=== PATIENT | female | born 1940 | race Caucasian/White ===

== ENCOUNTER 2018-05-20 10:15 | Outpatient (CLI) | END 2018-05-20 10:16 | disposition home or self-care (01) | LOC: LAB 10:15 | PROVIDERS: ATTEND Internal Medicine Cardiovascular Disease | DX: I50.32 Chronic diastolic (congestive) heart failure (principal); R06.09 Other forms of dyspnea; I25.10 Atherosclerotic heart disease of native coronary artery without angina pectoris; I47.2 Ventricular tachycardia; I50.40 Unspecified combined systolic (congestive) and diastolic (congestive) heart failure; I51.3 Intracardiac thrombosis, not elsewhere classified; I49.5 Sick sinus syndrome; I25.5 Ischemic cardiomyopathy; I49.3 Ventricular premature depolarization; I10 Essential (primary) hypertension; Z95.0 Presence of cardiac pacemaker; Z95.1 Presence of aortocoronary bypass graft | CPT/HCPCS: 36415; 85610 ==

== ENCOUNTER 2018-06-02 10:52 | Emergency (ER) | payer OTHER ==
[2018-06-02 11:13] VITALS: BP 104/64; TEMP 97.6; BMI 24.9
[2018-06-02] MEDS ORDERED: MORPHINE 4 MG/ML SYRINGE IM STA (11:48)
[2018-06-02] MEDS ORDERED: ZOFRAN 4 MG/2 ML IM STA (11:48)
--- NOTE | 2018-06-02 13:01 | ED.PDOC ---
General ED Provider: Dr. VERITO WILL Chief Complaint: Back Pain Stated Complaint: back pain chronic Time Seen by Physician: 11:00 (seen with david at all times ) Information Source: Patient Exam Limitations: No limitations Nursing and Triage Documentation Reviewed and Agree: Yes Does patient meet sepsis criteria?: No If yes, has appropriate treatment been initiated?: No System Inflammatory Response Syndrome: Not Applicable Sepsis Protocol: For patient's 13 years and over: Temp is 96.8 and below OR 101 and greater Pulse >90 BPM Resp >20/minute Acutely Altered Mental Status Are patient's symptoms suggestive of a new infection, such as: -Pneumonia -Skin, Soft Tissue -Endocarditis -UTI -Bone, Joint Infection -Implantable Device -Acute Abdominal Infection -Wound Infection -Meningitis -Blood Stream Catheter Infection -Unknown Musculoskeletal Complaint Exam - Back Pain Complaint/Exam Mechanism of Injury: Reports: No known trauma Onset/Duration: chronic issue flare up today Timing: Constant Episodes Lasting: Days Initial Severity: Moderate Current Severity: Moderate Location: Reports: Discrete Character: Reports: Aching Aggravating: Reports: Movements Alleviating: Reports: Rest Associated Signs and Symptoms: Denies: Swelling, Redness, Bruising, Fever, Weakness, Numbness, Tingling, Abdominal pain, Flank pain, Bladder incontinence, Bowel incontinence, Weight loss, Pain with weight bearing Related History: Reports: Similar episode TAD Risk Factors: Reports: Hypertension AAA Risk Factors: Reports: None, Hypertension Cauda Equina Risk Factors: Reports: None Epidural Abcess Risk Factors: Reports: None Related Surgical History: Reports: None Focal Tenderness: No Paraspinal Muscle Tenderness: No Paraspinal Muscle Spasm: No Scoliosis: No Lordosis: No Kyphosis: No SLR Test: Right Negative, Left Negative Hip Motion Testing Pain: Right Negative, Left Negative Focal Weakness: Present: None Focal Sensory Loss: Present: None Gait: Present: Normal Differential Diagnoses: Arthritis, Strain, Sprain Review of Systems - Review Of Systems Constitutional: Reports: No symptoms Eyes: Reports: No symptoms Ears, Nose, Mouth, Throat: Reports: No symptoms Respiratory: Reports: No symptoms Cardiac: Reports: No symptoms GI: Reports: No symptoms : Reports: No symptoms Musculoskeletal: Reports: Back pain Skin: Reports: No symptoms Neurological: Reports: No symptoms Endocrine: Reports: No symptoms Hematologic/Lymphatic: Reports: No symptoms All Other Systems: Reviewed and Negative Past Medical History - Past Medical History Previously Healthy: Yes Endocrine: Reports: Hypothyroid Cardiovascular: Reports: Hypertension Respiratory: Reports: None Hematological: Reports: None Gastrointestinal: Reports: None Genitourinary: Reports: None Neuro/Psych: Reports: None Musculoskeletal: Reports: None Cancer: Reports: None Last Menstrual Period: unknown - Surgical History General Surgical History: Reports: None - Family History Family History: Reports: None - Social History Smoking Status: Never smoker Hx Substance Use: No Alcohol Screening: None Physical Exam - Physical Exam Appearance: Well-appearing, No pain distress, Well-nourished Eyes: JOSE, EOMI, Conjunctiva clear ENT: Ears normal, Nose normal, Oropharynx normal Respiratory: Airway patent, Breath sounds clear, Breath sounds equal, Respirations nonlabored Cardiovascular: RRR, Pulses normal, No rub, No murmur GI/: Soft, Nontender, No masses, Bowel sounds normal, No Organomegaly Musculoskeletal: Normal strength, ROM intact, No edema, No calf tenderness Skin: Warm, Dry, Normal color Neurological: Sensation intact, Motor intact, Reflexes intact, Cranial nerves intact, Alert, Oriented Psychiatric: Affect appropriate, Mood appropriate Critical Care Note - Critical Care Note Total Time (mins): 0 Course - Course Orders, Labs, Meds: Orders Category Date Time Status Morphine Sulfate [Morphine 2 mg/ml Syringe] MEDS 06/02/18 13:17 Discontinued 2 mg IM ONCE STA Morphine Sulfate [Morphine 4 mg/ml Syringe] MEDS 06/02/18 11:48 Discontinued 4 mg IM ONCE STA Ondansetron HCl/Pf [Zofran 4 mg/2 ml] MEDS 06/02/18 11:48 Discontinued 4 mg IM ONCE STA CT LUMBAR SPINE W/O CONTRAST Stat RADS 06/02/18 11:[address] THORACIC SPINE W/O CONTRAST Stat RADS 06/02/18 11:49 Completed Medications Discontinued Medications Generic Name Dose Route Start Last Admin Trade Name Freq PRN Reason Stop Dose Admin Morphine Sulfate 4 mg 06/02/18 11:48 06/02/18 12:35 Morphine 4 Mg/Ml Syringe IM 06/02/18 11:49 4 mg ONCE STA Administration Morphine Sulfate 2 mg 06/02/18 13:17 06/02/18 13:25 Morphine 2 Mg/Ml Syringe IM 06/02/18 13:18 2 mg ONCE STA Administration Ondansetron HCl 4 mg 06/02/18 11:48 06/02/18 12:38 Zofran 4 Mg/2 Ml IM 06/02/18 11:49 Not Given ONCE STA Vital Signs: Temp Pulse Resp BP Pulse Ox 06/02/18 10:58 97.6 F 80 20 104/64 94 L Departure - Departure Time of Disposition: 14:00 Disposition: HOME SELF-CARE Discharge Problem: Backache Back pain Qualifiers: Back pain location: thoracic back pain Chronicity: chronic Back pain laterality : midline Qualified Code(s): M54.6 - Pain in thoracic spine Instructions: Acute Low Back Pain (ED), Arthralgia (ED), Back Pain (ED) Condition: Stable Pt referred to PMD for follow-up: Yes IPMP verified?: No Additional Instructions: Please call your Family Physician as soon as possible to schedule a follow-up appointment. Prescriptions: Hydrocodone/Acetaminophen [[place] 10-325 Tablet] 1 each PO Q8HR #7 tablet Allergies/Adverse Reactions: Allergies ampicillin Adverse Reaction (Verified 06/02/18 11:57) levofloxacin Adverse Reaction (Verified 06/02/18 11:57) metronidazole Adverse Reaction (Verified 06/02/18 11:57) ondansetron Adverse Reaction (Verified 06/02/18 11:57) oxcarbazepine [From Trileptal] Adverse Reaction (Verified 06/02/18 11:57) piperacillin Adverse Reaction (Verified 06/02/18 11:57) rifaximin Adverse Reaction (Verified 06/02/18 11:57) sulbactam Adverse Reaction (Verified 06/02/18 11:57) Sulfa (Sulfonamide Antibiotics) Adverse Reaction (Verified 06/02/18 11:57) tazobactam Adverse Reaction (Verified 06/02/18 11:57) tramadol Adverse Reaction (Verified 06/02/18 11:57) IV contrast dye Adverse Reaction (Uncoded 06/02/18 11:58) Home Medications: Ambulatory Orders Acetaminophen with Codeine [Acetaminophen-Cod #3 Tablet] 1 each PO BID 06/02/18 Albuterol Sulfate [Proair Hfa] 2 puff IH Q4H PRN 06/02/18 Alprazolam [Xanax] 0.25 mg PO BID PRN 06/02/18 Aspirin [Aspirin Chewable] 81 mg PO DAILY 06/02/18 Atorvastatin Calcium [Lipitor] 40 mg PO DAILY 06/02/18 Cetirizine HCl [Zyrtec] 10 mg PO DAILY 06/02/18 Cholecalciferol (Vitamin D3) [Vitamin D] 1,000 unit PO DAILY 06/02/18 Fluticasone Propionate [Flonase] 2 spray NS DAILY 06/02/18 Furosemide [Lasix] 40 mg PO DAILY 06/02/18 Hydrocodone/Acetaminophen [[place] 10-325 Tablet] 1 each PO Q8HR #7 tablet Isosorbide Mononitrate [Imdur] 30 mg PO DAILY 06/02/18 Isosorbide Mononitrate [Isosorbide Mononitrate ER] 60 mg PO DAILY 06/02/18 L.acidoph,Paracasei, B.lactis [Probiotic] 1 each PO DAILY 06/02/18 Levetiracetam [Keppra] 250 mg PO BID 06/02/18 Levothyroxine Sodium [Synthroid] 75 mcg PO QDAC 06/02/18 Lipase/Protease/Amylase [Creon Dr 6,000 Units Capsule] 6,000 units PO QID Losartan Potassium [Cozaar] 50 mg PO DAILY 06/02/18 Metoclopramide HCl [Reglan] 5 mg PO TID 06/02/18 Metoprolol Succinate [Toprol Xl] 50 mg PO BID 06/02/18 Montelukast Sodium [Singulair] 10 mg PO DAILY 06/02/18 Multivit-Min/FA/Lycopen/Lutein [Centrum Silver Tablet] 1 each PO DAILY 06/02/18 Nitroglycerin [Nitrostat] 0.4 mg SL Q5MIN X 3 DOSES PRN 06/02/18 Omeprazole [Prilosec] 20 mg PO QID 06/02/18 Spironolactone [Aldactone] 12.5 mg PO DAILY 06/02/18 Umeclidinium [place] [Incruse Ellipta] 62.5 mcg IH DAILY 06/02/18 Warfarin Sodium [Coumadin] 1 mg PO DAILY 06/02/18 Disposition Discussed With: Patient
--- NOTE | 2018-06-02 13:02 | CT ---
EXAM: CT lumbar spine without contrast. HISTORY: Lumbar pain COMPARISON: Same day CT thoracic spine TECHNIQUE: Serial axial images of the spine were obtained from the lower thoracic spine through the pelvis without contrast. These were viewed in multiple planes. FINDINGS: Vertebral bodies demonstrate no acute compression fracture or subluxation. There is a comp ression deformity at L1 with prior kyphoplasty/vertebraplasty with minimal extrusion of cement. Ther e is moderate scattered facet arthropathy. There is no lytic or blastic lesion. L1-L2: There is mild retrolisthesis of the compression fracture at L1 with no central narrowing. The re is no central or neural foraminal narrowing. L2-L3: Mild facet arthropathy with no central or neural foraminal narrowing. L3-L4: Mild facet arthropathy with no central or neural foraminal narrowing. L4-L5: Mild facet arthropathy with small broad-based disc bulge with no central or neural foraminal n arrowing. L5-S1: Small broad-based disc bulge and facet arthropathy with no central or neural foraminal narrowi ng. Limited views of the soft tissues are unremarkable. IMPRESSION: 1. Compression fracture and treatment at L1 with mild retrolisthesis but no central narrowing. 2. 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 Please see level by level evaluation above.
--- NOTE | 2018-06-02 13:09 | CT ---
EXAM: CT thoracic spine without contrast. HISTORY: Back pain. COMPARISON: None available. TECHNIQUE: Multiple axial images of the thoracic spine were obtained without intravenous contrast. Images were reformatted in the sagittal and coronal planes. FINDINGS: Exaggerated thoracic kyphosis noted due to mild T6, minimal T7, moderate T8, severe T9, mi ld T10, severe T11, severe T12, and severe L1 compression deformities which demonstrate smooth margin s. There has been cement fixation of L1. No retropulsion identified in the thoracic spine. There i s some retropulsion of L1 which probably flattens ventral thecal sac. No subluxation is seen. No si gnificant bony central canal stenosis identified in the thoracic spine. No acute rib fractures seen. There do appear to be some old right-sided rib fractures. There has be en previous sternotomy. Left-sided electronic cardiac device is partially imaged. Heart is enlarged . Moderate sized hiatal hernia noted. Subsegmental atelectasis noted in the lung base IMPRESSION: Multilevel thoracolumbar compression deformities as described which are probably old.
[2018-06-02] MEDS ORDERED: MORPHINE 2 MG/ML SYRINGE IM STA (13:17)
== END 2018-06-02 13:35 | disposition home or self-care (01) ==
LOC: ED 10:52
DX: M54.6 Pain in thoracic spine (principal); I10 Essential (primary) hypertension; Z79.01 Long term (current) use of anticoagulants; Z79.899 Other long term (current) drug therapy
CPT/HCPCS: 96372; 99283

== ENCOUNTER 2018-06-11 17:28 | Inpatient (IN) | payer OTHER ==
--- NOTE | 2018-06-11 19:04 | ED.PDOC ---
General ED Provider: Dr. LISA BOB-ER Chief Complaint: Back Pain Stated Complaint: my baCk hurts and i cant move and the pain meds arent working Time Seen by Physician: 19:03 Mode of Arrival: Walk-In Information Source: Patient Exam Limitations: No limitations Primary Care Provider: MELISSA HERRERA Nursing and Triage Documentation Reviewed and Agree: Yes Does patient meet sepsis criteria?: No System Inflammatory Response Syndrome: Not Applicable Sepsis Protocol: For patient's 13 years and over: Temp is 96.8 and below OR 101 and greater Pulse >90 BPM Resp >20/minute Acutely Altered Mental Status Are patient's symptoms suggestive of a new infection, such as: -Pneumonia -Skin, Soft Tissue -Endocarditis -UTI -Bone, Joint Infection -Implantable Device -Acute Abdominal Infection -Wound Infection -Meningitis -Blood Stream Catheter Infection -Unknown Musculoskeletal Complaint Exam - Back Pain Complaint/Exam Mechanism of Injury: Reports: Trauma, No known trauma Symptoms Are: Still present Timing: Constant Initial Severity: Mild Current Severity: Moderate Location: Reports: Discrete Character: Reports: Dull, Aching Aggravating: Reports: Movements, Lifting, Bending, Walking Alleviating: Reports: None Associated Signs and Symptoms: Denies: Swelling, Redness, Bruising, Fever, Weakness, Numbness, Tingling, Abdominal pain, Flank pain, Bladder incontinence, Bowel incontinence, Weight loss, Pain with weight bearing Focal Tenderness: Yes Paraspinal Muscle Tenderness: Yes Paraspinal Muscle Spasm: No Scoliosis: No Lordosis: No Kyphosis: No SLR Test: Right Negative, Left Negative Hip Motion Testing Pain: Right Negative, Left Negative Focal Weakness: Present: None Focal Sensory Loss: Present: None Gait: Present: Normal Differential Diagnoses: Fracture, Herniated Disk, Strain, Sprain Review of Systems - Review Of Systems Constitutional: Reports: No symptoms Eyes: Reports: No symptoms Ears, Nose, Mouth, Throat: Reports: No symptoms Respiratory: Reports: No symptoms Cardiac: Reports: No symptoms GI: Reports: No symptoms : Reports: No symptoms Musculoskeletal: Reports: Back pain Skin: Reports: No symptoms Neurological: Reports: No symptoms Endocrine: Reports: No symptoms Hematologic/Lymphatic: Reports: No symptoms All Other Systems: Reviewed and Negative Past Medical History - Past Medical History Previously Healthy: Yes Endocrine: Reports: Hypothyroid Cardiovascular: Reports: Hypertension Respiratory: Reports: None Hematological: Reports: None Gastrointestinal: Reports: None Genitourinary: Reports: None Neuro/Psych: Reports: None Musculoskeletal: Reports: None Cancer: Reports: None Last Menstrual Period: hysterectomy - Surgical History General Surgical History: Reports: None - Family History Family History: Reports: None - Social History Smoking Status: Never smoker Hx Substance Use: No Alcohol Screening: None Physical Exam - Physical Exam Appearance: Well-appearing, No pain distress, Well-nourished Pain Distress: Moderate Eyes: JOSE, EOMI, Conjunctiva clear ENT: Ears normal, Nose normal, Oropharynx normal Neck: Supple Respiratory: Airway patent, Breath sounds clear, Breath sounds equal, Respirations nonlabored Cardiovascular: RRR, Pulses normal, No rub, No murmur GI/: Soft, Nontender, No masses, Bowel sounds normal, No Organomegaly Musculoskeletal: Limited ROM Skin: Warm, Dry, Normal color Neurological: Sensation intact Psychiatric: Affect appropriate, Mood appropriate Interpretation - Radiology Interpretation Radiology Interpretation By: Radiologist Radiology Results: Positive Exam Interpreted: CT Scan Physician Notification - Case Discussed Physician Notified: dr herrera Time of Notification: 19:56 Critical Care Note - Critical Care Note Total Time (mins): 0 Course - Course Hematology/Chemistry: 06/11/18 18:48 06/11/18 18:48 Orders, Labs, Meds: Lab Review 06/11/18 06/11/18 06/11/18 18:32 18:48 18:48 WBC 6.09 RBC 3.59 L Hgb 10.9 L Hct 32.0 L MCV 89.1 MCH 30.4 MCHC 34.1 RDW Coeff of [place] 12.5 Plt Count 229 Immature Gran % (Auto) 0.3 Neut % (Auto) 67.2 Lymph % (Auto) 17.1 [place] % (Auto) 13.8 H Eos % (Auto) 1.3 Baso % (Auto) 0.3 Immature Gran # (Auto) 0.0 Neut # (Auto) 4.1 Lymph # (Auto) 1.0 [place] # (Auto) 0.8 Eos # (Auto) 0.1 Baso # (Auto) 0.0 Sodium 132.0 L Potassium 3.70 Chloride 95.1 L Carbon Dioxide 32.1 H Anion Gap 8.50 BUN 13.8 Creatinine 1.14 Estimated GFR (MDRD) 46.00 BUN/Creatinine Ratio 12.10 Glucose 117.6 H Calcium 9.19 Total Bilirubin 0.36 AST 52.6 H ALT 13.3 Alkaline Phosphatase 80.1 Total Protein 7.56 Albumin 4.05 Globulin 3.51 Albumin/Globulin Ratio 1.15 Urine Color Yellow Urine Clarity Clear Urine pH 6.0 Ur Specific [place] 1.020 Urine Protein Negative Urine Glucose (UA) Negative Urine Ketones Negative Urine Blood Trace-intact Urine Nitrite Negative Urine Bilirubin Negative Urine Urobilinogen 0.2 Ur Leukocyte Esterase 3+ Urine Microscopic RBC 2-5 Urine Microscopic WBC 20-30 Ur Squamous Epith Cells 5-10 Urine Bacteria Trace Orders Category Date Time Status EKG-(ED ONLY) Stat CARDIO 06/11/18 18:33 Completed CBC W/ AUTO DIFF Stat LAB 06/11/18 18:48 Completed COMPREHENSIVE METABOLIC PANEL Stat LAB 06/11/18 18:48 Completed UA [URINALYSIS C & S IF INDICATED] Stat LAB 06/11/18 18:32 Completed URINE CULTURE Stat LAB 06/11/18 18:[address] CHEST W/O CONTRAST Stat RADS 06/11/18 18:[address] THORACIC SPINE W/O CONTRAST Stat RADS 06/11/18 18:33 Completed Vital Signs: Temp Pulse Resp BP Pulse Ox 06/11/18 17:29 98.3 F 70 16 148/80 H 95 Departure - Departure Time of Disposition: 19:56 Disposition: ADMITTED INPATIENT Discharge Problem: Thoracic compression fracture Qualifiers: Encounter type: initial encounter Fracture type: closed Qualified Code(s): S22.000A - Wedge compression fracture of unspecified thoracic vertebra, initial encounter for closed fracture Instructions: Vertebral Compression Fracture (ED) Condition: Stable Pt referred to PMD for follow-up: Yes IPMP verified?: No Allergies/Adverse Reactions: Allergies ampicillin Adverse Reaction (Verified 06/11/18 17:44) levofloxacin Adverse Reaction (Verified 06/11/18 17:44) metronidazole Adverse Reaction (Verified 06/11/18 17:44) ondansetron Adverse Reaction (Verified 06/11/18 17:44) oxcarbazepine [From Trileptal] Adverse Reaction (Verified 06/11/18 17:44) piperacillin Adverse Reaction (Verified 06/11/18 17:44) rifaximin Adverse Reaction (Verified 06/11/18 17:44) sulbactam Adverse Reaction (Verified 06/11/18 17:44) Sulfa (Sulfonamide Antibiotics) Adverse Reaction (Verified 06/11/18 17:44) tazobactam Adverse Reaction (Verified 06/11/18 17:44) tramadol Adverse Reaction (Verified 06/11/18 17:44) IV contrast dye Adverse Reaction (Uncoded 06/02/18 11:58) Home Medications: Ambulatory Orders Acetaminophen with Codeine [Acetaminophen-Cod #3 Tablet] 1 each PO BID 06/02/18 Albuterol Sulfate [Proair Hfa] 2 puff IH Q4H PRN 06/02/18 Alprazolam [Xanax] 0.25 mg PO BID PRN 06/02/18 Aspirin [Aspirin Chewable] 81 mg PO DAILY 06/02/18 Atorvastatin Calcium [Lipitor] 40 mg PO DAILY 06/02/18 Cetirizine HCl [Zyrtec] 10 mg PO DAILY 06/02/18 Cholecalciferol (Vitamin D3) [Vitamin D] 1,000 unit PO DAILY 06/02/18 Fluticasone Propionate [Flonase] 2 spray NS DAILY 06/02/18 Furosemide [Lasix] 40 mg PO DAILY 06/02/18 Isosorbide Mononitrate [Imdur] 30 mg PO DAILY 06/02/18 Isosorbide Mononitrate [Isosorbide Mononitrate ER] 60 mg PO DAILY 06/02/18 L.acidoph,Paracasei, B.lactis [Probiotic] 1 each PO DAILY 06/02/18 Levetiracetam [Keppra] 250 mg PO BID 06/02/18 Levothyroxine Sodium [Synthroid] 75 mcg PO QDAC 06/02/18 Lipase/Protease/Amylase [Creon Dr 6,000 Units Capsule] 6,000 units PO QID Losartan Potassium [Cozaar] 50 mg PO DAILY 06/02/18 Metoclopramide HCl [Reglan] 5 mg PO TID 06/02/18 Metoprolol Succinate [Toprol Xl] 50 mg PO BID 06/02/18 Montelukast Sodium [Singulair] 10 mg PO DAILY 06/02/18 Multivit-Min/FA/Lycopen/Lutein [Centrum Silver Tablet] 1 each PO DAILY 06/02/18 Nitroglycerin [Nitrostat] 0.4 mg SL Q5MIN X 3 DOSES PRN 06/02/18 Omeprazole [Prilosec] 20 mg PO QID 06/02/18 Spironolactone [Aldactone] 12.5 mg PO DAILY 06/02/18 Umeclidinium [place] [Incruse Ellipta] 62.5 mcg IH DAILY 06/02/18 Warfarin Sodium [Coumadin] 1 mg PO DAILY 06/02/18 Hydrocodone Bit/Acetaminophen [[place] 5-325] 1 each PO BID 06/11/18 Transfer Form Completed: No Disposition Discussed With: Patient, Family
--- NOTE | 2018-06-11 19:47 | CT ---
EXAM: CT thoracic spine without intravenous contrast 06/11/2018. Sagittal and coronal reformatted i mages obtained HISTORY: Back pain COMPARISON: 06/02/2018 FINDINGS: There has been previous cement fixation at the level of L1. Compression fractures are pre sent at T12, T11, T10, T9, T8, T7 and T6. The T6 compression fracture has worsened as compared to the prior study. There is up to approximatel y 50% loss of vertebral body height within the central aspect of T6. The remaining thoracic fractures appears similar in configuration as compared to the prior study. IMPRESSION: 1. Acute on chronic T6 fracture. Compression fracture has worsened as compared to the prior study. 2. Stable appearing compression fractures at the levels of T7-T12. 3. Prior cement fixation at the level of L1.
--- NOTE | 2018-06-11 19:48 | CT ---
EXAM: CT chest without contrast HISTORY: Rib pain COMPARISON: CT thoracic spine 06/02/2018 TECHNIQUE: CT chest performed without intravenous contrast. Coronal and sagittal reformatted images obtained. FINDINGS: Thoracic inlet unremarkable. Heart mildly enlarged. Cardiac pacer. Post CABG changes. Aorta normal in caliber. Mild atherosclerosis. Moderate hiatal hernia. Evaluation for lymphadenopa thy limited without contrast. No lymphadenopathy identified. Patient status post cholecystectomy. Granulomatous calcification in the spleen. Visualized portion upper abdomen demonstrates no acute ab normality. There is kyphoplasty at L1. There are compression fractures of T6, T7, T7, T8, T9, T10, T11, T12 that are grossly unchanged. Mild retropulsion L1 causing mild central canal narrowing is gr ossly unchanged. Median sternotomy wires. Nonspecific sclerosis right lateral eighth rib eighth an d ninth ribs that may be due to old trauma. Fracture of the left posterior 11th rib with callus form ation, likely may be subacute or chronic. Central airway patent. . No pleural effusion or pneumotho rax. Right basilar atelectasis and/or consolidation. Mild left basilar atelectasis. IMPRESSION: 1. Right basilar atelectasis and/or pneumonia. Mild left basilar atelectasis. 2. Cardiomegaly. Cardiac pacer. Post CABG changes. 3. Moderate hiatal hernia 4. Kyphoplasty L1. Multilevel compression fractures are grossly unchanged from 06/02/2018. 5. Nonspecific sclerosis right lateral eighth rib eighth and ninth ribs that may be due to old trauma . Fracture of the left posterior 11th rib with callus formation, likely may be subacute or chronic.
[2018-06-11] MEDS ORDERED: XANAX PO PRN (20:00)
[2018-06-11] MEDS ORDERED: PROAIR HFA IH PRN (20:00)
[2018-06-11] MEDS ORDERED: NITROSTAT SL PRN (20:00)
[2018-06-11] MEDS ORDERED: [UNRECOGNIZED DRUG - OTHER] PO SCH (21:00)
[2018-06-11] MEDS ORDERED: PROTEASE PO SCH (21:00)
[2018-06-11] MEDS ORDERED: NORCO 5-325 PO SCH (21:00)
[2018-06-11] MEDS ORDERED: METOCLOPRAMIDE HCL 5 MG PO SCH (21:00)
[2018-06-11] MEDS ORDERED: AMYLASE PO SCH (21:00)
[2018-06-11] MEDS ORDERED: PRILOSEC PO SCH (21:00)
[2018-06-11] MEDS ORDERED: LEVETIRACETAM 250 MG PO SCH (21:00)
[2018-06-11] MEDS ORDERED: TYLENOL #3 TAB PO SCH (21:00)
[2018-06-11] MEDS ORDERED: LIPASE PO SCH (21:00)
[2018-06-11 22:28] VITALS: BMI 22.4
[2018-06-11] MEDS ORDERED: PRILOSEC ONE (22:41)
[2018-06-11] MEDS ORDERED: KEPPRA ONE (22:43)
[2018-06-11] MEDS ORDERED: CREON DR 12,000 UNITS CAPSULE ONE (22:44)
[2018-06-11] MEDS: REGLAN ONE ×2 (22:50→23:11)
[2018-06-11] MEDS: TOPROL XL PO SCH (22:50)
[2018-06-11] MEDS: MORPHINE 2 MG/ML SYRINGE IVP PRN (22:52)
[2018-06-12] MEDS: MORPHINE 2 MG/ML SYRINGE IVP PRN (03:21)
[2018-06-12] MEDS ORDERED: SYNTHROID ONE ×2 (06:16)
[2018-06-12] MEDS: SYNTHROID PO SCH (06:18)
[2018-06-12] MEDS ORDERED: NORCO 5-325 PO PRN (07:53)
[2018-06-12] MEDS ORDERED: TYLENOL #3 TAB PO PRN (07:53)
[2018-06-12] MEDS: VITAMIN D PO SCH (08:39)
[2018-06-12] MEDS: ALDACTONE PO SCH (08:40)
[2018-06-12] MEDS: SINGULAIR PO SCH (08:41)
[2018-06-12] MEDS: LASIX TAB PO SCH (08:41)
[2018-06-12] MEDS: PRILOSEC PO SCH ×2 (08:41→16:02)
[2018-06-12] MEDS: ASPIRIN CHEWABLE PO SCH (08:41)
[2018-06-12] MEDS: FLORASTOR PO SCH (08:41)
[2018-06-12] MEDS: LIPITOR PO SCH (08:41)
[2018-06-12] MEDS: COZAAR PO SCH (08:42)
[2018-06-12] MEDS: AMYLASE PO SCH ×4 (08:42→20:23)
[2018-06-12] MEDS: PROTEASE PO SCH ×4 (08:42→20:23)
[2018-06-12] MEDS: [UNRECOGNIZED DRUG - OTHER] PO SCH ×4 (08:42→20:23)
[2018-06-12] MEDS: KEPPRA PO SCH ×2 (08:42→20:23)
[2018-06-12] MEDS: IMDUR PO SCH (08:42)
[2018-06-12] MEDS: LIPASE PO SCH ×4 (08:42→20:23)
[2018-06-12] MEDS: NON-FORMULARY MEDICATION (Umeclidinium Bromide [Incruse Ellipta] 62.5 MCG) IH SCH (08:43)
[2018-06-12] MEDS: REGLAN PO SCH ×3 (08:55→16:45)
[2018-06-12] MEDS: MULTIVITAMIN TABLET PO SCH (08:55)
[2018-06-12] MEDS ORDERED: IMDUR PO SCH ×2 (09:00)
[2018-06-12] MEDS ORDERED: NON-FORMULARY MEDICATION (Multivit-Min/Fa/Lycopen/Lutein [Centrum Silver Tablet] 1 EACH) PO SCH (09:00)
[2018-06-12] MEDS ORDERED: LASIX TAB PO SCH (09:00)
[2018-06-12] MEDS ORDERED: NON-FORMULARY MEDICATION (Atorvastatin Calcium [Lipitor] 40 MG) PO SCH (09:00)
[2018-06-12] MEDS ORDERED: COUMADIN PO SCH (09:00)
[2018-06-12] MEDS ORDERED: COZAAR PO SCH (09:00)
[2018-06-12] MEDS ORDERED: NON-FORMULARY MEDICATION (L.Acidoph,Paracasei, B.Lactis [Probiotic] 1 EACH) PO SCH (09:00)
[2018-06-12] MEDS ORDERED: NON-FORMULARY MEDICATION (Isosorbide Mononitrate [Isosorbide Mononitrate Er] 60 MG) PO SCH (09:00)
[2018-06-12] MEDS: TOPROL XL PO SCH ×2 (09:44→10:11)
[2018-06-12] MEDS: TORADOL IVP SCH ×2 (13:20→20:22)
[2018-06-12] MEDS: TYLENOL #3 TAB PO PRN (16:00)
[2018-06-12] MEDS: COUMADIN PO SCH (16:02)
[2018-06-13] MEDS: TYLENOL #3 TAB PO PRN ×4 (03:07→22:49)
[2018-06-13] MEDS: TORADOL IVP SCH ×3 (05:43→20:27)
[2018-06-13] MEDS: LASIX TAB PO SCH (05:44)
[2018-06-13] MEDS: PRILOSEC PO SCH ×2 (05:44→16:44)
[2018-06-13] MEDS: REGLAN PO SCH ×3 (05:44→16:43)
[2018-06-13] MEDS: SYNTHROID PO SCH (05:44)
[2018-06-13] MEDS: ALDACTONE PO SCH (10:15)
[2018-06-13] MEDS: ASPIRIN CHEWABLE PO SCH (10:16)
[2018-06-13] MEDS: KEPPRA PO SCH ×2 (10:16→20:24)
[2018-06-13] MEDS: COZAAR PO SCH (10:16)
[2018-06-13] MEDS: TOPROL XL PO SCH (10:16)
[2018-06-13] MEDS: LIPITOR PO SCH (10:16)
[2018-06-13] MEDS: SINGULAIR PO SCH (10:16)
[2018-06-13] MEDS: FLORASTOR PO SCH (10:17)
[2018-06-13] MEDS: AMYLASE PO SCH ×4 (10:17→20:25)
[2018-06-13] MEDS: MULTIVITAMIN TABLET PO SCH (10:17)
[2018-06-13] MEDS: PROTEASE PO SCH ×4 (10:17→20:25)
[2018-06-13] MEDS: VITAMIN D PO SCH (10:17)
[2018-06-13] MEDS: [UNRECOGNIZED DRUG - OTHER] PO SCH ×4 (10:17→20:25)
[2018-06-13] MEDS: LIPASE PO SCH ×4 (10:17→20:25)
[2018-06-13] MEDS: IMDUR PO SCH (10:17)
[2018-06-13] MEDS: NON-FORMULARY MEDICATION (Umeclidinium Bromide [Incruse Ellipta] 62.5 MCG) IH SCH (10:18)
[2018-06-13] MEDS ORDERED: LOVENOX SUBCUT STA (11:56)
[2018-06-13] MEDS: COUMADIN PO SCH (16:44)
[2018-06-13] MEDS ORDERED: COUMADIN PO ONE (17:00)
[2018-06-14] MEDS: TORADOL IVP SCH ×3 (04:11→20:12)
[2018-06-14] MEDS: LASIX TAB PO SCH (06:30)
[2018-06-14] MEDS: SYNTHROID PO SCH (06:30)
[2018-06-14] MEDS: REGLAN PO SCH (06:31)
[2018-06-14] MEDS: PRILOSEC PO SCH ×2 (06:31→17:14)
[2018-06-14] MEDS: TYLENOL #3 TAB PO PRN ×2 (08:03→17:13)
[2018-06-14] MEDS ORDERED: DECADRON 4 MG/ML SDV IM STA (08:13)
[2018-06-14] MEDS ORDERED: REGLAN PO PRN (08:14)
--- NOTE | 2018-06-14 09:33 | PCM.PROG ---
Attending Provider: ATTENDING PROVIDER: Dr. MELISSA HERRERA This patient is seen with Charmaine Toussaint, Nurse Practitioner. DATE OF SERVICE: 06/14/18 SUBJECTIVE: This 78 year old WHITE/ F was hospitalized 06/11/18. The patient is lying in bed, alert. She is still complaining of back pain, which is slightly better. She has history of compression fractures, history of fracture and kyphoplasty. The patient is new to the area. Will plan on referring her to neurosurgery for worsening symptoms. The patient states that Tylenol 3 controls her pain more than [place]. REVIEW OF SYSTEMS: CONSTITUTIONAL: No night sweats. No fatigue, malaise, lethargy. No fever or chills. HEENT: Eyes: No visual changes. No eye pain. No eye discharge. ENT: No runny nose. No epistaxis. No sinus pain. No odynophagia. No congestion. RESPIRATORY: No cough, no congestion. No hemoptysis. No shortness of breath. CARDIOVASCULAR: No angina symptoms. No CHF symptoms. No atypical chest pain for CAD. No palpitations. No orthopnea.. GASTROINTESTINAL: No abdominal pain. No nausea or vomiting. No diarrhea or constipation. No hematemesis. No hematochezia. GENITOURINARY: No urgency. No frequency. No dysuria. No hematuria. No obstructive symptoms. No discharge. No pain. No significant abnormal bleeding. MUSCULOSKELETAL: Back pain. NEUROLOGICAL: Awake, alert, oriented to time, place and person. No headache. No neck pain. No syncope. No seizures. No dizziness. PSYCHIATRIC: Not anxious. No depression. No suicidal thoughts. No homicidal thoughts. SKIN: No rash. No lesions. No wounds. ENDOCRINE: No unexplained weight loss. No weight gain. HEMATOLOGIC/LYMPHATIC: No anemia. No purpura. No petechiae. No prolonged or excessive bleeding. No palpable lymph nodes. PHYSICAL EXAMINATION: GENERAL: The patient is awake, alert and oriented, lying in bed in no distress. VITAL SIGNS: Temperature 98.9 F, Pulse 78, Respiratory Rate 18, BP 112/72, Pulse Ox 96% HEENT: Head normocephalic, atraumatic. Eyes: Extraocular muscles are intact. Pupils are equal, round and reactive to light and accommodation. Ears: No lesions. Nose appeared normal. Throat: No exudate or erythema. NECK: Supple. No JVD, no carotid bruit. No lymphadenopathy or thyromegaly. LUNGS: Diminished breath sounds. Clear to auscultation. Percussion note normal. Chest symmetrical. HEART: S1, S2, no S3. No murmurs. No cyanosis or clubbing. No ascites. Pulses: Dorsalis pedis and posterior tibial pulses +1 to +2 both sides. ABDOMEN: Soft. Non-tender. Bowel sounds active. No CVA tenderness. No mass felt. EXTREMITIES: No edema. Full range of motion of all extremities, equal. NEUROLOGIC: No focal deficit. Cranial nerves II through XII are grossly intact. No headache, no double vision or headache. SKIN: Not dry. Intact. Turgor-normal. LYMPHATIC: No palpable lymph nodes/no lymphedema. MUSCULOSKELETAL: Normal joints with no swelling. Muscle tone is normal. LAB REVIEW: 06/13/18 04:30 06/13/18 04:30 06/14/18 05:00: PT 17.4 H D, INR 1.77 ASSESSMENT: 1. INTRACTABLE BACK PAIN. 2. MULTILEVEL COMPRESSION FRACTURES. 3. ATRIAL FIBRILLATION. PLAN: 1. Reglan p.r.n. 2. 1 cc Decadron today. 3. Refer to Dr. Ardon/Dr. Adair as outpatient. Plan and coordination of the patient's care discussed in the presence of [employer] and nurse. CONDITION: Stable SCRIBED BY: Keaton PERDOMO scribed while in presence of service performed by Dr. Herrera/Charmaine Toussaint APRN on 06/14/18 ([id number])
[2018-06-14] MEDS ORDERED: IMDUR ONE (09:41)
[2018-06-14] MEDS: AMYLASE PO SCH ×4 (09:50→20:13)
[2018-06-14] MEDS: LIPASE PO SCH ×4 (09:50→20:13)
[2018-06-14] MEDS: [UNRECOGNIZED DRUG - OTHER] PO SCH ×4 (09:50→20:13)
[2018-06-14] MEDS: PROTEASE PO SCH ×4 (09:50→20:13)
[2018-06-14] MEDS: FLORASTOR PO SCH (09:51)
[2018-06-14] MEDS: IMDUR PO SCH (09:52)
[2018-06-14] MEDS: ASPIRIN CHEWABLE PO SCH (09:53)
[2018-06-14] MEDS: SINGULAIR PO SCH (09:53)
[2018-06-14] MEDS: ALDACTONE PO SCH (09:54)
[2018-06-14] MEDS: MULTIVITAMIN TABLET PO SCH (09:55)
[2018-06-14] MEDS: COZAAR PO SCH (09:55)
[2018-06-14] MEDS: KEPPRA PO SCH ×2 (09:56→20:12)
[2018-06-14] MEDS: TOPROL XL PO SCH (09:57)
[2018-06-14] MEDS: VITAMIN D PO SCH (09:57)
[2018-06-14] MEDS ORDERED: LIPITOR ONE (10:04)
[2018-06-14] MEDS: LIPITOR PO SCH (10:06)
[2018-06-14] MEDS: NON-FORMULARY MEDICATION (Umeclidinium Bromide [Incruse Ellipta] 62.5 MCG) IH SCH (10:08)
--- NOTE | 2018-06-14 10:13 | RS.PTINEVL ---
Subjective - Patient information Date of Evaluation: 06/14/18 Date of Arrival on Unit: 06/11/18 Admitted From:: Home Diagnosis: intractable back pain Usual Living Arrangement: [facility] [place] Living Arrangement Comments: Shares apt with dtr at [facility]. Home Environment: Apartment, Level/No stairs Medical History: Arthritis Medical History Comments:: seizures, osteoporosis, anxiety, hypothyroid, GERD, Fx LLE with contracture LATEX ALLERGY?: No Surgical History: CABG Medications: see chart Subjective Information/ Patient Comments:: pt states that she is hurting, states pain is worse with movement. - Level of function Prior to this admission, the patient could do the following:: Independent ADL's , Independent Ambulation Abilities prior to this admission: pt amb with rwx independently Current Level of Function: Independent Current Equipment Used at Home: rolling walker, cane, BSC Pain Assessement - Location upper back pain Description: Aching Intensity: 5 (increases to 8/10 with movement) Pain Behavior: Irritability, Facial Grimacing Pain Aggravating Factors: ADL's, Changing Position, Exercise/Activity, Standing , Sitting, Walking Pain Alleviating Factors: Ice, Medication Interventions - Objective Patient Orientation: Person, Place, Time, Situation Current Interventions: IV's Range of Motion - ROM Right Upper Extremity AROM: WFL's Left Upper Extremity AROM: WFL's Right Lower Extremity AROM: WFL's Left Lower Extremity AROM: WFL's Muscle Strength - Muscle Strength Right Upper Extremity Strength: Mild Weakness (difficult to MMT due to pain, atleast 3/5) Left Upper Extremity Strength: Mild Weakness (hip flex 4-/5, knee flex/ext 4-/5 , ankle DF/PF 4/5) Right Lower Extremity Strength: Mild Weakness (grossly 4-/5) Left Lower Extremity Strength: Mild Weakness (hip flex) Sensation - Sensation Right Upper Extremity Sensation: Intact/Normal Left Upper Extremity Sensation: Intact/Normal Right Lower Extremity Sensation: Intact/Normal Left Lower Extremity Sensation: Intact/Normal Palpation Palpation Findings: Tenderness, Muscle Guarding Comments:: tenderness and muscle guarding noted in R side of ribs. Balance - Sitting Balance and Reactions Static Sitting Balance: Good Dynamic Sitting Balance: Good - Standing Balance and Reactions Static Standing Balance: Fair Dynamic Standing Balance: Poor Standing Equilibrium Reactions: Delayed Left, Delayed Right Standing Protective Reactions: Delayed Left, Delayed Right Functional Mobility - Bed Mobility Rolling R/L: CGA Scooting: Min Assist Supine to Sit: CGA Sit to Supine: Min Assist - Transfers Sit to Stand: CGA Stand to Sit: CGA - Safety Awareness Safety Awareness: Good PAKNAJ INDEX SCORE: n/a Ambulation - Ambulation Assistive Device Used: Rolling Walker Orthotic/Prosthetic Device: No Distance: 40ft Assistance needed with Ambulation: CGA Gait Deviations: Narrow Based gait, Forward posture, Short stride Ambulation Comments: pt requires verbal cues for posture and step length Treatment time - Time with patient Length of Evaluation: 24 Total treatment time: 26 Patient Education - Education Patient Education: Activity Modification, Education of Plan of Care Teaching Recipient: Patient Teaching Methods: Discussion Comments: discussion and POC regarding POC as well positioning for pain relief Assessment - Assessment Problem List:: Decreased level of function, Requires training/education, Decreased safety/Risk of falls, Weakness, Pain limits previous level of function Rehab Potential: Good Further Therapy Indicated?: Yes Candidate for Swing Bed for Therapy Services?: pt may be a candidate for swing bed . Evaluation Complexity: HISTORY: Medium (OA, osteoporosis, anxiety, thor com fx) , EXAM OF BODY SYSTEMS: Medium (pain, transfers, bed mobility, gait), CLINICAL PRESENTATION: Medium (evolving), CLINICAL DECISION MAKING: Medium Short Term Goals GOAL #1: pt demonstrate independence with rolling and scooting up in bed. Goal to be met by: 06/16/18 GOAL #2: pt trasnfer sup to/from sit SBA sit to/from stand CGA Goal to be met by: 06/16/18 GOAL #3: pt amb with rwx 100ft with CGA improved posture and no LOB Goal to be met by: 06/16/18 GOAL #4: pt rate pain <5/10 Goal to be met by: 06/16/18 Saw Superintendent Goals GOAL #1: pt transfer sup to/from sit independently sit to/from stand SBA Goal to be met by: 06/19/18 GOAL #2: pt amb functional household distance with rwx with SBA with no LOB Goal to be met by: 06/19/18 GOAL #3: Improve dyn stand balance fair + with rwx Goal to be met by: 06/19/18 Plan Plan of Care: Therapeutic EX, Therapeutic Activity Modalities: Cold Pack/Cryotherapy Other:: gait training Frequency of Treatment: 1-2 X day, as tolerated Duration of Treatment: 6 days Anticipated Discharge Destination: [place] Treatment Diagnosis (ICD 10 Codes): R26.2 difficulty walking. R 26.81 balance impaired. M 62.81 weakness Has the Physician been added for Co-signature?: Yes
--- NOTE | 2018-06-14 11:38 | RS.OTINEVL ---
Subjective - Patient information Date of Evaluation: 06/14/18 Date of Arrival on Unit: 06/11/18 Admitted From:: Home Usual Living Arrangement: [facility] Living Arrangement Comments: Shares apt with dtr at [place]. Home Environment: Apartment, Level/No stairs Medical History: Arthritis Medical History Comments:: seizures, osteoporosis, anxiety, hypothyroid, GERD, Fx LLE with contracture LATEX ALLERGY?: No Surgical History: CABG Medications: see chart Subjective Information/ Patient Comments:: "I have been to the bathroom this morning." "I have eaten alot for me." - Level of function Prior to this admission, the patient could do the following:: Independent ADL's , Independent Ambulation Abilities prior to this admission: Pt walked with a RW and was helping her daughter take care of herself. Pt is living at [facility] which is independent living. Pt was independent with all ADLS prior to admission. Current Level of Function: Independent Current Equipment Used at Home: rolling walker, cane, BSC Pain Assessment - Pain Pain Score: 5 Side: bilateral Pain Location Body Site: Back Pain Aggravating Factors: ADL's, Changing Position, Exercise/Activity, Standing , Walking Pain Alleviating Factors: Ice, Medication, Position Change, Sitting, Standing, Lying Supine Interventions - Objective Patient Orientation: Person, Place, Time, Situation Current Interventions: IV's, Oxygen Observation: Pt is in 8/10 pain when moving and walking. Interventions - ROM Right Upper Extremity AROM: Slight limitation Left Upper Extremity AROM: Slight limitation - Strength Right Upper Extremity Strength: Mild Weakness Left Upper Extremity Strength: Mild Weakness - Sensation Right Upper Extremity Sensation: Intact/Normal Left Upper Extremity Sensation: Intact/Normal Balance - Sitting Balance Static Sitting Balance: Good Dynamic Sitting Balance: Good - Standing Balance Static Standing Balance: Fair Dynamic Standing Balance: Fair - Comments Balance Assessment Comments: Fair ADL Skills - Self Feeding Self Feeding: Independent - Grooming Grooming: Supervision - Bathing Bathing UE: CGA Bathing LE: CGA - Dressing Dressing UE: Min Assist Dressing LE: Min Assist - Toilet Management Toileting Management: CGA Functional Mobility - Bed Mobility Rolling R/L: CGA Scooting: CGA Supine to Sit: CGA Sit to Supine: CGA - Transfers Sit to Stand: CGA Stand to Sit: CGA Stand Pivot Transfers: CGA - Ambulation Weight Bearing Status: FWB Assistive Device Used: Rolling Walker Assistance needed with Ambulation: CGA - Safety Awareness Safety Awareness: Good PANKAJ INDEX SCORE: . Additional Treatment Performed - Time with patient Length of Evaluation: 25 Total treatment time: 25 Activities Do you enjoy playing games?: Yes Would you be interested in leaving your room for activities?: Yes Would you enjoy group activities?: Yes Do you have difficulty with your vision?: Yes Patient Interests:: Watching Television, Puzzles/Games, Visiting/Socializing Patient Education Patient Education: Education of diagnosis, Home Exercise Program, Education of Plan of Care Teaching Recipient: Patient Teaching Methods: Discussion Assessment Problem List:: Decreased level of function Rehab Potential: Good Candidate for Swing Bed for Therapy Services?: yes Evaluation Complexity: HISTORY: Medium, EXAM OF BODY SYSTEMS: Medium, CLINICAL DECISION MAKING: Medium Short Term Goals - Goals GOAL 1: Pt to increase I sit to stand to SUP. Goal to be met by: 06/18/18 GOAL 2: Pt to increase dyn. std. bal. to Fair+. Goal to be met by: 06/18/18 GOAL 3: Pt to increase activity tolerance to 15 minutes for ADLS. Goal to be met by: 06/18/18 Residential Goals GOAL 1: Pt to increase I sit to stand to Mod-I. Goal to be met by: 06/23/18 GOAL 2: Pt to increase dyn. std. bal. to Good-. Goal to be met by: 06/23/18 GOAL 3: Pt to increase activity tolerance to 20 minutes for ADLS. Goal to be met by: 06/23/18 Plan Plan of Care: Therapeutic EX, Neuromuscular Re-Educ, Therapeutic Activity, Self- Care/Home Management Modalities: Cold Pack/Cryotherapy Frequency of Treatment: 1-2 X day, as tolerated Duration of Treatment: 2 Weeks Anticipated Discharge Destination: Home Treatment Diagnosis (ICD 10 Codes): Muscle Weakness M62.81, Z74.1 Need for assistance with personal care, Z74.0 Reduced mobility. Has the Physician been added for Co-signature?: Yes
--- NOTE | 2018-06-14 13:54 | PN ---
DATE OF SERVICE: 06/12/18 SUBJECTIVE: 78-year-old white female hospitalized with intractable back pain. The patient has T6 compression fracture to be new. The patient's neurological status is normal. She is moving all of her extremities. She is oriented to time, place and person, intelligent. Discussing politics appropriately. REVIEW OF SYSTEMS: CONSTITUTIONAL: No night sweats. No fatigue, malaise, lethargy. No fever or chills. HEENT: Eyes: No visual changes. No eye pain. No eye discharge. ENT: No runny nose. No epistaxis. No sinus pain. No sore throat. No odynophagia. No congestion. RESPIRATORY: No cough, no congestion. No hemoptysis. No shortness of breath. CARDIOVASCULAR: No angina symptoms. No CHF symptoms. No atypical chest pain for CAD. No palpitations. No orthopnea. GASTROINTESTINAL: No abdominal pain. No nausea or vomiting. No diarrhea or constipation. No hematemesis. No hematochezia. GENITOURINARY: No urgency. No frequency. No dysuria. No hematuria. No obstructive symptoms. No discharge. No pain. No significant abnormal bleeding. MUSCULOSKELETAL: Back pain. NEUROLOGICAL: No headache. No neck pain. No syncope. No seizures. No dizziness. PSYCHIATRIC: Not anxious. No depression. No suicidal thoughts. No homicidal thoughts. SKIN: No rash. No lesions. No wounds. ENDOCRINE: No unexplained weight loss. No weight gain. HEMATOLOGIC/LYMPHATIC: No anemia. No purpura. No petechiae. No prolonged or excessive bleeding. No palpable lymph nodes. PHYSICAL EXAMINATION: GENERAL: The patient is oriented to time, place and person. VITAL SIGNS: Temperature 98.9, pulse 80, respiratory rate 18, BP 126/84, pulse ox 95%. HEENT: Head normocephalic, atraumatic. Eyes: Extraocular muscles are intact. Pupils are equal, round and reactive to light and accommodation. Ears: No lesions. Nose appeared normal. Throat: No exudate or erythema. NECK: Supple. No JVD, no carotid bruit. No lymphadenopathy or thyromegaly. LUNGS: Decreased breath sounds. Clear to auscultation. Percussion note normal. Chest symmetrical. HEART: S1, S2, no S3. No murmurs. No cyanosis or clubbing. No ascites. Pulses: Dorsalis pedis and posterior tibial pulses +1 to +2 both sides. ABDOMEN: Soft. Nontender. Bowel sounds active. No CVA tenderness. No mass felt. EXTREMITIES: No edema. Full range of motion of all extremities, equal. Spine is nontender except for in the mid thoracic area, mild tenderness. NEUROLOGIC: No focal deficit. Cranial nerves II through XII are grossly intact. No headache, no double vision or headache. SKIN: Not dry. Intact. Turgor - normal. LYMPHATIC: No palpable lymph nodes/no lymphedema. MUSCULOSKELETAL: Normal joints with no swelling. Muscle tone is normal. LABS: CBC 10.7, hematocrit 31, WBC 6,100, normal differential. Creatinine 0.8, BUN 11 , potassium 3.6. The patient's INR is 0.96. Will have to give some extra Coumadin. She is on 1 mg, will check the dose. CONDITION: Stable. TIME SPENT: More than 30 minutes. Plan and coordination of the patient's care discussed in the presence of nurse. ANN
--- NOTE | 2018-06-14 14:01 | PN ---
DATE OF SERVICE: 06/13/18 SUBJECTIVE: 78-year-old white female hospitalized with intractable back pain. The patient has T6 compression fracture. The patient's history is coronary artery bypass surgery 1999 and 2008. At that time, the patient's LV ejection fraction was 25%. Talk was started about putting defibrillator according to her but later on after 2 to 3 months her ejection fraction was noted to be 60%. This is surprising the patient contributed that improvement to the brain. The patient was at [facility] in [place]. The patient had pacemaker placement in 2009. The patient has been on Coumadin from 2011. The patient had silent [place] and possibility of hole in the heart. Blood clots were found in the heart and ever since then she has been on Coumadin. Today she was put on Lovenox 60 mg one dose and 5 mg extra Coumadin was given. The patient's INR was normal. REVIEW OF SYSTEMS: CONSTITUTIONAL: No night sweats. No fatigue, malaise, lethargy. No fever or chills. HEENT: Eyes: No visual changes. No eye pain. No eye discharge. ENT: No runny nose. No epistaxis. No sinus pain. No sore throat. No odynophagia. No congestion. RESPIRATORY: No cough, no congestion. No hemoptysis. No shortness of breath. CARDIOVASCULAR: No angina symptoms. No CHF symptoms. No atypical chest pain for CAD. No palpitations. No orthopnea. GASTROINTESTINAL: No abdominal pain. No nausea or vomiting. No diarrhea or constipation. No hematemesis. No hematochezia. GENITOURINARY: No urgency. No frequency. No dysuria. No hematuria. No obstructive symptoms. No discharge. No pain. No significant abnormal bleeding. MUSCULOSKELETAL: Mild soreness in the back otherwise feeling better. NEUROLOGICAL: No neurological deficit noted. No headache. No neck pain. No syncope. No seizures. No dizziness. PSYCHIATRIC: Not anxious. No depression. No suicidal thoughts. No homicidal thoughts. SKIN: No rash. No lesions. No wounds. ENDOCRINE: No unexplained weight loss. No weight gain. HEMATOLOGIC/LYMPHATIC: No anemia. No purpura. No petechiae. No prolonged or excessive bleeding. No palpable lymph nodes. PHYSICAL EXAMINATION: VITAL SIGNS: Temperature 98.4, pulse 80, respiratory rate 16, BP 125/80, pulse ox 96%. HEENT: Head normocephalic, atraumatic. Eyes: Extraocular muscles are intact. Pupils are equal, round and reactive to light and accommodation. Ears: No lesions. Nose appeared normal. Throat: No exudate or erythema. NECK: Supple. No JVD, no carotid bruit. No lymphadenopathy or thyromegaly. LUNGS: Clear to auscultation. Percussion note normal. Chest symmetrical. HEART: S1, S2, no S3. No murmurs. No cyanosis or clubbing. No ascites. Pulses: Dorsalis pedis and posterior tibial pulses +1 to +2 both sides. ABDOMEN: Soft. Nontender. Bowel sounds active. No CVA tenderness. No mass felt. EXTREMITIES: Spine mild tenderness in the mid thoracic area. No edema. Full range of motion of all extremities, equal. NEUROLOGIC: No focal deficit. Cranial nerves II through XII are grossly intact. No headache, no double vision or headache. SKIN: Not dry. Intact. Turgor - normal. LYMPHATIC: No palpable lymph nodes/no lymphedema. MUSCULOSKELETAL: Normal joints with no swelling. Muscle tone is normal. ASSESSMENT: 1. T6 compression deformity with the pain which is more or less controlled. Toradol seems to be helping. 2. Cardiovascular status is stable. PLAN: 1. Will do echocardiogram to evaluate left ventricular function. The patient is living in an assisted living with the daughter. CONDITION: Stable. TIME SPENT: More than 30 minutes. Plan and coordination of the patient's care discussed in the presence of nurse. ANN
[2018-06-14] MEDS: COUMADIN PO SCH (17:13)
[2018-06-15] MEDS: TYLENOL #3 TAB PO PRN (00:30)
[2018-06-15] MEDS: TORADOL IVP SCH ×2 (05:13→12:52)
[2018-06-15] MEDS: PRILOSEC PO SCH (05:57)
[2018-06-15] MEDS: LASIX TAB PO SCH (05:58)
[2018-06-15] MEDS: SYNTHROID PO SCH (05:58)
[2018-06-15] MEDS ORDERED: DECADRON 4 MG/ML SDV IM STA (08:14)
[2018-06-15] MEDS ORDERED: COLESTID PO SCH (09:00)
[2018-06-15] MEDS ORDERED: SODIUM CHLORIDE 1,000 ML IV ONE (09:00)
[2018-06-15] MEDS ORDERED: MAXIPIME 2 GM in SODIUM CHLORIDE 100 ML IV SCH (09:00)
[2018-06-15] MEDS: VITAMIN D PO SCH (09:23)
[2018-06-15] MEDS: ALDACTONE PO SCH (09:24)
[2018-06-15] MEDS: FLORASTOR PO SCH (09:24)
[2018-06-15] MEDS: LIPITOR PO SCH (09:26)
[2018-06-15] MEDS: IMDUR PO SCH (09:26)
[2018-06-15] MEDS: COZAAR PO SCH (09:27)
[2018-06-15] MEDS: SINGULAIR PO SCH (09:28)
[2018-06-15] MEDS: TOPROL XL PO SCH (09:28)
[2018-06-15] MEDS: MULTIVITAMIN TABLET PO SCH (09:28)
[2018-06-15] MEDS: KEPPRA PO SCH (09:28)
[2018-06-15] MEDS: NON-FORMULARY MEDICATION (Umeclidinium Bromide [Incruse Ellipta] 62.5 MCG) IH SCH (09:33)
[2018-06-15] MEDS: PROTEASE PO SCH ×2 (09:33→12:52)
[2018-06-15] MEDS: [UNRECOGNIZED DRUG - OTHER] PO SCH ×2 (09:33→12:52)
[2018-06-15] MEDS: AMYLASE PO SCH ×2 (09:33→12:52)
[2018-06-15] MEDS: LIPASE PO SCH ×2 (09:33→12:52)
[2018-06-15] MEDS ORDERED: ASPIRIN CHEWABLE PO SCH (10:16)
--- NOTE | 2018-06-15 11:16 | PCM.PROG ---
Attending Provider: ATTENDING PROVIDER: Dr. MELISSA HERRERA This patient is seen with Charmaine Toussaint, Nurse Practitioner. DATE OF SERVICE: 06/15/18 SUBJECTIVE: This 78 year old WHITE/ F was hospitalized 06/11/18. The patient was lying in bed, resting comfortably. She states she had increased pain yesterday. Urine culture positive for Pseudomonas aeruginosa. She has history of C. diff, has a long list of allergies. Will start probiotics along with antibiotic. REVIEW OF SYSTEMS: CONSTITUTIONAL: Positive for weakness. No night sweats. No malaise, lethargy. No fever or chills. HEENT: Eyes: No visual changes. No eye pain. No eye discharge. ENT: No runny nose. No epistaxis. No sinus pain. No odynophagia. No congestion. RESPIRATORY: No cough, no congestion. No hemoptysis. No shortness of breath. CARDIOVASCULAR: No angina symptoms. No CHF symptoms. No atypical chest pain for CAD. No palpitations. No orthopnea.. GASTROINTESTINAL: No abdominal pain. No nausea or vomiting. No diarrhea or constipation. No hematemesis. No hematochezia. GENITOURINARY: Positive for dysuria. No urgency. No frequency. No hematuria. No obstructive symptoms. No discharge. No pain. No significant abnormal bleeding. MUSCULOSKELETAL: Back pain. NEUROLOGICAL: Awake, alert, oriented to time, place and person. No headache. No neck pain. No syncope. No seizures. No dizziness. PSYCHIATRIC: Not anxious. No depression. No suicidal thoughts. No homicidal thoughts. SKIN: No rash. No lesions. No wounds. ENDOCRINE: No unexplained weight loss. No weight gain. HEMATOLOGIC/LYMPHATIC: No anemia. No purpura. No petechiae. No prolonged or excessive bleeding. No palpable lymph nodes. PHYSICAL EXAMINATION: GENERAL: The patient is awake, alert and oriented, lying in bed in no distress. VITAL SIGNS: Temperature 97.6 F, Pulse 68, Respiratory Rate 16, BP 136/74, Pulse Ox 96% HEENT: Head normocephalic, atraumatic. Eyes: Extraocular muscles are intact. Pupils are equal, round and reactive to light and accommodation. Ears: No lesions. Nose appeared normal. Throat: No exudate or erythema. NECK: Supple. No JVD, no carotid bruit. No lymphadenopathy or thyromegaly. LUNGS: Diminished breath sounds. Clear to auscultation. Percussion note normal. Chest symmetrical. HEART: S1, S2, no S3. No murmurs. No cyanosis or clubbing. No ascites. Pulses: Dorsalis pedis and posterior tibial pulses +1 to +2 both sides. ABDOMEN: Soft. Non-tender. Bowel sounds active. No CVA tenderness. No mass felt. EXTREMITIES: No edema. Full range of motion of all extremities, equal. NEUROLOGIC: No focal deficit. Cranial nerves II through XII are grossly intact. No headache, no double vision or headache. SKIN: Not dry. Intact. Turgor-normal. LYMPHATIC: No palpable lymph nodes/no lymphedema. MUSCULOSKELETAL: Normal joints with no swelling. Muscle tone is normal. LAB REVIEW: 06/15/18 04:50 06/15/18 04:50 06/15/18 04:50: Sodium 125.6 L, Potassium 3.73, Chloride 92.5 L, Carbon Dioxide 27.5, Anion Gap 9.33, BUN 17.3 H, Creatinine 0.96, Estimated GFR (MDRD) 56.00, BUN/Creatinine Ratio 18.02, Glucose 116.8 H, Calcium 8.97, Total Bilirubin 0.30 , AST 29.1, ALT 11.1, Alkaline Phosphatase 83.9, Total Protein 6.49, Albumin 3.47 L, Globulin 3.02, Albumin/Globulin Ratio 1.14 06/15/18 04:50: WBC 9.70, RBC 3.43 L, Hgb 10.4 L, Hct 30.5 L, MCV 88.9, MCH 30.3 , MCHC 34.1, RDW Coeff of Rehana 12.6, Plt Count 228, Immature Gran % (Auto) 0.4, Neut % (Auto) 84.8, Lymph % (Auto) 5.3 L, Stark % (Auto) 9.3, Eos % (Auto) 0.1, Baso % (Auto) 0.1, Immature Gran # (Auto) 0.0, Neut # (Auto) 8.2 H, Lymph # ( Auto) 0.5 L, Stark # (Auto) 0.9, Eos # (Auto) 0.0, Baso # (Auto) 0.0 06/15/18 04:50: PT 36.1 H D, INR 3.75 ASSESSMENT: 1. UTI PSEUDOMONAS AERUGINOSA. 1. INTRACTABLE BACK PAIN. 2. MULTILEVEL COMPRESSION FRACTURES. PLAN: 1. Hold Coumadin today 2. 1 cc Decadron one dose today 3. Colestid b.i.d. 4. Florastor twice a day 5. One liter of NS @ 75 mL/hr 6. Cefepime q.12hr, pharmacy to dose 7. Medical Illustrator to schedule referral appointment with Dr. Ardon or Dr. Adair. Plan and coordination of the patient's care discussed in the presence of Medical Illustrator and nurse. CONDITION: Stable SCRIBED BY: TAHIRA CORONEL Plant Technician scribed while in presence of service performed by Dr. Herrera/Charmaine Toussaint APRN on 06/15/18 ([id number])
[2018-06-15 13:27] VITALS: BP 109/63; TEMP 98.8
--- NOTE | 2018-06-16 09:37 | HP ---
DATE OF SERVICE: 06/11/18 HISTORY OF PRESENT ILLNESS: 78-year-old white female presents to the ER complaining of back pain. She has a history of compression fractures. She recently came to the ER about one week ago and her CT showed no new compression fractures. She had back pain. PAST MEDICAL HISTORY: Dyslipidemia Questionable colon seizures GERD Anxiety Hypothyroidism Chronic back pain Coronary artery disease Hypertension Leg edema Atrial fibrillation Hypothyroidism Leg edema History of blood clot in the heart on Coumadin Ischemic cardiomyopathy PAST SURGICAL HISTORY: Status post pacemaker 2010 CABG times two in 1999 and 2009 Cholecystectomy Appendectomy Hysterectomy REVIEW OF SYSTEMS: CONSTITUTIONAL: No night sweats. No fatigue, malaise, lethargy. No fever or chills. HEENT: Eyes: No visual changes. No eye pain. No eye discharge. ENT: No runny nose. No epistaxis. No sinus pain. No sore throat. No odynophagia. No ear pain. No congestion. RESPIRATORY: No cough, no congestion. No hemoptysis. No shortness of breath. CARDIOVASCULAR: No angina symptoms. No CHF symptoms. No atypical chest pain for CAD. No palpitations. No PND. No orthopnea. GASTROINTESTINAL: No abdominal pain. No nausea or vomiting. No diarrhea or constipation. No hematemesis. No hematochezia. GENITOURINARY: No urgency. No frequency. No dysuria. No hematuria. No obstructive symptoms. No discharge. No pain. No significant abnormal bleeding. MUSCULOSKELETAL: Positive for generalized weakness and back pain. NEUROLOGICAL: No headache. No neck pain. No syncope. No seizures. No dizziness. PSYCHIATRIC: Not anxious. No depression. No suicidal thoughts. No homicidal thoughts. SKIN: No rash. No lesions. No wounds. ENDOCRINE: No unexplained weight loss. No weight gain. HEMATOLOGIC/LYMPHATIC: No anemia. No purpura. No petechiae. No prolonged or excessive bleeding. No palpable lymph nodes. PERSONAL/FAMILY/SOCIAL HISTORY: She is a nonsmoker. No alcohol or ilicit drug use. She and her daughter currently live at assisted living here in [place]. They have recently moved from [place], [place]. MEDICATIONS: (HOME) Coumadin 1 mg p.o. daily Cholecalciferol 1,000 unit p.o. daily Aldactone 12.5 mg p.o. daily Probiotic one each p.o. daily Albuterol 2 puffs IH q.4h p.r.n. Prilosec 20 mg p.o. q.i.d. Nitrostat 0.4 mg SL q.5 min times three doses p.r.n. Singulair 10 mg p.o. daily Toprol XL 50 mg p.o. b.i.d. Reglan 5 mg p.o. t.i.d. Cozaar 50 mg p.o. daily Keppra 250 mg p.o. b.i.d. Isosorbide Mononitrate 60 mg p.o. daily Imdur 30 mg p.o. daily Umeclidinium [place] 62.5 mcg IH daily Lasix 40 mg p.o. daily Flonase 2 spray NS daily Lipase/Protease/Amylase 6,000 units p.o. q.i.d. Lipitor 40 mg p.o. daily Aspirin 81 mg p.o. daily Xanax 0.25 mg p.o. b.i.d. p.r.n. Acetaminophen with Codeine one each p.o. b.i.d. Cetirizine 10 mg p.o. daily Synthroid 75 mcg p.o. q.d a.c. Centrum Silver one each p.o. daily Hydrocodone/Acetaminophen one each p.o. b.i.d. Docusate Sodium 100 mg capsule one cap p.o. q.i.d. ALLERGIES: SULFA, AMPICILLIN, SULBACTAM, METRONIDAZOLE, TRAMADOL, TAZOBACTAM, ONDANSETRON, PIPERACILLIN, OXCARBAZEPINE (FROM TRILEPTAL), LEVOFLOXACIN, RIFAXIMIN, IV CONTRAST DYE PHYSICAL EXAMINATION: VITAL SIGNS: Temperature 98.3, heart rate 70, respirations 16, BP 148/80, pulse ox 95%. HEENT: Head normocephalic, atraumatic. Eyes: Extraocular muscles are intact. Pupils are equal, round and reactive to light and accommodation. Ears: No lesions. Nose appeared normal. Throat: No exudate or erythema. NECK: Supple. No JVD, no carotid bruit. No lymphadenopathy or thyromegaly. LUNGS: Diminished breath sounds bilaterally. Clear to auscultation. Percussion note normal. Chest symmetrical. HEART: S1, S2, no S3. No murmurs. No cyanosis or clubbing. No ascites. Pulses: Dorsalis pedis and posterior tibial pulses +1 to +2 bilaterally. ABDOMEN: Soft. Tenderness. Bowel sounds active. No CVA tenderness. No mass felt. EXTREMITIES: No edema. Full range of motion of all extremities, equal. NEUROLOGIC: No focal deficit. Cranial nerves II through XII are grossly intact. No headache, no double vision or headache. SKIN: Not dry. Intact. Turgor - normal. LYMPHATIC: No palpable lymph nodes/no lymphedema. MUSCULOSKELETAL: Normal joints with no swelling. Muscle tone is normal. White count 6.09, hemoglobin 10.9, hematocrit 32. Sodium 132, potassium 3.7, BUN 13, creatinine 1.14. UA shows 3+ leuks, trace bacteria, trace blood. AST 52 , ALT 13, alkaline phosphatase 80. CT of the chest shows kyphoplasty at L1, multilevel compression fractures that are unchanged. History of multiple rib fractures which are old. CT of the T-spine shows acute on chronic T6 fracture. Stable appearing compression fracture of T7 through T12. ASSESSMENT: 1. COMPRESSION FRACTURE AT T6. 2. MULTILEVEL COMPRESSION FRACTURES. 3. INTRACTABLE BACK PAIN. 4. CORONARY ARTERY DISEASE. 5. HYPERTENSION. 6. OSTEOPOROSIS. PLAN: 1. We will admit with routine telemetry orders. 2. CBC, CMP daily. 3. INR daily. 4. Goal INR between 2 and 3. 5. Continue all home medications. 6. Start on Toradol 30 mg IV q.8hr. 7. 1 cc Decadron IM now. 8. Urine for culture and sensitivity. 9. Regular diet. 10. Will follow closely. TIME SPENT: More than [address] [facility]
--- NOTE | 2018-06-16 10:07 | OTDC ---
Date of Evaluation:06/11/18 Diagnosis:[back pain] Number of visits:[3] Last Date of Service:[06/16/18] Reason For Discharge:[Pt admitted to swing bed for therapy] Discharge Summary:[Pt continues with back pain and is improving in her mobility and activities of daily living.] ANN
--- NOTE | 2018-06-16 13:47 | PN ---
DATE OF SERVICE: 06/14/18 SUBJECTIVE: The patient was seen and examined with the nurse practitioner. The patient has T6 fracture, intractable pain which is under control. She is on Coumadin. An extra dose of Coumadin was given. Will monitor her INR. Will do echocardiogram before discharge. The patient was seen and examined with the nurse practitioner. Condition is stable. TIME SPENT: More than 30 minutes. Plan and coordination of the patient's care discussed in the presence of nurse. ANN
--- NOTE | 2018-06-16 13:50 | PN ---
DATE OF SERVICE: 06/15/18 SUBJECTIVE: The patient was seen and examined with the nurse practitioner. The patient's condition has improved. She is still requiring pain shots. The pain is much less. Cardiovascular status is stable. The patient is going to be discharged to the swing bed. TIME SPENT: More than 30 minutes. Plan and coordination of the patient's care discussed in the presence of nurse. ANN
--- NOTE | 2018-06-16 13:55 | PN ---
CODING FOR BILLING 06/11/18 ADMISSION DAY - LEVEL 5 06/12/18 INTERMEDIATE 06/13/18 INTERMEDIATE 06/14/18 INTERMEDIATE 06/15/18 DISCHARGE - TO SWING BED - ADMISSION DAY [facility]
--- NOTE | 2018-06-16 14:42 | DS ---
DATE OF SERVICE: 06/15/18 (FROM ACUTE) FINAL DIAGNOSIS: 1. INTRACTABLE BACK PAIN 2. NEW T6 COMPRESSION FRACTURE 3. MULTILEVEL COMPRESSION FRACTURES 4. MULTIPLE OLD RIB FRACTURES 5. URINARY TRACT INFECTION 6. GENERALIZED WEAKNESS DISCHARGE INSTRUCTIONS: Will discharge the patient to swing bed for pain control, physical therapy evaluation and IV antibiotics. MEDICATIONS AT DISCHARGE: Albuterol two puff IH q.4h p.r.n. Xanax 0.25 mg p.o. b.i.d. p.r.n. Tylenol one tab p.o. q.6h p.r.n. Sodium Chloride IV 83 mL/hr Nitrostat 0.4 mg SL q.5 min times three doses p.r.n. Reglan 5 mg p.o. a.c. p.r.n. Lipase/Protease/Amylase 6,000 units p.o. q.i.d. 0.9% sodium chloride IVF q.8hr Colestid 1 gm p.o. b.i.d. Toradol 30 mg IVP q.8hr Florastor 250 mg p.o. b.i.d. Cefepime 2 gm IV q.12hr Keppra 250 mg p.o. b.i.d. Prilosec 40 mg p.o. b.i.d. a.c. Synthroid 75 mcg p.o. q.d a.c. Artificial Tears two drop OP p.r.n. Prednisone 20 mg p.o. daily with meal Aspirin 81 mg p.o. daily Lipitor 40 mg p.o. daily Multivitamin one tab p.o. daily Umeclidinium 62.5 mcg IH daily Cozaar 50 mg p.o. daily Coumadin 1 mg p.o. q.p.m. Prilosec 20 mg p.o. b.i.d. a.c. NEW PRESCRIPTIONS: None DIET INSTRUCTIONS: Heart Healthy ACTIVITY: As patient tolerates; physical therapy evaluation. SMOKING: N/A DISEASE SPECIFIC EDUCATION: Admission to swing bed, physical therapy, pain control, antibiotics discussed with the patient. The patient is agreeable. HOSPITAL COURSE: 78-year-old white female who presented to the emergency room with intractable back pain. She has a history of multilevel compression fractures as well as kyphoplasty done years ago. She had been seen in the emergency room approximately one week to week and one-half before with intractable back pain. She does have [place] at home but states this was not helping. She has pain radiating from her neck into her shoulders as well as from her lower back around and to her hips. She was placed on Toradol 30 mg IV q.8hr along with [place] 5 mg b.i.d. She was given Decadron IM. She did have a shortterm improvement however she was evaluated and worked with physical and occupational therapy and states that she is unable to do this due to worsening pain. She has every limited mobility so we will place her in swing bed admission in hopes of controlling her pain and regaining some of her mobility as she is unable to get up by herself. It was also found that she had a urinary tract infection as her urine culture came back positive for Pseudomonas. Due to her long list of allergies, she is not able to take any oral medication so we are also going to place her on IV Imipenem which she will continue while she is in swing bed. TIME SPENT: More than 60 minutes. ANN
== END 2018-06-15 14:24 | disposition swing bed (61) | DRG 552 ==
LOC: ED 17:28 → MEDSURG B 20:08
PROVIDERS: ADMIT Internal Medicine; ATTEND Internal Medicine
DX: S22.000A Wedge compression fracture of unspecified thoracic vertebra, initial encounter for closed fracture (principal); N39.0 Urinary tract infection, site not specified; I25.10 Atherosclerotic heart disease of native coronary artery without angina pectoris; I10 Essential (primary) hypertension; I48.91 Unspecified atrial fibrillation; M81.0 Age-related osteoporosis without current pathological fracture; R53.1 Weakness
CPT/HCPCS: 36415; 80053; 81001; 82542; 85025; 85610; 87081; 87086; 87186; 93005; 93010; 99223; 99232; 99239; 99284

== ENCOUNTER 2018-06-15 14:29 | Inpatient (IN) ==
[2018-06-15] MEDS ORDERED: PROAIR HFA IH PRN (14:58)
[2018-06-15] MEDS ORDERED: SODIUM CHLORIDE 1,000 ML IV SCH ×2 (15:00)
[2018-06-15] MEDS ORDERED: METOCLOPRAMIDE HCL 5 MG PO PRN (15:03)
[2018-06-15] MEDS ORDERED: NITROSTAT SL PRN (15:03)
[2018-06-15] MEDS: TYLENOL #3 TAB PO PRN ×2 (15:53→23:54)
[2018-06-15] MEDS ORDERED: REGLAN PO PRN (15:57)
[2018-06-15] MEDS: PROTEASE PO SCH ×2 (17:14→20:12)
[2018-06-15] MEDS: [UNRECOGNIZED DRUG - OTHER] PO SCH ×2 (17:14→20:12)
[2018-06-15] MEDS: LIPASE PO SCH ×2 (17:14→20:12)
[2018-06-15] MEDS: AMYLASE PO SCH ×2 (17:14→20:12)
[2018-06-15] MEDS: PRILOSEC PO SCH (17:14)
[2018-06-15] MEDS: FLORASTOR PO SCH (20:11)
[2018-06-15] MEDS: MAXIPIME 2 GM in SODIUM CHLORIDE 100 ML IV SCH (20:12)
[2018-06-15] MEDS: TORADOL IVP SCH (20:12)
[2018-06-15] MEDS: COLESTID PO SCH (20:12)
[2018-06-15] MEDS: KEPPRA PO SCH (20:12)
[2018-06-15] MEDS ORDERED: LEVETIRACETAM 250 MG PO SCH (21:00)
[2018-06-16] MEDS: TORADOL IVP SCH ×3 (04:52→20:49)
[2018-06-16] MEDS: PRILOSEC PO SCH ×2 (05:49→17:11)
[2018-06-16] MEDS: SYNTHROID PO SCH (05:49)
[2018-06-16] MEDS: LASIX TAB PO SCH (05:50)
[2018-06-16] MEDS ORDERED: SODIUM CHLORIDE 1,000 ML IV ONE (08:30)
[2018-06-16] MEDS ORDERED: ASPIRIN CHEWABLE PO SCH (09:00)
[2018-06-16] MEDS ORDERED: IMDUR PO SCH (09:00)
[2018-06-16] MEDS ORDERED: NON-FORMULARY MEDICATION (Atorvastatin Calcium [Lipitor] 40 MG) PO SCH (09:00)
[2018-06-16] MEDS ORDERED: NON-FORMULARY MEDICATION (Multivit-Min/Fa/Lycopen/Lutein [Centrum Silver Tablet] 1 EACH) PO SCH (09:00)
[2018-06-16] MEDS ORDERED: COZAAR PO SCH (09:00)
[2018-06-16] MEDS ORDERED: NON-FORMULARY MEDICATION (Isosorbide Mononitrate [Isosorbide Mononitrate Er] 60 MG) PO SCH (09:00)
[2018-06-16] MEDS: FLORASTOR PO SCH ×2 (09:15→20:49)
[2018-06-16] MEDS: PREDNISONE PO SCH (09:15)
[2018-06-16] MEDS: LIPITOR PO SCH (09:15)
[2018-06-16] MEDS: KEPPRA PO SCH ×2 (09:15→20:49)
[2018-06-16] MEDS: COLESTID PO SCH ×2 (09:15→20:49)
[2018-06-16] MEDS: VITAMIN D PO SCH (09:16)
[2018-06-16] MEDS: SINGULAIR PO SCH (09:16)
[2018-06-16] MEDS: TYLENOL #3 TAB PO PRN ×3 (09:16→23:55)
[2018-06-16] MEDS: IMDUR PO SCH (09:16)
[2018-06-16] MEDS: ALDACTONE PO SCH (09:16)
[2018-06-16] MEDS: TOPROL XL PO SCH (09:17)
[2018-06-16] MEDS: MAXIPIME 2 GM in SODIUM CHLORIDE 100 ML IV SCH ×2 (09:17→20:51)
[2018-06-16] MEDS: COZAAR PO SCH (09:17)
[2018-06-16] MEDS: MULTIVITAMIN TABLET PO SCH (09:17)
[2018-06-16] MEDS: LIPASE PO SCH ×4 (09:19→20:50)
[2018-06-16] MEDS: [UNRECOGNIZED DRUG - OTHER] PO SCH ×4 (09:19→20:50)
[2018-06-16] MEDS: AMYLASE PO SCH ×4 (09:19→20:50)
[2018-06-16] MEDS: NON-FORMULARY MEDICATION (Umeclidinium Bromide [Incruse Ellipta] 62.5 MCG) IH SCH (09:19)
[2018-06-16] MEDS: PROTEASE PO SCH ×4 (09:19→20:50)
[2018-06-16] MEDS: ARTIFICIAL TEARS OPTH SOL OP PRN ×2 (13:03→18:31)
--- NOTE | 2018-06-16 14:24 | RS.OTINEVL ---
Subjective - Patient information Date of Evaluation: 06/16/18 Date of Arrival on Unit: 06/15/18 Admitted From:: Home Living Arrangement Comments: Shares apt with dtr at [place]. Home Environment: Level/No stairs Medical History: Hypertension, CHF Medical History Comments:: Kyphoplasty, pain with sitting in a chair, pain with ambulation of 8/10. Surgical History: Thoracic Spine, Lumbar Spine Surgical History Comments:: Kyphoplasty, back surgeries, Subjective Information/ Patient Comments:: "I don't think i can stand that pillow behind me. - Level of function Prior to this admission, the patient could do the following:: Independent ADL's , Independent Ambulation Abilities prior to this admission: Pt is CGA for sit to stand. Pt is CGA for functional mobility. Pt is using a RW to get around. Pt is not able to tony her shoes or socks at this time. Pt is CGA for toileting and minimal assistance for donning her briefs. Current Level of Function: Partially Dependent Current Equipment Used at Home: Rolling walker, cane, BSC Pain Assessment - Pain Pain Score: 8 Side: bilateral Pain Location Body Site: Back Pain Aggravating Factors: Changing Position, Exercise/Activity, Standing, Sitting, Walking Pain Alleviating Factors: Medication, Sitting, Standing, Lying Supine Interventions - Objective Patient Orientation: Person, Place, Situation Current Interventions: IV's, Oxygen, Telemetry Observation: Pt reports she has a difficult time finding a position where her back does not hurt. Pt requires assistance with ADLS Interventions - ROM Right Upper Extremity AROM: Slight limitation Left Upper Extremity AROM: Slight limitation - Strength Right Upper Extremity Strength: Mild Weakness Left Upper Extremity Strength: Mild Weakness - Sensation Right Upper Extremity Sensation: Intact/Normal Left Upper Extremity Sensation: Intact/Normal Balance - Sitting Balance Static Sitting Balance: Fair Dynamic Sitting Balance: Fair - Standing Balance Static Standing Balance: Fair Dynamic Standing Balance: Fair - Comments Balance Assessment Comments: Fair ADL Skills - Self Feeding Self Feeding: Independent - Grooming Grooming: Min Assist - Bathing Bathing UE: CGA Bathing LE: CGA - Dressing Dressing UE: CGA Dressing LE: Min Assist - Toilet Management Toileting Management: Min Assist Functional Mobility - Bed Mobility Rolling R/L: Min Assist Scooting: CGA Supine to Sit: Min Assist Sit to Supine: Min Assist - Transfers Sit to Stand: CGA Stand to Sit: CGA Stand Pivot Transfers: CGA - Ambulation Weight Bearing Status: FWB Assistive Device Used: Rolling Walker Assistance needed with Ambulation: CGA - Safety Awareness Safety Awareness: Fair PANKAJ INDEX SCORE: 53 Additional Treatment Performed - Additional units charged ADL: 15 - Time with patient Length of Evaluation: 30 Total treatment time: 15 Activities Do you enjoy playing games?: Yes Would you be interested in leaving your room for activities?: Yes Would you enjoy group activities?: Yes Do you have difficulty with your vision?: Yes Patient Interests:: Reading Books/Magazines, Watching Television, Puzzles/Games , Visiting/Socializing Patient Education Patient Education: Education of diagnosis, Body/Joint mechanics, Home Exercise Program, Home Safety, Education of Plan of Care Teaching Recipient: Patient Teaching Methods: Discussion Assessment Problem List:: Decreased level of function, Requires training/education, Decreased safety/Risk of falls, Weakness, Pain limits previous level of function Rehab Potential: Good Further Therapy Indicated?: Yes Candidate for Swing Bed for Therapy Services?: yes Evaluation Complexity: HISTORY: Medium, EXAM OF BODY SYSTEMS: Medium, CLINICAL DECISION MAKING: Medium Short Term Goals - Goals GOAL 1: Pt to increase I sit to stand to SUP. Goal to be met by: 06/24/18 GOAL 2: Pt to increase dyn. std. bal. to Fair+. Goal to be met by: 06/24/18 GOAL 3: Pt to increase activity tolerance to 15 minutes for ADLS. Goal to be met by: 06/24/18 Progress towards goal: Partially Met Mcc Goals GOAL 1: Pt to increase I sit to stand to Mod-I. Goal to be met by: 06/30/18 GOAL 2: Pt to increase dyn. std. bal. to Good-. Goal to be met by: 06/30/18 GOAL 3: Pt to increase activity tolerance to 20 minutes for ADLS. Goal to be met by: 06/30/18 Plan Plan of Care: Therapeutic EX, Neuromuscular Re-Educ, Therapeutic Activity, Self- Care/Home Management Modalities: Cold Pack/Cryotherapy Frequency of Treatment: 1-2 X day, as tolerated Duration of Treatment: 2 Weeks Anticipated Discharge Destination: Home Treatment Diagnosis (ICD 10 Codes): M62.81 Muscle weakness, Need for assistance for ADLS is Z74.01, Z74.0 Reduced mobility. Has the Physician been added for Co-signature?: Yes
--- NOTE | 2018-06-16 14:30 | HP ---
DATE OF SERVICE: 06/15/18 - SWING BED HISTORY OF PRESENT ILLNESS: 78-year-old female who was admitted for intractable back pain due to new compression fracture at T6 with a history of multilevel chronic compression fractures that appear to be worsening. She was placed on Toradol IV, given Decadron IM. She did show mild improvement then was working with physical therapy and showed she had increased pain. During hospitalization, her UA was slightly abnormal. Culture came back positive for Pseudomonas Aeruginosa. She has been placed on IV Imipenem for this. PAST MEDICAL HISTORY: Dyslipidemia Questionable colon seizures GERD Anxiety Hypothyroidism Chronic back pain Coronary artery disease Hypertension Leg edema Atrial fibrillation Hypothyroidism Leg edema History of blood clot in the heart on Coumadin Ischemic cardiomyopathy PAST SURGICAL HISTORY: Status post pacemaker 2010 CABG times two in 1999 and 2009 Cholecystectomy Appendectomy Hysterectomy REVIEW OF SYSTEMS: CONSTITUTIONAL: No night sweats. No fatigue, malaise, lethargy. No fever or chills. HEENT: Eyes: No visual changes. No eye pain. No eye discharge. ENT: No runny nose. No epistaxis. No sinus pain. No sore throat. No odynophagia. No ear pain. No congestion. RESPIRATORY: No cough, no congestion. No hemoptysis. No shortness of breath. CARDIOVASCULAR: No angina symptoms. No CHF symptoms. No atypical chest pain for CAD. No palpitations. No PND. No orthopnea. GASTROINTESTINAL: No abdominal pain. No nausea or vomiting. No diarrhea or constipation. No hematemesis. No hematochezia. GENITOURINARY: Positive for dysuria. No hematuria. No obstructive symptoms. No discharge. No pain. No significant abnormal bleeding. MUSCULOSKELETAL: Positive for back pain, weakness. NEUROLOGICAL: No headache. No neck pain. No syncope. No seizures. No dizziness. PSYCHIATRIC: Not anxious. No depression. No suicidal thoughts. No homicidal thoughts. SKIN: No rash. No lesions. No wounds. ENDOCRINE: No unexplained weight loss. No weight gain. HEMATOLOGIC/LYMPHATIC: No anemia. No purpura. No petechiae. No prolonged or excessive bleeding. No palpable lymph nodes. PERSONAL/FAMILY/SOCIAL HISTORY: She is a nonsmoker. No alcohol or ilicit drug use. She and her daughter currently live at assisted living here in [place]. They have recently moved from [place], [place]. MEDICATIONS: Albuterol two puff IH q.4h p.r.n. Xanax 0.25 mg p.o. b.i.d. p.r.n. Tylenol one tab p.o. q.6h p.r.n. Sodium Chloride IV 83 mL/hr Nitrostat 0.4 mg SL q.5 min times three doses p.r.n. Reglan 5 mg p.o. a.c. p.r.n. Lipase/Protease/Amylase 6,000 units p.o. q.i.d. 0.9% sodium chloride IVF q.8hr Colestid 1 gm p.o. b.i.d. Toradol 30 mg IVP q.8hr Florastor 250 mg p.o. b.i.d. Cefepime 2 gm IV q.12hr Keppra 250 mg p.o. b.i.d. Prilosec 40 mg p.o. b.i.d. a.c. Synthroid 75 mcg p.o. q.d a.c. Artificial Tears two drop OP p.r.n. Prednisone 20 mg p.o. daily with meal Aspirin 81 mg p.o. daily Lipitor 40 mg p.o. daily Multivitamin one tab p.o. daily Umeclididium 62.5 mcg IH daily Cozaar 50 mg p.o. daily Coumadin 1 mg p.o. q.p.m. Prilosec 20 mg p.o. b.i.d. a.c. ALLERGIES: SULFA, AMPICILLIN, SULBACTAM, METRONIDAZOLE, TRAMADOL, TAZOBACTAM, ONDANSETRON, PIPERACILLIN, OXCARBAZEPINE (FROM TRILEPTAL), LEVOFLOXACIN, RIFAXIMIN, IV CONTRAST DYE PHYSICAL EXAMINATION: HEENT: Head normocephalic, atraumatic. Eyes: Extraocular muscles are intact. Pupils are equal, round and reactive to light and accommodation. Ears: No lesions. Nose appeared normal. Throat: No exudate or erythema. NECK: Supple. No JVD, no carotid bruit. No lymphadenopathy or thyromegaly. LUNGS: Diminished breath sounds bilaterally. Clear to auscultation. Percussion note normal. Chest symmetrical. HEART: S1, S2, no S3. No murmurs. No cyanosis or clubbing. No ascites. Pulses: Dorsalis pedis and posterior tibial pulses +1 to +2 bilaterally. ABDOMEN: Soft. Nontender. Bowel sounds active. No mass felt. EXTREMITIES: Tenderness along the spinal processes from her neck to her lower back. No edema. Full range of motion of all extremities, equal. NEUROLOGIC: No focal deficit. Cranial nerves II through XII are grossly intact. No headache, no double vision or headache. SKIN: Not dry. Intact. Turgor - normal. LYMPHATIC: No palpable lymph nodes/no lymphedema. MUSCULOSKELETAL: Normal joints with no swelling. Muscle tone is normal. ASSESSMENT: 1. INTRACTABLE BACK PAIN 2. NEW T6 COMPRESSION FRACTURE 3. MULTILEVEL COMPRESSION FRACTURES 4. MULTIPLE OLD RIB FRACTURES 5. URINARY TRACT INFECTION 6. GENERALIZED WEAKNESS PLAN: 1. We will admit to the swing bed for pain control as well as physical therapy evaluation and treatment as needed. 2. We will continue on IV Toradol. 3. Will continue with the [place] b.i.d. as well as do another 4 mg of Decadron IM today. 4. Will start on IV Imipenem due to long list of allergies. 5. Encourage her to drink more fluids. 6. Will do one back of NS IV at 70 cc/hr for today due to elevated kidney function and will follow closely. TIME SPENT: More than 70 minutes. MTDD
--- NOTE | 2018-06-16 15:39 | RS.PTINEVL ---
Subjective - Patient information Date of Evaluation: 06/16/18 Date of Arrival on Unit: 06/15/18 Admitted From:: In-House Transfer (swing bed transfer) Diagnosis: thoracic compression fx T6, intractable back pain Living Arrangement Comments: Shares apt with dtr at [place]. Home Environment: Level/No stairs Medical History: Hypertension, CHF Medical History Comments:: Kyphoplasty, pain with sitting in a chair, pain with ambulation of 8/10. LATEX ALLERGY?: No Surgical History: Thoracic Spine, Lumbar Spine Surgical History Comments:: Kyphoplasty, back surgeries, Medications: see chart Subjective Information/ Patient Comments:: pt states that she is in terrible pain today from having to been on phone with door serviceman about selling her house. - Level of function Prior to this admission, the patient could do the following:: Independent ADL's , Independent Ambulation Current Level of Function: Partially Dependent Current Equipment Used at Home: Rolling walker, cane, BSC Pain Assessement - Location thoracic back pain Description: Sharp, Aching Intensity: 7 Pain Behavior: Crying, Guarding Effects of Pain: pain radiates to R rib cage Interventions - Objective Patient Orientation: Person, Place, Time, Situation Current Interventions: IV's Observation: pt with significant thoracic kyphosis Range of Motion - ROM Right Upper Extremity AROM: WFL's Left Upper Extremity AROM: WFL's Right Lower Extremity AROM: WFL's Left Lower Extremity AROM: WFL's Muscle Strength - Muscle Strength Right Upper Extremity Strength: Mild Weakness (grossly 4-/5) Left Upper Extremity Strength: Mild Weakness (grossly 4-/5) Right Lower Extremity Strength: Mild Weakness (hip flex 3+/5, knee flex/ext 4-/5 , ankle DF/PF 4-/5) Left Lower Extremity Strength: Mild Weakness (hip flex 3+/5, knee flex/ext 4-/5 , ankle DF/PF 4-/5) Sensation - Sensation Right Upper Extremity Sensation: Intact/Normal Left Upper Extremity Sensation: Intact/Normal Right Lower Extremity Sensation: Intact/Normal Left Lower Extremity Sensation: Intact/Normal Palpation Palpation Findings: Tenderness, Muscle Guarding Comments:: tenderness and muscle guarding in upper thoracic spine Balance - Sitting Balance and Reactions Static Sitting Balance: Good Dynamic Sitting Balance: Fair Sitting Equilibrium Reactions: Delayed Left, Delayed Right Sitting Protective Reactions: Delayed Left, Delayed Right - Standing Balance and Reactions Static Standing Balance: Fair Dynamic Standing Balance: Fair Standing Equilibrium Reactions: Delayed Left, Delayed Right Standing Protective Reactions: Delayed Left, Delayed Right Functional Mobility - Bed Mobility Rolling R/L: Min Assist Supine to Sit: Min Assist Sit to Supine: Min Assist - Transfers Sit to Stand: CGA Stand to Sit: CGA - Safety Awareness Safety Awareness: Good PANKAJ INDEX SCORE: 53 Ambulation - Ambulation Assistive Device Used: Rolling Walker Orthotic/Prosthetic Device: No Distance: 100ft Assistance needed with Ambulation: CGA Gait Deviations: Forward posture, Short stride Ambulation Comments: pt amb with flexed posture, decreased step length, decreased NATA Factors Affecting Ambulation: Decreased Balance, Pain, Weakness, Decreased Coordination, Decreased Safety, Limited Endurance Treatment time - Units charged Gait trainin - Time with patient Length of Evaluation: 21 Total treatment time: 33 Patient Education - Education Patient Education: Activity Modification, Education of Plan of Care Teaching Recipient: Patient, Family Teaching Methods: Discussion Comments: discussed with patient POC as well as safety with gait Assessment - Assessment Problem List:: Decreased level of function, Requires training/education, Decreased safety/Risk of falls, Weakness, Pain limits previous level of function Rehab Potential: Good Further Therapy Indicated?: Yes Candidate for Swing Bed for Therapy Services?: pt is currently swing bed Evaluation Complexity: HISTORY: Medium (thoracic comp fx,seizures, OA, osteoporsis), EXAM OF BODY SYSTEMS: Medium (strength, balance transfers, gait, posture), CLINICAL PRESENTATION: Medium (evolving), CLINICAL DECISION MAKING: Medium Short Term Goals GOAL #1: pt demonstrate independence with rolling and scooting up in bed. Goal to be met by: 06/21/18 GOAL #2: pt trasnfer sup to/from sit SBA sit to/from stand CGA Goal to be met by: 06/21/18 GOAL #3: pt amb with rwx 125ft with CGA improved posture and no LOB Goal to be met by: 06/21/18 GOAL #4: pt rate pain <5/10 Goal to be met by: 06/21/18 [facility] Goals GOAL #1: pt transfer sup to/from sit independently sit to/from stand SBA Goal to be met by: 06/25/18 GOAL #2: pt amb functional household distance with rwx with SBA with no LOB Goal to be met by: 06/25/18 GOAL #3: Improve dyn stand balance fair + with rwx Goal to be met by: 06/25/18 Plan Plan of Care: Therapeutic EX, Therapeutic Activity Other:: gait training Frequency of Treatment: 1-2 X day, as tolerated Duration of Treatment: 9 days Anticipated Discharge Destination: Home Treatment Diagnosis (ICD 10 Codes): M54.6 thoracic pain. R 26.2 difficulty walking. R26.81 balance impaired Has the Physician been added for Co-signature?: Yes
[2018-06-17] MEDS: TORADOL IVP SCH ×3 (04:19→19:23)
[2018-06-17] MEDS: SYNTHROID PO SCH (05:52)
[2018-06-17] MEDS: LASIX TAB PO SCH (05:52)
[2018-06-17] MEDS: PRILOSEC PO SCH ×2 (05:52→17:04)
[2018-06-17] MEDS: TYLENOL #3 TAB PO PRN ×3 (05:53→22:14)
[2018-06-17] MEDS: ASPIRIN CHEWABLE PO SCH (09:00)
[2018-06-17] MEDS: MULTIVITAMIN TABLET PO SCH (09:17)
[2018-06-17] MEDS: LIPITOR PO SCH (09:18)
[2018-06-17] MEDS: VITAMIN D PO SCH (09:18)
[2018-06-17] MEDS: PREDNISONE PO SCH (09:19)
[2018-06-17] MEDS: KEPPRA PO SCH ×2 (09:19→21:02)
[2018-06-17] MEDS: TOPROL XL PO SCH (09:19)
[2018-06-17] MEDS: IMDUR PO SCH (09:22)
[2018-06-17] MEDS: COZAAR PO SCH (09:23)
[2018-06-17] MEDS: SINGULAIR PO SCH (09:23)
[2018-06-17] MEDS: ALDACTONE PO SCH (09:24)
[2018-06-17] MEDS: COLESTID PO SCH ×2 (09:24→21:01)
[2018-06-17] MEDS: FLORASTOR PO SCH ×2 (09:25→21:00)
[2018-06-17] MEDS: LIPASE PO SCH ×4 (09:25→21:02)
[2018-06-17] MEDS: ARTIFICIAL TEARS OPTH SOL OP PRN (09:25)
[2018-06-17] MEDS: AMYLASE PO SCH ×4 (09:25→21:02)
[2018-06-17] MEDS: [UNRECOGNIZED DRUG - OTHER] PO SCH ×4 (09:25→21:02)
[2018-06-17] MEDS: PROTEASE PO SCH ×4 (09:25→21:02)
[2018-06-17] MEDS: NON-FORMULARY MEDICATION (Umeclidinium Bromide [Incruse Ellipta] 62.5 MCG) IH SCH (09:26)
[2018-06-17] MEDS: MAXIPIME 2 GM in SODIUM CHLORIDE 100 ML IV SCH ×2 (09:26→21:01)
--- NOTE | 2018-06-17 09:34 | PCM.PROG ---
Attending Provider: ATTENDING PROVIDER: Dr. MELISSA GOINS DATE OF SERVICE: 06/17/18 SUBJECTIVE: This 78 year old WHITE/ F was hospitalized 06/15/18. The patient is in swing bed for intractable back pain, T6 compression fracture now being referred to Dr. Ardon to see if anything further could be done to help her. She has been treated with IV antibiotics for UTI. She has chronic anemia and severe CAD with multiple interventions. REVIEW OF SYSTEMS: CONSTITUTIONAL: No night sweats. No fatigue, malaise, lethargy. No fever or chills. HEENT: Eyes: No visual changes. No eye pain. No eye discharge. ENT: No runny nose. No epistaxis. No sinus pain. No odynophagia. No congestion. RESPIRATORY: No cough, no congestion. No hemoptysis. No shortness of breath. CARDIOVASCULAR: No angina symptoms. At present time no coronary insufficiency or CHF symptoms. No atypical chest pain for CAD. No palpitations. No orthopnea.. GASTROINTESTINAL: No abdominal pain. No nausea or vomiting. No diarrhea or constipation. No hematemesis. No hematochezia. GENITOURINARY: No urgency. No frequency. No dysuria. No hematuria. No obstructive symptoms. No discharge. No pain. No significant abnormal bleeding. MUSCULOSKELETAL: Back soreness. NEUROLOGICAL: Awake, alert, oriented to time, place and person. No headache. No neck pain. No syncope. No seizures. No dizziness. PSYCHIATRIC: Not anxious. No depression. No suicidal thoughts. No homicidal thoughts. SKIN: No rash. No lesions. No wounds. ENDOCRINE: No unexplained weight loss. No weight gain. HEMATOLOGIC/LYMPHATIC: No anemia. No purpura. No petechiae. No prolonged or excessive bleeding. No palpable lymph nodes. PHYSICAL EXAMINATION: GENERAL: The patient is awake, alert and oriented, lying in bed in no distress. VITAL SIGNS: Temperature 97.8 F, Pulse 80, Respiratory Rate 16, BP 121/68, Pulse Ox 97% HEENT: Head normocephalic, atraumatic. Eyes: Extraocular muscles are intact. Pupils are equal, round and reactive to light and accommodation. Ears: No lesions. Nose appeared normal. Throat: No exudate or erythema. NECK: Supple. No JVD, no carotid bruit. No lymphadenopathy or thyromegaly. LUNGS: Clear to auscultation. Percussion note normal. Chest symmetrical. HEART: S1, S2, no S3. No murmurs. No cyanosis or clubbing. No ascites. Pulses: Dorsalis pedis and posterior tibial pulses +1 to +2 both sides. ABDOMEN: Soft. Non-tender. Bowel sounds active. No CVA tenderness. No mass felt. EXTREMITIES: No edema. Full range of motion of all extremities, equal. NEUROLOGIC: No focal deficit. Cranial nerves II through XII are grossly intact. No headache, no double vision or headache. SKIN: Warm and dry. Intact. Turgor-normal. LYMPHATIC: No palpable lymph nodes/no lymphedema. MUSCULOSKELETAL: Normal joints with no swelling. Muscle tone is normal. LAB REVIEW: 06/17/18 05:00 06/17/18 05:00 06/17/18 05:00: Sodium 131.0 L, Potassium 3.78, Chloride 100.0, Carbon Dioxide 25.9, Anion Gap 8.88, BUN 16.1, Creatinine 0.95, Estimated GFR (MDRD) 57.00, BUN /Creatinine Ratio 16.94, Glucose 89.6, Calcium 8.72, Total Bilirubin 0.23, AST 30.1, ALT 11.3, Alkaline Phosphatase 66.1, Total Protein 6.21 L, Albumin 3.24 L , Globulin 2.97, Albumin/Globulin Ratio 1.09 06/17/18 05:00: WBC 8.42, RBC 2.97 L, Hgb 9.2 L, Hct 26.7 L, MCV 89.9, MCH 31.0 , MCHC 34.5, RDW Coeff of Rehana 12.7, Plt Count 200, Immature Gran % (Auto) 1.3, Neut % (Auto) 76.1, Lymph % (Auto) 9.6 L, [place] % (Auto) 12.6 H, Eos % (Auto) 0.2 , Baso % (Auto) 0.2, Immature Gran # (Auto) 0.1, Neut # (Auto) 6.4, Lymph # ( Auto) 0.8, [place] # (Auto) 1.1, Eos # (Auto) 0.0, Baso # (Auto) 0.0 06/17/18 05:00: PT 26.6 H D, INR 2.74 ASSESSMENT: 1. T6 compression fracture 2. UTI 3. CAD 4. Dyslipidemia 5. History of hypertension PLAN: 1. Continue IV antibiotics. 2. Sodium is better at 131. Cardiovascular status is stable. Pain is under control. She is being referred to Dr. Ardon (has never been seen in the past) . 3. Physical Therapy to work with the patient. Plan and coordination of the patient's care discussed in the presence of Silver Wrapper and nurse. CONDITION: Stable SCRIBED BY: Keaton PERDOMO scribed while in presence of service performed by Dr. MELISSA GOINS on 06/17/18 ([id number])
[2018-06-17] MEDS: SODIUM CHLORIDE 1,000 ML IV SCH (10:01)
[2018-06-17] MEDS: COUMADIN PO SCH (18:12)
[2018-06-17] MEDS: TYLENOL PO SCH (21:01)
[2018-06-18] MEDS: TORADOL IVP SCH ×5 (00:22→23:27)
[2018-06-18] MEDS: TYLENOL #3 TAB PO PRN ×2 (05:06→10:36)
[2018-06-18] MEDS: PRILOSEC PO SCH ×2 (05:42→17:04)
[2018-06-18] MEDS: LASIX TAB PO SCH (05:42)
[2018-06-18] MEDS: SYNTHROID PO SCH (05:42)
[2018-06-18] MEDS: ARTIFICIAL TEARS OPTH SOL OP PRN (08:35)
[2018-06-18] MEDS: LIPASE PO SCH ×4 (08:35→21:03)
[2018-06-18] MEDS: PROTEASE PO SCH ×4 (08:35→21:03)
[2018-06-18] MEDS: [UNRECOGNIZED DRUG - OTHER] PO SCH ×4 (08:35→21:03)
[2018-06-18] MEDS: LIPITOR PO SCH (08:35)
[2018-06-18] MEDS: MAXIPIME 2 GM in SODIUM CHLORIDE 100 ML IV SCH ×2 (08:35→21:04)
[2018-06-18] MEDS: NON-FORMULARY MEDICATION (Umeclidinium Bromide [Incruse Ellipta] 62.5 MCG) IH SCH (08:35)
[2018-06-18] MEDS: AMYLASE PO SCH ×4 (08:35→21:03)
[2018-06-18] MEDS: COLESTID PO SCH ×2 (08:35→21:01)
[2018-06-18] MEDS: PREDNISONE PO SCH (08:36)
[2018-06-18] MEDS: MULTIVITAMIN TABLET PO SCH (08:36)
[2018-06-18] MEDS: COZAAR PO SCH (08:36)
[2018-06-18] MEDS: FLORASTOR PO SCH ×2 (08:36→21:02)
[2018-06-18] MEDS: TYLENOL PO SCH ×2 (08:36→21:02)
[2018-06-18] MEDS: TOPROL XL PO SCH (08:36)
[2018-06-18] MEDS: KEPPRA PO SCH ×2 (08:36→21:00)
[2018-06-18] MEDS: ALDACTONE PO SCH (08:36)
[2018-06-18] MEDS: VITAMIN D PO SCH (08:37)
[2018-06-18] MEDS: IMDUR PO SCH (08:37)
[2018-06-18] MEDS: SINGULAIR PO SCH (08:37)
--- NOTE | 2018-06-18 15:34 | ECHO2D ---
Date of Exam: 06/18/18 Ordering Physician: DR. MELISSA GOINS Room # : 115 Reason for Echo: SOB, CABG M-Mode Normal Adult Results LV Dimensions Normal Adult Results AoV Opening excursions >1.6 >1.6 LVEDD-base- 3.5-5.8 5.0 Ao root dimensions 2.0-3.7 3.3 LVESD-base- 3.1-4.6 L. Atrium dimensions 1.9-3.8 4.7 Post. Wall thickness 0.8-1.1 1.0 IV septum (thickness) 0.7-1.2 1.0 Post. Wall excursion 0.72-1.3 NORMAL Septal motion 0.2 Systolic motion R. Ventricular cavity 1.5-2.0 NORMAL LVEF 60% 48% Paradoxical septal wall motion NORMAL 2-D : HYPOKINETIC SEPTUM--NORMAL VALVES--NO EFFUSION, NO THROMBUS M-MODE: MV: NORMAL AV: NORMAL TV: NORMAL PV: CHAMBER SIZE: ENLARGED LEFT ATRIAL CAVITY WALL MOTION: HYPOKINETIC SEPTUM PERICARDIUM: NORMAL INTERPRETATION: 1. HYPOKINETIC SEPTUM LEFT VENTRICULAR EJECTION FRACTION 48% 2. ENLARGED LEFT ATRIAL CAVITY 3. NORMAL VALVES 4. NORMAL LEFT VENTRICLE SIZE MTDD
[2018-06-18] MEDS: COUMADIN PO SCH (17:04)
[2018-06-18] MEDS: SODIUM CHLORIDE 1,000 ML IV SCH (21:04)
[2018-06-19] MEDS: TYLENOL #3 TAB PO PRN ×2 (03:07→14:19)
[2018-06-19] MEDS: SYNTHROID PO SCH (05:51)
[2018-06-19] MEDS: TORADOL IVP SCH ×3 (05:51→17:37)
[2018-06-19] MEDS: PRILOSEC PO SCH ×2 (05:52→17:35)
[2018-06-19] MEDS: LASIX TAB PO SCH (05:52)
[2018-06-19] MEDS ORDERED: MAXIPIME IV ONE (08:16)
[2018-06-19] MEDS ORDERED: TOPROL XL ONE (08:22)
[2018-06-19] MEDS: COLESTID PO SCH ×2 (08:48→21:05)
[2018-06-19] MEDS: TYLENOL PO SCH ×2 (08:49→21:09)
[2018-06-19] MEDS: COZAAR PO SCH (08:49)
[2018-06-19] MEDS: KEPPRA PO SCH ×2 (08:50→21:06)
[2018-06-19] MEDS: ALDACTONE PO SCH (08:50)
[2018-06-19] MEDS: IMDUR PO SCH (08:51)
[2018-06-19] MEDS: SINGULAIR PO SCH (08:51)
[2018-06-19] MEDS: PREDNISONE PO SCH (08:51)
[2018-06-19] MEDS: VITAMIN D PO SCH (08:53)
[2018-06-19] MEDS: LIPITOR PO SCH (08:53)
[2018-06-19] MEDS: MULTIVITAMIN TABLET PO SCH (08:53)
[2018-06-19] MEDS: MAXIPIME 2 GM in SODIUM CHLORIDE 100 ML IV SCH ×2 (08:54→21:04)
[2018-06-19] MEDS: FLORASTOR PO SCH ×2 (08:57→21:05)
[2018-06-19] MEDS: ASPIRIN CHEWABLE PO SCH (09:02)
[2018-06-19] MEDS: LIPASE PO SCH ×4 (09:04→21:09)
[2018-06-19] MEDS: AMYLASE PO SCH ×4 (09:04→21:09)
[2018-06-19] MEDS: [UNRECOGNIZED DRUG - OTHER] PO SCH ×4 (09:04→21:09)
[2018-06-19] MEDS: PROTEASE PO SCH ×4 (09:04→21:09)
[2018-06-19] MEDS: NON-FORMULARY MEDICATION (Umeclidinium Bromide [Incruse Ellipta] 62.5 MCG) IH SCH (09:04)
[2018-06-19] MEDS: TOPROL XL PO SCH (09:06)
[2018-06-19] MEDS ORDERED: NON-FORMULARY MEDICATION (Sennosides/Docusate Sodium [Senna-S Tablet] 1 EACH) PO SCH (09:30)
[2018-06-19] MEDS: COLACE PO SCH ×2 (10:30→21:08)
[2018-06-19] MEDS: SENNA PO SCH ×2 (10:30→21:06)
[2018-06-19] MEDS: COUMADIN PO SCH (17:36)
[2018-06-20] MEDS: TORADOL IVP SCH ×5 (00:15→23:33)
[2018-06-20] MEDS: TYLENOL #3 TAB PO PRN (02:04)
[2018-06-20] MEDS: SODIUM CHLORIDE 1,000 ML IV SCH (04:34)
[2018-06-20] MEDS: SYNTHROID PO SCH (06:23)
[2018-06-20] MEDS: LASIX TAB PO SCH (06:24)
[2018-06-20] MEDS: PRILOSEC PO SCH ×2 (06:24→17:24)
[2018-06-20] MEDS: LIPITOR PO SCH (09:24)
[2018-06-20] MEDS: COZAAR PO SCH (09:25)
[2018-06-20] MEDS: FLORASTOR PO SCH ×2 (09:25→20:17)
[2018-06-20] MEDS: IMDUR PO SCH (09:25)
[2018-06-20] MEDS: KEPPRA PO SCH ×2 (09:26→20:14)
[2018-06-20] MEDS: VITAMIN D PO SCH (09:26)
[2018-06-20] MEDS: TOPROL XL PO SCH (09:26)
[2018-06-20] MEDS: SINGULAIR PO SCH (09:27)
[2018-06-20] MEDS: COLACE PO SCH ×2 (09:27→20:14)
[2018-06-20] MEDS: MULTIVITAMIN TABLET PO SCH (09:27)
[2018-06-20] MEDS: ALDACTONE PO SCH (09:27)
[2018-06-20] MEDS: TYLENOL PO SCH ×2 (09:28→20:13)
[2018-06-20] MEDS: COLESTID PO SCH ×2 (09:28→20:14)
[2018-06-20] MEDS: PREDNISONE PO SCH (09:28)
[2018-06-20] MEDS: SENNA PO SCH ×2 (09:28→20:13)
[2018-06-20] MEDS: MAXIPIME 2 GM in SODIUM CHLORIDE 100 ML IV SCH ×2 (09:29→20:13)
[2018-06-20] MEDS: LIPASE PO SCH ×4 (09:29→20:13)
[2018-06-20] MEDS: PROTEASE PO SCH ×4 (09:29→20:13)
[2018-06-20] MEDS: AMYLASE PO SCH ×4 (09:29→20:13)
[2018-06-20] MEDS: [UNRECOGNIZED DRUG - OTHER] PO SCH ×4 (09:29→20:13)
[2018-06-20] MEDS: NON-FORMULARY MEDICATION (Umeclidinium Bromide [Incruse Ellipta] 62.5 MCG) IH SCH (09:30)
[2018-06-20] MEDS: COUMADIN PO SCH (17:25)
[2018-06-20] MEDS: ARTIFICIAL TEARS OPTH SOL OP PRN (20:13)
[2018-06-20] MEDS: XANAX PO PRN (20:55)
[2018-06-21] MEDS: TYLENOL #3 TAB PO PRN (01:05)
[2018-06-21] MEDS: TORADOL IVP SCH ×4 (05:30→23:25)
[2018-06-21] MEDS: SYNTHROID PO SCH (06:17)
[2018-06-21] MEDS: PRILOSEC PO SCH ×2 (06:17→16:24)
[2018-06-21] MEDS: LASIX TAB PO SCH (06:17)
[2018-06-21] MEDS: [UNRECOGNIZED DRUG - OTHER] PO SCH ×4 (08:07→20:36)
[2018-06-21] MEDS: AMYLASE PO SCH ×4 (08:07→20:36)
[2018-06-21] MEDS: PROTEASE PO SCH ×4 (08:07→20:36)
[2018-06-21] MEDS: LIPASE PO SCH ×4 (08:07→20:36)
[2018-06-21] MEDS: NON-FORMULARY MEDICATION (Umeclidinium Bromide [Incruse Ellipta] 62.5 MCG) IH SCH (09:30)
[2018-06-21] MEDS: COLESTID PO SCH ×2 (09:31→20:38)
[2018-06-21] MEDS: IMDUR PO SCH (09:31)
[2018-06-21] MEDS: ARTIFICIAL TEARS OPTH SOL OP PRN ×2 (09:31→18:07)
[2018-06-21] MEDS: SINGULAIR PO SCH (09:32)
[2018-06-21] MEDS: LIPITOR PO SCH (09:32)
[2018-06-21] MEDS: ALDACTONE PO SCH (09:32)
[2018-06-21] MEDS: COZAAR PO SCH (09:32)
[2018-06-21] MEDS: TYLENOL PO SCH ×2 (09:33→20:38)
[2018-06-21] MEDS: FLORASTOR PO SCH ×2 (09:33→20:37)
[2018-06-21] MEDS: TOPROL XL PO SCH (09:33)
[2018-06-21] MEDS: KEPPRA PO SCH ×2 (09:33→20:38)
[2018-06-21] MEDS: VITAMIN D PO SCH (09:33)
[2018-06-21] MEDS: COLACE PO SCH ×2 (09:33→20:37)
[2018-06-21] MEDS: MAXIPIME 2 GM in SODIUM CHLORIDE 100 ML IV SCH ×2 (09:34→20:36)
[2018-06-21] MEDS: MULTIVITAMIN TABLET PO SCH (09:34)
[2018-06-21] MEDS: PREDNISONE PO SCH (09:34)
[2018-06-21] MEDS: SENNA PO SCH ×2 (09:34→20:37)
--- NOTE | 2018-06-21 11:11 | PCM.PROG ---
Attending Provider: ATTENDING PROVIDER: Dr. MELISSA GOINS DATE OF SERVICE: 06/21/18 SUBJECTIVE: This 78 year old WHITE/ F was hospitalized 06/15/18 with T6 compression fracture with back pain. The patient is in swing bed. She states the pain is less than before, rates it as a 2 to 3 on a scale of 1 to 10. REVIEW OF SYSTEMS: CONSTITUTIONAL: No night sweats. No fatigue, malaise, lethargy. No fever or chills. HEENT: Eyes: No visual changes. No eye pain. No eye discharge. ENT: No runny nose. No epistaxis. No sinus pain. No odynophagia. No congestion. RESPIRATORY: No cough, no congestion. No hemoptysis. No shortness of breath. CARDIOVASCULAR: No angina symptoms. No CHF symptoms. No atypical chest pain for CAD. No palpitations. No orthopnea.. GASTROINTESTINAL: No abdominal pain. No nausea or vomiting. No diarrhea or constipation. No hematemesis. No hematochezia. GENITOURINARY: No urgency. No frequency. No dysuria. No hematuria. No obstructive symptoms. No discharge. No pain. No significant abnormal bleeding. MUSCULOSKELETAL: No musculoskeletal pain; no joint swelling. NEUROLOGICAL: Awake, alert, oriented to time, place and person. No headache. No neck pain. No syncope. No seizures. No dizziness. PSYCHIATRIC: Not anxious. No depression. No suicidal thoughts. No homicidal thoughts. SKIN: No rash. No lesions. No wounds. ENDOCRINE: No unexplained weight loss. No weight gain. HEMATOLOGIC/LYMPHATIC: No anemia. No purpura. No petechiae. No prolonged or excessive bleeding. No palpable lymph nodes. PHYSICAL EXAMINATION: GENERAL: The patient is awake, alert and oriented, lying in bed in no distress. VITAL SIGNS: Temperature 98.5 F, Pulse 78, Respiratory Rate 16, BP 144/86, Pulse Ox 99% HEENT: Head normocephalic, atraumatic. Eyes: Extraocular muscles are intact. Pupils are equal, round and reactive to light and accommodation. Ears: No lesions. Nose appeared normal. Throat: No exudate or erythema. NECK: Supple. No JVD, no carotid bruit. No lymphadenopathy or thyromegaly. LUNGS: Clear to auscultation. Percussion note normal. Chest symmetrical. HEART: S1, S2, no S3. No murmurs. No cyanosis or clubbing. No ascites. Pulses: Dorsalis pedis and posterior tibial pulses +1 to +2 both sides. ABDOMEN: Soft. Non-tender. Bowel sounds active. No CVA tenderness. No mass felt. EXTREMITIES: No pedal edema. Full range of motion of all extremities, equal. NEUROLOGIC: No focal deficit. Cranial nerves II through XII are grossly intact. No headache, no double vision or headache. SKIN: Warm and dry. Intact. Turgor-normal. LYMPHATIC: No palpable lymph nodes/no lymphedema. MUSCULOSKELETAL: Normal joints with no swelling. Muscle tone is normal. LAB REVIEW: 06/21/18 04:20 06/21/18 04:20 06/21/18 04:20: PT 20.9 H, INR 2.14 06/21/18 04:20: Sodium 130.6 L, Potassium 3.92, Chloride 99.5, Carbon Dioxide 27.8, Anion Gap 7.22, BUN 19.4 H, Creatinine 0.91, Estimated GFR (MDRD) 60.00, BUN/Creatinine Ratio 21.31, Glucose 87.4, Calcium 8.55, Total Bilirubin 0.25, AST 21.4, ALT 12.8, Alkaline Phosphatase 69.3, Total Protein 5.84 L, Albumin 3.00 L, Globulin 2.84, Albumin/Globulin Ratio 1.05 06/21/18 04:20: WBC 11.28 H, RBC 3.26 L, Hgb 10.0 L, Hct 28.9 L, MCV 88.7, MCH 30.7, MCHC 34.6, RDW Coeff of Rehana 12.7, Plt Count 225, Neutrophils % (Manual) 69.0, Lymphocytes % (Manual) 18.0, Monocytes % (Manual) 10.0, Eosinophils % ( Manual) 3.0, Anisocytosis Not present ASSESSMENT/PLAN: 1. Compression fractures from osteoporosis. The patient has kyphosis, responding to pain management. The prognosis is not good and will continue to have compression fractures. 2. The patient has Pseudomonas in the urine and is on Cefepime. She is afebrile without burning on urination. She is on the 7th day of Cefepime and will discontinue tomorrow. 3. Cardiovascular status is stable. 4. Will discontinue Prednisone tomorrow. Plan and coordination of the patient's care discussed in the presence of Belt Maker and nurse. CONDITION: STABLE SCRIBED BY: TAHIRA CORONEL Bookbinder Chief scribed while in presence of service performed by Dr. MELISSA GOINS on 06/21/18 ([id number])
[2018-06-21] MEDS: SODIUM CHLORIDE 1,000 ML IV SCH (14:33)
[2018-06-21] MEDS: COUMADIN PO SCH (16:24)
[2018-06-21] MEDS ORDERED: COLACE PO ONE (17:55)
[2018-06-21] MEDS: XANAX PO PRN (20:43)
[2018-06-22] MEDS: TYLENOL #3 TAB PO PRN (04:09)
[2018-06-22] MEDS: LASIX TAB PO SCH (05:30)
[2018-06-22] MEDS: TORADOL IVP SCH ×4 (05:31→23:33)
[2018-06-22] MEDS: SYNTHROID PO SCH (05:31)
[2018-06-22] MEDS: PRILOSEC PO SCH ×2 (05:31→16:11)
[2018-06-22] MEDS ORDERED: CITRATE OF MAGNESIA PO STA (07:52)
[2018-06-22] MEDS: PROTEASE PO SCH ×4 (08:49→20:09)
[2018-06-22] MEDS: LIPASE PO SCH ×4 (08:49→20:09)
[2018-06-22] MEDS: NON-FORMULARY MEDICATION (Umeclidinium Bromide [Incruse Ellipta] 62.5 MCG) IH SCH (08:49)
[2018-06-22] MEDS: AMYLASE PO SCH ×4 (08:49→20:09)
[2018-06-22] MEDS: [UNRECOGNIZED DRUG - OTHER] PO SCH ×4 (08:49→20:09)
[2018-06-22] MEDS: ASPIRIN CHEWABLE PO SCH (08:50)
[2018-06-22] MEDS: IMDUR PO SCH (08:51)
[2018-06-22] MEDS: VITAMIN D PO SCH (08:51)
[2018-06-22] MEDS: TYLENOL PO SCH ×2 (08:51→20:06)
[2018-06-22] MEDS: SENNA PO SCH ×2 (08:51→20:04)
[2018-06-22] MEDS: MULTIVITAMIN TABLET PO SCH (08:51)
[2018-06-22] MEDS: FLORASTOR PO SCH ×2 (08:51→20:02)
[2018-06-22] MEDS: KEPPRA PO SCH ×2 (08:52→20:04)
[2018-06-22] MEDS: COLESTID PO SCH ×2 (08:52→20:01)
[2018-06-22] MEDS: COLACE PO SCH ×3 (08:54→20:02)
[2018-06-22] MEDS: ALDACTONE PO SCH (08:55)
[2018-06-22] MEDS: LIPITOR PO SCH (08:55)
[2018-06-22] MEDS: TOPROL XL PO SCH (08:55)
[2018-06-22] MEDS: SINGULAIR PO SCH (08:55)
[2018-06-22] MEDS: COZAAR PO SCH (08:56)
[2018-06-22] MEDS: PREDNISONE PO SCH (10:01)
[2018-06-22] MEDS: COUMADIN PO SCH (16:11)
[2018-06-22] MEDS ORDERED: DULCOLAX RC STA (19:43)
[2018-06-22] MEDS: NYSTOP POWDER TP SCH (20:13)
[2018-06-22] MEDS: XANAX PO PRN (21:31)
[2018-06-22] MEDS: SODIUM CHLORIDE 1,000 ML IV SCH (21:32)
[2018-06-23] MEDS: TYLENOL #3 TAB PO PRN (01:59)
[2018-06-23] MEDS: LASIX TAB PO SCH (05:48)
[2018-06-23] MEDS: SYNTHROID PO SCH (05:49)
[2018-06-23] MEDS: PRILOSEC PO SCH ×2 (05:49→16:43)
[2018-06-23] MEDS: TORADOL IVP SCH (05:50)
[2018-06-23] MEDS: NYSTOP POWDER TP SCH ×2 (08:29→20:55)
[2018-06-23] MEDS: ALDACTONE PO SCH (08:29)
[2018-06-23] MEDS: COLACE PO SCH ×3 (08:30→20:56)
[2018-06-23] MEDS: COLESTID PO SCH ×2 (08:30→20:56)
[2018-06-23] MEDS: IMDUR PO SCH (08:31)
[2018-06-23] MEDS: COZAAR PO SCH (08:31)
[2018-06-23] MEDS: SENNA PO SCH ×2 (08:32→20:56)
[2018-06-23] MEDS: LIPITOR PO SCH (08:32)
[2018-06-23] MEDS: KEPPRA PO SCH ×2 (08:33→20:56)
[2018-06-23] MEDS: SINGULAIR PO SCH (08:33)
[2018-06-23] MEDS: MULTIVITAMIN TABLET PO SCH (08:33)
[2018-06-23] MEDS: TOPROL XL PO SCH (08:34)
[2018-06-23] MEDS: VITAMIN D PO SCH (08:34)
[2018-06-23] MEDS: TYLENOL PO SCH ×2 (08:34→20:57)
[2018-06-23] MEDS: FLORASTOR PO SCH ×2 (08:35→20:57)
[2018-06-23] MEDS: AMYLASE PO SCH ×4 (08:35→20:55)
[2018-06-23] MEDS: [UNRECOGNIZED DRUG - OTHER] PO SCH ×4 (08:35→20:55)
[2018-06-23] MEDS: NON-FORMULARY MEDICATION (Umeclidinium Bromide [Incruse Ellipta] 62.5 MCG) IH SCH (08:35)
[2018-06-23] MEDS: LIPASE PO SCH ×4 (08:35→20:55)
[2018-06-23] MEDS: PROTEASE PO SCH ×4 (08:35→20:55)
[2018-06-23] MEDS ORDERED: TYLENOL #3 TAB PO SCH (09:00)
[2018-06-23] MEDS: TYLENOL #3 TAB PO SCH ×2 (09:08→16:42)
[2018-06-23] MEDS: FERROUS SULFATE PO SCH (09:08)
[2018-06-23] MEDS: SODIUM CHLORIDE 1,000 ML IV SCH (09:09)
--- NOTE | 2018-06-23 09:42 | PCM.PROG ---
Attending Provider: ATTENDING PROVIDER: Dr. MELISSA GOINS DATE OF SERVICE: 06/23/18 SUBJECTIVE: This 78 year old WHITE/ F was hospitalized 06/15/18 in swing BED for intractable back pain which seems to be more or less under control. She has been on [place] 7.5 t.i.d. p.r.n. Will d/c the Toradol. Will give Tylenol and [place] scheduled. The patient has appointment with Dr. Ardon, a neurosurgeon 07/02/18. Neurological status is stable. REVIEW OF SYSTEMS: CONSTITUTIONAL: No night sweats. No fatigue, malaise, lethargy. No fever or chills. HEENT: Eyes: No visual changes. No eye pain. No eye discharge. ENT: No runny nose. No epistaxis. No sinus pain. No odynophagia. No congestion. RESPIRATORY: No cough, no congestion. No hemoptysis. No shortness of breath. CARDIOVASCULAR: No angina symptoms. No CHF symptoms. No atypical chest pain for CAD. No palpitations. No orthopnea.. GASTROINTESTINAL: No abdominal pain. No nausea or vomiting. No diarrhea or constipation. No hematemesis. No hematochezia. GENITOURINARY: No urgency. No frequency. No dysuria. No hematuria. No obstructive symptoms. No discharge. No pain. No significant abnormal bleeding. MUSCULOSKELETAL: Back soreness. NEUROLOGICAL: Awake, alert, oriented to time, place and person. No headache. No neck pain. No syncope. No seizures. No dizziness. PSYCHIATRIC: Not anxious. No depression. No suicidal thoughts. No homicidal thoughts. SKIN: No rash. No lesions. No wounds. ENDOCRINE: No unexplained weight loss. No weight gain. HEMATOLOGIC/LYMPHATIC: No anemia. No purpura. No petechiae. No prolonged or excessive bleeding. No palpable lymph nodes. PHYSICAL EXAMINATION: GENERAL: The patient is awake, alert and oriented, sitting in chair, comfortable at rest. VITAL SIGNS: Temperature 8.7 F, Pulse 80, Respiratory Rate 20, BP 118/74, Pulse Ox 93% HEENT: Head normocephalic, atraumatic. Eyes: Extraocular muscles are intact. Pupils are equal, round and reactive to light and accommodation. Ears: No lesions. Nose appeared normal. Throat: No exudate or erythema. NECK: Supple. No JVD, no carotid bruit. No lymphadenopathy or thyromegaly. LUNGS: Clear to auscultation. Percussion note normal. Chest symmetrical. HEART: S1, S2, no S3. No murmurs. No cyanosis or clubbing. No ascites. Pulses: Dorsalis pedis and posterior tibial pulses +1 to +2 both sides. ABDOMEN: Soft. Non-tender. Bowel sounds active. No CVA tenderness. No mass felt. EXTREMITIES: No edema. Full range of motion of all extremities, equal. NEUROLOGIC: No focal deficit. Cranial nerves II through XII are grossly intact. No headache, no double vision or headache. SKIN: Warm and dry. Intact. Turgor-normal. LYMPHATIC: No palpable lymph nodes/no lymphedema. MUSCULOSKELETAL: Normal joints with no swelling. Muscle tone is normal. LAB REVIEW: 06/23/18 05:00 06/23/18 05:00 06/23/18 05:00: Sodium 129.9 L, Potassium 4.29, Chloride 98.0, Carbon Dioxide 30.3 H, Anion Gap 5.89, BUN 16.4, Creatinine 0.88, Estimated GFR (MDRD) 62.00, BUN/Creatinine Ratio 18.63, Glucose 78.3, Calcium 8.46, Total Bilirubin 0.19 L, AST 32.8, ALT 14.5, Alkaline Phosphatase 66.6, Total Protein 5.40 L, Albumin 2.78 L, Globulin 2.62, Albumin/Globulin Ratio 1.06 06/23/18 05:00: WBC 8.78, RBC 2.92 L, Hgb 8.8 L, Hct 26.2 L, MCV 89.7, MCH 30.1 , MCHC 33.6, RDW Coeff of Rehana 13.1, Plt Count 187, Immature Gran % (Auto) 4.4, Neut % (Auto) 64.4, Lymph % (Auto) 17.1, [place] % (Auto) 8.9, Eos % (Auto) 4.6, Baso % (Auto) 0.6, Immature Gran # (Auto) 0.4, Neut # (Auto) 5.7, Lymph # (Auto ) 1.5, [place] # (Auto) 0.8, Eos # (Auto) 0.4, Baso # (Auto) 0.1 06/23/18 04:45: PT 18.7 H, INR 1.91 ASSESSMENT: 1. Intractable back pain, seems to be under control. 2. Cardiovascular status is stable with no evidence of CHF or coronary insufficiency. PLAN: 1. Continue pain medication. 2. Will give Ferrous Sulfate 325 mg p.o. daily. 3. Anemia profile. 4. Advised to followup with Dr. Ardon as outpatient. 5. Home Health for nursing assessment, PT/OT discussed, patient agreeable. Plan and coordination of the patient's care discussed in the presence of Pediatric Dental Hygienist and nurse. CONDITION: Stable SCRIBED BY: TAHIRA CORONEL Instructional Design Manager scribed while in presence of service performed by Dr. MELISSA GOINS on 06/23/18 ([id number])
[2018-06-23] MEDS: NORCO 5-325 PO SCH ×2 (12:20→20:56)
[2018-06-23] MEDS: COUMADIN PO SCH (16:43)
[2018-06-23] MEDS: ARTIFICIAL TEARS OPTH SOL OP PRN (20:55)
[2018-06-23] MEDS: XANAX PO PRN (20:55)
[2018-06-24] MEDS ORDERED: TYLENOL #3 TAB PO STA (02:12)
[2018-06-24] MEDS: PRILOSEC PO SCH ×2 (05:55→17:28)
[2018-06-24] MEDS: LASIX TAB PO SCH (05:56)
[2018-06-24] MEDS: SYNTHROID PO SCH (05:56)
[2018-06-24] MEDS ORDERED: TYLENOL #3 TAB PO PRN ×2 (08:23→09:38)
[2018-06-24] MEDS: IMDUR PO SCH (09:27)
[2018-06-24] MEDS: LIPITOR PO SCH (09:27)
[2018-06-24] MEDS: COLESTID PO SCH ×2 (09:27→20:33)
[2018-06-24] MEDS: COZAAR PO SCH (09:28)
[2018-06-24] MEDS: TYLENOL #3 TAB PO SCH ×2 (09:28→17:28)
[2018-06-24] MEDS: SENNA PO SCH ×2 (09:28→20:33)
[2018-06-24] MEDS: FLORASTOR PO SCH ×2 (09:28→20:33)
[2018-06-24] MEDS: MULTIVITAMIN TABLET PO SCH (09:28)
[2018-06-24] MEDS: KEPPRA PO SCH ×2 (09:29→20:32)
[2018-06-24] MEDS: ALDACTONE PO SCH (09:29)
[2018-06-24] MEDS: TOPROL XL PO SCH (09:29)
[2018-06-24] MEDS: VITAMIN D PO SCH (09:29)
[2018-06-24] MEDS: SINGULAIR PO SCH (09:29)
[2018-06-24] MEDS: COLACE PO SCH ×3 (09:29→20:32)
[2018-06-24] MEDS: FERROUS SULFATE PO SCH (09:29)
[2018-06-24] MEDS: AMYLASE PO SCH ×4 (09:30→20:32)
[2018-06-24] MEDS: LIPASE PO SCH ×4 (09:30→20:32)
[2018-06-24] MEDS: PROTEASE PO SCH ×4 (09:30→20:32)
[2018-06-24] MEDS: [UNRECOGNIZED DRUG - OTHER] PO SCH ×4 (09:30→20:32)
[2018-06-24] MEDS: NON-FORMULARY MEDICATION (Umeclidinium Bromide [Incruse Ellipta] 62.5 MCG) IH SCH (09:30)
[2018-06-24] MEDS: NYSTOP POWDER TP SCH ×2 (09:30→20:31)
[2018-06-24] MEDS: TYLENOL PO SCH ×2 (09:34→20:32)
[2018-06-24] MEDS: SODIUM CHLORIDE 1,000 ML IV SCH (09:34)
[2018-06-24] MEDS: ASPIRIN CHEWABLE PO SCH (09:41)
[2018-06-24] MEDS ORDERED: TYLENOL #3 TAB PO SCH (10:00)
[2018-06-24] MEDS: NORCO 5-325 PO SCH ×2 (12:50→20:38)
[2018-06-24] MEDS ORDERED: PRILOSEC PO SCH (13:00)
[2018-06-24] MEDS: COUMADIN PO SCH (17:29)
[2018-06-24] MEDS: XANAX PO PRN (20:38)
[2018-06-25 05:30] VITALS: BP 124/70; TEMP 98
[2018-06-25] MEDS: SYNTHROID PO SCH (05:46)
[2018-06-25] MEDS: LASIX TAB PO SCH (05:47)
[2018-06-25] MEDS: PRILOSEC PO SCH (05:47)
--- NOTE | 2018-06-25 09:07 | PCM.PROG ---
Attending Provider: ATTENDING PROVIDER: Dr. MELISSA HERRERA This patient is seen with Charmaine Toussaint, Nurse Practitioner. DATE OF SERVICE: 06/25/18 SUBJECTIVE: This 78 year old WHITE/ F was hospitalized 06/15/18. The patient is lying in bed resting comfortably. She is going to be discharged home today back to to assisted living. Back pain has been controlled. Blood pressure is improved. REVIEW OF SYSTEMS: CONSTITUTIONAL: No night sweats. No fatigue, malaise, lethargy. No fever or chills. HEENT: Eyes: No visual changes. No eye pain. No eye discharge. ENT: No runny nose. No epistaxis. No sinus pain. No odynophagia. No congestion. RESPIRATORY: No cough, no congestion. No hemoptysis. No shortness of breath. CARDIOVASCULAR: No angina symptoms. No CHF symptoms. No atypical chest pain for CAD. No palpitations. No orthopnea.. GASTROINTESTINAL: No abdominal pain. No nausea or vomiting. No diarrhea or constipation. No hematemesis. No hematochezia. GENITOURINARY: No urgency. No frequency. No dysuria. No hematuria. No obstructive symptoms. No discharge. No pain. No significant abnormal bleeding. MUSCULOSKELETAL: Improved back pain. NEUROLOGICAL: Awake, alert, oriented to time, place and person. No headache. No neck pain. No syncope. No seizures. No dizziness. PSYCHIATRIC: Not anxious. No depression. No suicidal thoughts. No homicidal thoughts. SKIN: No rash. No lesions. No wounds. ENDOCRINE: No unexplained weight loss. No weight gain. HEMATOLOGIC/LYMPHATIC: Anemia. No purpura. No petechiae. No prolonged or excessive bleeding. No palpable lymph nodes. PHYSICAL EXAMINATION: GENERAL: The patient is awake, alert and oriented, lying in bed in no distress. VITAL SIGNS: Temperature 98.0 F, Pulse 71, Respiratory Rate 18, BP 124/70, Pulse Ox 98% HEENT: Head normocephalic, atraumatic. Eyes: Extraocular muscles are intact. Pupils are equal, round and reactive to light and accommodation. Ears: No lesions. Nose appeared normal. Throat: No exudate or erythema. NECK: Supple. No JVD, no carotid bruit. No lymphadenopathy or thyromegaly. LUNGS: Diminished breath sounds. Clear to auscultation. Percussion note normal. Chest symmetrical. HEART: S1, S2, no S3. No murmurs. No cyanosis or clubbing. No ascites. Pulses: Dorsalis pedis and posterior tibial pulses +1 to +2 both sides. ABDOMEN: Soft. Non-tender. Bowel sounds active. No CVA tenderness. No mass felt. EXTREMITIES: No edema. Full range of motion of all extremities, equal. NEUROLOGIC: No focal deficit. Cranial nerves II through XII are grossly intact. No headache, no double vision or headache. SKIN: Not dry. Intact. Turgor-normal. LYMPHATIC: No palpable lymph nodes/no lymphedema. MUSCULOSKELETAL: Normal joints with no swelling. Muscle tone is normal. LAB REVIEW: 06/25/18 04:40 06/25/18 04:40 06/25/18 04:40: PT 14.5 H, INR 1.47 06/25/18 04:40: Sodium 127.4 L, Potassium 4.33, Chloride 93.7 L, Carbon Dioxide 30.3 H, Anion Gap 7.73, BUN 11.9, Creatinine 0.82, Estimated GFR (MDRD) 67.00, BUN/Creatinine Ratio 14.51, Glucose 87.2, Calcium 8.22 L, Total Bilirubin 0.15 L , AST 27.3, ALT 15.2, Alkaline Phosphatase 73.2, Total Protein 5.86 L, Albumin 3.09 L, Globulin 2.77, Albumin/Globulin Ratio 1.11 06/25/18 04:40: WBC 8.14, RBC 2.97 L, Hgb 9.1 L, Hct 26.7 L, MCV 89.9, MCH 30.6 , MCHC 34.1, RDW Coeff of Rehana 13.2, Plt Count 173, Immature Gran % (Auto) 2.3, Neut % (Auto) 68.7, Lymph % (Auto) 16.6, [place] % (Auto) 8.1, Eos % (Auto) 3.7, Baso % (Auto) 0.6, Immature Gran # (Auto) 0.2, Neut # (Auto) 5.6, Lymph # (Auto ) 1.4, [place] # (Auto) 0.7, Eos # (Auto) 0.3, Baso # (Auto) 0.1 06/24/18 08:30: Sodium 129.7 L, Potassium 4.46, Chloride 94.4 L, Carbon Dioxide 30.3 H, Anion Gap 9.46, BUN 14.2, Creatinine 0.97, Estimated GFR (MDRD) 55.00, BUN/Creatinine Ratio 14.63, Glucose 127.3 H, Calcium 8.76, Total Bilirubin 0.24 , AST 35.9, ALT 17.0, Alkaline Phosphatase 81.9, Total Protein 6.51, Albumin 3.56, Globulin 2.95, Albumin/Globulin Ratio 1.20 06/24/18 08:30: WBC 8.54, RBC 3.30 L, Hgb 10.1 L, Hct 30.3 L, MCV 91.8, MCH 30.6 , MCHC 33.3, RDW Coeff of Rehana 13.2, Plt Count 191, Immature Gran % (Auto) 2.6, Neut % (Auto) 72.6, Lymph % (Auto) 14.6, [place] % (Auto) 6.1, Eos % (Auto) 3.7, Baso % (Auto) 0.4, Immature Gran # (Auto) 0.2, Neut # (Auto) 6.2, Lymph # (Auto ) 1.3, [place] # (Auto) 0.5, Eos # (Auto) 0.3, Baso # (Auto) 0.0 06/23/18 09:00: Transferrin 274 ASSESSMENT: 1. Intractable back pain, seems to be under control. 2. Cardiovascular status is stable with no evidence of CHF or coronary insufficiency. PLAN: 1. D/C home. 2. Continue Coumadin as previously. 3. The patient has an appointment with Dr. Ardon next week on 07/02/18. 4. Followup with Dr. Herrera/Charmaine Toussaint APRN on 07/01/18. 5. [facility]) for nursing assessment, PT/OT, patient is agreeable. 6. D/C [place]. 7. Continue Cozaar 25 mg daily as well as Toprol 50 mg daily. 8. The patient is to take Prilosec 20 mg twice daily, Reglan p.r.n., Tylenol # 3 b.i.d. and [place] b.i.d. Plan and coordination of the patient's care discussed in the presence of [employer] Consultant and nurse. CONDITION: Stable SCRIBED BY: TAHIRA CORONEL, Associate Doctor scribed while in presence of service performed by Dr. Herrera/Charmaine Toussaint, MANUEL on 06/25/18 ([id number])
[2018-06-25] MEDS: ALDACTONE PO SCH (09:51)
[2018-06-25] MEDS: COLACE PO SCH (09:51)
[2018-06-25] MEDS: SINGULAIR PO SCH (09:52)
[2018-06-25] MEDS: TYLENOL PO SCH (09:52)
[2018-06-25] MEDS: KEPPRA PO SCH (09:52)
[2018-06-25] MEDS: COZAAR PO SCH ×2 (09:52→09:58)
[2018-06-25] MEDS: FERROUS SULFATE PO SCH (09:52)
[2018-06-25] MEDS: IMDUR PO SCH (09:52)
[2018-06-25] MEDS: NON-FORMULARY MEDICATION (Umeclidinium Bromide [Incruse Ellipta] 62.5 MCG) IH SCH (09:53)
[2018-06-25] MEDS: FLORASTOR PO SCH (09:53)
[2018-06-25] MEDS: VITAMIN D PO SCH (09:53)
[2018-06-25] MEDS: SENNA PO SCH (09:53)
[2018-06-25] MEDS: MULTIVITAMIN TABLET PO SCH (09:53)
[2018-06-25] MEDS: NYSTOP POWDER TP SCH (09:53)
[2018-06-25] MEDS: LIPITOR PO SCH (09:53)
[2018-06-25] MEDS: TOPROL XL PO SCH (09:53)
[2018-06-25] MEDS: PROTEASE PO SCH (09:54)
[2018-06-25] MEDS: [UNRECOGNIZED DRUG - OTHER] PO SCH (09:54)
[2018-06-25] MEDS: AMYLASE PO SCH (09:54)
[2018-06-25] MEDS: LIPASE PO SCH (09:54)
[2018-06-25] MEDS: TYLENOL #3 TAB PO SCH (10:02)
--- NOTE | 2018-06-25 10:15 | PN ---
DATE OF SERVICE: 06/19/18 SUBJECTIVE: 78-year-old white female hospitalized because of T6 compression fracture. The patient's pain continued but was much better. She was put in the swing bed on . The patient's pain is a lot better. She had some gas pains because she stays in the bed curled up. Advised to get up and move around some. REVIEW OF SYSTEMS: CONSTITUTIONAL: No night sweats. No fatigue, malaise, lethargy. No fever or chills. HEENT: Eyes: No visual changes. No eye pain. No eye discharge. ENT: No runny nose. No epistaxis. No sinus pain. No sore throat. No odynophagia. No congestion. RESPIRATORY: No cough, no congestion. No hemoptysis. No shortness of breath. CARDIOVASCULAR: No angina symptoms. No CHF symptoms. No atypical chest pain for CAD. No palpitations. No orthopnea. GASTROINTESTINAL: No abdominal pain. No nausea or vomiting. No diarrhea or constipation. No hematemesis. No hematochezia. GENITOURINARY: No urgency. No frequency. No dysuria. No hematuria. No obstructive symptoms. No discharge. No pain. No significant abnormal bleeding. MUSCULOSKELETAL: Back soreness, which is a lot better. NEUROLOGICAL: No headache. No neck pain. No syncope. No seizures. No dizziness. PSYCHIATRIC: Not anxious. No depression. No suicidal thoughts. No homicidal thoughts. SKIN: No rash. No lesions. No wounds. ENDOCRINE: No unexplained weight loss. No weight gain. HEMATOLOGIC/LYMPHATIC: No anemia. No purpura. No petechiae. No prolonged or excessive bleeding. No palpable lymph nodes. PHYSICAL EXAMINATION: VITAL SIGNS: Temperature 97.7, pulse 80, respiratory rate 18, BP 157/83, pulse ox 100% on room air. HEENT: Head normocephalic, atraumatic. Eyes: Extraocular muscles are intact. Pupils are equal, round and reactive to light and accommodation. Ears: No lesions. Nose appeared normal. Throat: No exudate or erythema. NECK: Supple. No JVD, no carotid bruit. No lymphadenopathy or thyromegaly. LUNGS: Decreased breath sounds but clear to auscultation. Percussion note normal. Chest symmetrical. HEART: S1, S2, no S3. No murmurs. No cyanosis or clubbing. No ascites. Pulses: Dorsalis pedis and posterior tibial pulses +1 to +2 both sides. ABDOMEN: Soft. Nontender. Bowel sounds active. No CVA tenderness. No mass felt. EXTREMITIES: No edema. Full range of motion of all extremities, equal. NEUROLOGIC: No focal deficit. Cranial nerves II through XII are grossly intact. No headache, no double vision or headache. SKIN: Not dry. Intact. Turgor - normal. LYMPHATIC: No palpable lymph nodes/no lymphedema. MUSCULOSKELETAL: Normal joints with no swelling. Muscle tone is normal. ASSESSMENT: 1. T6 compression fracture with severe osteoporosis with kyphosis and is here for pain management. 2. The patient had echocardiogram done which showed hypokinetic septal wall, ejection fraction close to 50% with mildly enlarged LA cavity. Valvular structure seems to be normal. CONDITION: Stable TIME SPENT: More than 30 minutes. Plan and coordination of the patient's care discussed in the presence of nurse. ANN
--- NOTE | 2018-06-30 10:39 | PN ---
DATE OF SERVICE: 06/25/18 SUBJECTIVE: The patient was seen and examined with the nurse practitioner. The patient's condition is stable. She is going to be discharged home today. The pain is much less than before, is under control. Cardiovascular status is stable with multiple medical problems mainly involving her cardiovascular system. TIME SPENT: More than 30 minutes. Plan and coordination of the patient's care discussed in the presence of nurse. ANN
--- NOTE | 2018-06-30 13:09 | DS ---
DATE OF SERVICE: 06/25/18 (FROM SWING BED) FINAL DIAGNOSIS: 1. INTRACTABLE BACK PAIN, IMPROVED 2. MULTILEVEL COMPRESSION FRACTURES T6-T12 3. UTI, PSEUDOMONAS AERUGINOSA ORGANISM, TREATED 4. CARDIOMEGALY 5. CAD/WA S/P CABG 6. DYSLIPIDEMIA 7. HYPERTENSION 8. RESTRICTIVE LUNG DISEASE 9. CHRONIC KIDNEY DISEASE 10. GERD 11. HYPOTHYROIDISM 12. HIATAL HERNIA 13. SEIZURES 14. OSTEOARTHRITIS/OSTEOPOROSIS 15. CHOLECYSTECTOMY 16. HYSTERECTOMY 17. KIDNEY SURGERY 18. PACEMAKER INSERTION 19. NEVER SMOKER DISCHARGE INSTRUCTIONS: Return to see Dr. Herrera in his office on 07/01/18 at 9 a.m. The patient is to keep appointment with Dr. Ardon's office ([facility]) on 07/02/18 at 9 a.m. [facility] ([facility]) will contact the patient by phone to schedule home visits for nursing services, general assessment, pain control assessment, medication management. PT/OT will also evaluate the patient for services in her home (phone#[phone]). MEDICATIONS AT DISCHARGE: Cholecalciferol 1,000 unit p.o. daily Spironolactone 12.5 mg p.o. daily L.acidoph, Paracasel, B. lactis one each p.o. daily Albuterol 2 puff IH q.4h p.r.n. Omeprazole 20 mg p.o. q.i.d. Nitroglycerin 0.4 mg SL q.5 min times three doses p.r.n. Singulair 10 mg p.o. daily Levetiracetam 250 mg p.o. b.i.d. Isosorbide Mononitrate ER 60 mg p.o. daily Isosorbide Mononitrate (Imdur) 30 mg p.o. daily Umeclidinium [place] 62.5 mcg IH daily Furosemide 40 mg p.o. daily Fluticasone Propionate 2 spray NS daily Lipase/Protease/Amylase 6,000 units p.o. q.i.d. Atorvastatin Calcium 40 mg p.o. daily Aspirin 81 mg p.o. daily Alprazolam 0.25 mg p.o. b.i.d. p.r.n. Acetaminophen with Codeine one each p.o. b.i.d. Cetirizine 10 mg p.o. daily Levothyroxine 75 mcg p.o. q.d a.c. Multivitamin one each p.o. daily Hydrocodone one each p.o. b.i.d. Sennosides/Docusate one each p.o. b.i.d. MEDICATION CHANGES: Losartan Potassium (Cozaar) has been decreased to 25 mg by mouth daily Metoclopramide HCL (Reglan) has been changed to 50 mg three times daily as needed (prn). Metoprolol Succinate (Toprol XL) has been decreased to 50 mg daily Omeprazole (Prilosec) has been changed to twice daily Docusate Sodium (Colace) has been decreased to three times daily Resume your Coumadin dosing: Take two tablets (2 mg) on Sundays and Wednesdays; take one tablet (1 mg) on Mondays, Tuesdays, , Fridays and Saturdays NEW PRESCRIPTIONS: Ferrous Sulfate 325 mg take one tablet by mouth daily. DIET INSTRUCTIONS: Regular as tolerated. ACTIVITY: Get plenty of rest at home. Gradually increase your activity level according to your toleration. SMOKING: N/A DISEASE SPECIFIC EDUCATION: Pain management Back pain Referral to neuro/ortho for assistance with management Home medication changes New prescriptions Home Health Services: PT/OT and nursing Followup HOSPITAL COURSE: This is a white female who originally presented to the emergency room with intractable back pain. CT and x-rays revealed that she had multiple old compression fractures, multilevel with a new compression fracture that was worsening. She stated her pain was radiating around to her ribs, up into her neck and her shoulders. Her urinalysis was also abnormal and culture grew Pseudomonas which was treated with IV antibiotics. Her pain slowly improved. She was admitted to [facility] on 06/15 for further pain control, further treatment of UTI and for physical and occupational therapy treatment and evaluation. Over the course of the past several days, she has slowly improved. She did have some issues with her blood pressure for which we have changed some of her medications. She had some hypotension. We decreased her Cozaar to 25 mg daily. She has significant medication list. We have made her Reglan p.r.n. which she was taking every day. She had also stated that she had been taking Prilosec q.i.d. at home which we have instructed to her that she is only to take 20 mg b.i.d. She use to see a neurosurgeon in [place], [place] before she moved down here and has a history of back surgery. We have referred her to Dr. Adair for which she has an appointment on July 02 for further evaluation of her back pain. She is to go home, which she lives at assisted living with [facility] to continue PT and OT. Once we got her pain under control she was able to resume her previous pain regimen which was [place] 5 mg b.i.d. p.r.n. along with Tylenol #3 b.i.d. p.r.n. and again all of her other medications remain the same with exception of Cozaar was decreased, Reglan decreased and Prilosec decreased. Her urinary tract infection resolved with IV antibiotics. She has chronic anemia which has been controlled and steady. She has been up walking around and has seemed to gain most of her strength back. She will be discharged in stable condition. She will see us next week for followup and her appointment with Dr. Adair is also next week. TIME SPENT: More than 60 minutes. ANN
== END 2018-06-25 12:40 | disposition home or self-care (01) | DRG 543 ==
LOC: MEDSURG B 14:29
PROVIDERS: ADMIT Internal Medicine; ATTEND Internal Medicine
DX: M48.54XA Collapsed vertebra, not elsewhere classified, thoracic region, initial encounter for fracture (principal); N39.0 Urinary tract infection, site not specified; N18.9 Chronic kidney disease, unspecified; M19.90 Unspecified osteoarthritis, unspecified site; I51.7 Cardiomegaly; I10 Essential (primary) hypertension; I25.10 Atherosclerotic heart disease of native coronary artery without angina pectoris; E03.9 Hypothyroidism, unspecified; E78.5 Hyperlipidemia, unspecified; K44.9 Diaphragmatic hernia without obstruction or gangrene; K21.9 Gastro-esophageal reflux disease without esophagitis; R53.1 Weakness; B96.5 Pseudomonas (aeruginosa) (mallei) (pseudomallei) as the cause of diseases classified elsewhere
CPT/HCPCS: 36415; 80053; 82607; 82728; 82746; 83540; 83550; 84466; 85007; 85025; 85045; 85610; 87081; 97802

== ENCOUNTER 2018-10-13 19:38 | Outpatient (CLI) | END 2018-10-13 20:02 | disposition short-term general hospital (02) | LOC: AMBL 19:38 | PROVIDERS: ATTEND Internal Medicine Geriatric Medicine | DX: R07.89 Other chest pain (principal); R06.02 Shortness of breath; I25.2 Old myocardial infarction; R53.1 Weakness; Z95.0 Presence of cardiac pacemaker; Z95.1 Presence of aortocoronary bypass graft ==

== ENCOUNTER 2018-10-27 07:51 | Outpatient (CLI) ==
--- NOTE | 2018-10-27 08:45 | CT ---
EXAM: CT of the chest without contrast History: Short of breath Comparison: Chest CT 06/11/2018 Technique: Multiplanar CT images through the thorax were obtained without the administration of IV c ontrast Findings: Heart is enlarged. Coronary calcifications. Sternotomy wires. No thoracic aortic aneury sm. No pericardial effusion. No pathologically enlarged thoracic lymph nodes. Moderate hiatal mela ia again noted. Subsegmental atelectasis seen within the lower lungs. No consolidated pneumonia. N o pleural fluid and no pneumothorax. No suspicious lung masses or lung nodules. Within the visualized upper abdomen, status post cholecystectomy. There is some atrophy of the pancr eas. Osteopenia. Chronic compression deformities again seen within the thoracic spine. Increased c ompression of the T6 vertebral body with now vertebra plana. Impression: 1. No acute intrathoracic process. 2. Cardiomegaly and coronary artery disease. 3. Moderate hiatal hernia. 4. Increased compression of the T6 vertebral body with vertebra plana
== END 2018-10-27 07:52 | disposition home or self-care (01) ==
LOC: RAD 07:51
PROVIDERS: ATTEND Internal Medicine
DX: R06.02 Shortness of breath (principal)
CPT/HCPCS: 94761

== ENCOUNTER 2020-04-03 12:17 | Inpatient (IN) ==
[2020-04-03 13:14] VITALS: BMI 27.8
[2020-04-03] MEDS ORDERED: ATROPINE SULFATE PFS IVP PRN (13:28)
[2020-04-03] MEDS ORDERED: NITROSTAT SL PRN ×2 (13:28→15:03)
[2020-04-03] MEDS ORDERED: TYLENOL PO PRN (13:28)
[2020-04-03] MEDS ORDERED: VISTARIL INJ IM PRN (13:28)
[2020-04-03] MEDS ORDERED: MEPHYTON PO STA (13:30)
[2020-04-03 13:58] LABS: BASOPHILS % (AUTO) 0.8 % (0.0-3.0); EOSINOPHILS # (AUTO) 0.1 K/ul (0.0-0.7); EOSINOPHILS % (AUTO) 2.2 % (0.0-7.0); HEMATOCRIT 36.9 % (37.0-47.0); HEMOGLOBIN 11.8 g/dl (12.0-16.0); IMMATURE GRANULOCYTE % (AUTO) 0.4 % (0.0-5.0); LYMPHOCYTES # (AUTO) 0.7 K/uL (0.60-3.4); LYMPHOCYTES % (AUTO) 14.1 (10.0-50.0); MEAN CORPUSCULAR VOLUME 98.1 fl (81.0-99.0); MONOCYTES # (AUTO) 0.4 K/uL (0.4-2.0); MONOCYTES % (AUTO) 8.8 (0-10); NEUTROPHILS # (AUTO) 3.7 K/ul (2.0-6.9); NEUTROPHILS % (AUTO) 73.7 % (42.2-75.2); PLATELET COUNT 186 10^3/uL (140-440); RDW COEFFICIENT OF VARIATION 12.3 % (11.6-14.8); RED BLOOD COUNT 3.76 10^6/ul (4.20-5.40); WHITE BLOOD COUNT 5.02 K/ul (4.6-10.2)
[2020-04-03] MEDS ORDERED: SODIUM CHLORIDE 1,000 ML IV SCH (14:00)
[2020-04-03 14:03] LABS: ABG BASE EXCESS -2 (-2.0-2.0); ABG HCO3 22.3 (22.0-26.0); ABG PCO2 33.3 mmHg (35-45); ABG PH 7.433 (7.35-7.45); ABG TCO2 23 (22.0-28.0)
[2020-04-03 14:10] LABS: ALANINE AMINOTRANSFERASE 10.9 U/L (0-35); ALBUMIN 4.24 g/dL (3.5-5.0); ALKALINE PHOSPHATASE 91.1 U/L (53-141); ASPARTATE AMINO TRANSFERASE 41.3 U/L (14-36); BILIRUBIN,TOTAL 0.91 mg/dL (0.2-1.3); BLOOD UREA NITROGEN 12.1 mg/dL (7-17); CALCIUM 9.01 mg/dL (8.4-10.2); CARBON DIOXIDE 27.1 mmol/L (22-30.0); CHLORIDE 103.1 mmol/L (98-107); CREATININE 1.26 mg/dL (0.60-1.30); GLUCOSE 139.8 mg/dL (74-106); TOTAL PROTEIN 7.67 g/dL (6.3-8.2)
--- NOTE | 2020-04-03 14:21 | DI ---
EXAM: CHEST FRONTAL VIEW HISTORY: Shortness of breath. COMPARISON: 04/02/2020 FINDINGS: Cardiomegaly is again noted. Left-sided pacemaker unit is stable. Sternotomy wires are p resent. There is no vascular congestion or consolidated pneumonia. No visible pleural fluid or pneu mothorax. IMPRESSION: 1. Cardiomegaly. No acute cardiopulmonary process.
[2020-04-03 14:40] LABS: THYROID STIMULATING HORMONE 1.05 uIU/L (0.465-4.68)
[2020-04-03] MEDS ORDERED: XANAX PO PRN (15:03)
[2020-04-03] MEDS ORDERED: REGLAN PO PRN (15:03)
[2020-04-03] MEDS ORDERED: VENTOLIN HFA (PER PUFF-WITH SPACER) IH PRN (15:03)
[2020-04-03] MEDS ORDERED: NON-FORMULARY MEDICATION (Ferrous Sulfate 325 MG) PO SCH (15:15)
[2020-04-03] MEDS ORDERED: CETIRIZINE 10 MG PO SCH (15:15)
[2020-04-03] MEDS ORDERED: IMDUR PO SCH ×2 (15:30)
[2020-04-03] MEDS: KEPPRA PO SCH ×2 (15:30→20:40)
[2020-04-03] MEDS ORDERED: COZAAR PO SCH (15:30)
[2020-04-03] MEDS ORDERED: PERCOCET 7.5-325 PO SCH (15:30)
[2020-04-03] MEDS: SINGULAIR PO SCH (15:32)
[2020-04-03] MEDS: TOPROL XL PO SCH (15:32)
[2020-04-03] MEDS: LIPITOR PO SCH (15:34)
[2020-04-03] MEDS: ALDACTONE PO SCH (15:34)
[2020-04-03] MEDS: CLARITIN PO SCH (16:17)
[2020-04-03] MEDS: FERROUS SULFATE PO SCH (16:17)
[2020-04-03 16:47] LABS: BILIRUBIN,URINE Negative (NEGATIVE); CLARITY,URINE Clear (CLEAR); COLOR,URINE Yellow (YELLOW); GLUCOSE, URINE (UA) 1+ (NEGATIVE); KETONES,URINE 1+ (NEGATIVE); LEUKOCYTE ESTERASE ,URINE Negative (NEGATIVE); NITRITE,URINE Negative (NEGATIVE); PH,URINE 7.5 (5-9); URINE, BLOOD 2+ (NEGATIVE); UROBILINOGEN,URINE 0.2 (0.2)
[2020-04-03 16:49] LABS: AMORPHOUS SEDIMENT,UR 1+ (NOT PRESENT); BACTERIA,URINE TRACE (NOT PRESENT); SQUAMOUS EPITHELIAL CELL,UR 0-2 (0-5); URINE WBC, MICROSCOPIC 0-2 (0-2)
[2020-04-03] MEDS: VITAMIN D PO SCH (16:59)
[2020-04-03] MEDS: PERCOCET 7.5-325 PO SCH ×2 (17:00→20:40)
[2020-04-03] MEDS: PRILOSEC PO SCH (17:00)
[2020-04-03] MEDS: LIPASE PROTEASE AMYLASE PO SCH ×2 (18:15→21:34)
[2020-04-04 05:20] LABS: BASOPHILS # (AUTO) 0.1 K/uL (0-0.2); BASOPHILS % (AUTO) 1.1 % (0.0-3.0); EOSINOPHILS # (AUTO) 0.3 K/ul (0.0-0.7); EOSINOPHILS % (AUTO) 5.3 % (0.0-7.0); HEMATOCRIT 32.8 % (37.0-47.0); HEMOGLOBIN 10.7 g/dl (12.0-16.0); LYMPHOCYTES % (AUTO) 20.9 (10.0-50.0); MEAN CORPUSCULAR HGB CONC 32.6 (31.8-35.4); MONOCYTES # (AUTO) 0.5 K/uL (0.4-2.0); MONOCYTES % (AUTO) 10.4 (0-10); NEUTROPHILS % (AUTO) 62.3 % (42.2-75.2); PLATELET COUNT 175 10^3/uL (140-440); RDW COEFFICIENT OF VARIATION 12.3 % (11.6-14.8); RED BLOOD COUNT 3.38 10^6/ul (4.20-5.40); WHITE BLOOD COUNT 4.73 K/ul (4.6-10.2)
[2020-04-04 05:34] LABS: ALANINE AMINOTRANSFERASE 9.8 U/L (0-35); ALBUMIN 3.48 g/dL (3.5-5.0); ALKALINE PHOSPHATASE 78.8 U/L (53-141); BILIRUBIN,TOTAL 0.84 mg/dL (0.2-1.3); BLOOD UREA NITROGEN 11.5 mg/dL (7-17); CALCIUM 9.01 mg/dL (8.4-10.2); CARBON DIOXIDE 24.7 mmol/L (22-30.0); CHLORIDE 106.4 mmol/L (98-107); CREATININE 1.33 mg/dL (0.60-1.30); GLUCOSE 92.5 mg/dL (74-106); TOTAL PROTEIN 6.54 g/dL (6.3-8.2)
[2020-04-04 05:58] LABS: PROTHROMBIN TIME 43.9 SEC (9.3-11.0)
[2020-04-04] MEDS: PRILOSEC PO SCH ×2 (06:16→17:28)
[2020-04-04] MEDS: LASIX TAB PO SCH (06:16)
[2020-04-04] MEDS: SYNTHROID PO SCH (06:16)
[2020-04-04] MEDS: KEPPRA PO SCH ×2 (08:48→20:45)
[2020-04-04] MEDS: IMDUR PO SCH (08:48)
[2020-04-04] MEDS: VITAMIN D PO SCH (08:48)
[2020-04-04] MEDS: FERROUS SULFATE PO SCH (08:49)
[2020-04-04] MEDS: COZAAR PO SCH (08:49)
[2020-04-04] MEDS: TOPROL XL PO SCH (08:50)
[2020-04-04] MEDS: ALDACTONE PO SCH (08:50)
[2020-04-04] MEDS: SINGULAIR PO SCH (08:50)
[2020-04-04] MEDS: CLARITIN PO SCH (08:50)
[2020-04-04] MEDS: LIPITOR PO SCH (08:50)
[2020-04-04] MEDS: MULTIVITAMIN TABLET PO SCH (08:51)
[2020-04-04] MEDS: PERCOCET 7.5-325 PO SCH ×4 (08:51→20:46)
[2020-04-04] MEDS: UMECLIDINIUM 62.5 MCG IH SCH ×2 (08:53→11:02)
[2020-04-04] MEDS: LIPASE PROTEASE AMYLASE PO SCH ×4 (08:53→20:46)
[2020-04-04] MEDS: FLONASE NAS SCH (08:54)
[2020-04-04] MEDS ORDERED: LASIX TAB PO SCH (09:00)
[2020-04-04] MEDS ORDERED: MULTIVIT MIN FA LYCOPEN LUTEIN PO SCH (09:00)
[2020-04-04] MEDS: K-DUR PO SCH (17:28)
[2020-04-05 05:30] VITALS: TEMP 97.7
[2020-04-05 05:39] LABS: ALANINE AMINOTRANSFERASE 11.1 U/L (0-35); ALBUMIN 3.71 g/dL (3.5-5.0); ALKALINE PHOSPHATASE 75.4 U/L (53-141); BILIRUBIN,TOTAL 0.7 mg/dL (0.2-1.3); CALCIUM 9.67 mg/dL (8.4-10.2); CARBON DIOXIDE 25.8 mmol/L (22-30.0); CHLORIDE 104.9 mmol/L (98-107); CREATININE 1.69 mg/dL (0.60-1.30); GLUCOSE 115.4 mg/dL (74-106); PROTHROMBIN TIME 20.1 SEC (9.3-11.0); SODIUM 137.2 mmol/L (134.5-145); TOTAL PROTEIN 6.99 g/dL (6.3-8.2)
[2020-04-05 05:48] LABS: BASOPHILS % (AUTO) 0.8 % (0.0-3.0); EOSINOPHILS # (AUTO) 0.2 K/ul (0.0-0.7); EOSINOPHILS % (AUTO) 4.8 % (0.0-7.0); HEMATOCRIT 34.2 % (37.0-47.0); HEMOGLOBIN 11.3 g/dl (12.0-16.0); IMMATURE GRANULOCYTE % (AUTO) 0.2 % (0.0-5.0); LYMPHOCYTES # (AUTO) 0.9 K/uL (0.60-3.4); LYMPHOCYTES % (AUTO) 17.7 (10.0-50.0); MEAN CORPUSCULAR VOLUME 96.9 fl (81.0-99.0); MONOCYTES # (AUTO) 0.5 K/uL (0.4-2.0); MONOCYTES % (AUTO) 9.7 (0-10); NEUTROPHILS # (AUTO) 3.4 K/ul (2.0-6.9); NEUTROPHILS % (AUTO) 66.8 % (42.2-75.2); PLATELET COUNT 186 10^3/uL (140-440); RDW COEFFICIENT OF VARIATION 12.3 % (11.6-14.8); RED BLOOD COUNT 3.53 10^6/ul (4.20-5.40); WHITE BLOOD COUNT 5.03 K/ul (4.6-10.2)
[2020-04-05] MEDS: PRILOSEC PO SCH (06:06)
[2020-04-05] MEDS: LASIX TAB PO SCH (06:07)
[2020-04-05] MEDS: SYNTHROID PO SCH (06:07)
[2020-04-05] MEDS ORDERED: TOPROL XL PO SCH ×2 (09:00)
[2020-04-05] MEDS: LIPASE PROTEASE AMYLASE PO SCH ×2 (09:00→12:50)
[2020-04-05] MEDS ORDERED: REGLAN PO PRN (09:00)
[2020-04-05] MEDS ORDERED: NITROSTAT SL PRN (09:00)
[2020-04-05] MEDS: K-DUR PO SCH ×2 (09:30→12:50)
[2020-04-05] MEDS: UMECLIDINIUM 62.5 MCG IH SCH (09:30)
[2020-04-05] MEDS: IMDUR PO SCH (09:31)
[2020-04-05] MEDS: ALDACTONE PO SCH (09:31)
[2020-04-05] MEDS: CLARITIN PO SCH (09:32)
[2020-04-05] MEDS: VITAMIN D PO SCH (09:32)
[2020-04-05] MEDS: MULTIVITAMIN TABLET PO SCH (09:32)
[2020-04-05] MEDS: KEPPRA PO SCH (09:33)
[2020-04-05] MEDS: SINGULAIR PO SCH (09:33)
[2020-04-05] MEDS: FERROUS SULFATE PO SCH (09:33)
[2020-04-05] MEDS: LIPITOR PO SCH (09:33)
[2020-04-05] MEDS: FLONASE NAS SCH (09:34)
[2020-04-05] MEDS: COZAAR PO SCH (09:34)
[2020-04-05] MEDS: PERCOCET 7.5-325 PO SCH ×2 (09:34→12:50)
--- NOTE | 2020-04-05 09:55 | PCM.PROG ---
Attending Provider: ATTENDING PROVIDER: Dr. MELISSA GOINS This patient is seen with Pushpa Garcia, Nurse Practitioner. DATE OF SERVICE: 04/05/20 SUBJECTIVE: This 80 year old /WHITE F was hospitalized 04/03/20. The patient is resting comfortably in bed. She reports that she is feeling some better. Has been eating and drinking well. INR is back within range. We will discharge home. We will reduce Metoprolol to 25mg daily and restart Coumadin 1mg daily. She will return to the office on Thursday or Thursday of next week. same hypercoagulopathy resolved REVIEW OF SYSTEMS: CONSTITUTIONAL: No night sweats. No fatigue, malaise, lethargy. No fever or chills. Weakness. HEENT: Eyes: No visual changes. No eye pain. No eye discharge. ENT: No runny nose. No epistaxis. No sinus pain. No odynophagia. No congestion. RESPIRATORY: No cough, no congestion. No hemoptysis. No shortness of breath. CARDIOVASCULAR: No angina symptoms. No CHF symptoms. No atypical chest pain for CAD. No palpitations. No orthopnea.. GASTROINTESTINAL: No abdominal pain. No nausea or vomiting. No diarrhea or constipation. No hematemesis. No hematochezia. GENITOURINARY: No urgency. No frequency. No dysuria. No hematuria. No obstructive symptoms. No discharge. No pain. No significant abnormal bleeding. MUSCULOSKELETAL: No musculoskeletal pain; no joint swelling. NEUROLOGICAL: Awake, alert, oriented to time, place and person. No headache. No neck pain. No syncope. No seizures. No dizziness. PSYCHIATRIC: Not anxious. No depression. No suicidal thoughts. No homicidal thoughts. SKIN: No rash. No lesions. No wounds. ENDOCRINE: No unexplained weight loss. No weight gain. HEMATOLOGIC/LYMPHATIC: No anemia. No purpura. No petechiae. No prolonged or excessive bleeding. No palpable lymph nodes. PHYSICAL EXAMINATION: GENERAL: The patient is awake, alert and oriented, lying in bed in no distress. VITAL SIGNS: Temperature 97.7 F, Pulse 65, Respiratory Rate 18, BP 90/56, Pulse Ox 97% HEENT: Head normocephalic, atraumatic. Eyes: Extraocular muscles are intact. Pupils are equal, round and reactive to light and accommodation. Ears: No lesions. Nose appeared normal. Throat: No exudate or erythema. NECK: Supple. No JVD, no carotid bruit. No lymphadenopathy or thyromegaly. LUNGS: Diminished breath sounds. Clear to auscultation. Percussion note normal. Chest symmetrical. HEART: S1, S2, no S3. No murmurs. No cyanosis or clubbing. No ascites. Pulses: Dorsalis pedis and posterior tibial pulses +1 to +2 both sides. ABDOMEN: Soft. Non-tender. Bowel sounds active. No CVA tenderness. No mass felt. EXTREMITIES: No edema. Full range of motion of all extremities, equal. NEUROLOGIC: No focal deficit. Cranial nerves II through XII are grossly intact. No headache, no double vision or headache. SKIN: Not dry. Intact. Turgor-normal. LYMPHATIC: No palpable lymph nodes/no lymphedema. MUSCULOSKELETAL: Normal joints with no swelling. Muscle tone is normal. LAB REVIEW: 04/05/20 04:51 04/05/20 04:51 04/05/20 04:51: Sodium 137.2, Potassium 3.56, Chloride 104.9, Carbon Dioxide 25.8, Anion Gap 10.06, BUN 14.0, Creatinine 1.69 H, Estimated GFR (MDRD) 29.00, BUN/Creatinine Ratio 8.28, Glucose 115.4 H, Calcium 9.67, Total Bilirubin 0.70, AST 31.0, ALT 11.1, Alkaline Phosphatase 75.4, Total Protein 6.99, Albumin 3.71, Globulin 3.28, Albumin/Globulin Ratio 1.13 04/05/20 04:51: WBC 5.03, RBC 3.53 L, Hgb 11.3 L, Hct 34.2 L, MCV 96.9, MCH 32.0 H, MCHC 33.0, RDW Coeff of Rehana 12.3, Plt Count 186, Immature Gran % (Auto) 0.2, Neut % (Auto) 66.8, Lymph % (Auto) 17.7, [place] % (Auto) 9.7, Eos % (Auto) 4.8, Baso % (Auto) 0.8, Neut # (Auto) 3.4, Lymph # (Auto) 0.9, [place] # (Auto) 0.5, Eos # (Auto) 0.2, Baso # (Auto) 0.0, Immature Gran # (Auto) 0.0 04/05/20 04:51: PT 20.1 H D, INR 2.14 D ASSESSMENT: Please see below. 1. Coagulopathy seems to be resolving with 2mg of Vitamin K 2. Atrial fibrillation 3. COPD 4. Generalized weakness 5. History of falls. PLAN: 1. Metoprolol 25mg daily 2. Resume Coumadin today 1mg 3. See her back in the office next week 4. Discharge home 5. Fall precautions discussed 6. Coumadin and risk of bleeding discussed 7. Patient is stable for discharge. Plan and coordination of the patient's care discussed in the presence of Carpet Jack and nurse. SCRIBED BY: NILSON ALBRIGHT Sleep Technologist scribed while in presence of service performed by Dr. Goins/Pushpa Garcia APRN on 04/05/20 ([id number])
--- NOTE | 2020-04-05 13:13 | PN ---
DATE OF SERVICE: 04/03/2020 SUBJECTIVE: The patient is seen and examined with the Nurse Practitioner. History and physical was done. The patient's condition is stable. INR is more than 11. We will given 2mg of Vitamin K for INR. There is no evidence of active GI bleed. The condition is otherwise stable. TIME SPENT: More than 30 minutes. Plan and coordination of the patient's care discussed in the presence of nurse. ANN
--- NOTE | 2020-04-05 13:36 | ECHO2D ---
Date of Exam: 04/05/2020 Ordering Physician: DR. GOINS Room #: 115 Reason for Echo: SHORTNESS OF BREATH, CORONARY ARTERY DISEASE, HYPERTENSION, COPD M-Mode Normal Adult Results LV Dimensions Normal Adult Results AoV Opening excursions >1.6 >1.6 LVEDD-base- 3.5-5.8 4.6 Ao root dimensions 2.0-3.7 3.1 LVESD-base- 3.1-4.6 L. Atrium dimensions 1.9-3.8 5.4 Post. Wall thickness 0.8-1.1 0.8 IV septum (thickness) 0.7-1.2 0.9 Post. Wall excursion 0.72-1.3 NORMAL Septal motion ------ Systolic motion R. Ventricular cavity 1.5-2.0 3.0 LVEF 60% 50% Paradoxical septal wall motion YES 2-D : ENLARGED LEFT ATRIAL CAVITY AND RIGHT VENTRICLE CAVITY, PARADOXICAL SEPTAL WALL MOTION, NORMAL VALVES, NO EFFUSION, NO THROMBUS, NORMAL LEFT VENTRICLE SIZE M-MODE: MV: CALCIFIC MITRAL VALVE ANNULUS AV: NORMAL TV: NORMAL PV: CHAMBER SIZE: ENLARGED LEFT ATRIAL AND RIGHT VENTRICLE CAVITIES WALL MOTION: PARADOXICAL SEPTAL WALL MOTION PERICARDIUM: NORMAL INTERPRETATION: 1. PARADOXICAL SEPTAL WALL MOTION 2. ENLARGED RIGHT VENTRICLE AND LEFT ATRIAL CAVITIES 3. CALCIFIC MITRAL VALVE ANNULUS 4. NORMAL LEFT VENTRICLE SIZE AND EJECTION FRACTION MTDD
--- NOTE | 2020-04-05 13:42 | CM.DICTOOL ---
ADMISSION: 04/03/20 12:17 DISCHARGE: APRIL 05, 2020 DATE OF SERVICE: 04/05/20 FINAL DIAGNOSIS HYPERCOAGULATION- VIT K GIVEN, RESOLVED ATRIAL FIBRILLATION COPD GENERALIZED WEAKNESS HISTORY OF FALLS HX: MULTILEVEL COMPRESSION FRACTURES T6-T12- DR. 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 UTI, PSEUDOMONAS AERUGINOSA ORGANISM ISCHEMIC CARDIOMYOPATHY CAD AR DYSLIPIDEMIA HYPERTENSION SEVERE COPD- PFT 10/2018 CHRONIC KIDNEY DISEASE GERD HYPOTHYROIDISM HIATAL HERNIA SEIZURES ANXIETY OSTEOARTHRITIS OSTEOPOROSIS SURGICAL HISTORY: CABG CHOLECYSTECTOMY HYSTERECTOMY KIDNEY SURGERY PACEMAKER INSERTION NEVER SMOKER NEGATIVE LEXISCAN- 10/2018 LAST VITALS Temp Pulse Resp BP Pulse Ox 97.7 F 65 18 90/56 L 97 04/05/20 05:27 04/05/20 05:27 04/05/20 05:27 04/05/20 05:27 04/05/20 05:27 TAKE THESE MEDICATIONS AT HOME Albuterol Sulfate (Ventolin Hfa (Per Puff-With Spacer)) 2 puff IH Q4H PRN PRN Reason: Bronchodialation Alprazolam (Xanax) 0.25 mg PO BID PRN PRN Reason: Anxiety Atorvastatin Calcium (Lipitor) 40 mg PO DAILY [facility] Last Admin: 04/05/20 09:33 Dose: 40 mg Documented by: Cholecalciferol (Vitamin D) 2,000 unit PO DAILY [facility] Last Admin: 04/05/20 09:32 Dose: 2,000 unit Documented by: Ferrous Sulfate (Ferrous Sulfate) 324 mg PO DAILY [facility] Last Admin: 04/05/20 09:33 Dose: 324 mg Documented by: Fluticasone Propionate (Flonase) 2 spray EDDIE DAILY [facility] Last Admin: 04/05/20 09:34 Dose: 2 spray Documented by: Furosemide (Lasix Tab) 40 mg PO QDAC [facility] Last Admin: 04/05/20 06:07 Dose: 40 mg Documented by: Isosorbide Mononitrate (Imdur) 90 mg PO DAILY [facility] Last Admin: 04/05/20 09:31 Dose: 90 mg Documented by: Levetiracetam (Keppra) 250 mg PO BID [facility] Last Admin: 04/05/20 09:33 Dose: 250 mg Documented by: Levothyroxine Sodium (Synthroid) 75 mcg PO QDAC [facility] Last Admin: 04/05/20 06:07 Dose: 75 mcg Documented by: Loratadine (Claritin) 10 mg PO DAILY [facility] ( STOPPED AND WILL TAKE ZYRTEC AT HOME ) Last Admin: 04/05/20 09:32 Dose: 10 mg Documented by: Losartan Potassium (Cozaar) 100 mg PO DAILY [facility] Last Admin: 04/05/20 09:34 Dose: 100 mg Documented by: Metoclopramide HCl (Reglan) 5 mg PO TID PRN PRN Reason: Nausea / Vomiting Metoprolol Succinate (Toprol Xl) 25 mg PO DAILY [facility] Last Admin: 04/05/20 09:33 Dose: 25 mg Documented by: Montelukast Sodium (Singulair) 10 mg PO DAILY [facility] Last Admin: 04/05/20 09:33 Dose: 10 mg Documented by: Multivitamins (Multivitamin Tablet) 1 tab PO DAILY [facility] Last Admin: 04/05/20 09:32 Dose: 1 tab Documented by: Nitroglycerin (Nitrostat) 0.4 mg SL Q5MIN X 3 DOSES PRN PRN Reason: Chest Pain Non-Formulary Medication (Umeclidinium [Incruse Ellipta]) 62.5 mcg IH DAILY [facility] Last Admin: 04/05/20 09:30 Dose: 62.5 mcg Documented by: Non-Formulary Medication (Kgfsgt-Vecbzmny-Ekuarsv [Creon]) 6,000 units PO 08 00,1200,1700,2100 [facility] Last Admin: 04/05/20 09:00 Dose: 6,000 units Documented by: OMEPRAZOLE 40 MG PO BIDAC LAST ADMIN: 04/05/20 0500 Oxycodone/Acetaminophen (Percocet 7.5-325) 1 tab PO QID [facility] Last Admin: 04/05/20 09:34 Dose: 1 tab Documented by: Spironolactone (Aldactone) 12.5 mg PO DAILY [facility] Last Admin: 04/05/20 09:31 Dose: 12.5 mg Documented by: WARFARIN 1 MG PO DAILY IN THE PM ZYRTEC 10 MG PO DAILY [facility] ampicillin Adverse Reaction (Verified 04/02/20 17:00) levofloxacin Adverse Reaction (Verified 04/02/20 17:00) metronidazole Adverse Reaction (Verified 04/02/20 17:00) ondansetron Adverse Reaction (Verified 04/02/20 17:00) oxcarbazepine [From Trileptal] Adverse Reaction (Verified 04/02/20 17:00) piperacillin Adverse Reaction (Verified 04/02/20 17:00) rifaximin Adverse Reaction (Verified 04/02/20 17:00) sulbactam Adverse Reaction (Verified 04/02/20 17:00) Sulfa (Sulfonamide Antibiotics) Adverse Reaction (Verified 04/02/20 17:00) sulfacetamide Adverse Reaction (Verified 04/03/20 14:28) Difficulty Breathing sulfasalazine Adverse Reaction (Verified 04/03/20 14:28) Difficulty Breathing tazobactam Adverse Reaction (Verified 04/02/20 17:00) tramadol Adverse Reaction (Verified 04/02/20 17:00) IV contrast dye Adverse Reaction (Uncoded 06/02/18 11:58) DISCONTINUED MEDICATIONS 1). TOPROL TO 50 MG PO DAILY (CHANGED) 2). ASPIRIN 81 MG PO DAILY NEW PRESCRIPTIONS: NEW PRESCRIPTIONS/ CHANGES 1). COUMADIN 1 MG PO DAILY (CHANGED) ( CALLED IN TO [facility]) 2). TOPROL XL 25 MG PO DAILY (CHANGED) SMOKING: NON- APPLICABLE DISEASE SPECIFIC EDUCATION: COUMADIN HYPOTENSION POTASSIUM COVID LAB REVIEW: 04/05/20 04:51 04/05/20 04:51 04/05/20 04:51: Sodium 137.2, Potassium 3.56, Chloride 104.9, Carbon Dioxide 25.8, Anion Gap 10.06, BUN 14.0, Creatinine 1.69 H, Estimated GFR (MDRD) 29.00, BUN/Creatinine Ratio 8.28, Glucose 115.4 H, Calcium 9.67, Total Bilirubin 0.70, AST 31.0, ALT 11.1, Alkaline Phosphatase 75.4, Total Protein 6.99, Albumin 3.71, Globulin 3.28, Albumin/Globulin Ratio 1.13 04/05/20 04:51: WBC 5.03, RBC 3.53 L, Hgb 11.3 L, Hct 34.2 L, MCV 96.9, MCH 32.0 H, MCHC 33.0, RDW Coeff of Rehana 12.3, Plt Count 186, Immature Gran % (Auto) 0.2, Neut % (Auto) 66.8, Lymph % (Auto) 17.7, Winkler % (Auto) 9.7, Eos % (Auto) 4.8, Baso % (Auto) 0.8, Neut # (Auto) 3.4, Lymph # (Auto) 0.9, Winkler # (Auto) 0.5, Eos # (Auto) 0.2, Baso # (Auto) 0.0, Immature Gran # (Auto) 0.0 04/05/20 04:51: PT 20.1 H D, INR 2.14 D PLAN: DISCHARGE: HOME TODAY APRIL 05, 2020 TO ASSISTED LIVING, LIVES WITH DAUGHTER [facility], SN, PT AND OT EVALS AND TREAT: [phone] TALKED WITH MENG AT THE [facility], A CLINICIAN WILL VISIT THURSDAY OR THURSDAY ACTIVITY: UP WITH WALKER AND SUPERVISION AND PER HOME HEALTH DIRECTION UP SLOW AND FREQUENT REST PERIODS CONTINUE OXYGEN: AT 2 L/M PER NASAL CANNULA CONTINUOS, AND PROPER PRECAUTION DIET: REGULAR WITH ADEQUATE FLUIDS. NO TEA,COFFEE OR WHEAT PRODUCTS FOOD ALLERGIES: STRAWBERRIES AND BANANAS FOLLOW UP: DR GOINS/ MIAH SERRANO APRN / BETH IRWIN APRN IN THE OFFICE ON THURSDAY, APRIL 09, 2020 @ 2:[address] FOUNTAIN SATURDAY APRIL 11, 2020 AT 2:00 PM FOR PACEMAKER REPLACEMENT TALKED WITH HOISTING LABORER FOR MITCH MAGALLON CODE STATUS : DO NOT RESUSCITATE MRS. VALLES IS ALERT AND ORIENTED X 4. SHE SPEAKS SLOW. HER MOVEMENTS ARE SLOW. SHE DENIES ANY RECENT FALLS. SKIN WARM, DRY AND INTACT. HAS SCATTERED FADING BRUISING TO RT ARM FROM IV STICKS. NUTRITIONAL INTAKE FAIR TO GOOD. FLUID INTAKE GOOD. GETS UP WITH A WALKER WITH SBA, MINIMAL WEAKNESS WITH A SLOW AND STEADY GAIT. CONTINENT OF BOWEL AND BLADDER WITH OCCASIONAL LEAKAGE OF BLADDER. LIVES WITH DTR AT ASSISTED LIVING FACILITY. MD MIAH MCINTYRE APRN ALYCE HANNAN, APRN
--- NOTE | 2020-04-05 13:54 | PN ---
DATE OF SERVICE: 04/04/2020 SUBJECTIVE: 80 year old white female hospitalized with coagulopathy. Today the INR is 4.9 with Prothrombin time of 43. The patient's GFR is 38. The patient has no evidence of dehydration. Her oral intake is good so IV fluids were discontinued. REVIEW OF SYSTEMS: CONSTITUTIONAL: No night sweats. No fatigue, malaise, lethargy. No fever or chills. HEENT: Eyes: No visual changes. No eye pain. No eye discharge. ENT: No runny nose. No epistaxis. No sinus pain. No sore throat. No odynophagia. No congestion. RESPIRATORY: No cough, no congestion. No hemoptysis. More shortness of breath lately and comes with minimal exertion. CARDIOVASCULAR: No angina symptoms. No CHF symptoms. No atypical chest pain for CAD. No palpitations. No PND. No orthopnea. GASTROINTESTINAL: No abdominal pain. No nausea or vomiting. No diarrhea or constipation. No hematemesis. No hematochezia. GENITOURINARY: No urgency. No frequency. No dysuria. No hematuria. No obstructive symptoms. No discharge. No pain. No significant abnormal bleeding. MUSCULOSKELETAL: No musculoskeletal pain; no joint swelling. NEUROLOGICAL: No headache. No neck pain. No syncope. No seizures. No dizziness. PSYCHIATRIC: Not anxious. No depression. No suicidal thoughts. No homicidal thoughts. SKIN: No rash. No lesions. No wounds. ENDOCRINE: No unexplained weight loss. No weight gain. HEMATOLOGIC/LYMPHATIC: No anemia. No purpura. No petechiae. No prolonged or excessive bleeding. No palpable lymph nodes. PHYSICAL EXAMINATION: VITAL SIGNS: Temperature 98.1, pulse 64, respiratory rate 18, blood pressure 98/55 and pulse 95%. HEENT: Head normocephalic, atraumatic. Eyes: Extraocular muscles are intact. Pupils are equal, round and reactive to light and accommodation. Ears: No lesions. Nose appeared normal. Throat: No exudate or erythema. NECK: Supple. No JVD, no carotid bruit. No lymphadenopathy or thyromegaly. LUNGS: Decreased breath sounds with few crepitation at bases. Clear to auscultation. Percussion note normal. Chest symmetrical. HEART: S1, S2, no S3. No murmurs. No cyanosis or clubbing. No ascites. Pulses: Dorsalis pedis and posterior tibial pulses +2 bilaterally. ABDOMEN: Soft. Nontender. Bowel sounds active. No CVA tenderness. No mass felt. EXTREMITIES: No edema. Full range of motion of all extremities, equal. NEUROLOGIC: No focal deficit. Cranial nerves II through XII are grossly intact. No headache, no double vision or headache. SKIN: Not dry. Intact. Turgor - normal. LYMPHATIC: No palpable lymph nodes/no lymphedema. MUSCULOSKELETAL: Normal joints with no swelling. Muscle tone is normal. LABS: Hgb 10.7, hct 32, WBC 4,700 normal differential, INR 4.9 which was more than 11 yesterday. ASSESSMENT: 1. Coagulopathy seems to be resolving with 2mg Vitamin K. The patient was not compliant to have her INR done because of COVID CARDIOVASCULAR status in a way of pacemaker which seems to be function well. EKG shows pacemaker capturing and sensing well. Underling rhythm is atrial fibrillation. The patient also has COPD. This is combination of inactivity and the patient's cardiovascular status. PLAN: 1. We will do echocardiogram 2. Continue to monitor INR 3. We may do a PFT 4. Monitor INR The patient's condition is stable. We will continue to monitor the patient's telemetry rhythm. TIME SPENT: More than 30 minutes. Plan and coordination of the patient's care discussed in the presence of nurse. ANN
[2020-04-05 14:23] VITALS: BP 125/72
[2020-04-05] MEDS ORDERED: PRILOSEC PO SCH (17:00)
--- NOTE | 2020-04-06 11:50 | HP ---
DATE OF SERVICE: 04/03/2020 REASON FOR HOSPITALIZATION/HISTORY OF PRESENT ILLNESS: Unable to read INR in the office. at [facility] lab . Tired. PAST MEDICAL HISTORY/PAST SURGICAL HISTORY: Atrial fibrillation COPD Generalized weakness History of falls Kyphosis- wears brace Severe DJD of spine Leg weakness Seizures-Keppra Negative Lexiscan 10/19 Atrial fibrillation, on Coumadin Shortness of breath with exertion T12 compression fracture, Dr. Ardon Osteoporosis Status post pacemaker Ischemic cardiomyopathy CAD CABG x2 Status post Cholecystectomy/Hysterectomy/Appendectomy Dyslipidemia Severe COPD GERD Anxiety Hypothyroidism Hypertension Leg edema REVIEW OF SYSTEMS: CONSTITUTIONAL: No fever, Fatigue. HEENT: No sinus drainage, no sore throat. RESPIRATORY: No cough, no congestion. CARDIOVASCULAR: No atypical chest pain for coronary artery disease. No angina, CHF symptoms, palpitations or shortness of breath. GASTROINTESTINAL: No melena or abdominal pain. No GERD. GENITOURINARY: No hematuria, no prostatism, no polyuria. FAMILY SUPPORT WORKER: No blackout, no dizziness, no headache, no double vision. GAIT: Walker MUSCULOSKELETAL: Osteoarthritis pain, no joint swelling. ENDOCRINE: No weight loss, no weight gain. SKIN: Not dry, no rash. PSYCHIATRIC: Not anxious, no depression, no suicidal thoughts, no homicidal thoughts. SOCIAL HISTORY: Marital Status: . Alcohol Usage: No. Tobacco Usage: No. MEDICATIONS: Tylenol #3 BID Xanax 0.25mg BID Aspirin 81mg PO daily Lipitor 40mg PO daily Centrum Silver daily Zyrtec 10mg PO daily Creon 6000mg QID Iron 325mg PO daily Flonase 50mcg daily Lasix 20mg two daily Incruse Ellipta 62.5 inhalation daily Isosorbide 60mg PO daily Isosorbide 30mg PO daily Keppra 250mg PO BID Synthroid 75mcg daily Losartan 100mg daily Reglan 5mg TID Toprol 50mg daily Singulair 10mg daily Nitroglycerin 0.4mg PRN Prilosec 20mg daily Percocet 7.5/325 QID PRN Probiotic daily Spironolactone 25mg half daily Coumadin 1mg PO daily Coumadin 1mg MWF Coumadin 2mg SUN, TUES, THURS and Sat. ALLERGIES: Ampicillin Levofloxacin Metronidazole Ondansetron Oxcarbazepine Piperacillin Rifaximin Sulbactam Sulfa Sulfacetamide Sulfasalazine3 Tazobactam Tramadol IV Contrast dye PHYSICAL EXAMINATION: V/S: pulse 63, blood pressure 98/60, temperature 98.2, Oxygen saturation 94% on 2 liters of O2 GENERAL APPEARANCE: Oriented times three. Pale. HEENT: Normal. NECK: No JVP, no bruits. RESPIRATORY: Decreased breath sounds. CARDIOVASCULAR: S1, S2, no S3, no murmur. No cyanosis, clubbing. No ascites. GI/ABDOMEN: No tenderness. Bowel sounds are active. EXTREMITIES: edema, pulses +1, equal. FAMILY SUPPORT WORKER: Deep tendon reflexes, sensory, motor and gait all normal. RECTAL: 2013 Refused repeat./PELVIC: Hysterectomy. Mammogram 05/18. ASSESSMENT: 1. Hypercoagulopathy, INR 11.31 2. Atrial fibrillation 3. COPD 4. Generalized weakness 5. History of falls 6. Kyphosis- wears brace 7. Severe DJD of spine 8. Leg weakness 9. Seizures-Keppra Negative Lexiscan 10/19 10.Atrial fibrillation, on Coumadin 11.Shortness of breath with exertion 12.T12 compression fracture, Dr. Ardon 13.Osteoporosis 14.Status post pacemaker 15.Ischemic cardiomyopathy 16.CAD 17.CABG x2 18.Status post Cholecystectomy/Hysterectomy/Appendectomy 19.Dyslipidemia 20.Severe COPD 21.GERD 22.Anxiety 23.Hypothyroidism 24.Hypertension 25.Leg edema PLAN: 1. Routine telemetry orders 2. Daily PT/INR 3. Continue home medications 4. Fall precautions 5. Vitamin K 2mg PO times one (2.5) if 5mg daily 6. T4 TSH times one 7. Normal saline IV at 75cc an hour time one bag 8. Regular diet 9. ABG on 2 liters 10.Continue O2 nasal canula 1-2 liters 11.Keppra level times one 12.No cardiac markers TIME SPENT: More than 70 minutes. MTDD
--- NOTE | 2020-04-09 09:50 | PN ---
DATE OF SERVICE: 04/05/2020 SUBJECTIVE: The patient was seen and examined with the Nurse Practitioner. The patient's condition is stable. She is feeling a lot better. INR is acceptably. Take her Coumadin regularly and not to mix it with any other over the counter medications and come to the clinic for regular INR check up. The patient's shortness of breath with chronic very likely chronic lung disease FEV1 was 50% of normal predicted. Echo showed right ventricular with paradoxical septal wall motion and enlarged cavity, LA cavity is also enlarged. Calcified mitral valve annulus noted. LV ejection fraction was 50% by apical view. Condition is stable at the time of discharge. Short of breath likely coming from mostly chronic lung disease. The patient is aware of it. TIME SPENT: More than 30 minutes. Plan and coordination of the patient's care discussed in the presence of nurse. ANN
--- NOTE | 2020-04-09 09:51 | PN ---
04/03/2020: Level 5 04/04/2020: Intermediate 04/05/2020: D as in discharge MTDD
--- NOTE | 2020-04-11 08:39 | DS ---
DATE OF SERVICE: 04/05/20 FINAL DIAGNOSIS: 1. HYPERCOAGULATION- VIT K GIVEN, RESOLVED 2. ATRIAL FIBRILLATION 3. COPD 4. GENERALIZED WEAKNESS 5. HISTORY OF FALLS HX: 6. MULTILEVEL COMPRESSION FRACTURES T6-T12- DR. MCKINLEY 7. KYPHOSIS - WEARS BACK BRACE 8. SEVERE DJD OF SPINE 9. UTI, PSEUDOMONAS AERUGINOSA ORGANISM 10. ISCHEMIC CARDIOMYOPATHY 11. CAD 12. NE 13. DYSLIPIDEMIA 14. HYPERTENSION 15. SEVERE COPD- PFT 10/2018 16. CHRONIC KIDNEY DISEASE 17. GERD 18. HYPOTHYROIDISM 19. HIATAL HERNIA 20. SEIZURES 21. ANXIETY 22. OSTEOARTHRITIS 23. OSTEOPOROSIS SURGICAL HISTORY: 24. CABG 25. CHOLECYSTECTOMY 26. HYSTERECTOMY 27. KIDNEY SURGERY 28. PACEMAKER INSERTION 29. NEVER SMOKER 30. NEGATIVE LEXISCAN- 10/2018 LAST VITALS Temp Pulse Resp BP Pulse Ox 97.7 F 65 18 90/56 L 97 04/05/20 05:27 04/05/20 05:27 04/05/20 05:27 04/05/20 05:27 04/05/20 05:27 DISCHARGE INSTRUCTIONS: 1. DISCHARGE: HOME TODAY APRIL 05, 2020 TO ASSISTED LIVING, LIVES WITH DAUGHTER. 2. [facility], SN, PT AND OT EVALS AND TREAT: [phone] TALKED WITH MENG AT [facility], A CLINICIAN WILL VISIT THURSDAY OR THURSDAY. 3. MD FOLLOW UP: DR GOINS/ MIAH SERRANO APRN / BETH IRWIN APRN IN THE OFFICE ON THURSDAY, APRIL 09, 2020 @ 2:[address] FOUNTAIN SATURDAY APRIL 11, 2020 AT 2:00 PM FOR PACEMAKER REPLACEMENT TALKED WITH TRANSMISSION BUILDER FOR MITCH MAGALLON. MEDICATIONS AT DISCHARGE: Albuterol Sulfate (Ventolin Hfa (Per Puff-With Spacer)) 2 puff IH Q4H PRN PRN Reason: Bronchodialation Alprazolam (Xanax) 0.25 mg PO BID PRN PRN Reason: Anxiety Atorvastatin Calcium (Lipitor) 40 mg PO DAILY [facility] Last Admin: 04/05/20 09:33 Dose: 40 mg Documented by: Cholecalciferol (Vitamin D) 2,000 unit PO DAILY [facility] Last Admin: 04/05/20 09:32 Dose: 2,000 unit Documented by: Ferrous Sulfate (Ferrous Sulfate) 324 mg PO DAILY [facility] Last Admin: 04/05/20 09:33 Dose: 324 mg Documented by: Fluticasone Propionate (Flonase) 2 spray EDDIE DAILY [facility] Last Admin: 04/05/20 09:34 Dose: 2 spray Documented by: Furosemide (Lasix Tab) 40 mg PO QDAC [facility] Last Admin: 04/05/20 06:07 Dose: 40 mg Documented by: Isosorbide Mononitrate (Imdur) 90 mg PO DAILY [facility] Last Admin: 04/05/20 09:31 Dose: 90 mg Documented by: Levetiracetam (Keppra) 250 mg PO BID [facility] Last Admin: 04/05/20 09:33 Dose: 250 mg Documented by: Levothyroxine Sodium (Synthroid) 75 mcg PO QDAC [facility] Last Admin: 04/05/20 06:07 Dose: 75 mcg Documented by: Loratadine (Claritin) 10 mg PO DAILY [facility] ( STOPPED AND WILL TAKE ZYRTEC AT HOME ) Last Admin: 04/05/20 09:32 Dose: 10 mg Documented by: Losartan Potassium (Cozaar) 100 mg PO DAILY [facility] Last Admin: 04/05/20 09:34 Dose: 100 mg Documented by: Metoclopramide HCl (Reglan) 5 mg PO TID PRN PRN Reason: Nausea / Vomiting Metoprolol Succinate (Toprol Xl) 25 mg PO DAILY [facility] Last Admin: 04/05/20 09:33 Dose: 25 mg Documented by: Montelukast Sodium (Singulair) 10 mg PO DAILY [facility] Last Admin: 04/05/20 09:33 Dose: 10 mg Documented by: Multivitamins (Multivitamin Tablet) 1 tab PO DAILY [facility] Last Admin: 04/05/20 09:32 Dose: 1 tab Documented by: Nitroglycerin (Nitrostat) 0.4 mg SL Q5MIN X 3 DOSES PRN PRN Reason: Chest Pain Non-Formulary Medication (Umeclidinium ) 62.5 mcg IH DAILY [facility] Last Admin: 04/05/20 09:30 Dose: 62.5 mcg Documented by: Non-Formulary Medication (Saqpxe-Izjldaht-Dwynpuf ) 6,000 units PO 0800,1200,1700,2100 [facility] Last Admin: 04/05/20 09:00 Dose: 6,000 units Documented by: OMEPRAZOLE 40 MG PO BIDAC LAST ADMIN: 04/05/20 0500 Oxycodone/Acetaminophen (Percocet 7.5-325) 1 tab PO QID [facility] Last Admin: 04/05/20 09:34 Dose: 1 tab Documented by: Spironolactone (Aldactone) 12.5 mg PO DAILY [facility] Last Admin: 04/05/20 09:31 Dose: 12.5 mg Documented by: WARFARIN 1 MG PO DAILY IN THE PM ZYRTEC 10 MG PO DAILY NEW PRESCRIPTIONS: COUMADIN 1 MG PO DAILY (CHANGED) ( CALLED IN TO [facility]) TOPROL XL 25 MG PO DAILY (CHANGED) DISCONTINUED MEDICATIONS: TOPROL TO 50 MG PO DAILY (CHANGED) ASPIRIN 81 MG PO DAILY DIET INSTRUCTIONS: REGULAR WITH ADEQUATE FLUIDS. NO TEA,COFFEE OR WHEAT PRODUCTS FOOD ALLERGIES: STRAWBERRIES AND BANANAS ACTIVITY: 1. UP WITH WALKER AND SUPERVISION AND PER HOME HEALTH DIRECTION UP SLOW AND FREQUENT REST PERIODS. 2. CONTINUE OXYGEN: AT 2 L/M PER NASAL CANNULA CONTINUOS, AND PROPER PRECAUTION. SMOKING: NON- APPLICABLE DISEASE SPECIFIC EDUCATION: COUMADIN HYPOTENSION POTASSIUM [facility]: This is a white female who was a direct admit from our office. She was seen on 04/02 and sent to the Emergency Room for an unreadable INR in our office which meant that it was greater than 8. She went to the Emergency Room on 04/02. They did not check an INR however did a chest x-ray and a head CT all of which was normal. On 04/03 we got a hold of her and had her go to [facility] outpatient and did an INR which showed that it was 11.31. She is on chronic anticoagulation due to atrial fibrillation. She was then called and told that she needed to be admitted as her INR was 11.31. We admitted her, placed her on routine telemetry. Initially gave 2.5 mg of Vitamin K orally. Her INR the second day went down to 4 and then today is down to 2.7. She did not experience any bleeding. She did not have any bleeding gums, no blood in her stool. Her hemoglobin remained stable while she was hospitalized today. On day of discharge her hemoglobin is 11.3. She did have an episode of low potassium, started on oral potassium. It is normal today at 3.5. All of her home medications were continued with exception of her Coumadin. She is scheduled for a battery placement of her pacemaker by Dr. Fountain, I do believe on the so she will see him. She was hypotensive on admission and she was in the office prior to. She had stated that she had been feeling more short of breath when she was in the office, she was having to wear oxygen all the time at 2 to 3L. This was a change for her. We did decrease her Metoprolol and make it 25 mg p.o. daily and then again I do believe Dr. Fountain is replacing her pacemaker battery on the . She is to followup with him as previously instructed. Will discharge her today in stable condition. She is to continue her oxygen. She will resume her Coumadin today as her INR is therapeutic at 2.7. Again, she did not experience any ill effects of her hypercoagulation. Telemetry was normal. Will discharge her in stable condition and followup with her next week. LAB REVIEW: 04/05/20 04:51: Sodium 137.2, Potassium 3.56, Chloride 104.9, Carbon Dioxide 25.8, Anion Gap 10.06, BUN 14.0, Creatinine 1.69 H, Estimated GFR (MDRD) 29.00, BUN/Creatinine Ratio 8.28, Glucose 115.4 H, Calcium 9.67, Total Bilirubin 0.70, AST 31.0, ALT 11.1, Alkaline Phosphatase 75.4, Total Protein 6.99, Albumin 3.71, Globulin 3.28, Albumin/Globulin Ratio 1.13 04/05/20 04:51: WBC 5.03, RBC 3.53 L, Hgb 11.3 L, Hct 34.2 L, MCV 96.9, MCH 32.0 H, MCHC 33.0, RDW Coeff of Rehana 12.3, Plt Count 186, Immature Gran % (Auto) 0.2, Neut % (Auto) 66.8, Lymph % (Auto) 17.7, Graham % (Auto) 9.7, Eos % (Auto) 4.8, Baso % (Auto) 0.8, Neut # (Auto) 3.4, Lymph # (Auto) 0.9, Graham # (Auto) 0.5, Eos # (Auto) 0.2, Baso # (Auto) 0.0, Immature Gran # (Auto) 0.0 04/05/20 04:51: PT 20.1 H D, INR 2.14 D TIME SPENT: More than 60 minutes. MTDD
== END 2020-04-05 14:30 | disposition home or self-care (01) | DRG 815 ==
LOC: MEDSURG B 12:17
PROVIDERS: ADMIT Internal Medicine; ATTEND Internal Medicine

== ENCOUNTER 2020-05-30 13:56 | Inpatient (IN) ==
[2020-05-30 14:55] LABS: BASOPHILS % (AUTO) 0.5 % (0.0-3.0); EOSINOPHILS # (AUTO) 0.1 K/ul (0.0-0.7); EOSINOPHILS % (AUTO) 0.8 % (0.0-7.0); HEMATOCRIT 34.2 % (37.0-47.0); HEMOGLOBIN 11.5 g/dl (12.0-16.0); IMMATURE GRANULOCYTE % (AUTO) 0.2 % (0.0-5.0); LYMPHOCYTES # (AUTO) 0.6 K/uL (0.60-3.4); LYMPHOCYTES % (AUTO) 9.3 (10.0-50.0); MEAN CORPUSCULAR HEMOGLOBIN 31.3 pg (27.0-31.0); MEAN CORPUSCULAR HGB CONC 33.6 (31.8-35.4); MEAN CORPUSCULAR VOLUME 92.9 fl (81.0-99.0); MONOCYTES # (AUTO) 0.5 K/uL (0.4-2.0); MONOCYTES % (AUTO) 7.3 (0-10); NEUTROPHILS % (AUTO) 81.9 % (42.2-75.2); PLATELET COUNT 159 10^3/uL (140-440); RDW COEFFICIENT OF VARIATION 12.7 % (11.6-14.8); RED BLOOD COUNT 3.68 10^6/ul (4.20-5.40); WHITE BLOOD COUNT 6.15 K/ul (4.6-10.2)
--- NOTE | 2020-05-30 16:06 | DI ---
EXAM: Single frontal view of the chest HISTORY: Free air. COMPARISON: Chest x-ray 04/03/2020 and multiple priors including CT chest 07/19/2019 FINDINGS: Cardiomediastinal silhouette is unchanged with intact sternotomy wires and lead wires. The re is no consolidation, nodule or mass. There is no pneumothorax or effusion. The osseous structure s are unremarkable. IMPRESSION: No acute cardiopulmonary process
--- NOTE | 2020-05-30 16:19 | CT ---
EXAM: CT Abdomen without contrast. CT Pelvis without contrast. HISTORY: Generalized abdominal pain. COMPARISON: 06/07/2019. TECHNIQUE: Multiple axial images of the abdomen and pelvis were obtained without intravenous contras t. Images were reformatted in the sagittal and coronal plane. FINDINGS: Please note that evaluation of the abdominal and pelvic structures is limited due to lack of intravenous contrast. Sternotomy wires noted. Pacemaker leads partially seen. Heart is enlarged. There is dependent subs egmental atelectasis in the lung bases. T11 and T12 compression fractures noted. L1 compression fracture has undergone kyphoplasty. Probabl e old rib fractures. Osseous findings are stable. Gallbladder absent. The liver, pancreas, spleen, adrenal glands, and kidneys are unremarkable save f or pancreatic parenchymal atrophy. Large hiatal hernia contains proximal to mid stomach. Small bowel is normal in caliber. There is wa ll thickening of the sigmoid colon which occurs in the setting diverticulosis although there is no ad jacent inflammation, and bowel wall thickening is not centered around a diverticulum. Appendix not s een. Uterus absent. Bladder is normal. No free fluid or free air. Mild atherosclerotic calcifications p resent. There is no aneurysm. IMPRESSION: 1. Mild sigmoid colonic wall thickening could be sequela of previous diverticulitis or infectious/in flammatory colitis. 2. Stable large hiatal hernia.
[2020-05-30 17:28] LABS: ALANINE AMINOTRANSFERASE 10.8 U/L (0-35); ALBUMIN 3.72 g/dL (3.5-5.0); ALKALINE PHOSPHATASE 64.6 U/L (53-141); BILIRUBIN,TOTAL 0.43 mg/dL (0.2-1.3); BLOOD UREA NITROGEN 12.6 mg/dL (7-17); CALCIUM 9.29 mg/dL (8.4-10.2); CARBON DIOXIDE 30.1 mmol/L (22-30.0); CHLORIDE 100.2 mmol/L (98-107); CREATININE 1.05 mg/dL (0.60-1.30); GLUCOSE 151.2 mg/dL (74-106); POTASSIUM 3.85 mmol/L (3.5-5.1); SODIUM 135.1 mmol/L (134.5-145); TOTAL PROTEIN 7.21 g/dL (6.3-8.2)
--- NOTE | 2020-05-30 18:04 | ED.PDOC ---
General ED Provider: Dr. YU GARCIA Chief Complaint: Nausea/Vomiting Mode of Arrival: Ambulance Information Source: Patient and EMT Primary Care Provider: MELISSA HERRERA Sepsis Protocol: For patient's 13 years and over: Temp is 96.8 and below OR 101 and greater Pulse >90 BPM Resp >20/minute Acutely Altered Mental Status Are patient's symptoms suggestive of a new infection, such as: -Pneumonia -Skin, Soft Tissue -Endocarditis -UTI -Bone, Joint Infection -Implantable Device -Acute Abdominal Infection -Wound Infection -Meningitis -Blood Stream Catheter Infection -Unknown Miscellaneous Complaint Exam Physical Examination Complaint/Exam Onset/Duration: Weak x 4 days. Abdominal pain , chronic. Diverticulitis. Symptoms Are: Still present Timing: Constant Episodes Lasting: Weeks Initial Severity: Severe Current Severity: Moderate Location: Generalized weakness; lower abd pain; diverticulitis, chronic. Character: fatigue, aching abd pain. Aggravating: food, activity Alleviating: nothing Associated Signs and Symptoms: weakness, generalized Related History: Reports No other known history Specific Findings: pale, frail pt Differential Diagnoses: diverticulitis, UTI, anemia Review of Systems Review Of Systems Constitutional: Reports Weakness Eyes: Reports No symptoms Ears, Nose, Mouth, Throat: Reports No symptoms Respiratory: Reports No symptoms Cardiac: Reports No symptoms GI: Reports Abdominal pain : Reports No symptoms Musculoskeletal: Reports Other Skin: Reports No symptoms Neurological: Reports Depressed Endocrine: Reports No symptoms Hematologic/Lymphatic: Reports Anemia All Other Systems: Reviewed and Negative [facility] Medical History (Updated 04/10/20 @ 00:00 by ) A-fib Anxiety CAD (coronary artery disease) CKD (chronic kidney disease) Compression fracture of spine COPD (chronic obstructive pulmonary disease) Degenerative joint disease of spine Dyslipidemia General weakness GERD (gastroesophageal reflux disease) H/O cholecystitis Hiatal hernia HTN (hypertension) Hypercoagulability due to atrial fibrillation Hypothyroidism Kyphosis MT (myocardial infarction) Osteoarthritis Osteoporosis Pacemaker Seizures UTI (urinary tract infection) Family History Mother Stroke Osteoporosis Arthritis of both knees FATHER Arthritis FATHER Heart attack Social History (Updated 04/03/20 @ 13:16 by ROSA M GUTIERRES RN) Smoking and tobacco status: Never smoker Alcohol intake: never History of recent travel: No Female Reproductive History Menstrual Hx Hysterectomy: Yes (>50 YEARS AGO) Hx Tubal Ligation: No Physical Exam Physical Exam Appearance: Reports Thin Ill-appearing: Moderate Pain Distress: Moderate Eyes: Reports JOSE, EOMI and Conjunctiva clear ENT: Reports Ears normal, Nose normal, Oropharynx normal and Dry mucosa Neck: Supple Respiratory: Reports Airway patent, Breath sounds clear and Breath sounds equal Cardiovascular: Reports RRR, Pulses normal and Other GI/: Reports Soft and Bowel sounds hyperactive Musculoskeletal: Reports Limited strength Skin: Reports Pale Neurological: Reports Cranial nerves intact, Alert and Oriented Psychiatric: Reports Affect appropriate and Mood appropriate Course Course Hematology/Chemistry: 05/30/20 14:47 05/30/20 14:47 Orders, Labs, Meds: Lab Review 05/30/20 05/30/20 14:47 14:47 WBC 6.15 RBC 3.68 L Hgb 11.5 L Hct 34.2 L MCV 92.9 MCH 31.3 H MCHC 33.6 RDW Coeff of Rehana 12.7 Plt Count 159 Immature Gran % (Auto) 0.2 Neut % (Auto) 81.9 H Lymph % (Auto) 9.3 L [place] % (Auto) 7.3 Eos % (Auto) 0.8 Baso % (Auto) 0.5 Neut # (Auto) 5.0 Lymph # (Auto) 0.6 [place] # (Auto) 0.5 Eos # (Auto) 0.1 Baso # (Auto) 0.0 Immature Gran # (Auto) 0.0 Sodium 135.1 Potassium 3.85 Chloride 100.2 Carbon Dioxide 30.1 H Anion Gap 8.65 BUN 12.6 Creatinine 1.05 Estimated GFR (MDRD) 50.00 BUN/Creatinine Ratio 12.00 Glucose 151.2 H Calcium 9.29 Total Bilirubin 0.43 AST 35.0 ALT 10.8 Alkaline Phosphatase 64.6 Total Protein 7.21 Albumin 3.72 Globulin 3.49 Albumin/Globulin Ratio 1.06 Orders Category Date Time Status ADMIT PATIENT INPATIENT .TO MEDSURG (NON-MONITORED ADMISSION 05/30/20 18:21 Active BED) EKG-(IP & OP ONLY) Stat CARDIO 05/30/20 18:28 Ordered ACTIVITY .BR with BRP CARE 05/30/20 18:23 Active BLOOD GLUCOSE MONITORING 0630,1100,1700,2100 CARE 05/30/20 18:29 Active CASE MANAGEMENT CONSULT ONCE CARE 05/30/20 18:23 Active INTAKE & OUTPUT Q8HR CARE 05/30/20 18:23 Active VITAL SIGNS Q8HR CARE 05/30/20 18:23 Active SOFT LOW FIBER DIETARY 05/30/20 Breakfast Ordered ED STRAIN URINE .ONCE EMERGENCY 05/30/20 14:28 Active ED STRAIN URINE .ONCE EMERGENCY 05/30/20 18:20 Active CBC W/ AUTO DIFF DAILY@0600 LAB 05/31/20 06:00 Ordered CBC W/ AUTO DIFF DAILY@0600 LAB 06/01/20 06:00 Ordered CBC W/ AUTO DIFF Stat LAB 05/30/20 14:47 Completed COMPREHENSIVE METABOLIC PANEL DAILY@0600 LAB 05/31/20 06:00 Ordered COMPREHENSIVE METABOLIC PANEL DAILY@0600 LAB 06/01/20 06:00 Ordered COMPREHENSIVE METABOLIC PANEL Stat LAB 05/30/20 14:47 Completed PT WITH INR DAILY@0600 LAB 05/31/20 06:00 Ordered PT WITH INR DAILY@0600 LAB 06/01/20 06:00 Ordered RESUSCITATION STATUS Routine OTHERS 05/30/20 18:23 Ordered CHEST, 1V AP ONLY Stat RADS 05/30/20 14:[address] ABDOMEN/PELVIS WO CONTRAST Stat RADS 05/30/20 14:36 Completed Vital Signs: Temp Pulse Resp BP Pulse Ox 05/30/20 13:57 96.7 F L 60 16 103/62 98 Discharge Plan Discharge ED Provider: YU GARCIA Physician Progress Note: [Discussed pt w Dr. Herrera, who accepted pt for admission. After reviewing s/s and labs, admitting dx: Weakness and Anemia.]
[2020-05-30 20:08] VITALS: BMI 26.6
[2020-05-30] MEDS ORDERED: XANAX PO PRN (21:47)
[2020-05-30] MEDS ORDERED: VENTOLIN HFA (PER PUFF-WITH SPACER) IH PRN (21:47)
[2020-05-30] MEDS ORDERED: FLAGYL PO SCH (22:00)
[2020-05-30] MEDS: PERCOCET 7.5-325 PO SCH (22:30)
[2020-05-31 05:36] LABS: BASOPHILS % (AUTO) 0.6 % (0.0-3.0); EOSINOPHILS # (AUTO) 0.2 K/ul (0.0-0.7); EOSINOPHILS % (AUTO) 3.1 % (0.0-7.0); HEMATOCRIT 33.4 % (37.0-47.0); HEMOGLOBIN 11.3 g/dl (12.0-16.0); IMMATURE GRANULOCYTE % (AUTO) 0.2 % (0.0-5.0); LYMPHOCYTES # (AUTO) 1.3 K/uL (0.60-3.4); LYMPHOCYTES % (AUTO) 25.7 (10.0-50.0); MEAN CORPUSCULAR HEMOGLOBIN 31.3 pg (27.0-31.0); MEAN CORPUSCULAR HGB CONC 33.8 (31.8-35.4); MEAN CORPUSCULAR VOLUME 92.5 fl (81.0-99.0); MONOCYTES # (AUTO) 0.6 K/uL (0.4-2.0); NEUTROPHILS # (AUTO) 3.1 K/ul (2.0-6.9); NEUTROPHILS % (AUTO) 59.4 % (42.2-75.2); PLATELET COUNT 162 10^3/uL (140-440); RDW COEFFICIENT OF VARIATION 12.9 % (11.6-14.8); RED BLOOD COUNT 3.61 10^6/ul (4.20-5.40); WHITE BLOOD COUNT 5.18 K/ul (4.6-10.2)
[2020-05-31 05:49] LABS: PROTHROMBIN TIME 10.6 SEC (9.3-11.0)
[2020-05-31 05:57] LABS: ALANINE AMINOTRANSFERASE 10.4 U/L (0-35); ALKALINE PHOSPHATASE 65.3 U/L (53-141); ASPARTATE AMINO TRANSFERASE 33.5 U/L (14-36); BILIRUBIN,TOTAL 0.61 mg/dL (0.2-1.3); BLOOD UREA NITROGEN 12.1 mg/dL (7-17); CALCIUM 9.3 mg/dL (8.4-10.2); CHLORIDE 99.9 mmol/L (98-107); CREATINE KINASE 39.4 U/L (30-135); CREATININE 1.06 mg/dL (0.60-1.30); GLUCOSE 93.8 mg/dL (74-106); POTASSIUM 3.39 mmol/L (3.5-5.1); SODIUM 135.8 mmol/L (134.5-145); TOTAL PROTEIN 7.26 g/dL (6.3-8.2)
[2020-05-31] MEDS: SYNTHROID PO SCH (06:06)
[2020-05-31 06:25] LABS: THYROID STIMULATING HORMONE 1.47 uIU/L (0.465-4.68)
[2020-05-31] MEDS ORDERED: LASIX TAB PO SCH (06:30)
[2020-05-31] MEDS ORDERED: PRILOSEC PO SCH (06:30)
[2020-05-31] MEDS ORDERED: SODIUM CHLORIDE 1,000 ML IV SCH (08:30)
--- NOTE | 2020-05-31 08:42 | PCM.PROG ---
Attending Provider: ATTENDING PROVIDER: Dr. MELISSA GOINS This patient is seen with Pushpa Garcia, Nurse Practitioner. DATE OF SERVICE: 05/31/20 SUBJECTIVE: This 80 year old /WHITE F was hospitalized 05/30/20. The patient is resting in the bed comfortably. She complains of nausea and abdominal tend erness. She has denied any pain since getting to room from ER. CT scan of abdomen was reviewed. Unable to take Flagyl due to allergy, we will change antibiotics. U/A to be collected today. REVIEW OF SYSTEMS: CONSTITUTIONAL: No night sweats. No fatigue, malaise, lethargy. No fever or chills. Weakness. HEENT: Eyes: No visual changes. No eye pain. No eye discharge. ENT: No runny nose. No epistaxis. No sinus pain. No odynophagia. No congestion. RESPIRATORY: No cough, no congestion. No hemoptysis. No shortness of breath. CARDIOVASCULAR: No angina symptoms. No CHF symptoms. No atypical chest pain for CAD. No palpitations. No orthopnea.. GASTROINTESTINAL: Lower abdominal pain. Nausea and vomiting. No diarrhea or constipation. No hematemesis. No hematochezia. GENITOURINARY: No urgency. No frequency. No dysuria. No hematuria. No obstructive symptoms. No discharge. No pain. No significant abnormal bleeding. MUSCULOSKELETAL: No musculoskeletal pain; no joint swelling. NEUROLOGICAL: Awake, alert, oriented to time, place and person. No headache. No neck pain. No syncope. No seizures. No dizziness. PSYCHIATRIC: Not anxious. No depression. No suicidal thoughts. No homicidal thoughts. SKIN: No rash. No lesions. No wounds. ENDOCRINE: No unexplained weight loss. No weight gain. HEMATOLOGIC/LYMPHATIC: No anemia. No purpura. No petechiae. No prolonged or excessive bleeding. No palpable lymph nodes. PHYSICAL EXAMINATION: GENERAL: The patient is awake, alert and oriented, lying in bed in no distress. VITAL SIGNS: Temperature 97.9 F, Pulse 59, Respiratory Rate 18, BP 102/58, Pulse Ox 99% HEENT: Head normocephalic, atraumatic. Eyes: Extraocular muscles are intact. Pupils are equal, round and reactive to light and accommodation. Ears: No lesions. Nose appeared normal. Throat: No exudate or erythema. NECK: Supple. No JVD, no carotid bruit. No lymphadenopathy or thyromegaly. LUNGS: Diminished breath sounds. Clear to auscultation. Percussion note normal. Chest symmetrical. HEART: S1, S2, no S3. irregular heart rate. No murmurs. No cyanosis or clubbing. No ascites. Pulses: Dorsalis pedis and posterior tibial pulses +1 to +2 both sides. ABDOMEN: Soft. Lower abdominal tenderness on palpation. Bowel sounds active. No CVA tenderness. No mass felt. EXTREMITIES: No edema. Full range of motion of all extremities, equal. NEUROLOGIC: No focal deficit. Cranial nerves II through XII are grossly intact. No headache, no double vision or headache. SKIN: Not dry. Intact. Turgor-normal. LYMPHATIC: No palpable lymph nodes/no lymphedema. MUSCULOSKELETAL: Normal joints with no swelling. Muscle tone is normal. LAB REVIEW: 05/31/20 05:10 05/31/20 05:10 05/31/20 05:10: Iron 47.8 05/31/20 05:10: Sodium 135.8, Potassium 3.39 L, Chloride 99.9, Carbon Dioxide 32.0 H, Anion Gap 7.29, BUN 12.1, Creatinine 1.06, Estimated GFR (MDRD) 50.00, BUN/Creatinine Ratio 11.41, Glucose 93.8 D, Calcium 9.30, Ferritin 294.00 H, Total Bilirubin 0.61, AST 33.5, ALT 10.4, Alkaline Phosphatase 65.3, Total Creatine Kinase 39.4, Total Protein 7.26, Albumin 4.00, Globulin 3.26, Albumin/Globulin Ratio 1.22, TSH 1.470 05/31/20 05:10: PT 10.6, INR 1.08 05/31/20 05:10: WBC 5.18, RBC 3.61 L, Hgb 11.3 L, Hct 33.4 L, MCV 92.5, MCH 31.3 H, MCHC 33.8, RDW Coeff of Rehana 12.9, Plt Count 162, Immature Gran % (Auto) 0.2, Neut % (Auto) 59.4, Lymph % (Auto) 25.7, [place] % (Auto) 11.0 H, Eos % (Auto) 3.1, Baso % (Auto) 0.6, Neut # (Auto) 3.1, Lymph # (Auto) 1.3, [place] # (Auto) 0.6, Eos # (Auto) 0.2, Baso # (Auto) 0.0, Immature Gran # (Auto) 0.0 05/30/20 14:47: Sodium 135.1, Potassium 3.85, Chloride 100.2, Carbon Dioxide 30.1 H, Anion Gap 8.65, BUN 12.6, Creatinine 1.05, Estimated GFR (MDRD) 50.00, BUN/Creatinine Ratio 12.00, Glucose 151.2 H, Calcium 9.29, Total Bilirubin 0.43, AST 35.0, ALT 10.8, Alkaline Phosphatase 64.6, Total Protein 7.21, Albumin 3.72, Globulin 3.49, Albumin/Globulin Ratio 1.06 05/30/20 14:47: WBC 6.15, RBC 3.68 L, Hgb 11.5 L, Hct 34.2 L, MCV 92.9, MCH 31.3 H, MCHC 33.6, RDW Coeff of Rehana 12.7, Plt Count 159, Immature Gran % (Auto) 0.2, Neut % (Auto) 81.9 H, Lymph % (Auto) 9.3 L, [place] % (Auto) 7.3, Eos % (Auto) 0.8, Baso % (Auto) 0.5, Neut # (Auto) 5.0, Lymph # (Auto) 0.6, [place] # (Auto) 0.5, Eos # (Auto) 0.1, Baso # (Auto) 0.0, Immature Gran # (Auto) 0.0 ASSESSMENT: Please see below. 1. Previous diverticulitis versus colitis 2. Hypokalemia 3. Nausea 4. Vomiting 5. Hypertension 6. Atrial fibrillation 7. Multiple compression fractures. 8. Hiatal hernia PLAN: 1. Coumadin 2mg today 2. Potassium 20meq daily 3. Rocephin 1 gram daily 4. Normal saline 75cc Plan and coordination of the patient's care discussed in the presence of Scalloper and nurse. SCRIBED BY: NILSON ALBRIGHT Vibratory Pile Driver scribed while in presence of service performed by Dr. Goins/Pushpa Garcia APRN on 05/31/20 ([id number])
[2020-05-31] MEDS ORDERED: ROCEPHIN 1 GM/50 ML D5W 1 GM/50 ML BAG IV SCH (09:00)
[2020-05-31] MEDS ORDERED: CETIRIZINE 10 MG PO SCH (09:00)
[2020-05-31] MEDS ORDERED: IMDUR PO SCH (09:00)
[2020-05-31] MEDS ORDERED: COZAAR PO SCH (09:00)
[2020-05-31 09:12] LABS: BILIRUBIN,URINE Negative (NEGATIVE); CLARITY,URINE Clear (CLEAR); COLOR,URINE Yellow (YELLOW); GLUCOSE, URINE (UA) Negative (NEGATIVE); KETONES,URINE Negative (NEGATIVE); LEUKOCYTE ESTERASE ,URINE Negative (NEGATIVE); NITRITE,URINE Negative (NEGATIVE); PROTEIN,URINE Negative (NEGATIVE); URINE, BLOOD Negative (NEGATIVE); UROBILINOGEN,URINE 0.2 (0.2)
[2020-05-31] MEDS: FLONASE NAS SCH (09:41)
[2020-05-31] MEDS: KEPPRA PO SCH ×2 (09:41→20:55)
[2020-05-31] MEDS: IMDUR PO SCH (09:41)
[2020-05-31] MEDS: LIPITOR PO SCH (09:42)
[2020-05-31] MEDS: FERROUS SULFATE PO SCH (09:43)
[2020-05-31] MEDS: K-DUR PO SCH (09:43)
[2020-05-31] MEDS: PERCOCET 7.5-325 PO SCH ×4 (09:43→20:55)
[2020-05-31] MEDS: CLARITIN PO SCH (09:44)
[2020-05-31] MEDS: COZAAR PO SCH (09:44)
[2020-05-31] MEDS: ALDACTONE PO SCH (09:44)
[2020-05-31] MEDS: MULTIVITAMIN TABLET PO SCH (09:44)
[2020-05-31] MEDS: TOPROL XL PO SCH (09:44)
[2020-05-31] MEDS: [UNRECOGNIZED DRUG - OTHER] PO SCH ×4 (09:46→22:09)
[2020-05-31] MEDS: VITAMIN D PO SCH (09:46)
[2020-05-31] MEDS: [UNRECOGNIZED DRUG - MIXTURE] IH SCH (09:46)
[2020-05-31] MEDS: LIPASE PROTEASE AMYLASE PO SCH ×4 (09:46→22:09)
[2020-05-31] MEDS: PRILOSEC PO SCH (16:29)
[2020-05-31] MEDS ORDERED: SINGULAIR PO SCH (17:00)
[2020-05-31] MEDS ORDERED: COUMADIN PO ONE (17:00)
[2020-05-31] MEDS ORDERED: VISTARIL INJ IM PRN (21:31)
[2020-06-01] MEDS: PRILOSEC PO SCH (05:35)
[2020-06-01] MEDS: SYNTHROID PO SCH (05:35)
[2020-06-01 05:38] VITALS: BP 113/63; TEMP 97.5
[2020-06-01 05:55] LABS: BASOPHILS % (AUTO) 0.6 % (0.0-3.0); EOSINOPHILS # (AUTO) 0.2 K/ul (0.0-0.7); EOSINOPHILS % (AUTO) 3.9 % (0.0-7.0); HEMATOCRIT 32.6 % (37.0-47.0); HEMOGLOBIN 10.9 g/dl (12.0-16.0); IMMATURE GRANULOCYTE % (AUTO) 0.2 % (0.0-5.0); LYMPHOCYTES # (AUTO) 1.1 K/uL (0.60-3.4); LYMPHOCYTES % (AUTO) 23.1 (10.0-50.0); MEAN CORPUSCULAR HEMOGLOBIN 31.4 pg (27.0-31.0); MEAN CORPUSCULAR HGB CONC 33.4 (31.8-35.4); MEAN CORPUSCULAR VOLUME 93.9 fl (81.0-99.0); MONOCYTES # (AUTO) 0.5 K/uL (0.4-2.0); MONOCYTES % (AUTO) 10.6 (0-10); NEUTROPHILS % (AUTO) 61.6 % (42.2-75.2); PLATELET COUNT 147 10^3/uL (140-440); RED BLOOD COUNT 3.47 10^6/ul (4.20-5.40); WHITE BLOOD COUNT 4.89 K/ul (4.6-10.2)
[2020-06-01 06:06] LABS: PROTHROMBIN TIME 11.1 SEC (9.3-11.0)
[2020-06-01 06:08] LABS: ALANINE AMINOTRANSFERASE 9.1 U/L (0-35); ALBUMIN 3.69 g/dL (3.5-5.0); ALKALINE PHOSPHATASE 56.4 U/L (53-141); ASPARTATE AMINO TRANSFERASE 30.9 U/L (14-36); BILIRUBIN,TOTAL 0.42 mg/dL (0.2-1.3); BLOOD UREA NITROGEN 12.2 mg/dL (7-17); CALCIUM 8.76 mg/dL (8.4-10.2); CHLORIDE 100.4 mmol/L (98-107); CREATININE 1.11 mg/dL (0.60-1.30); GLUCOSE 99.3 mg/dL (74-106); POTASSIUM 3.61 mmol/L (3.5-5.1); SODIUM 134.6 mmol/L (134.5-145); TOTAL PROTEIN 6.94 g/dL (6.3-8.2)
[2020-06-01] MEDS ORDERED: LASIX TAB PO SCH (06:30)
--- NOTE | 2020-06-01 07:46 | HP ---
DATE OF SERVICE: 05/30/20 HISTORY OF PRESENT ILLNESS: This is an 80-year-old white female who is a resident at assisted living is brought into the emergency room for nausea and vomiting. She has been weak for the past four days with intermittent abdominal pain. PAST MEDICAL HISTORY: Atrial fibrillation on Coumadin COPD Generalized weakness History of falls Kyphosis - wears brace Severe degenerative disk disease of the spine Leg weakness History of seizures on Keppra Shortness of breath with exertion T12 compression fractures with multiple other compression fractures, sees Dr. Ardon Osteoporosis Ischemic cardiomyopathy Coronary artery disease CABG times two, [id number] Dyslipidemia GERD Anxiety Hypothyroidism Hypertension Leg edema PAST SURGICAL HISTORY: CABG times two Cholecystectomy Hysterectomy Appendectomy Pacemaker REVIEW OF SYSTEMS: CONSTITUTIONAL: Positive for weakness. No night sweats. No malaise, lethargy. No fever or chills. HEENT: Eyes: No visual changes. No eye pain. No eye discharge. ENT: No runny nose. No epistaxis. No sinus pain. No sore throat. No odynophagia. No ear pain. No congestion. RESPIRATORY: No cough, no congestion. No hemoptysis. Shortness of breath as usual. CARDIOVASCULAR: No angina symptoms. No CHF symptoms. No atypical chest pain for CAD. No palpitations. No PND. No orthopnea. GASTROINTESTINAL: Intermittent abdominal pain. No nausea or vomiting. No diarrhea or constipation. No hematemesis. No hematochezia. GENITOURINARY: No urgency. No frequency. No dysuria. No hematuria. No obstructive symptoms. No discharge. No pain. No significant abnormal bleeding. MUSCULOSKELETAL: No musculoskeletal pain. No joint swelling. No arthritis. NEUROLOGICAL: No headache. No neck pain. No syncope. No seizures. No dizziness. PSYCHIATRIC: Not anxious. No depression. No suicidal thoughts. No homicidal thoughts. SKIN: No rash. No lesions. No wounds. ENDOCRINE: No unexplained weight loss. No weight gain. HEMATOLOGIC/LYMPHATIC: No anemia. No purpura. No petechiae. No prolonged or excessive bleeding. No palpable lymph nodes. PERSONAL/FAMILY/SOCIAL HISTORY: [facility]. She is a nonsmoker. No alcohol or ilicit drug use. She no longer drives. MEDICATIONS: Cholecalciferol 2,000 unit p.o. daily Spironolactone 12.5 mg p.o. daily Albuterol two puff INH q.4h p.r.n. Nitroglycerin 0.4 mg sublingual q.5 min times three doses p.r.n. Montelukast 10 mg p.o. daily Levetiracetam (Keppra) 250 mg p.o. b.i.d. Isosorbide Mononitrate 60 mg p.o. daily Isosorbide Mononitrate 30 mg p.o daily Umeclidinium 62.5 mcg INH daily Furosemide 40 mg p.o. daily Fluticasone two spray NS daily Hxzutx-lofsewnp-gecoruc 6,000 units p.o. q.i.d. Atorvastatin 40 mg p.o. daily Alprazolam 0.25 mg p.o. b.i.d. p.r.n. Cetirizine 10 mg p.o. daily Levothyroxine 75 mcg p.o. q.d a.c. Multivitamin one each p.o. daily Ferrous Sulfate 325 mg p.o. daily Metoclopramide 5 mg p.o. t.i.d. p.r.n. Oxycodone-Acetaminophen 7.5 tab p.o. q.i.d. Losartan 100 mg p.o. daily Omeprazole 40 mg p.o. b.i.d. a.c. Metoprolol 25 mg p.o. daily Warfarin 1 mg p.o. daily ALLERGIES: SULFA, AMPICILLIN, SULBACTAM, SULFASALAZINE, METRONIDAZOLE, TRAMADOL, TAZOBACTAM, ONDANSETRON, PIPERACILLIN, SULFACETAMIDE, OXCARBAZEPINE, LEVOFLOXACIN, RIFAXIMIN, IV CONTRAST DYE PHYSICAL EXAMINATION: VITAL SIGNS: Temperature 97.6, heart rate 60, respirations 16, blood pressure 103/62, pulse ox 98%. Pallor. HEENT: Head normocephalic, atraumatic. Eyes: Extraocular muscles are intact. Pupils are equal, round and reactive to light and accommodation. Ears: No lesions. Nose appeared normal. Throat: No exudate or erythema. NECK: Supple. No JVD, no carotid bruit. No lymphadenopathy or thyromegaly. LUNGS: Diminished breath sounds bilaterally. Clear to auscultation. Percussion note normal. Chest symmetrical. HEART: S1, S2, no S3. No murmur. No cyanosis or clubbing. No ascites. Pulses: Dorsalis pedis and posterior tibial pulses +1 to +2 bilaterally. ABDOMEN: No abdominaL pain. Soft. Nontender. Bowel sounds active. No CVA tenderness. No mass felt. EXTREMITIES: No edema. Full range of motion of all extremities, equal. NEUROLOGIC: No focal deficit. Cranial nerves II through XII are grossly intact. No headache, no double vision or headache. SKIN: Not dry. Intact. Turgor - normal. LYMPHATIC: No palpable lymph nodes/no lymphedema. MUSCULOSKELETAL: Normal joints with no swelling. Muscle tone is normal. LABS: White count 6.15, hemoglobin 11.5, hematocrit 34.2, platelets 159. Sodium 135, potassium 3.8, BUN 12, creatinine .05, glucose 151. CT of the abdomen and pelvis shows mild colonic wall thickening could be sequela of previous diverticulitis or infectious/inflammatory colitis. Large hiatal hernia. Chest x-ray is normal. ASSESSMENT: 1. ACUTE COLITIS 2. ANEMIA 3. GENERALIZED WEAKNESS 4. HYPOTENSION 5. ATRIAL FIBRILLATION 6. CORONARY ARTERY DISEASE 7. SEVERE COPD PLAN: 1. We will admit. 2. Routine telemetry orders. 3. CBC, CMP, INR now and daily. 4. Continue home medications. 5. Start Rocephin 1 gm IV daily. 6. Start Flagyl 500 mg p.o. t.i.d. 7. UA with culture and sensitivity. 8. Fall precautions. 9. Regular diet. 10. 02 1 to 2L as needed. 11. Will follow closely. TIME SPENT: More than 70 minutes. MTDD
--- NOTE | 2020-06-01 07:54 | PN ---
DATE OF SERVICE: 05/30/20 - ADMIT NOTE SUBJECTIVE: 81-year-old white female was brought to the emergency room with weakness and generalized aches and pain. Also had some abdominal discomfort. The patient was seen and examined in the ER. There, physical examination was recorded as normal. Not in any distress. Vital signs were stable. She was afebrile. No cough, no congestion. No signs or symptoms of CHF or coronary artery disease. No signs of COVID. Labs were all acceptable except for hemoglobin of 11.8. Kidney functions were normal. CT scan of the abdomen showed possible old infection, diverticulitis, thickening of the sigmoid colon. The patient is hospitalized with complaint of weakness and being tired with abdominal pain. The pain is more generalized. PLAN: 1. IV fluids 2. Telemetry 3. T4, TSH 4. Repeat CMP in the morning 5. CBC with differential 6. The patient's rectal was done by ER attending and was negative for occult blood. CONDITION: Stable. TIME SPENT: More than 30 minutes. Plan and coordination of the patient's care discussed in the presence of nurse. ANN
--- NOTE | 2020-06-01 08:17 | PCM.PROG ---
Attending Provider: ATTENDING PROVIDER: Dr. MELISSA GOINS This patient is seen with Pushpa Garcia, Nurse Practitioner. DATE OF SERVICE: 06/01/20 SUBJECTIVE: This 80 year old /WHITE F was hospitalized 05/30/20. The patient is resting comfortably in the bed. She has had no more abdominal pain, nausea or vomiting. The patient reports that she is feeling better. Has had one dose of Vistaril. REVIEW OF SYSTEMS: CONSTITUTIONAL: No night sweats. No fatigue, malaise, lethargy. No fever or chills. Weakness, improved HEENT: Eyes: No visual changes. No eye pain. No eye discharge. ENT: No runny nose. No epistaxis. No sinus pain. No odynophagia. No congestion. RESPIRATORY: No cough, no congestion. No hemoptysis. No shortness of breath. CARDIOVASCULAR: No angina symptoms. No CHF symptoms. No atypical chest pain for CAD. No palpitations. No orthopnea.. GASTROINTESTINAL: Abdominal tenderness, improved. Nausea and vomiting, improved. No diarrhea or constipation. No hematemesis. No hematochezia. GENITOURINARY: No urgency. No frequency. No dysuria. No hematuria. No obstruc tive symptoms. No discharge. No pain. No significant abnormal bleeding. MUSCULOSKELETAL: No musculoskeletal pain; no joint swelling. NEUROLOGICAL: Awake, alert, oriented to time, place and person. No headache. No neck pain. No syncope. No seizures. No dizziness. PSYCHIATRIC: Not anxious. No depression. No suicidal thoughts. No homicidal thoughts. SKIN: No rash. No lesions. No wounds. ENDOCRINE: No unexplained weight loss. No weight gain. HEMATOLOGIC/LYMPHATIC: No anemia. No purpura. No petechiae. No prolonged or excessive bleeding. No palpable lymph nodes. PHYSICAL EXAMINATION: GENERAL: The patient is awake, alert and oriented, lying in bed in no distress. VITAL SIGNS: Temperature 97.5 F, Pulse 58, Respiratory Rate 18, BP 113/63, Pulse Ox 96% HEENT: Head normocephalic, atraumatic. Eyes: Extraocular muscles are intact. Pupils are equal, round and reactive to light and accommodation. Ears: No lesions. Nose appeared normal. Throat: No exudate or erythema. NECK: Supple. No JVD, no carotid bruit. No lymphadenopathy or thyromegaly. LUNGS: Diminished breath sounds. Clear to auscultation. Percussion note normal. Chest symmetrical. HEART: S1, S2, no S3. No murmurs. Afib. No cyanosis or clubbing. No ascites. Pulses: Dorsalis pedis and posterior tibial pulses +1 to +2 both sides. ABDOMEN: Soft. Non-tender. Bowel sounds active. No CVA tenderness. No mass felt. EXTREMITIES: No edema. Full range of motion of all extremities, equal. NEUROLOGIC: No focal deficit. Cranial nerves II through XII are grossly intact. No headache, no double vision or headache. SKIN: Not dry. Intact. Turgor-normal. LYMPHATIC: No palpable lymph nodes/no lymphedema. MUSCULOSKELETAL: Normal joints with no swelling. Muscle tone is normal. LAB REVIEW: 06/01/20 05:36 06/01/20 05:36 06/01/20 05:36: Sodium 134.6, Potassium 3.61, Chloride 100.4, Carbon Dioxide 29.0, Anion Gap 8.81, BUN 12.2, Creatinine 1.11, Estimated GFR (MDRD) 47.00, BUN/Creatinine Ratio 10.99, Glucose 99.3, Calcium 8.76, Total Bilirubin 0.42, AST 30.9, ALT 9.1, Alkaline Phosphatase 56.4, Total Protein 6.94, Albumin 3.69, Globulin 3.25, Albumin/Globulin Ratio 1.13 06/01/20 05:36: PT 11.1 H, INR 1.14 06/01/20 05:36: WBC 4.89, RBC 3.47 L, Hgb 10.9 L, Hct 32.6 L, MCV 93.9, MCH 31.4 H, MCHC 33.4, RDW Coeff of Rehana 13.0, Plt Count 147, Immature Gran % (Auto) 0.2, Neut % (Auto) 61.6, Lymph % (Auto) 23.1, [place] % (Auto) 10.6 H, Eos % (Auto) 3.9, Baso % (Auto) 0.6, Neut # (Auto) 3.0, Lymph # (Auto) 1.1, [place] # (Auto) 0.5, Eos # (Auto) 0.2, Baso # (Auto) 0.0, Immature Gran # (Auto) 0.0 05/31/20 08:10: Urine Color Yellow, Urine Clarity Clear, Urine pH 6.0, Ur Specific [place] 1.015, Urine Protein Negative, Urine Glucose (UA) Negative, Urine Ketones Negative, Urine Blood Negative, Urine Nitrite Negative, Urine Bilirubin Negative, Urine Urobilinogen 0.2, Ur Leukocyte Esterase Negative 05/31/20 05:10: Thyroxine (T4) 8.6 ASSESSMENT: Please see below. 1. Previous diverticulitis versus colitis 2. Hypokalemia 3. Nausea 4. Vomiting 5. Hypertension 6. Atrial fibrillation 7. Multiple compression fractures. 8. Hiatal hernia PLAN: 1. Coumadin 4mg today 2. Resume 1mg Coumadin daily tomorrow 3. Stable for discharge 4. Continue same medications 5. The patient to followup in the office in one week 6. Echo today Plan and coordination of the patient's care discussed in the presence of Car Detailer and nurse. SCRIBED BY: Keaton BURRELL scribed while in presence of service performed by Dr. Goins/Pushpa Garcia APRN on 06/01/20 ([id number])
[2020-06-01] MEDS ORDERED: COUMADIN PO STA (08:22)
[2020-06-01] MEDS: LIPITOR PO SCH (08:55)
[2020-06-01] MEDS: FERROUS SULFATE PO SCH (08:56)
[2020-06-01] MEDS: K-DUR PO SCH (08:56)
[2020-06-01] MEDS: MULTIVITAMIN TABLET PO SCH (08:56)
[2020-06-01] MEDS: PERCOCET 7.5-325 PO SCH (08:56)
[2020-06-01] MEDS: COZAAR PO SCH (08:56)
[2020-06-01] MEDS: CLARITIN PO SCH (08:57)
[2020-06-01] MEDS: ALDACTONE PO SCH (08:57)
[2020-06-01] MEDS: VITAMIN D PO SCH (08:57)
[2020-06-01] MEDS: KEPPRA PO SCH (08:58)
[2020-06-01] MEDS: IMDUR PO SCH (08:58)
[2020-06-01] MEDS: TOPROL XL PO SCH (08:59)
[2020-06-01] MEDS: LIPASE PROTEASE AMYLASE PO SCH (09:12)
[2020-06-01] MEDS: [UNRECOGNIZED DRUG - MIXTURE] IH SCH (09:12)
[2020-06-01] MEDS: [UNRECOGNIZED DRUG - OTHER] PO SCH (09:12)
[2020-06-01] MEDS: FLONASE NAS SCH (09:46)
--- NOTE | 2020-06-01 10:44 | CM.DICTOOL ---
ADMISSION: 05/30/20 18:33 DISCHARGE: JUNE 01, 2020 DATE OF SERVICE: 06/01/20 FINAL DIAGNOSIS ABDOMINAL PAIN; DIVERTICULITIS VS COLITIS ( RECENT PAST) HYPOKALEMIA ATRIAL FIBRILLATION COPD, MODERATE TO SEVERE PER PFT 03/2020 (WEARS OXYGEN) WEAKNESS HX: HYPERTENSION DYSLIPIDEMIA HYPOTHYROIDISM CAD MO BLOOD CLOT IN HEART ISCHEMIC CARDIOMYOPATHY CHRONIC KIDNEY DISEASE LARGE HIATAL HERNIA ANXIETY OSTEOARTHRITIS OSTEOPOROSIS UTI PREVIOUS COMPRESSION FRACTURES, T6-12 L1 COMPRESSION FRACTURE WITH KYPHOPLASTY CABG, CHOLECYSTECTOMY HYSTERECTOMY KIDNEY SURGERY PACEMAKER INSERTION, 2009 NEGATIVE LEXISCAN, 10/2018 LAST VITALS Temp Pulse Resp BP Pulse Ox 97.5 F L 58 L 16 113/63 96 06/01/20 05:37 06/01/20 07:55 06/01/20 07:55 06/01/20 05:37 06/01/20 05:37 TAKE THESE MEDICATIONS AT HOME Albuterol Sulfate (Albuterol Sulfate (Ventolin Hfa) 18 Gm 1 Puff With Spacer) 2 puff IH Q4H PRN PRN Reason: Asthma Alprazolam (Alprazolam 0.25 Mg Tablet) 0.25 mg PO BID PRN PRN Reason: Anxiety Last Admin: 05/30/20 22:30 Dose: 0.25 mg Documented by: Atorvastatin Calcium (Atorvastatin Calcium 20 Mg Tablet) 40 mg PO DAILY [facility] Last Admin: 06/01/20 08:55 Dose: 40 mg Documented by: Cholecalciferol (Cholecalciferol (Vitamin D3) 1,000 Unit Tablet) 2,000 unit PO DAILY [facility] Last Admin: 06/01/20 08:57 Dose: 2,000 unit Documented by: Ferrous Sulfate (Ferrous Sulfate 324 Mg Tablet.Dr) 324 mg PO DAILY [facility] Last Admin: 06/01/20 08:56 Dose: 324 mg Documented by: Fluticasone Propionate (Fluticasone Propionate 16 Gm Nasal [place]) 2 spray EDDIE DAILY [facility] Last Admin: 05/31/20 09:41 Dose: 2 spray Documented by: Furosemide (Furosemide 40 Mg Tablet) 40 mg PO QDAC [facility] Last Admin: 06/01/20 05:35 Dose: 40 mg Documented by: Isosorbide Mononitrate (Isosorbide Mononitrate 30 Mg Tab.Er.24h) 90 mg PO DAILY [facility] Last Admin: 06/01/20 08:58 Dose: 90 mg Documented by: Levetiracetam (Levetiracetam 500 Mg Tablet) 250 mg PO BID [facility] Last Admin: 06/01/20 08:58 Dose: 250 mg Documented by: Levothyroxine Sodium (Levothyroxine Sodium 75 Mcg Tablet) 75 mcg PO QDAC [facility] Last Admin: 06/01/20 05:35 Dose: 75 mcg Documented by: Losartan Potassium (Losartan Potassium 100 Mg Tablet) 100 mg PO DAILY [facility] Last Admin: 06/01/20 08:56 Dose: 100 mg Documented by: Metoprolol Succinate (Metoprolol Succinate 25 Mg Tab.Er.24h) 25 mg PO DAILY [facility] Last Admin: 06/01/20 08:59 Dose: 25 mg Documented by: Montelukast Sodium (Montelukast Sodium 10 Mg Tablet) 10 mg PO QPM [facility] Last Admin: 05/31/20 16:29 Dose: 10 mg Documented by: Multivitamins (Multivitamin 1 Tab) 1 tab PO DAILY [facility] Last Admin: 06/01/20 08:56 Dose: 1 tab Documented by: Non-Formulary Medication ([id number]-Qdxkjyp [Creon]) 6,000 units PO QID [facility] Last Admin: 05/31/20 22:09 Dose: Not Given Documented by: Non-Formulary Medication (Umeclidinium [Incruse Ellipta]) 62.5 mcg IH DAILY [facility] Last Admin: 05/31/20 09:46 Dose: Not Given Documented by: Omeprazole (Omeprazole 20 Mg Capsule.Dr) 40 mg PO BIDAC [facility] Last Admin: 06/01/20 05:35 Dose: 40 mg Documented by: Oxycodone/Acetaminophen (Oxycodone/Acetaminophen 7.5/325 Mg Tablet) 1 tab PO QID [facility] Last Admin: 06/01/20 08:56 Dose: 1 tab Documented by: Potassium Chloride (Potassium Chloride 20 Meq Tab) 20 meq PO DAILYWM [facility] -- ( NEW) Last Admin: 06/01/20 08:56 Dose: 20 meq Documented by: Spironolactone (Spironolactone 25 Mg Tablet) 12.5 mg PO DAILY [facility] Last Admin: 06/01/20 08:57 Dose: 12.5 mg Documented by: WARFARIN 1 MG PO DAILY IN THE PM RESTART 06/02/2020 NITROSTAT 0.4 MG SL EVERY 5 MINUTES X 3 DOSES PRN METOCLOPRAMIDE HCL 5 MG PO TID PRN ZYRTEC 10 MG PO DAILY [facility] ampicillin Adverse Reaction (Verified 05/30/20 14:14) levofloxacin Adverse Reaction (Verified 05/30/20 14:14) metronidazole Adverse Reaction (Verified 05/30/20 14:14) ondansetron Adverse Reaction (Verified 05/30/20 14:14) oxcarbazepine [From Trileptal] Adverse Reaction (Verified 05/30/20 14:14) piperacillin Adverse Reaction (Verified 05/30/20 14:14) rifaximin Adverse Reaction (Verified 05/30/20 14:14) sulbactam Adverse Reaction (Verified 05/30/20 14:14) Sulfa (Sulfonamide Antibiotics) Adverse Reaction (Verified 05/30/20 14:14) sulfacetamide Adverse Reaction (Verified 05/30/20 14:14) Difficulty Breathing sulfasalazine Adverse Reaction (Verified 05/30/20 14:14) Difficulty Breathing tazobactam Adverse Reaction (Verified 05/30/20 14:14) tramadol Adverse Reaction (Verified 05/30/20 14:14) IV contrast dye Adverse Reaction (Uncoded 05/30/20 14:14) DISCONTINUED MEDICATIONS NONE NEW PRESCRIPTIONS: POTASSIUM 20 MEQ PO DAILY WITH FOOD SMOKING: NON- APPLICABLE DISEASE SPECIFIC EDUCATION: DIVERTICULOSIS COLITIS HYPOKALEMIA POTASSIUM SOFT DIET LOW RESIDUE COVID- 19 LAB REVIEW: 06/01/20 05:36 06/01/20 05:36 06/01/20 05:36: Sodium 134.6, Potassium 3.61, Chloride 100.4, Carbon Dioxide 29.0, Anion Gap 8.81, BUN 12.2, Creatinine 1.11, Estimated GFR (MDRD) 47.00, BUN/Creatinine Ratio 10.99, Glucose 99.3, Calcium 8.76, Total Bilirubin 0.42, T 30.9, ALT 9.1, Alkaline Phosphatase 56.4, Total Protein 6.94, Albumin 3.69, Globulin 3.25, Albumin/Globulin Ratio 1.13 06/01/20 05:36: PT 11.1 H, INR 1.14 06/01/20 05:36: WBC 4.89, RBC 3.47 L, Hgb 10.9 L, Hct 32.6 L, MCV 93.9, MCH 31.4 H, MCHC 33.4, RDW Coeff of [place] 13.0, Plt Count 147, Immature Gran % (Auto) 0.2, Neut % (Auto) 61.6, Lymph % (Auto) 23.1, [place] % (Auto) 10.6 H, Eos % (Auto) 3.9, Baso % (Auto) 0.6, Neut # (Auto) 3.0, Lymph # (Auto) 1.1, [place] # (Auto) 0.5, Eos # (Auto) 0.2, Baso # (Auto) 0.0, Immature Gran # (Auto) 0.0 05/31/20 08:10: Urine Color Yellow, Urine Clarity Clear, Urine pH 6.0, Ur Specific [place] 1.015, Urine Protein Negative, Urine Glucose (UA) Negative, Urine Ketones Negative, Urine Blood Negative, Urine Nitrite Negative, Urine Bilirubin Negative, Urine Urobilinogen 0.2, Ur Leukocyte Esterase Negative 05/31/20 05:10: C-Reactive Prot, Quant < 1 05/31/20 05:10: Thyroxine (T4) 8.6 PLAN: DISCHARGE : HOME TODAY TO [facility] JUNE 01, 2020. LIVES WITH SISTER. [employer] [facility] PT TO FOLLOW. TO SEE Thursday, DARON CONTACTED WITH [employer], PHONE # [phone] DIET: SOFT, LOW RESIDUAL ACTIVITY: UP WITH ROLLATOR TOLERATED WITH SUPERVISION. WALK THROUGHOUT THE DAY WITH FREQUENT REST PERIODS [employer] [facility] PT TO EVAL AND TREAT, THEN FOLLOW PT GUIDELINES BLEEDING PRECAUTIONS HOME OXYGEN PRECAUTIONS, CONTINUE SAME ORDERS MD FOLLOW UP: SEE DR. GOINS/ MIAH SERRANO APRN/ BETH IRWIN APRN IN THE OFFICE ON MONDAY JUNE 08, 2020 @ 1030 CODE STATUS: DO NOT RESUSCITATE MRS VALLES IS ALERT AND ORIENTED X 4. SHE IS UP TOLERATED WITH ROLLATOR AND SBA. SHE IS SOME WEAKER THAN TYPICAL FOR HER. HER SISTER CAN ASSIST AND THEN [employer] PT WILL EVAL ON THURSDAY. HAS CHRONIC BACK PAIN AND UTILIZES OXYCODONE. NO FURTHER NAUSEA OR VOMITING. SHE STATES MINIMAL TENDERNESS TO ABDOMEN. HER NUTRITIONAL INTAKE IS FAIR AND FLUID INTAKE IS GOOD. SHE HAS CHRONIC PALLOR WITH SKIN WARM AND DRY AND INTACT. DRIBBLES URINE AND USES PADS, CONTINENT OF BOWELS WITH LAST BM 05/31 AND FORMED. TO RETURN HOME WITH HER SISTER SHE LIVES WITH AT THE [facility], [facility]. MELISSAMD MIAH GUZMAN APRN ALYCE HANNAN, APRN
--- NOTE | 2020-06-01 13:23 | PN ---
DATE OF SERVICE: 05/31/20 SUBJECTIVE: The patient was seen and examined with the nurse practitioner. The patient's condition has improved. She is feeling a lot better. The patient denies any chest pain. No abdominal pain. She has more strength. Appetite has improved. Mental status has improved. The patient had acute diverticulitis at home. It has improved. She is not able to take Flagyl because she is allergic to Flagyl. Rocephin was given one dose. TIME SPENT: More than 30 minutes. Plan and coordination of the patient's care discussed in the presence of nurse. ANN
--- NOTE | 2020-06-01 14:48 | DS ---
DATE OF SERVICE: 06/01/20 FINAL DIAGNOSIS: 1. ABDOMINAL PAIN; 2. DIVERTICULITIS VS COLITIS (RECENT PAST) 3. HYPOKALEMIA 4. ATRIAL FIBRILLATION 5. COPD, MODERATE TO SEVERE PER PFT 03/2020 (WEARS OXYGEN) 6. WEAKNESS HX: 7. HYPERTENSION 8. DYSLIPIDEMIA 9. HYPOTHYROIDISM 10. CAD 11. MT 12. BLOOD CLOT IN HEART 13. ISCHEMIC CARDIOMYOPATHY 14. CHRONIC KIDNEY DISEASE 15. LARGE HIATAL HERNIA 16. ANXIETY 17. OSTEOARTHRITIS 18. OSTEOPOROSIS 19. UTI 20. PREVIOUS COMPRESSION FRACTURES, T6-12, L1 COMPRESSION FRACTURE WITH KYPHOPLASTY 21. CABG, 22. CHOLECYSTECTOMY 23. HYSTERECTOMY 24. KIDNEY SURGERY 25. PACEMAKER INSERTION, 2009 26. NEGATIVE LEXISCAN, 10/2018 LAST VITALS Temp Pulse Resp BP Pulse Ox 97.5 F L 58 L 16 113/63 96 06/01/20 05:37 06/01/20 07:55 06/01/20 07:55 06/01/20 05:37 06/01/20 05:37 DISCHARGE INSTRUCTIONS: 1. DISCHARGE HOME TODAY TO [facility] JUNE 01, 2020. LIVES WITH SISTER. 2. [employer] [facility] PT TO FOLLOW. TO SEE Thursday, DARON CONTACTED WITH [employer], PHONE # [phone]. 3. MD FOLLOW UP: SEE DR. GOINS/MIAH SERRANO APRN/BETH IRWIN APRN IN THE OFFICE ON MONDAY JUNE 08, 2020 @ 1213. MEDICATIONS AT DISCHARGE: Albuterol Sulfate (Albuterol Sulfate (Ventolin Hfa) 18 Gm 1 Puff With Spacer) 2 puff IH Q4H PRN PRN Reason: Asthma Alprazolam (Alprazolam 0.25 Mg Tablet) 0.25 mg PO BID PRN PRN Reason: Anxiety Last Admin: 05/30/20 22:30 Dose: 0.25 mg Documented by: Atorvastatin Calcium (Atorvastatin Calcium 20 Mg Tablet) 40 mg PO DAILY [facility] Last Admin: 06/01/20 08:55 Dose: 40 mg Documented by: Cholecalciferol (Cholecalciferol (Vitamin D3) 1,000 Unit Tablet) 2,000 unit PO DAILY [facility] Last Admin: 06/01/20 08:57 Dose: 2,000 unit Documented by: Ferrous Sulfate (Ferrous Sulfate 324 Mg Tablet.) 324 mg PO DAILY [facility] Last Admin: 06/01/20 08:56 Dose: 324 mg Documented by: Fluticasone Propionate (Fluticasone Propionate 16 Gm Nasal [place]) 2 spray EDDIE DAILY [facility] Last Admin: 05/31/20 09:41 Dose: 2 spray Documented by: Furosemide (Furosemide 40 Mg Tablet) 40 mg PO QDAC [facility] Last Admin: 06/01/20 05:35 Dose: 40 mg Documented by: Isosorbide Mononitrate (Isosorbide Mononitrate 30 Mg Tab.Er.24h) 90 mg PO DAILY [facility] Last Admin: 06/01/20 08:58 Dose: 90 mg Documented by: Levetiracetam (Levetiracetam 500 Mg Tablet) 250 mg PO BID [facility] Last Admin: 06/01/20 08:58 Dose: 250 mg Documented by: Levothyroxine Sodium (Levothyroxine Sodium 75 Mcg Tablet) 75 mcg PO QDAC [facility] Last Admin: 06/01/20 05:35 Dose: 75 mcg Documented by: Losartan Potassium (Losartan Potassium 100 Mg Tablet) 100 mg PO DAILY [facility] Last Admin: 06/01/20 08:56 Dose: 100 mg Documented by: Metoprolol Succinate (Metoprolol Succinate 25 Mg Tab.Er.24h) 25 mg PO DAILY [facility] Last Admin: 06/01/20 08:59 Dose: 25 mg Documented by: Montelukast Sodium (Montelukast Sodium 10 Mg Tablet) 10 mg PO QPM [facility] Last Admin: 05/31/20 16:29 Dose: 10 mg Documented by: Multivitamins (Multivitamin 1 Tab) 1 tab PO DAILY [facility] Last Admin: 06/01/20 08:56 Dose: 1 tab Documented by: Non-Formulary Medication (Fdjwvw-Ccmxdrup-Pnihcrw ) 6,000 units PO QID [facility] Last Admin: 05/31/20 22:09 Dose: Not Given Documented by: Non-Formulary Medication (Umeclidinium ) 62.5 mcg IH DAILY [facility] Last Admin: 05/31/20 09:46 Dose: Not Given Documented by: Omeprazole (Omeprazole 20 Mg Capsule.Dr) 40 mg PO BIDAC [facility] Last Admin: 06/01/20 05:35 Dose: 40 mg Documented by: Oxycodone/Acetaminophen (Oxycodone/Acetaminophen 7.5/325 Mg Tablet) 1 tab PO QID [facility] Last Admin: 06/01/20 08:56 Dose: 1 tab Documented by: Potassium Chloride (Potassium Chloride 20 Meq Tab) 20 meq PO DAILYWM [facility] -- ( NEW) Last Admin: 06/01/20 08:56 Dose: 20 meq Documented by: Spironolactone (Spironolactone 25 Mg Tablet) 12.5 mg PO DAILY [facility] Last Admin: 06/01/20 08:57 Dose: 12.5 mg Documented by: WARFARIN 1 MG PO DAILY IN THE PM RESTART 06/02/2020 NITROSTAT 0.4 MG SL EVERY 5 MINUTES X 3 DOSES PRN METOCLOPRAMIDE HCL 5 MG PO TID PRN ZYRTEC 10 MG PO DAILY NEW PRESCRIPTIONS: POTASSIUM 20 MEQ PO DAILY WITH FOOD DISCONTINUED MEDICATIONS: NONE DIET INSTRUCTIONS: SOFT, LOW RESIDUAL ACTIVITY: UP WITH ROLLATOR TOLERATED WITH SUPERVISION. WALK THROUGHOUT THE DAY WITH FREQUENT REST PERIODS. [facility] PT TO EVAL AND TREAT, THEN FOLLOW PT GUIDELINES. BLEEDING PRECAUTIONS, HOME OXYGEN PRECAUTIONS, CONTINUE SAME ORDERS. SMOKING: NON- APPLICABLE DISEASE SPECIFIC EDUCATION: DIVERTICULOSIS COLITIS HYPOKALEMIA POTASSIUM SOFT DIET LOW RESIDUE COVID- 19 HOSPITAL COURSE: 80-year-old white female who presented initially to [place] ER with complaints of nausea, vomiting and bilateral lower abdominal pain that had been present for the past four days. She resides at [facility]. CT of the abdomen showed mild sigmoid colonic wall thickening, could be sequela of previous diverticulitis or infectious inflammatory colitis. The patient was admitted with recent diverticulitis vs colitis, hypokalemia, atrial fibrillation, COPD and weakness. She was started on Rocephin 1 gm IV daily. Abdominal pain steadily resolved. She had no further vomiting. She had one episode of nausea which was relieved with one dose of Vistaril. The patient was afebrile throughout her hospital stay. She reported feeling much better and was ready to be discharged home. The patient was stable for discharge and will be discharged back to [facility] for which she resides with her sister. She did continue to complain of some weakness and required assistance along with a Rolator walker to get up in the room. We will recommend therapy once she returns back to the assisted living facility. We have encouraged good oral and nutritional intake with the avoidance of dairy products at this time. Her INR was subtherapeutic during her hospital stay. She received 4 mg of Coumadin today and will resume her 1 mg dose tomorrow. We will see her in the office next week with a repeat INR. The patient was seen and examined with Dr. Goins. Plan was discussed. TIME SPENT: More than 60 minutes. ANN
[2020-06-01] MEDS ORDERED: COUMADIN PO SCH (17:00)
--- NOTE | 2020-06-05 08:33 | PN ---
DATE OF SERVICE: 06/01/20 SUBJECTIVE: The patient was seen and examined with the nurse practitioner. The patient's condition has improved. She is feeling a lot better. Cardiovascular status is stable. She had an echo done. Hydration status has improved. There is no nausea, vomiting or abdominal pain. Had probably diverticulitis and colitis before she was admitted. The patient is up and about with help. Abdominal findings are negative. CONDITION: Stable. TIME SPENT: More than 30 minutes. Plan and coordination of the patient's care discussed in the presence of nurse. ANN
--- NOTE | 2020-06-05 08:53 | PN ---
BILLING 05/30/20 ADMISSION DAY LEVEL 5 05/31/20 INTERMEDIATE 06/01/20 DISCHARGE MTDD
== END 2020-06-01 11:45 | disposition home health service (06) | DRG 392 ==
LOC: ED 13:56 → MEDSURG B 18:33
PROVIDERS: ADMIT Internal Medicine; ATTEND Internal Medicine
DX: K44.9 Diaphragmatic hernia without obstruction or gangrene; F41.9 Anxiety disorder, unspecified; N39.0 Urinary tract infection, site not specified; J44.9 Chronic obstructive pulmonary disease, unspecified; D64.9 Anemia, unspecified; I95.9 Hypotension, unspecified; N18.9 Chronic kidney disease, unspecified; I10 Essential (primary) hypertension; R53.1 Weakness; R11.2 Nausea with vomiting, unspecified; R10.9 Unspecified abdominal pain; E78.5 Hyperlipidemia, unspecified; I48.91 Unspecified atrial fibrillation; I25.10 Atherosclerotic heart disease of native coronary artery without angina pectoris; M19.90 Unspecified osteoarthritis, unspecified site; E87.6 Hypokalemia; K52.9 Noninfective gastroenteritis and colitis, unspecified

== ENCOUNTER 2021-09-01 13:04 | Inpatient (IN) ==
--- NOTE | 2021-09-01 13:16 | ED.PDOC ---
General ED Provider: Dr. ADRIAN FALK Chief Complaint: Weakness Stated Complaint: Patient is an 81 year old female who lives in senior assisted living who comes to the ER by EMS for generalized weakness. Per daughter she is unable to stand today but is alert. Time Seen by Provider: 09/01/21 13:12 Mode of Arrival: Ambulance Information Source: Patient Primary Care Provider: MELISSA GOINS Nursing and Triage Documentation Reviewed and Agree: Yes Does patient meet sepsis criteria?: No If yes, has appropriate treatment been initiated?: No System Inflammatory Response Syndrome: Not Applicable Sepsis Protocol: For patient's 13 years and over: Temp is 96.8 and below OR 101 and greater Pulse >90 BPM Resp >20/minute Acutely Altered Mental Status Are patient's symptoms suggestive of a new infection, such as: -Pneumonia -Skin, Soft Tissue -Endocarditis -UTI -Bone, Joint Infection -Implantable Device -Acute Abdominal Infection -Wound Infection -Meningitis -Blood Stream Catheter Infection -Unknown Miscellaneous Complaint Exam Complex/Multi-System Complaint/Exam Onset/Duration: 2 days Symptoms Are: Still present Initial Severity: Moderate Current Severity: Moderate Associated Signs and Symptoms: Reports Weakness; Denies Nausea or Vomiting Recent Echo/LV Function: No Respiratory Distress: None JVD Present: No Tachypnea Present: No Stridor Present: No Abdominal Findings: Present Normal findings Glascow Coma Scale (see protocol): 15 Meningeal Signs Positive: No Focal Weakness: Present None Focal Sensory Loss: Present None Skin Findings: Present Normal findings Differential Diagnosis: Sepsis and UTI Quality Indicator For Non-Traumatic Chest Pain/Syncope: EKG Performed Review of Systems Review Of Systems Constitutional: Reports Weakness and Loss of appetite Eyes: Reports No symptoms Ears, Nose, Mouth, Throat: Reports No symptoms Respiratory: Reports No symptoms Cardiac: Reports No symptoms GI: Reports No symptoms Musculoskeletal: Reports No symptoms Skin: Reports No symptoms Neurological: Reports Anxiety and Weakness All Other Systems: Reviewed and Negative [facility] Medical History A-fib Anxiety CAD (coronary artery disease) CKD (chronic kidney disease) Compression fracture of spine COPD (chronic obstructive pulmonary disease) Degenerative joint disease of spine Dyslipidemia General weakness GERD (gastroesophageal reflux disease) H/O cholecystitis Hiatal hernia HTN (hypertension) Hypercoagulability due to atrial fibrillation Hypothyroidism Kyphosis NV (myocardial infarction) Osteoarthritis Osteoporosis Pacemaker Seizures UTI (urinary tract infection) Family History Mother Stroke Osteoporosis Arthritis of both knees FATHER Arthritis FATHER Heart attack Social History Smoking and tobacco status: Never smoker Alcohol intake: never Household members: children Housing: assisted living facility Lives independently: No History of recent travel: No Surgical History H/O: hysterectomy History of kidney surgery Female Reproductive History Menstrual Hx Hysterectomy: No Hx Tubal Ligation: No Physical Exam Physical Exam Appearance: Reports Thin Ill-appearing: None Pain Distress: None Eyes: Reports JOSE, EOMI and Conjunctiva clear ENT: Reports Nose normal and Oropharynx normal Neck: Supple Respiratory: Reports Airway patent and Breath sounds clear Cardiovascular: Reports RRR, Pulses normal and Murmur (12/04) GI/: Reports Soft and Nontender Musculoskeletal: Reports Normal strength and ROM intact Skin: Reports Warm and Dry Neurological: Reports Motor intact, Alert and Oriented Psychiatric: Reports Anxious Interpretation Radiology Interpretation Radiology Interpretation By: Radiologist Radiology Results: No acute changes (1. No acute abdominal findings. 2. Small to moderate size hiatal hernia. 3. Colonic diverticulosis. 4. Atherosclerosis including coronary disease. 5. Multiple operative and chronic findings as detailed above. 6. Limited exam without contrast.) Exam Interpreted: CT Scan Radiology Interpretation By: Radiologist Radiology Results: Negative Exam Interpreted: CT Scan (head ) Art[employer] Breast [employer]ricator Rate: Normal Rhythm: Sinus Ectopy: None EKG Interpretation Time of EKG #1: 15:30 Rate: Normal Rhythm: Sinus Ectopy: None [place]: NL ST Segment: Normal Physician Notification Case Discussed Physician Notified: Dr Goins Time of Notification: 16:17 (ok to admit to acute with telemetery, Decadron, Slo w IV fluids.) Admit To: Inpatient Critical Care Note Critical Care Note Total Critical Care Time (mins): 30 Course Course Hematology/Chemistry: 09/01/21 13:27 09/01/21 13:27 Orders, Labs, Meds: Lab Review 09/01/21 09/01/21 09/01/21 13:26 13:26 13:27 WBC 7.38 RBC 3.67 L Hgb 11.2 L Hct 34.7 L MCV 94.6 MCH 30.5 MCHC 32.3 RDW Coeff of Rehana 12.7 Plt Count 193 Immature Gran % (Auto) 0.3 Neut % (Auto) 87.3 H Lymph % (Auto) 6.0 L [place] % (Auto) 5.8 Eos % (Auto) 0.3 Baso % (Auto) 0.3 Neut # (Auto) 6.5 Lymph # (Auto) 0.4 L [place] # (Auto) 0.4 Eos # (Auto) 0.0 Baso # (Auto) 0.0 Immature Gran # (Auto) 0.0 PT 15.5 H INR 1.52 Puncture Site Base Excess O2 Saturation ABG pH ABG pCO2 ABG pO2 ABG HCO3 ABG Total CO2 [place] Test Hemoglobin Oxyhemoglobin Carboxyhemoglobin Total Hemoglobin O2 Delivery Device FiO2 % Sodium Potassium Chloride Carbon Dioxide Anion Gap BUN Creatinine Estimated GFR (MDRD) BUN/Creatinine Ratio Glucose Calcium Total Bilirubin Direct Bilirubin 0.00 AST ALT Alkaline Phosphatase Total Creatine Kinase Troponin I Total Protein Albumin Globulin Albumin/Globulin Ratio Procalcitonin Urine Color Urine Clarity Urine pH Ur Specific [place] Urine Protein Urine Glucose (UA) Urine Ketones Urine Blood Urine Nitrite Urine Bilirubin Urine Urobilinogen Ur Leukocyte Esterase Urine Microscopic RBC Urine Microscopic WBC Ur Squamous Epith Cells Urine Bacteria SARS CoV-2 RNA Rapid EMILY 09/01/21 09/01/21 09/01/21 13:27 13:27 13:50 WBC RBC Hgb Hct MCV MCH MCHC RDW Coeff of Rehana Plt Count Immature Gran % (Auto) Neut % (Auto) Lymph % (Auto) [place] % (Auto) Eos % (Auto) Baso % (Auto) Neut # (Auto) Lymph # (Auto) [place] # (Auto) Eos # (Auto) Baso # (Auto) Immature Gran # (Auto) PT INR Puncture Site Base Excess O2 Saturation ABG pH ABG pCO2 ABG pO2 ABG HCO3 ABG Total CO2 [place] Test Hemoglobin Oxyhemoglobin Carboxyhemoglobin Total Hemoglobin O2 Delivery Device FiO2 % Sodium 137.5 Potassium 4.43 Chloride 103.7 Carbon Dioxide 27.3 Anion Gap 10.93 BUN 14.0 Creatinine 1.35 H Estimated GFR (MDRD) 38.00 BUN/Creatinine Ratio 10.37 Glucose 119.6 H Calcium 9.40 Total Bilirubin 1.04 Direct Bilirubin AST 377.2 H ALT 202.7 H Alkaline Phosphatase 248.1 H Total Creatine Kinase 35.3 Troponin I < 0.012 Total Protein 7.09 Albumin 4.00 Globulin 3.09 Albumin/Globulin Ratio 1.29 Procalcitonin 0.19 H Urine Color Yellow Urine Clarity Clear Urine pH 5.5 Ur Specific [place] 1.020 Urine Protein 2+ H Urine Glucose (UA) Trace H Urine Ketones Trace H Urine Blood 2+ H Urine Nitrite Negative Urine Bilirubin 1+ H Urine Urobilinogen 1.0 H Ur Leukocyte Esterase 2+ H Urine Microscopic RBC 5-10 Urine Microscopic WBC 30-50 Ur Squamous Epith Cells 2-5 Urine Bacteria 3+ SARS CoV-2 RNA Rapid EMILY 09/01/21 09/01/21 13:55 16:07 WBC RBC Hgb Hct MCV MCH MCHC RDW Coeff of Rehana Plt Count Immature Gran % (Auto) Neut % (Auto) Lymph % (Auto) [place] % (Auto) Eos % (Auto) Baso % (Auto) Neut # (Auto) Lymph # (Auto) [place] # (Auto) Eos # (Auto) Baso # (Auto) Immature Gran # (Auto) PT INR Puncture Site Lbrach Base Excess 4.0 H O2 Saturation 99.1 H ABG pH 7.54 H* ABG pCO2 31.0 L ABG pO2 123.0 H ABG HCO3 26.5 ABG Total CO2 27.5 H [place] Test + Hemoglobin 1.0 Oxyhemoglobin 96.0 Carboxyhemoglobin 2.3 H Total Hemoglobin 10.4 L O2 Delivery Device Nc FiO2 % 28.0 Sodium Potassium Chloride Carbon Dioxide Anion Gap BUN Creatinine Estimated GFR (MDRD) BUN/Creatinine Ratio Glucose Calcium Total Bilirubin Direct Bilirubin AST ALT Alkaline Phosphatase Total Creatine Kinase Troponin I Total Protein Albumin Globulin Albumin/Globulin Ratio Procalcitonin Urine Color Urine Clarity Urine pH Ur Specific [place] Urine Protein Urine Glucose (UA) Urine Ketones Urine Blood Urine Nitrite Urine Bilirubin Urine Urobilinogen Ur Leukocyte Esterase Urine Microscopic RBC Urine Microscopic WBC Ur Squamous Epith Cells Urine Bacteria SARS CoV-2 RNA Rapid EMILY Negative Orders Category Date Time Status ABG DRAW REQUEST Stat CARDIO 09/01/21 16:07 Ordered EKG-(ED ONLY) Stat CARDIO 09/01/21 15:05 Ordered ED IV/MEDIPORT/POWERPORT .ONCE EMERGENCY 09/01/21 13:36 Active ABG COOX Stat LAB 09/01/21 16:07 Completed BILIRUBIN,DIRECT Stat LAB 09/01/21 13:26 Completed CBC W/ AUTO DIFF Stat LAB 09/01/21 13:27 Completed CMP [COMPREHENSIVE METABOLIC PANEL] Stat LAB 09/01/21 13:27 Completed CPK [CREATINE KINASE] Stat LAB 09/01/21 13:27 Completed PROCALCITONIN Stat LAB 09/01/21 13:27 Completed PT WITH INR Stat LAB 09/01/21 13:26 Completed SARS COV-2 RNA RAPID EMILY Stat LAB 09/01/21 13:55 Completed TROPONIN I Stat LAB 09/01/21 13:27 Completed TROPONIN I Stat LAB 09/01/21 15:59 Stop Req URINALYSIS C & S IF INDICATED Stat LAB 09/01/21 13:50 Completed URINE CULTURE Stat LAB 09/01/21 13:50 Received 0.9 % Sodium Chloride [Saline Flush] MEDS 09/01/21 13:36 Active 1 syr IVF PRN PRN Ringers Lactated Solution [Lactated Ringers] 1,000 ml MEDS 09/01/21 13:35 Discontinued IV BOLUS CHEST, 1V AP ONLY Stat RADS 09/01/21 13:[address] ABDOMEN/PELVIS WO CONTRAST Stat RADS 09/01/21 14:[address] HEAD W/O CONTRAST Stat RADS 09/01/21 13:17 Completed Medications Generic Name Dose Route Start Last Admin Trade Name Freq PRN Reason Stop Dose Admin Sodium Chloride 1 syr 09/01/21 13:36 09/01/21 13:38 0.9% Sodium Chloride 10 Ml Disp.Syrin IVF 1 syr PRN PRN Administration To flush IV Discontinued Medications Generic Name Dose Route Start Last Admin Trade Name Freq PRN Reason Stop Dose Admin Lactated Ringer's 1,000 mls @ 1,000 mls/hr 09/01/21 13:35 09/01/21 13:38 Lactated Ringers IV 09/01/21 14:34 1,000 mls/hr BOLUS STA Administration Vital Signs: Temp Pulse Resp BP Pulse Ox 09/01/21 15:57 66 20 144/77 H 100 09/01/21 15:10 60 18 120/70 100 09/01/21 14:20 66 18 108/58 L 100 09/01/21 13:53 97.3 F L 73 20 117/59 L 100 09/01/21 13:05 97.8 F 69 20 114/68 100 Discharge Plan Discharge Patient Disposition: ADMITTED INPATIENT Discharge Problem: General weakness, Elevated liver function tests, Acute dehydration, Adult failure to thrive ED Provider: ADRIAN FALK Condition: Fair Physician Progress Note: []
[2021-09-01 13:31] LABS: BASOPHILS % (AUTO) 0.3 % (0.0-3.0); EOSINOPHILS % (AUTO) 0.3 % (0.0-7.0); HEMATOCRIT 34.7 % (37.0-47.0); HEMOGLOBIN 11.2 g/dl (12.0-16.0); IMMATURE GRANULOCYTE % (AUTO) 0.3 % (0.0-5.0); LYMPHOCYTES # (AUTO) 0.4 K/uL (0.60-3.4); MEAN CORPUSCULAR HEMOGLOBIN 30.5 pg (27.0-31.0); MEAN CORPUSCULAR HGB CONC 32.3 (31.8-35.4); MEAN CORPUSCULAR VOLUME 94.6 fl (81.0-99.0); MONOCYTES # (AUTO) 0.4 K/uL (0.4-2.0); MONOCYTES % (AUTO) 5.8 (0-10); NEUTROPHILS # (AUTO) 6.5 K/ul (2.0-6.9); NEUTROPHILS % (AUTO) 87.3 % (42.2-75.2); PLATELET COUNT 193 10^3/uL (140-440); RDW COEFFICIENT OF VARIATION 12.7 % (11.6-14.8); RED BLOOD COUNT 3.67 10^6/ul (4.20-5.40); WHITE BLOOD COUNT 7.38 K/ul (4.6-10.2)
[2021-09-01] MEDS ORDERED: LACTATED RINGERS 1,000 ML IV STA (13:35)
--- NOTE | 2021-09-01 13:45 | DI ---
EXAM: Single view of the chest. History: Weakness. Comparison: Chest radiograph 05/30/2020 FINDINGS: Examination is limited due to patient's chin over the lungs. Heart is enlarged. No defin ite acute infiltrates. Pacer device is seen. Sternotomy wires. No acute osseous abnormalities. Impression: Limited evaluation with cardiomegaly but no overt pulmonary edema
--- NOTE | 2021-09-01 13:47 | CT ---
EXAM: CT of the head without contrast History: Weakness. Comparison: Head CT 04/02/2020 Technique: Multiplanar CT images through the head were obtained without the administration of IV con trast Findings: The visualized paranasal sinuses and mastoid air cells are clear in general. No acute alex varial abnormalities. Intracranially the ventricular and cisternal spaces are normal in size, shape and configuration for a patient of this age. No dominant mass or midline shift. No hydrocephalous. No acute intracranial hemorrhage or abnormal extraaxial fluid collections. No change in the scattered periventricular and subcortical white matter hypodensities. Impression: No acute intracranial process. Stable chronic small vessel ischemic disease All CT scans are performed using dose optimization techniques as appropriate to the performed exam an d include at least one of the following: Automated exposure control, adjustment of the mA and/or kV according t o size, and the use of iterative reconstruction technique.
[2021-09-01 13:52] LABS: ALANINE AMINOTRANSFERASE 202.7 U/L (0-35); ALKALINE PHOSPHATASE 248.1 U/L (53-141); ASPARTATE AMINO TRANSFERASE 377.2 U/L (14-36); BILIRUBIN,TOTAL 1.04 mg/dL (0.2-1.3); CARBON DIOXIDE 27.3 mmol/L (22-30.0); CHLORIDE 103.7 mmol/L (98-107); CREATINE KINASE 35.3 U/L (30-135); CREATININE 1.35 mg/dL (0.60-1.30); GLUCOSE 119.6 mg/dL (74-106); POTASSIUM 4.43 mmol/L (3.5-5.1); SODIUM 137.5 mmol/L (134.5-145); TOTAL PROTEIN 7.09 g/dL (6.3-8.2)
[2021-09-01 13:57] LABS: BILIRUBIN,URINE 1+ (NEGATIVE); COLOR,URINE Yellow (YELLOW); GLUCOSE, URINE (UA) Trace (NEGATIVE); KETONES,URINE Trace (NEGATIVE); LEUKOCYTE ESTERASE ,URINE 2+ (NEGATIVE); NITRITE,URINE Negative (NEGATIVE); PH,URINE 5.5 (5-9); PROTEIN,URINE 2+ (NEGATIVE); URINE, BLOOD 2+ (NEGATIVE)
[2021-09-01 13:59] LABS: BACTERIA,URINE 3+ (NOT PRESENT); URINE WBC, MICROSCOPIC 30-50 (0-2)
[2021-09-01 14:04] LABS: TROPONIN I < 0.012 ng/ml (0.0000-0.120)
[2021-09-01 14:40] LABS: PROTHROMBIN TIME 15.5 SEC (9.3-11.0)
--- NOTE | 2021-09-01 15:01 | CT ---
EXAM: CT abdomen and pelvis without contrast. HISTORY: Elevated liver function tests TECHNIQUE: Multi-slice transaxial helical CT. Coronal and sagittal reformatons were performed. COMPARISON: 06/25/2020 FINDINGS: The heart is on the upper limits of normal in size. Midline sternotomy and pacer leads are seen at t he heart. A [id number] amount of calcified plaques are seen within the coronary arteries. Mi ld bibasilar dependent atelectasis is seen. Evaluation of the solid organs is limited without IV contrast. The gallbladder has been removed. Th e spleen appears normal in size. The pancreas is atrophic. The adrenal glands appear grossly unrema rkable. No hydronephrosis or renal calculus is seen. No intrahepatic biliary dilation is seen. The bowel is not dilated. Urinary bladder is not well distended. Uterus has been removed. No pelvi c free fluid is seen. Multiple diverticuli are seen within the colon without evidence of diverticuli tis. Mild calcified plaques are seen within the abdominal aorta. A small to moderate size hiatal he rnia is present. The bones appear diffusely demineralized. Compression fracture with prior augmenta tion cement is again seen at L1. Moderate compression deformities of T11 and T12 are not significant ly changed. :::::::::::::::::::::::::::::: IMPRESSION: 1. No acute abdominal findings. 2. Small to moderate size hiatal hernia. 3. Colonic diverticulosis. 4. Atherosclerosis including coronary disease. 5. Multiple operative and chronic findings as detailed above. 6. Limited exam without contrast. :::::::::::::::::::::::::::::: All CT scans are performed using dose optimization techniques as appropriate to the performed exam an d include at least one of the following: Automated exposure control, adjustment of the mA and/or kV according t o size, and the use of iterative reconstruction technique.
[2021-09-01 16:09] LABS: COHb 2.3 (0.5-1.5); HCO3 26.5 (21-28); TCO2 27.5 (19-24); sO2 99.1 % (94-98); tHb 10.4 g/dl (11.7-17.4)
[2021-09-01 16:10] LABS: ABG PH 7.54 (7.35-7.45)
[2021-09-01 16:52] LABS: CLARITY,URINE CLOUDY (CLEAR)
[2021-09-01] MEDS: MACROBID PO SCH (16:54)
[2021-09-01] MEDS: DECADRON IVP SCH (16:55)
[2021-09-01] MEDS ORDERED: AZACTAM ONE (17:28)
[2021-09-01] MEDS: SODIUM CHLORIDE 1,000 ML IV SCH (17:32)
[2021-09-01] MEDS: AZACTAM 1 GM in SODIUM CHLORIDE 50 ML IV SCH ×2 (17:33→21:39)
[2021-09-01 17:47] VITALS: BMI 21.4
[2021-09-01] MEDS ORDERED: ATROPINE SULFATE PFS IVP PRN (18:27)
[2021-09-01] MEDS ORDERED: VENTOLIN HFA (PER PUFF-WITH SPACER) IH PRN (21:39)
[2021-09-01] MEDS ORDERED: NITROSTAT SL PRN (21:39)
[2021-09-01] MEDS ORDERED: REGLAN PO PRN (21:39)
[2021-09-01] MEDS ORDERED: COUMADIN PO ONE (23:00)
[2021-09-01] MEDS: XANAX PO PRN (23:11)
[2021-09-02 00:57] LABS: TROPONIN I < 0.012 ng/ml (0.0000-0.120)
[2021-09-02 05:25] LABS: HEMATOCRIT 28.4 % (37.0-47.0); HEMOGLOBIN 9.4 g/dl (12.0-16.0); IMMATURE GRANULOCYTE % (AUTO) 0.3 % (0.0-5.0); LYMPHOCYTES # (AUTO) 0.3 K/uL (0.60-3.4); LYMPHOCYTES % (AUTO) 8.5 (10.0-50.0); MEAN CORPUSCULAR HEMOGLOBIN 30.8 pg (27.0-31.0); MEAN CORPUSCULAR HGB CONC 33.1 (31.8-35.4); MEAN CORPUSCULAR VOLUME 93.1 fl (81.0-99.0); MONOCYTES # (AUTO) 0.1 K/uL (0.4-2.0); MONOCYTES % (AUTO) 2.4 (0-10); NEUTROPHILS # (AUTO) 3.4 K/ul (2.0-6.9); NEUTROPHILS % (AUTO) 88.8 % (42.2-75.2); PLATELET COUNT 157 10^3/uL (140-440); RDW COEFFICIENT OF VARIATION 12.8 % (11.6-14.8); RED BLOOD COUNT 3.05 10^6/ul (4.20-5.40); WHITE BLOOD COUNT 3.78 K/ul (4.6-10.2)
[2021-09-02 05:43] LABS: ALANINE AMINOTRANSFERASE 134.5 U/L (0-35); ALBUMIN 3.23 g/dL (3.5-5.0); ALKALINE PHOSPHATASE 173.8 U/L (53-141); ASPARTATE AMINO TRANSFERASE 149.7 U/L (14-36); BILIRUBIN,TOTAL 0.47 mg/dL (0.2-1.3); BLOOD UREA NITROGEN 12.6 mg/dL (7-17); CALCIUM 8.56 mg/dL (8.4-10.2); CHLORIDE 109.3 mmol/L (98-107); CREATININE 1.06 mg/dL (0.60-1.30); GLUCOSE 133.2 mg/dL (74-106); POTASSIUM 4.19 mmol/L (3.5-5.1); TOTAL PROTEIN 6.07 g/dL (6.3-8.2)
[2021-09-02] MEDS: PRILOSEC PO SCH ×2 (05:45→17:24)
[2021-09-02] MEDS: SYNTHROID PO SCH (05:46)
[2021-09-02 08:06] LABS: PROTHROMBIN TIME 17.9 SEC (9.3-11.0)
[2021-09-02] MEDS ORDERED: TOPROL XL PO SCH (09:00)
[2021-09-02] MEDS ORDERED: LOVENOX SUBCUT SCH (09:00)
[2021-09-02] MEDS ORDERED: [UNRECOGNIZED DRUG - MIXTURE] IH SCH (09:00)
[2021-09-02] MEDS ORDERED: CETIRIZINE 10 MG PO SCH (09:00)
[2021-09-02] MEDS ORDERED: IMDUR PO SCH (09:00)
[2021-09-02 09:46] LABS: OCCULT BLOOD SAMPLE 1 POSITIVE (NEGATIVE)
[2021-09-02] MEDS: MACROBID PO SCH (10:07)
[2021-09-02] MEDS: MAXIPIME 1 GM VIAL 1 GM in SODIUM CHLORIDE 50 ML IV SCH ×2 (10:08→20:26)
[2021-09-02] MEDS: MULTIVITAMIN TABLET PO SCH (10:09)
[2021-09-02] MEDS: TOPROL XL PO SCH (10:09)
[2021-09-02] MEDS: LASIX TAB PO SCH (10:09)
[2021-09-02] MEDS: KEPPRA PO SCH ×2 (10:10→20:25)
[2021-09-02] MEDS: VITAMIN D PO SCH (10:10)
[2021-09-02] MEDS: CLARITIN PO SCH (10:10)
[2021-09-02] MEDS: ALDACTONE PO SCH (10:10)
[2021-09-02] MEDS: IMDUR PO SCH (10:11)
[2021-09-02] MEDS: FERROUS SULFATE PO SCH (10:11)
[2021-09-02] MEDS: K-DUR PO SCH (10:11)
[2021-09-02] MEDS: SINGULAIR PO SCH (10:11)
[2021-09-02] MEDS: COZAAR PO SCH (10:11)
[2021-09-02] MEDS: FLONASE NAS SCH (10:12)
[2021-09-02] MEDS: LIPASE PROTEASE AMYLASE PO SCH ×4 (10:36→20:26)
[2021-09-02] MEDS: [UNRECOGNIZED DRUG - OTHER] PO SCH ×4 (10:36→20:26)
[2021-09-02] MEDS: DECADRON IVP SCH (10:53)
--- NOTE | 2021-09-02 14:04 | RS.OTINEVL ---
Subjective - Patient information Date of Evaluation: 09/02/21 Date of Arrival on Unit: 09/01/21 Admitted From:: Emergency Dept Diagnosis: dehydration, weakness, UTI PRECAUTIONS: Pacemaker, very weak Usual Living Arrangement: Daughter Living Arrangement Comments: Shares apt with dtr at [place]. Home Environment: Level/No stairs Medical History: Hypertension, COPD, CHF Medical History Comments:: DVT, PE LATEX ALLERGY?: No Surgical History: Thoracic Spine, Lumbar Spine, CABG Surgical History Comments:: Kyphoplasty, back surgeries, Pacemaker Medications: see chart - Level of function Prior to this admission, the patient could do the following:: Independent ADL's, Independent Ambulation Abilities prior to this admission: Pt walking with a rollator in the apartment. Pt wears 2 Liters of O2 at home. Current Level of Function: Partially Dependent Current Equipment Used at Home: rollator, shower handicap, recliner, raised toilet seat, handles, shower chair Pain Assessment - Pain Pain Score: 0 Interventions - Objective Patient Orientation: Person, Place, Time, Situation Current Interventions: IV's, Oxygen, Telemetry Observation: Pt has difficulty initiating stepping to walk with her RW. Pt is weak. Interventions - ROM Right Upper Extremity AROM: Slight limitation Left Upper Extremity AROM: Slight limitation - Strength Right Upper Extremity Strength: Mild Weakness Left Upper Extremity Strength: Mild Weakness - Sensation Right Upper Extremity Sensation: Intact/Normal Left Upper Extremity Sensation: Intact/Normal Balance - Sitting Balance Static Sitting Balance: Normal Dynamic Sitting Balance: Normal - Standing Balance Static Standing Balance: Poor Dynamic Standing Balance: Poor ADL Skills - Self Feeding Self Feeding: Independent - Grooming Grooming: Min Assist, 1 person assist - Bathing Bathing UE: CGA Bathing LE: Mod Assist, 1 person assist Bathing Set-up: Shower - Dressing Dressing UE: Independent Dressing LE: Mod Assist - Toilet Management Toilet Hygiene: Independent Toilet Clothing Management: CGA Functional Mobility - Bed Mobility Rolling R/L: Min Assist Scooting: CGA Supine to Sit: Min Assist - Transfers Sit to Stand: CGA Stand to Sit: CGA Stand Pivot Transfers: Min Assist - Ambulation Weight Bearing Status: FWB Assistive Device Used: Rolling Walker Assistance needed with Ambulation: Min Assist - Safety Awareness Safety Awareness: Good PANKAJ INDEX SCORE: . Additional Treatment Performed - Time with patient Length of Evaluation: 20 Total treatment time: 21 Activities Do you enjoy playing games?: Yes Would you be interested in leaving your room for activities?: Yes Would you enjoy group activities?: Yes Do you have difficulty with your vision?: Yes Patient Interests:: Watching Television Patient Education Patient Education: Education of diagnosis, Home Exercise Program, Education of Plan of Care Teaching Recipient: Patient Teaching Methods: Teach Back Method Used, Discussion Assessment Problem List:: Decreased level of function, Requires training/education, Decreased safety/Risk of falls, Weakness Rehab Potential: Good Further Therapy Indicated?: Yes Evaluation Complexity: HISTORY: Medium, EXAM OF BODY SYSTEMS: Medium, CLINICAL DECISION MAKING: Medium Patient's Goal(s): To be able to walk better and return home. Short Term Goals - Goals GOAL 1: Pt to increase I sit to stand to SUP. Goal to be met by: 09/06/21 GOAL 2: Pt to increase dyn. std. bal. to Fair+. Goal to be met by: 09/06/21 GOAL 3: Pt to increase activity tolerance to 15 minutes for ADLS. Goal to be met by: 09/06/21 Core Driller Helper Goals GOAL 1: Pt to be (Mod-I) with sit to stand. Goal to be met by: 09/09/21 GOAL 2: To increase dyn. std. bal. to G-. Goal to be met by: 09/09/21 GOAL 3: Pt to increase activity tolerance to 20 minutes. Goal to be met by: 09/09/21 Plan Plan of Care: Therapeutic EX, Neuromuscular Re-Educ, Therapeutic Activity, Self- Care/Home Management Frequency of Treatment: 1-2 X day, as tolerated Duration of Treatment: 1 Week Anticipated Discharge Destination: Home Treatment Diagnosis (ICD 10 Codes): M62.81 weakness Has the Physician been added for Co-signature?: Yes
[2021-09-02] MEDS: TYLENOL PO PRN ×2 (14:18→23:37)
[2021-09-02] MEDS: XANAX PO PRN ×2 (14:18→23:37)
--- NOTE | 2021-09-02 14:27 | RS.PTINEVL ---
Subjective - Patient information Date of Evaluation: 09/02/21 Date of Arrival on Unit: 09/01/21 Admitted From:: Home Diagnosis: dehydration, weakness, UTI Usual Living Arrangement: Daughter Home Environment: Apartment ([facility]), Level/No stairs Medical History: Hypertension, COPD, Arthritis Medical History Comments:: CAD, CKD, anxiety, afib, compression fx, DJD, GERD, hiatal hernia, hypothyroidism, [place], osteoporosis, seizures Surgical History Comments:: pacemaker Medications: see chart Subjective Information/ Patient Comments:: pt states that she has been having trouble walking lately. - Level of function Prior to this admission, the patient could do the following:: Independent ADL's, Independent Ambulation Current Level of Function: Partially Dependent Current Equipment Used at Home: rollator, shower handicap, recliner, raised toilet seat, handles, shower chair Interventions - Objective Patient Orientation: Person, Place, Time, Situation Current Interventions: IV's, Oxygen, Telemetry Observation: pt with increased thoracic kyphosis Range of Motion - ROM Right Upper Extremity AROM: WFL's Left Upper Extremity AROM: WFL's Right Lower Extremity AROM: WFL's Left Lower Extremity AROM: WFL's Muscle Strength - Muscle Strength Right Upper Extremity Strength: Mild Weakness Left Upper Extremity Strength: Mild Weakness Right Lower Extremity Strength: Mild Weakness (hip flex 4-/5, knee flex/ext 4/5, ankle DF/PF 4/5) Left Lower Extremity Strength: Mild Weakness (hip flex 4-/5, knee flex/ext 4/5, ankle DF/PF 4/5) Sensation - Sensation Right Upper Extremity Sensation: Intact/Normal Left Upper Extremity Sensation: Intact/Normal Right Lower Extremity Sensation: Intact/Normal Left Lower Extremity Sensation: Intact/Normal Palpation Palpation Findings: None/Normal Balance - Sitting Balance and Reactions Static Sitting Balance: Fair Dynamic Sitting Balance: Fair - Standing Balance and Reactions Static Standing Balance: Poor Dynamic Standing Balance: Poor Standing Equilibrium Reactions: Delayed Left, Delayed Right Standing Protective Reactions: Delayed Left, Delayed Right Functional Mobility - Bed Mobility Rolling R/L: CGA Supine to Sit: Min Assist - Transfers Sit to Stand: Min Assist Stand to Sit: Min Assist Stand Pivot Transfers: Min Assist - Safety Awareness Safety Awareness: Fair PANKAJ INDEX SCORE: n/a Ambulation - Ambulation Assistive Device Used: Rolling Walker Orthotic/Prosthetic Device: No Distance: 5 ft Assistance needed with Ambulation: CGA, Min Assist Gait Deviations: Forward posture, Short stride, Deviates from path, Lacks step continuity Factors Affecting Ambulation: Decreased Balance, Breathing/O2 Saturation, Weakness, Decreased Safety, Limited Endurance Treatment time - Time with patient Length of Evaluation: 19 Total treatment time: 22 Patient Education - Education Patient Education: Activity Modification, Education of Plan of Care Teaching Recipient: Patient Teaching Methods: Teach Back Method Used, Discussion (discussion regarding POC and home safety.) Assessment - Assessment Problem List:: Decreased level of function, Requires training/education, Decreased safety/Risk of falls, Weakness, Pain limits previous level of function Rehab Potential: Good Further Therapy Indicated?: Yes Candidate for Swing Bed for Therapy Services?: pt may be a candidate for swing bed if able to tolerate increased therapy. Evaluation Complexity: HISTORY: Medium, EXAM OF BODY SYSTEMS: Medium, CLINICAL PRESENTATION: Medium, CLINICAL DECISION MAKING: Medium Patient's Goal(s): go home with my daughter Short Term Goals GOAL #1: pt demonstrate independence with rolling and scooting up in bed. Goal to be met by: 09/04/21 GOAL #2: Transfer sup to/from sit CGA Goal to be met by: 09/04/21 GOAL #3: Sit to/from stand CGA Goal to be met by: 09/04/21 Progress towards Goal:: Progressing GOAL #4: pt amb with rwx 50ft with RWX CGA x 1 Goal to be met by: 09/04/21 GOAL #5: Improve dyn stand balance fair Goal to be met by: 09/04/21 Longterm Goals GOAL #1: pt transfer sup to/from sit independently sit to/from stand SBA Goal to be met by: 09/06/21 GOAL #2: pt amb functional household distance with rwx with SBA with no LOB Goal to be met by: 09/06/21 GOAL #3: Improve dyn stand balance fair + with rwx Goal to be met by: 09/06/21 Plan Plan of Care: Therapeutic EX, Therapeutic Activity (gait training) Frequency of Treatment: 1-2 X day, as tolerated Duration of Treatment: 5 days Anticipated Discharge Destination: Home Treatment Diagnosis (ICD 10 Codes): R 26.2 difficulty walking. R 26.81 balance impaired. M 62.81 muscle weakness Has the Physician been added for Co-signature?: Yes
[2021-09-02] MEDS ORDERED: COUMADIN PO SCH (17:00)
[2021-09-02] MEDS: COUMADIN PO SCH (17:24)
[2021-09-02 18:22] LABS: OCCULT BLOOD SAMPLE 2 NO SPECIMEN RECEIVED (NEGATIVE); OCCULT BLOOD SAMPLE 3 NO SPECIMEN RECEIVED (NEGATIVE)
[2021-09-02] MEDS: SODIUM CHLORIDE 1,000 ML IV SCH (19:36)
[2021-09-02] MEDS ORDERED: LIPITOR PO SCH (21:00)
[2021-09-03 05:18] LABS: HEMATOCRIT 28.6 % (37.0-47.0); HEMOGLOBIN 9.3 g/dl (12.0-16.0); IMMATURE GRANULOCYTE % (AUTO) 0.5 % (0.0-5.0); LYMPHOCYTES # (AUTO) 0.5 K/uL (0.60-3.4); LYMPHOCYTES % (AUTO) 7.8 (10.0-50.0); MEAN CORPUSCULAR HEMOGLOBIN 30.4 pg (27.0-31.0); MEAN CORPUSCULAR HGB CONC 32.5 (31.8-35.4); MEAN CORPUSCULAR VOLUME 93.5 fl (81.0-99.0); MONOCYTES # (AUTO) 0.4 K/uL (0.4-2.0); MONOCYTES % (AUTO) 7.3 (0-10); NEUTROPHILS # (AUTO) 5.1 K/ul (2.0-6.9); NEUTROPHILS % (AUTO) 84.4 % (42.2-75.2); PLATELET COUNT 163 10^3/uL (140-440); RDW COEFFICIENT OF VARIATION 12.9 % (11.6-14.8); RED BLOOD COUNT 3.06 10^6/ul (4.20-5.40); WHITE BLOOD COUNT 6.06 K/ul (4.6-10.2)
[2021-09-03 05:33] LABS: ALANINE AMINOTRANSFERASE 95.5 U/L (0-35); ALBUMIN 3.4 g/dL (3.5-5.0); ALKALINE PHOSPHATASE 136.9 U/L (53-141); ASPARTATE AMINO TRANSFERASE 79.5 U/L (14-36); BILIRUBIN,TOTAL 0.5 mg/dL (0.2-1.3); BLOOD UREA NITROGEN 15.6 mg/dL (7-17); CARBON DIOXIDE 26.2 mmol/L (22-30.0); CHLORIDE 106.3 mmol/L (98-107); CREATININE 1.16 mg/dL (0.60-1.30); GLUCOSE 117.6 mg/dL (74-106); POTASSIUM 4.03 mmol/L (3.5-5.1); SODIUM 136.2 mmol/L (134.5-145); TOTAL PROTEIN 6.27 g/dL (6.3-8.2)
[2021-09-03 05:46] LABS: PROTHROMBIN TIME 18.7 SEC (9.3-11.0)
[2021-09-03] MEDS: SYNTHROID PO SCH (05:54)
[2021-09-03] MEDS: PRILOSEC PO SCH ×2 (05:54→17:58)
--- NOTE | 2021-09-03 09:25 | PCM.PROG ---
Attending Provider: ATTENDING PROVIDER: Dr. MELISSA GOINS This patient is seen with Charmaine Toussaint, Nurse Practitioner. DATE OF SERVICE: 09/03/21 SUBJECTIVE: This 81 year old /WHITE F was hospitalized 09/01/21. Urine culture is positive for e-coli sensitive to Cefepime. If we lose IV site we will do Rocephin. The patient is still very weak. Renal function has improved. PT consult yesterday. The patient is agreeable to swing bed if they feel she is a candidate. She has had two hospitalizations in past three weeks. REVIEW OF SYSTEMS: CONSTITUTIONAL: No night sweats. No fatigue, malaise, lethargy. No fever or chills. Weakness. HEENT: Eyes: No visual changes. No eye pain. No eye discharge. ENT: No runny nose. No epistaxis. No sinus pain. No odynophagia. No congestion. RESPIRATORY: No cough, no congestion. No hemoptysis. No shortness of breath. CARDIOVASCULAR: No angina symptoms. No CHF symptoms. No atypical chest pain for CAD. No palpitations. No orthopnea.. GASTROINTESTINAL: No abdominal pain. No nausea or vomiting. No diarrhea or constipation. No hematemesis. No hematochezia. GENITOURINARY: No urgency. No frequency. No dysuria. No hematuria. No obstructi ve symptoms. No discharge. No pain. No significant abnormal bleeding. MUSCULOSKELETAL: No musculoskeletal pain; no joint swelling. NEUROLOGICAL: Awake, alert, oriented to time, place and person. No headache. No neck pain. No syncope. No seizures. No dizziness. PSYCHIATRIC: Not anxious. No depression. No suicidal thoughts. No homicidal thoughts. SKIN: No rash. No lesions. No wounds. ENDOCRINE: No unexplained weight loss. No weight gain. HEMATOLOGIC/LYMPHATIC: No anemia. No purpura. No petechiae. No prolonged or excessive bleeding. No palpable lymph nodes. PHYSICAL EXAMINATION: GENERAL: The patient is awake, alert and oriented, lying in bed in no distress. VITAL SIGNS: Temperature 97.5 F, Pulse 60, Respiratory Rate 18, BP 120/71, Pulse Ox 100% HEENT: Head normocephalic, atraumatic. Eyes: Extraocular muscles are intact. Pupils are equal, round and reactive to light and accommodation. Ears: No lesions. Nose appeared normal. Throat: No exudate or erythema. NECK: Supple. No JVD, no carotid bruit. No lymphadenopathy or thyromegaly. LUNGS: Clear to auscultation. Percussion note normal. Chest symmetrical. HEART: S1, S2, no S3. Grade I/ murmurs. No cyanosis or clubbing. No ascites. Pulses: Dorsalis pedis and posterior tibial pulses +1 to +2 both sides. ABDOMEN: Soft. Non-tender. Bowel sounds active. No CVA tenderness. No mass felt. EXTREMITIES: No edema. Full range of motion of all extremities, equal. NEUROLOGIC: No focal deficit. Cranial nerves II through XII are grossly intact. No headache. No double vision. SKIN: Not dry. Intact. Turgor-normal. LYMPHATIC: No palpable lymph nodes/no lymphedema. MUSCULOSKELETAL: Normal joints with no swelling. Muscle tone is normal. LAB REVIEW: 09/03/21 04:45 09/03/21 04:45 09/03/21 04:45: Sodium 136.2, Potassium 4.03, Chloride 106.3, Carbon Dioxide 26.2, Anion Gap 7.73, BUN 15.6, Creatinine 1.16, Estimated GFR (MDRD) 45.00, BUN/Creatinine Ratio 13.44, Glucose 117.6 H, Calcium 9.00, Total Bilirubin 0.50, AST 79.5 H D, ALT 95.5 H D, Alkaline Phosphatase 136.9 D, Total Protein 6.27 L, Albumin 3.40 L, Globulin 2.87, Albumin/Globulin Ratio 1.18 09/03/21 04:45: WBC 6.06, RBC 3.06 L, Hgb 9.3 L, Hct 28.6 L, MCV 93.5, MCH 30.4, MCHC 32.5, RDW Coeff of Rehana 12.9, Plt Count 163, Immature Gran % (Auto) 0.5, [place] % (Auto) 84.4 H, Lymph % (Auto) 7.8 L, [place] % (Auto) 7.3, Eos % (Auto) 0.0, Baso % (Auto) 0.0, Neut # (Auto) 5.1, Lymph # (Auto) 0.5 L, [place] # (Auto) 0.4, Eos # (Auto) 0.0, Baso # (Auto) 0.0, Immature Gran # (Auto) 0.0 09/03/21 04:45: PT 18.7 H, INR 1.85 09/02/21 09:21: Stl Occult Blood (IFOB) Positive, Stool Occult Blood #2 No specimen received, Stool Occult Blood #3 No specimen received 09/02/21 04:40: Thyroxine (T4) 7.2 09/02/21 04:40: TSH 0.425 L ASSESSMENT: Please see below. 1. UTI 2. Dehydration 3. Chronic anemia 4. Atrial fibrillation 5. Generalized weakness 6. COPD PLAN: 1. If lose IV site given Rocephin 1 gram IM daily 2. Discontinue Decadron 3. Continue PT/OT Plan and coordination of the patient's care discussed in the presence of Jewelry Repairer and nurse. SCRIBED BY: Jes BURRELList scribed while in presence of service performed by Dr. Goins/Charmaine Toussaint APRN on 09/03/21 ([id number])
[2021-09-03] MEDS: TOPROL XL PO SCH (09:30)
[2021-09-03] MEDS: K-DUR PO SCH (09:30)
[2021-09-03] MEDS: ALDACTONE PO SCH (09:30)
[2021-09-03] MEDS: IMDUR PO SCH (09:31)
[2021-09-03] MEDS: CLARITIN PO SCH (09:31)
[2021-09-03] MEDS: KEPPRA PO SCH ×2 (09:31→20:45)
[2021-09-03] MEDS: MULTIVITAMIN TABLET PO SCH (09:31)
[2021-09-03] MEDS: SINGULAIR PO SCH (09:31)
[2021-09-03] MEDS: FERROUS SULFATE PO SCH (09:31)
[2021-09-03] MEDS: LASIX TAB PO SCH (09:31)
[2021-09-03] MEDS: COZAAR PO SCH (09:31)
[2021-09-03] MEDS: VITAMIN D PO SCH (09:32)
[2021-09-03] MEDS: LIPASE PROTEASE AMYLASE PO SCH ×4 (09:48→20:46)
[2021-09-03] MEDS: [UNRECOGNIZED DRUG - OTHER] PO SCH ×4 (09:48→20:46)
[2021-09-03] MEDS: FLONASE NAS SCH (10:41)
[2021-09-03] MEDS: MAXIPIME 1 GM VIAL 1 GM in SODIUM CHLORIDE 50 ML IV SCH ×2 (10:41→20:52)
[2021-09-03] MEDS: TYLENOL PO PRN (10:42)
--- NOTE | 2021-09-03 11:46 | HP ---
DATE OF SERVICE: 09/01/21 REASON FOR HOSPITALIZATION/HISTORY OF PRESENT ILLNESS: 81 year old white female who lives at assisted living came by EMS with generalized weakness, she is unable to stand today. She is alert. It is to be noted that a couple of weeks ago she was admitted with acute gastritis, dehydration, renal failure and generalized weakness at [facility]. PAST MEDICAL HISTORY: Chronic anemia Chronic kidney disease stage II Diverticulosis Kyphosis wears a back brace and sees Dr. Ardon Severe degenerative disc disease of the spine History of seizure activities on Keppra Afib on Coumadin T 12 compression fracture Osteoporosis Pacemaker follows Dr. Gong Dependent leg edema Ischemia cardiomyopathy Coronary artery disease Dyslipidemia COPD Hypertension PAST SURGICAL HISTORY: Last colonoscopy 2013 she refuses a repeat Pacemaker CABG times 2 in 1999 and 2008 Cholecystectomy Hysterectomy Appendectomy Refused COVID vaccine REVIEW OF SYSTEMS: CONSTITUTIONAL: No night sweats. No fatigue, malaise, lethargy. No fever or chills. HEENT: Eyes: No visual changes. No eye pain. No eye discharge. ENT: No runny nose. No epistaxis. No sinus pain. No sore throat. No odynophagia. No ear pain. No congestion. RESPIRATORY: No cough, no congestion. No hemoptysis. No shortness of breath. CARDIOVASCULAR: No angina symptoms. No CHF symptoms. No atypical chest pain for CAD. No palpitations. No PND. No orthopnea. GASTROINTESTINAL: No abdominal pain. No nausea or vomiting. No diarrhea or constipation. No hematemesis. No hematochezia. GENITOURINARY: No urgency. No frequency. No dysuria. No hematuria. No obstructive symptoms. No discharge. No pain. No significant abnormal bleeding. MUSCULOSKELETAL: No musculoskeletal pain. No joint swelling. No arthritis. NEUROLOGICAL: No headache. No neck pain. No syncope. No seizures. No dizziness. PSYCHIATRIC: Not anxious. No depression. No suicidal thoughts. No homicidal thoughts. SKIN: No rash. No lesions. No wounds. ENDOCRINE: No unexplained weight loss. No weight gain. HEMATOLOGIC/LYMPHATIC: No anemia. No purpura. No petechiae. No prolonged or excessive bleeding. No palpable lymph nodes. PERSONAL/FAMILY/SOCIAL HISTORY: She is nonsmoker. She is . She lives with her daughter at assisted living, her daughter has MS. MEDICATIONS: Vitamin B 2000 unit PO daily Aldactone 12.5mg PO daily Proair HFA two puff inhalation Q 4 hours PRN Nitrostat 0.4mg sublingual Q 5 minutes times three doses PRN Singulair 10mg PO daily Keppra 250mg PO BID Isosorbide Mononitrate 60mg PO daily Isosorbide Mononitrate 30mg PO daily Incruse Ellipta 62.5mcg inhalation daily Lasix 20mg PO daily Fluticasone Propionate two sprays NS daily Creon 6000 units PO QID Lipitor 40mg PO bedtime Alprazolam 0.25mg PO BID PRN Zyrtec 10mg PO daily Synthroid 75mcg PO QDAC Centrum Silver tablet one PO daily Ferrous sulfate 325mg PO daily Metoclopramide HCL 10mg tablet 5mg PO TID PRN Losartan 25mg PO daily Omeprazole 40mg BID Toprol XL 25mg PO daily Potassium Chloride 20meq PO daily Warfarin 1mg PO Q PM Losartan 50mg PO daily ALLERGIES: Ampicillin Levofloxacin Metronidazole Ondansetron Oxcarbazepine Piperacillin Rifaximin Sulbactam Sulfa Sulfacetamide Sulfasalazine Tazobactam Tramadol IV contrast dye PHYSICAL EXAMINATION: GENERAL: The patient is alert and oriented times three and pale. VITAL SIGNS: Temperature 97.3, heart rate 66, respiratory rate 20, blood pressure 144/77 and pulse ox 100%. HEENT: Head normocephalic, atraumatic. Eyes: Extraocular muscles are intact. Pupils are equal, round and reactive to light and accommodation. Ears: No lesions. Nose appeared normal. Throat: No exudate or erythema. NECK: Supple. No JVD, no carotid bruit. No lymphadenopathy or thyromegaly. LUNGS: Diminished breath sounds bilaterally. Clear to auscultation. Percussion note normal. Chest symmetrical. HEART: S1, S2, no S3. No murmur. No cyanosis or clubbing. No ascites. Pulses: Dorsalis pedis and posterior tibial pulses +1 to +2 bilaterally. ABDOMEN: Soft. Nontender. Bowel sounds active. No CVA tenderness. No mass felt. EXTREMITIES: No edema. Full range of motion of all extremities, equal. NEUROLOGIC: No focal deficit. Cranial nerves II through XII are grossly intact. No headache, no double vision or headache. SKIN: Not dry. Intact. Turgor - normal. LYMPHATIC: No palpable lymph nodes/no lymphedema. MUSCULOSKELETAL: Normal joints with no swelling. Muscle tone is normal. LABS: WBC 7.3, hgb 11.2, hct 34.7, plt count 193,sodium 137, potassium 4.4, BUN 14, creatinine 1.35, glucose 119. INR 1.52, AST 377, ALT 202, Alkaline phosphatase 248, Urine 3+ bacteria. 2+ leuks, 1+ bilirubin, 2+ blood, 2+ protein. ABG on two liters pH 7.54, O2 saturation 99% , pO2 123, pCo2 31. COVID negative. Chest x- ray shows no acute process. ASSESSMENT: 1. Generalized weakness 2. Dehydration 3. Elevated liver function 4. Chronic respiratory failure 5. Afib on Coumadin 6. COPD 7. Pacemaker PLAN: 1. We will admit 2. Routine telemetry orders 3. CBC and CMP 4. INR daily 5. Continue home medications 6. Normal saline IV at 75cc an hour 7. Urine for culture 8. Start on Cefepime to be dosed by Pharmacy 9. Regular diet 10. Continue oxygen 11. We will follow closely. TIME SPENT: More than 70 minutes. MTDD
--- NOTE | 2021-09-03 14:17 | US ---
EXAM: Ultrasound abdomen limited right upper quadrant HISTORY: Elevated liver enzymes COMPARISON: None TECHNIQUE: Limited ultrasound abdomen right upper quadrant was performed FINDINGS: Areas of bowel gas shadowing limit evaluation. Pancreas obscured secondary bowel gas shad owing. Liver normal in echogenicity. Portions of the liver obscured secondary to bowel gas shadowin g. Main portal vein patent with normal direction of flow. Patient status post cholecystectomy. No biliary duct dilation with common bile duct measuring 0.5 cm. Right kidney measures 8.4 cm in length without hydronephrosis. IMPRESSION: 1. Unremarkable sonographic appearance of the liver, noting bowel gas shadowing limits evaluation. 2. Status post cholecystectomy. No biliary duct dilation.
[2021-09-03] MEDS: COUMADIN PO SCH (17:58)
[2021-09-03] MEDS ORDERED: MAXIPIME 1 GM VIAL ONE (20:51)
[2021-09-04] MEDS: TYLENOL PO PRN (02:30)
[2021-09-04] MEDS: XANAX PO PRN ×2 (03:17→21:48)
[2021-09-04 05:15] LABS: BASOPHILS % (AUTO) 0.2 % (0.0-3.0); EOSINOPHILS # (AUTO) 0.1 K/ul (0.0-0.7); EOSINOPHILS % (AUTO) 1.1 % (0.0-7.0); HEMATOCRIT 26.7 % (37.0-47.0); HEMOGLOBIN 9.1 g/dl (12.0-16.0); IMMATURE GRANULOCYTE % (AUTO) 0.3 % (0.0-5.0); LYMPHOCYTES # (AUTO) 1.1 K/uL (0.60-3.4); LYMPHOCYTES % (AUTO) 16.4 (10.0-50.0); MEAN CORPUSCULAR HEMOGLOBIN 31.8 pg (27.0-31.0); MEAN CORPUSCULAR HGB CONC 34.1 (31.8-35.4); MEAN CORPUSCULAR VOLUME 93.4 fl (81.0-99.0); MONOCYTES # (AUTO) 0.5 K/uL (0.4-2.0); MONOCYTES % (AUTO) 8.3 (0-10); NEUTROPHILS # (AUTO) 4.8 K/ul (2.0-6.9); NEUTROPHILS % (AUTO) 73.7 % (42.2-75.2); PLATELET COUNT 163 10^3/uL (140-440); RDW COEFFICIENT OF VARIATION 13.1 % (11.6-14.8); RED BLOOD COUNT 2.86 10^6/ul (4.20-5.40); WHITE BLOOD COUNT 6.48 K/ul (4.6-10.2)
[2021-09-04 05:53] LABS: PROTHROMBIN TIME 16.5 SEC (9.3-11.0)
[2021-09-04] MEDS: SYNTHROID PO SCH (06:00)
[2021-09-04] MEDS: PRILOSEC PO SCH ×2 (06:00→16:33)
[2021-09-04 06:51] LABS: ALANINE AMINOTRANSFERASE 103.8 U/L (0-35); ALBUMIN 3.04 g/dL (3.5-5.0); ALKALINE PHOSPHATASE 141.7 U/L (53-141); ASPARTATE AMINO TRANSFERASE 90.8 U/L (14-36); BILIRUBIN,TOTAL 0.35 mg/dL (0.2-1.3); BLOOD UREA NITROGEN 16.8 mg/dL (7-17); CALCIUM 8.95 mg/dL (8.4-10.2); CARBON DIOXIDE 28.1 mmol/L (22-30.0); CHLORIDE 105.6 mmol/L (98-107); CREATININE 1.12 mg/dL (0.60-1.30); GLUCOSE 96.8 mg/dL (74-106); SODIUM 136.9 mmol/L (134.5-145); TOTAL PROTEIN 5.95 g/dL (6.3-8.2)
[2021-09-04] MEDS: ROCEPHIN 1 GM/50 ML D5W 1 GM/50 ML BAG IV SCH (08:44)
[2021-09-04] MEDS: KEPPRA PO SCH ×2 (08:53→21:39)
[2021-09-04] MEDS: TOPROL XL PO SCH (08:54)
[2021-09-04] MEDS: SINGULAIR PO SCH (08:55)
[2021-09-04] MEDS: IMDUR PO SCH (08:55)
[2021-09-04] MEDS: ALDACTONE PO SCH (08:56)
[2021-09-04] MEDS: COZAAR PO SCH (08:57)
[2021-09-04] MEDS: K-DUR PO SCH (08:57)
[2021-09-04] MEDS: FERROUS SULFATE PO SCH (08:57)
[2021-09-04] MEDS: LASIX TAB PO SCH (08:58)
[2021-09-04] MEDS: VITAMIN D PO SCH (08:58)
[2021-09-04] MEDS: MULTIVITAMIN TABLET PO SCH (08:59)
[2021-09-04] MEDS: CLARITIN PO SCH (08:59)
[2021-09-04] MEDS: [UNRECOGNIZED DRUG - OTHER] PO SCH ×4 (09:59→22:09)
[2021-09-04] MEDS: LIPASE PROTEASE AMYLASE PO SCH ×4 (09:59→22:09)
[2021-09-04] MEDS: FLONASE NAS SCH (10:01)
--- NOTE | 2021-09-04 11:51 | PN ---
DATE OF SERVICE: 09/02/21 SUBJECTIVE: The patient was seen and examined with the Nurse Practitioner. The patient's condition has improved. She is being treated for urinary tract infection. Her cardiovascular status is stable. TIME SPENT: More than 30 minutes. Plan and coordination of the patient's care discussed in the presence of nurse. ANN
--- NOTE | 2021-09-04 11:55 | PN ---
DATE OF SERVICE: 09/01/2021 ADMIT NOTE SUBJECTIVE: The patient was hospitalized because of weakness. The patient's cardiovascular status seems to be stable with normal blood gasses. Her examination is unremarkable but U/A is abnormal with 3+ bacteria, leukocyte esterase positive. She is going to be treated with antibiotics. She is allergic to a lot of antibiotics so she is going to be on Azactam 1gram Q 12 hours and Macrobid. IV hydration is going to be done with 70cc per hour. TIME SPENT: More than 30 minutes. Plan and coordination of the patient's care discussed in the presence of nurse. ANN
[2021-09-04] MEDS: PERCOCET 7.5-325 PO PRN (12:32)
[2021-09-04] MEDS: COUMADIN PO SCH (16:33)
[2021-09-05] MEDS: PERCOCET 7.5-325 PO PRN ×2 (03:42→22:23)
[2021-09-05] MEDS: PRILOSEC PO SCH ×2 (06:14→17:41)
[2021-09-05] MEDS: SYNTHROID PO SCH (06:14)
[2021-09-05 07:20] LABS: HBsAgSCREEN Negative (Negative); HEP A AB, IgM Negative (Negative); HEP B CORE Ab, IgM Negative (Negative); HEP C VIRUS AB > 11.0 s/co ratio (0.0-0.9)
[2021-09-05 07:27] LABS: BASOPHILS % (AUTO) 0.6 % (0.0-3.0); EOSINOPHILS # (AUTO) 0.2 K/ul (0.0-0.7); EOSINOPHILS % (AUTO) 3.9 % (0.0-7.0); HEMATOCRIT 28.4 % (37.0-47.0); HEMOGLOBIN 9.4 g/dl (12.0-16.0); IMMATURE GRANULOCYTE % (AUTO) 0.4 % (0.0-5.0); LYMPHOCYTES # (AUTO) 1.1 K/uL (0.60-3.4); LYMPHOCYTES % (AUTO) 23.5 (10.0-50.0); MEAN CORPUSCULAR HEMOGLOBIN 30.8 pg (27.0-31.0); MEAN CORPUSCULAR HGB CONC 33.1 (31.8-35.4); MEAN CORPUSCULAR VOLUME 93.1 fl (81.0-99.0); MONOCYTES # (AUTO) 0.6 K/uL (0.4-2.0); NEUTROPHILS # (AUTO) 2.9 K/ul (2.0-6.9); NEUTROPHILS % (AUTO) 59.6 % (42.2-75.2); PLATELET COUNT 175 10^3/uL (140-440); RDW COEFFICIENT OF VARIATION 13.1 % (11.6-14.8); RED BLOOD COUNT 3.05 10^6/ul (4.20-5.40); WHITE BLOOD COUNT 4.85 K/ul (4.6-10.2)
[2021-09-05 07:39] LABS: PROTHROMBIN TIME 14.2 SEC (9.3-11.0)
[2021-09-05 07:41] LABS: ALANINE AMINOTRANSFERASE 66.6 U/L (0-35); ALBUMIN 3.21 g/dL (3.5-5.0); ASPARTATE AMINO TRANSFERASE 51.4 U/L (14-36); BILIRUBIN,TOTAL 0.35 mg/dL (0.2-1.3); BLOOD UREA NITROGEN 15.3 mg/dL (7-17); CALCIUM 9.09 mg/dL (8.4-10.2); CARBON DIOXIDE 29.5 mmol/L (22-30.0); CHLORIDE 104.3 mmol/L (98-107); CREATININE 1.02 mg/dL (0.60-1.30); POTASSIUM 4.13 mmol/L (3.5-5.1); SODIUM 135.5 mmol/L (134.5-145); TOTAL PROTEIN 6.12 g/dL (6.3-8.2)
[2021-09-05] MEDS: VITAMIN D PO SCH (09:11)
[2021-09-05] MEDS: K-DUR PO SCH (09:11)
[2021-09-05] MEDS: SINGULAIR PO SCH (09:11)
[2021-09-05] MEDS: MULTIVITAMIN TABLET PO SCH (09:12)
[2021-09-05] MEDS: LASIX TAB PO SCH (09:12)
[2021-09-05] MEDS: KEPPRA PO SCH ×2 (09:12→21:38)
[2021-09-05] MEDS: FERROUS SULFATE PO SCH (09:12)
[2021-09-05] MEDS: CLARITIN PO SCH (09:12)
[2021-09-05] MEDS: IMDUR PO SCH (09:12)
[2021-09-05] MEDS: TOPROL XL PO SCH (09:12)
[2021-09-05] MEDS: ROCEPHIN 1 GM/50 ML D5W 1 GM/50 ML BAG IV SCH (09:13)
[2021-09-05] MEDS: FLONASE NAS SCH (09:13)
[2021-09-05] MEDS: [UNRECOGNIZED DRUG - OTHER] PO SCH ×4 (09:13→21:39)
[2021-09-05] MEDS: LIPASE PROTEASE AMYLASE PO SCH ×4 (09:13→21:39)
[2021-09-05] MEDS: ALDACTONE PO SCH (09:14)
[2021-09-05] MEDS: COZAAR PO SCH ×2 (09:15→09:22)
--- NOTE | 2021-09-05 10:17 | PCM.PROG ---
Attending Provider: ATTENDING PROVIDER: Dr. MELISSA GOINS This patient is seen with Charmaine Toussaint, Nurse Practitioner. DATE OF SERVICE: 09/05/21 SUBJECTIVE: This 81 year old /WHITE F was hospitalized 09/01/21. The patient has been declining therapy at times. Hgb is improved today. Blood pressure is still been low. She is eating well. REVIEW OF SYSTEMS: CONSTITUTIONAL: No night sweats. No fatigue, malaise, lethargy. No fever or chills. Weakness. HEENT: Eyes: No visual changes. No eye pain. No eye discharge. ENT: No runny nose. No epistaxis. No sinus pain. No odynophagia. No congestion. RESPIRATORY: No cough, no congestion. No hemoptysis. No shortness of breath. CARDIOVASCULAR: No angina symptoms. No CHF symptoms. No atypical chest pain for CAD. No palpitations. No orthopnea.. GASTROINTESTINAL: No abdominal pain. No nausea or vomiting. No diarrhea or constipation. No hematemesis. No hematochezia. GENITOURINARY: No urgency. No frequency. No dysuria. No hematuria. No obstructive symptoms. No discharge. No pain. No significant abnormal bleeding. MUSCULOSKELETAL: No musculoskeletal pain; no joint swelling. NEUROLOGICAL: Awake, alert, oriented to time, place and person. No headache. No neck pain. No syncope. No seizures. No dizziness. PSYCHIATRIC: Not anxious. No depression. No suicidal thoughts. No homicidal thoughts. SKIN: No rash. No lesions. No wounds. ENDOCRINE: No unexplained weight loss. No weight gain. HEMATOLOGIC/LYMPHATIC: No anemia. No purpura. No petechiae. No prolonged or excessive bleeding. No palpable lymph nodes. PHYSICAL EXAMINATION: GENERAL: The patient is awake, alert and oriented, lying in bed in no distress. VITAL SIGNS: Temperature 97.9 F, Pulse 50, Respiratory Rate 18, BP 89/51, Pulse Ox 98% HEENT: Head normocephalic, atraumatic. Eyes: Extraocular muscles are intact. Pupils are equal, round and reactive to light and accommodation. Ears: No lesions. Nose appeared normal. Throat: No exudate or erythema. NECK: Supple. No JVD, no carotid bruit. No lymphadenopathy or thyromegaly. LUNGS: Diminished breath sounds. Clear to auscultation. Percussion note normal. Chest symmetrical. HEART: S1, S2, no S3. No murmurs. No cyanosis or clubbing. No ascites. Pulses: Dorsalis pedis and posterior tibial pulses +1 to +2 both sides. ABDOMEN: Soft. Non-tender. Bowel sounds active. No CVA tenderness. No mass felt. EXTREMITIES: No edema. Full range of motion of all extremities, equal. NEUROLOGIC: No focal deficit. Cranial nerves II through XII are grossly intact. No headache. No double vision. SKIN: Not dry. Intact. Turgor-normal. LYMPHATIC: No palpable lymph nodes/no lymphedema. MUSCULOSKELETAL: Normal joints with no swelling. Muscle tone is normal. LAB REVIEW: 09/05/21 07:07 09/05/21 07:07 09/05/21 07:07: PT 14.2 H, INR 1.39 09/05/21 07:07: Sodium 135.5, Potassium 4.13, Chloride 104.3, Carbon Dioxide 29.5, Anion Gap 5.83, BUN 15.3, Creatinine 1.02, Estimated GFR (MDRD) 52.00, BUN/Creatinine Ratio 15.00, Glucose 86.0, Calcium 9.09, Total Bilirubin 0.35, AST 51.4 H D, ALT 66.6 H D, Alkaline Phosphatase 121.0, Total Protein 6.12 L, Albumin 3.21 L, Globulin 2.91, Albumin/Globulin Ratio 1.10 09/05/21 07:07: WBC 4.85, RBC 3.05 L, Hgb 9.4 L, Hct 28.4 L, MCV 93.1, MCH 30.8, MCHC 33.1, RDW Coeff of Rehana 13.1, Plt Count 175, Immature Gran % (Auto) 0.4, Neut % (Auto) 59.6, Lymph % (Auto) 23.5, [place] % (Auto) 12.0 H, Eos % (Auto) 3.9, Baso % (Auto) 0.6, Neut # (Auto) 2.9, Lymph # (Auto) 1.1, [place] # (Auto) 0.6, Eos # (Auto) 0.2, Baso # (Auto) 0.0, Immature Gran # (Auto) 0.0 09/04/21 04:50: Hepatitis A IgM Ab Negative, Hep Bs Antigen Negative, Hep B Core IgM Ab Negative, Hep C Ab Signal/Cutoff > 11.0 H ASSESSMENT: Please see below. 1. Hypotension 2. UTI 3. Atrial fibrillation 4. Pacemaker 5. Chronic anemia 6. Generalized weakness 7. Elevated liver enzymes with positive Hepatitis C antibody. PLAN: 1. Discontinue Aldactone 2. Further testing with HCV nuleic acid test 3. CT abdomen normal 4. Ultrasound of liver did not show much due to noting bowel gas 5. Liver enzymes are trending down 6. 12.5mg Losartan daily Plan and coordination of the patient's care discussed in the presence of Hand Cooper Helper and nurse. SCRIBED BY: NILSON ALBRIGHT Crate Maker scribed while in presence of service performed by Dr. Goins/Charmaine Toussaint APRN on 09/05/21 ([id number])
--- NOTE | 2021-09-05 11:53 | PN ---
DATE OF SERVICE: 09/03/21 SUBJECTIVE: The patient was seen and examined with the Nurse Practitioner. The patient's condition is steadily improving, breathing better and feeling better. UTI seems to be under control TIME SPENT: More than 30 minutes. Plan and coordination of the patient's care discussed in the presence of nurse. ANN
--- NOTE | 2021-09-05 14:34 | PN ---
DATE OF SERVICE: 09/04/21 SUBJECTIVE: 81 year old white female hospitalized with dehydration, UTI. Her condition has improved. She is feeling better. Appetite has improved. Liver enzymes are more or less lower than what they were on admission. Hepatitis profile still pending. REVIEW OF SYSTEMS: CONSTITUTIONAL: No night sweats. No fatigue, malaise, lethargy. No fever or chills. HEENT: Eyes: No visual changes. No eye pain. No eye discharge. ENT: No runny nose. No epistaxis. No sinus pain. No sore throat. No odynophagia. No congestion. RESPIRATORY: No cough, no congestion. No hemoptysis. No shortness of breath. CARDIOVASCULAR: No angina symptoms. No CHF symptoms. No atypical chest pain for CAD. No palpitations. No PND. No orthopnea. GASTROINTESTINAL: No abdominal pain. No nausea or vomiting. No diarrhea or constipation. No hematemesis. No hematochezia. GENITOURINARY: No urgency. No frequency. No dysuria. No hematuria. No obstructive symptoms. No discharge. No pain. No significant abnormal bleeding. MUSCULOSKELETAL: No musculoskeletal pain; no joint swelling. NEUROLOGICAL: No headache. No neck pain. No syncope. No seizures. No dizziness. PSYCHIATRIC: Not anxious. No depression. No suicidal thoughts. No homicidal thoughts. SKIN: No rash. No lesions. No wounds. ENDOCRINE: No unexplained weight loss. No weight gain. HEMATOLOGIC/LYMPHATIC: No anemia. No purpura. No petechiae. No prolonged or excessive bleeding. No palpable lymph nodes. PHYSICAL EXAMINATION: VITAL SIGNS:Temperature 97, pulse 60, respiratory rate 16, blood pressure 104/59 and pulse ox 100%. HEENT: Head normocephalic, atraumatic. Eyes: Extraocular muscles are intact. Pupils are equal, round and reactive to light and accommodation. Ears: No lesions. Nose appeared normal. Throat: No exudate or erythema. NECK: Supple. No JVD, no carotid bruit. No lymphadenopathy or thyromegaly. LUNGS: Decreased breath sounds but clear to auscultation. Percussion note normal. Chest symmetrical. HEART: S1, S2, no S3. No murmurs. No cyanosis or clubbing. No ascites. Pulses: Dorsalis pedis and posterior tibial pulses +1 to +2 bilaterally. ABDOMEN: Soft. Nontender. Bowel sounds active. No CVA tenderness. No mass felt. EXTREMITIES: No edema. Full range of motion of all extremities, equal. NEUROLOGIC: No focal deficit. Cranial nerves II through XII are grossly intact. No headache. No double vision. SKIN: Not dry. Intact. Turgor - normal. LYMPHATIC: No palpable lymph nodes/no lymphedema. MUSCULOSKELETAL: Normal joints with no swelling. Muscle tone is normal. LABS: Hgb 9.1, hct 26, WBC 6,400 normal differential ASSESSMENT: 1. Dehydration, resolved 2. UTI under control. The patient has e-coli which is sensitive to all antibiotics 3. PLAN: 1. The patient has been taken off Cefepine put on Rocephin 2. The patient complained on back pain and has been on Percocet TID and we will start her on Percocet BID 3. Continue to monitor liver enzymes 4. She is off Lipitor 5. Hepatitis profile pending 6. Echo to be done before discharge. TIME SPENT: More than 30 minutes. Plan and coordination of the patient's care discussed in the presence of nurse. ANN
[2021-09-05] MEDS: COUMADIN PO SCH (17:41)
[2021-09-06] MEDS: SYNTHROID PO SCH (05:55)
[2021-09-06] MEDS: PRILOSEC PO SCH ×2 (05:55→17:06)
[2021-09-06 05:58] LABS: BASOPHILS # (AUTO) 0.1 K/uL (0-0.2); EOSINOPHILS # (AUTO) 0.3 K/ul (0.0-0.7); EOSINOPHILS % (AUTO) 5.2 % (0.0-7.0); HEMATOCRIT 27.9 % (37.0-47.0); HEMOGLOBIN 9.4 g/dl (12.0-16.0); IMMATURE GRANULOCYTE % (AUTO) 0.4 % (0.0-5.0); LYMPHOCYTES # (AUTO) 1.3 K/uL (0.60-3.4); MEAN CORPUSCULAR HEMOGLOBIN 31.3 pg (27.0-31.0); MEAN CORPUSCULAR HGB CONC 33.7 (31.8-35.4); MONOCYTES # (AUTO) 0.6 K/uL (0.4-2.0); MONOCYTES % (AUTO) 11.8 (0-10); NEUTROPHILS # (AUTO) 2.8 K/ul (2.0-6.9); NEUTROPHILS % (AUTO) 56.6 % (42.2-75.2); PLATELET COUNT 184 10^3/uL (140-440)
[2021-09-06 06:16] LABS: ALANINE AMINOTRANSFERASE 49.7 U/L (0-35); ALBUMIN 3.29 g/dL (3.5-5.0); ALKALINE PHOSPHATASE 105.5 U/L (53-141); ASPARTATE AMINO TRANSFERASE 37.4 U/L (14-36); BILIRUBIN,TOTAL 0.37 mg/dL (0.2-1.3); BLOOD UREA NITROGEN 12.9 mg/dL (7-17); CALCIUM 9.09 mg/dL (8.4-10.2); CARBON DIOXIDE 30.4 mmol/L (22-30.0); CHLORIDE 103.8 mmol/L (98-107); CREATININE 0.94 mg/dL (0.60-1.30); GLUCOSE 85.8 mg/dL (74-106); SODIUM 136.6 mmol/L (134.5-145); TOTAL PROTEIN 6.16 g/dL (6.3-8.2)
[2021-09-06 06:29] LABS: PROTHROMBIN TIME 13.4 SEC (9.3-11.0)
[2021-09-06] MEDS: KEPPRA PO SCH ×2 (09:05→21:06)
[2021-09-06] MEDS: SINGULAIR PO SCH (09:05)
[2021-09-06] MEDS: IMDUR PO SCH (09:05)
[2021-09-06] MEDS: TOPROL XL PO SCH (09:05)
[2021-09-06] MEDS: VITAMIN D PO SCH (09:06)
[2021-09-06] MEDS: FERROUS SULFATE PO SCH (09:06)
[2021-09-06] MEDS: COZAAR PO SCH (09:06)
[2021-09-06] MEDS: LASIX TAB PO SCH (09:06)
[2021-09-06] MEDS: K-DUR PO SCH (09:07)
[2021-09-06] MEDS: CLARITIN PO SCH (09:07)
[2021-09-06] MEDS: ROCEPHIN 1 GM VIAL 1 GM in SODIUM CHLORIDE 100ML 100 ML IV SCH (09:07)
[2021-09-06] MEDS: MULTIVITAMIN TABLET PO SCH (09:07)
[2021-09-06] MEDS: FLONASE NAS SCH (09:08)
--- NOTE | 2021-09-06 09:45 | PCM.PROG ---
Attending Provider: ATTENDING PROVIDER: Dr. MELISSA GOINS This patient is seen with Charmaine Toussaint, Nurse Practitioner. DATE OF SERVICE: 09/06/21 SUBJECTIVE: This 81 year old /WHITE F was hospitalized 09/01/21. Liver enzymes are still trending down. HCV Nucleic acid pending. The patient has been working with therapy, they feel she is not a candidate for swing bed. The patient is having some low blood pressure although seems to be controlled and asymptomatic. REVIEW OF SYSTEMS: CONSTITUTIONAL: No night sweats. No fatigue, malaise, lethargy. No fever or chills. Weakness. HEENT: Eyes: No visual changes. No eye pain. No eye discharge. ENT: No runny nose. No epistaxis. No sinus pain. No odynophagia. No congestion. RESPIRATORY: No cough, no congestion. No hemoptysis. No shortness of breath. CARDIOVASCULAR: No angina symptoms. No CHF symptoms. No atypical chest pain for CAD. No palpitations. No orthopnea.. GASTROINTESTINAL: No abdominal pain. No nausea or vomiting. No diarrhea or constipation. No hematemesis. No hematochezia. GENITOURINARY: No urgency. No frequency. No dysuria. No hematuria. No obstructive symptoms. No discharge. No pain. No significant abnormal bleeding. MUSCULOSKELETAL: No musculoskeletal pain; no joint swelling. NEUROLOGICAL: Awake, alert, oriented to time, place and person. No headache. No neck pain. No syncope. No seizures. No dizziness. PSYCHIATRIC: Not anxious. No depression. No suicidal thoughts. No homicidal thoughts. SKIN: No rash. No lesions. No wounds. ENDOCRINE: No unexplained weight loss. No weight gain. HEMATOLOGIC/LYMPHATIC: No anemia. No purpura. No petechiae. No prolonged or excessive bleeding. No palpable lymph nodes. PHYSICAL EXAMINATION: GENERAL: The patient is awake, alert and oriented, lying in bed in no distress. VITAL SIGNS: Temperature 97.8 F, Pulse 60, Respiratory Rate 18, BP 98/57, Pulse Ox 100% HEENT: Head normocephalic, atraumatic. Eyes: Extraocular muscles are intact. Pupils are equal, round and reactive to light and accommodation. Ears: No lesions. Nose appeared normal. Throat: No exudate or erythema. NECK: Supple. No JVD, no carotid bruit. No lymphadenopathy or thyromegaly. LUNGS: Diminished breath sounds. Clear to auscultation. Percussion note normal. Chest symmetrical. HEART: S1, S2, no S3. No murmurs. No cyanosis or clubbing. No ascites. Pulses: Dorsalis pedis and posterior tibial pulses +1 to +2 both sides. ABDOMEN: Soft. Non-tender. Bowel sounds active. No CVA tenderness. No mass felt. EXTREMITIES: No edema. Full range of motion of all extremities, equal. NEUROLOGIC: No focal deficit. Cranial nerves II through XII are grossly intact. No headache. No double vision. SKIN: Not dry. Intact. Turgor-normal. LYMPHATIC: No palpable lymph nodes/no lymphedema. MUSCULOSKELETAL: Normal joints with no swelling. Muscle tone is normal. LAB REVIEW: 09/06/21 05:00 09/06/21 05:00 09/06/21 05:00: PT 13.4 H, INR 1.31 09/06/21 05:00: Sodium 136.6, Potassium 4.00, Chloride 103.8, Carbon Dioxide 30.4 H, Anion Gap 6.40, BUN 12.9, Creatinine 0.94, Estimated GFR (MDRD) 57.00, BUN/Creatinine Ratio 13.72, Glucose 85.8, Calcium 9.09, Total Bilirubin 0.37, AST 37.4 H, ALT 49.7 H, Alkaline Phosphatase 105.5, Total Protein 6.16 L, Albumin 3.29 L, Globulin 2.87, Albumin/Globulin Ratio 1.14 09/06/21 05:00: WBC 5.00, RBC 3.00 L, Hgb 9.4 L, Hct 27.9 L, MCV 93.0, MCH 31.3 H, MCHC 33.7, RDW Coeff of Rehana 13.0, Plt Count 184, Immature Gran % (Auto) 0.4, Neut % (Auto) 56.6, Lymph % (Auto) 25.0, [place] % (Auto) 11.8 H, Eos % (Auto) 5.2, Baso % (Auto) 1.0, Neut # (Auto) 2.8, Lymph # (Auto) 1.3, [place] # (Auto) 0.6, Eos # (Auto) 0.3, Baso # (Auto) 0.1, Immature Gran # (Auto) 0.0 ASSESSMENT: Please see below. 1. UTI 2. Generalized weakness 3. Chronic anemia 4. Atrial fibrillation 5. Hypotension PLAN: 1. Continue medications 2. Will see about arranging Home Health at [facility] 3. Continue IV Rocephin for UTI Plan and coordination of the patient's care discussed in the presence of Production Analyst and nurse. SCRIBED BY: NILSON ALBRIGHT Guide Domestic Tour scribed while in presence of service performed by Dr. Goins/Charmaine Toussaint APRN on 09/06/21 ([id number])
[2021-09-06] MEDS: LIPASE PROTEASE AMYLASE PO SCH ×4 (10:19→21:10)
[2021-09-06] MEDS: [UNRECOGNIZED DRUG - OTHER] PO SCH ×4 (10:19→21:10)
[2021-09-06] MEDS ORDERED: ARTIFICIAL TEARS DROPS OP PRN (10:34)
[2021-09-06] MEDS: PERCOCET 7.5-325 PO PRN (14:08)
[2021-09-06] MEDS ORDERED: COUMADIN PO ONE (17:00)
[2021-09-06] MEDS: COUMADIN PO SCH (17:06)
[2021-09-07] MEDS: PERCOCET 7.5-325 PO PRN ×2 (03:59→20:52)
[2021-09-07 05:17] LABS: BASOPHILS % (AUTO) 0.5 % (0.0-3.0); EOSINOPHILS # (AUTO) 0.2 K/ul (0.0-0.7); EOSINOPHILS % (AUTO) 4.1 % (0.0-7.0); HEMOGLOBIN 9.7 g/dl (12.0-16.0); IMMATURE GRANULOCYTE % (AUTO) 0.5 % (0.0-5.0); LYMPHOCYTES # (AUTO) 0.9 K/uL (0.60-3.4); LYMPHOCYTES % (AUTO) 15.9 (10.0-50.0); MEAN CORPUSCULAR HEMOGLOBIN 30.5 pg (27.0-31.0); MEAN CORPUSCULAR HGB CONC 32.3 (31.8-35.4); MEAN CORPUSCULAR VOLUME 94.3 fl (81.0-99.0); MONOCYTES # (AUTO) 0.6 K/uL (0.4-2.0); MONOCYTES % (AUTO) 11.1 (0-10); NEUTROPHILS # (AUTO) 3.9 K/ul (2.0-6.9); NEUTROPHILS % (AUTO) 67.9 % (42.2-75.2); PLATELET COUNT 189 10^3/uL (140-440); RDW COEFFICIENT OF VARIATION 13.2 % (11.6-14.8); RED BLOOD COUNT 3.18 10^6/ul (4.20-5.40); WHITE BLOOD COUNT 5.79 K/ul (4.6-10.2)
[2021-09-07 05:33] LABS: ALANINE AMINOTRANSFERASE 37.7 U/L (0-35); ALBUMIN 3.38 g/dL (3.5-5.0); ALKALINE PHOSPHATASE 109.6 U/L (53-141); ASPARTATE AMINO TRANSFERASE 34.2 U/L (14-36); BILIRUBIN,TOTAL 0.29 mg/dL (0.2-1.3); BLOOD UREA NITROGEN 14.3 mg/dL (7-17); CALCIUM 9.24 mg/dL (8.4-10.2); CARBON DIOXIDE 30.3 mmol/L (22-30.0); CHLORIDE 102.1 mmol/L (98-107); CREATININE 0.97 mg/dL (0.60-1.30); GLUCOSE 106.7 mg/dL (74-106); POTASSIUM 4.13 mmol/L (3.5-5.1); SODIUM 134.5 mmol/L (134.5-145); TOTAL PROTEIN 6.36 g/dL (6.3-8.2)
[2021-09-07 05:36] LABS: PROTHROMBIN TIME 14.6 SEC (9.3-11.0)
[2021-09-07] MEDS: PRILOSEC PO SCH ×2 (06:00→16:54)
[2021-09-07] MEDS: SYNTHROID PO SCH (06:02)
[2021-09-07] MEDS: KEPPRA PO SCH ×2 (09:18→20:52)
[2021-09-07] MEDS: COZAAR PO SCH (09:19)
[2021-09-07] MEDS: VITAMIN D PO SCH (09:20)
[2021-09-07] MEDS: TOPROL XL PO SCH (09:20)
[2021-09-07] MEDS: SINGULAIR PO SCH (09:21)
[2021-09-07] MEDS: MULTIVITAMIN TABLET PO SCH (09:22)
[2021-09-07] MEDS: FERROUS SULFATE PO SCH (09:22)
[2021-09-07] MEDS: CLARITIN PO SCH (09:23)
[2021-09-07] MEDS: IMDUR PO SCH (09:23)
[2021-09-07] MEDS: LASIX TAB PO SCH (09:24)
[2021-09-07] MEDS: K-DUR PO SCH (09:24)
[2021-09-07] MEDS: [UNRECOGNIZED DRUG - OTHER] PO SCH ×4 (09:25→20:55)
[2021-09-07] MEDS: LIPASE PROTEASE AMYLASE PO SCH ×4 (09:25→20:55)
[2021-09-07] MEDS: ROCEPHIN 1 GM VIAL 1 GM in SODIUM CHLORIDE 100ML 100 ML IV SCH ×2 (09:26→10:45)
[2021-09-07] MEDS: FLONASE NAS SCH (09:27)
[2021-09-07] MEDS: ROCEPHIN 1 GM VIAL IM SCH (11:13)
[2021-09-07] MEDS: LIDOCAINE HCL 1% SDV IM SCH (11:14)
[2021-09-07] MEDS: COUMADIN PO SCH (16:54)
[2021-09-08] MEDS: TYLENOL PO PRN (02:07)
[2021-09-08] MEDS: PRILOSEC PO SCH ×2 (05:31→17:19)
[2021-09-08] MEDS: SYNTHROID PO SCH (05:31)
[2021-09-08 05:43] LABS: BASOPHILS # (AUTO) 0.1 K/uL (0-0.2); EOSINOPHILS # (AUTO) 0.3 K/ul (0.0-0.7); EOSINOPHILS % (AUTO) 5.1 % (0.0-7.0); HEMOGLOBIN 9.5 g/dl (12.0-16.0); IMMATURE GRANULOCYTE % (AUTO) 0.6 % (0.0-5.0); LYMPHOCYTES # (AUTO) 1.1 K/uL (0.60-3.4); LYMPHOCYTES % (AUTO) 20.8 (10.0-50.0); MEAN CORPUSCULAR HEMOGLOBIN 30.8 pg (27.0-31.0); MEAN CORPUSCULAR HGB CONC 32.8 (31.8-35.4); MEAN CORPUSCULAR VOLUME 94.2 fl (81.0-99.0); MONOCYTES # (AUTO) 0.6 K/uL (0.4-2.0); MONOCYTES % (AUTO) 11.3 (0-10); NEUTROPHILS # (AUTO) 3.2 K/ul (2.0-6.9); NEUTROPHILS % (AUTO) 61.2 % (42.2-75.2); PLATELET COUNT 181 10^3/uL (140-440); RDW COEFFICIENT OF VARIATION 13.3 % (11.6-14.8); RED BLOOD COUNT 3.08 10^6/ul (4.20-5.40); WHITE BLOOD COUNT 5.14 K/ul (4.6-10.2)
[2021-09-08 05:57] LABS: ALBUMIN 3.33 g/dL (3.5-5.0); ASPARTATE AMINO TRANSFERASE 33.7 U/L (14-36); BILIRUBIN,TOTAL 0.43 mg/dL (0.2-1.3); BLOOD UREA NITROGEN 13.3 mg/dL (7-17); CALCIUM 9.07 mg/dL (8.4-10.2); CARBON DIOXIDE 29.8 mmol/L (22-30.0); CHLORIDE 101.9 mmol/L (98-107); CREATININE 0.94 mg/dL (0.60-1.30); POTASSIUM 4.1 mmol/L (3.5-5.1); TOTAL PROTEIN 6.02 g/dL (6.3-8.2)
[2021-09-08 06:07] LABS: PROTHROMBIN TIME 16.8 SEC (9.3-11.0)
[2021-09-08] MEDS: LIDOCAINE HCL 1% SDV IM SCH (08:47)
[2021-09-08] MEDS: ROCEPHIN 1 GM VIAL IM SCH (08:48)
[2021-09-08] MEDS: TOPROL XL PO SCH (08:48)
[2021-09-08] MEDS: VITAMIN D PO SCH (08:48)
[2021-09-08] MEDS: KEPPRA PO SCH ×2 (08:49→20:54)
[2021-09-08] MEDS: FERROUS SULFATE PO SCH (08:49)
[2021-09-08] MEDS: K-DUR PO SCH (08:49)
[2021-09-08] MEDS: COZAAR PO SCH (08:49)
[2021-09-08] MEDS: LASIX TAB PO SCH (08:49)
[2021-09-08] MEDS: SINGULAIR PO SCH (08:50)
[2021-09-08] MEDS: CLARITIN PO SCH (08:50)
[2021-09-08] MEDS: FLONASE NAS SCH (08:50)
[2021-09-08] MEDS: IMDUR PO SCH (08:50)
[2021-09-08] MEDS: MULTIVITAMIN TABLET PO SCH (08:50)
[2021-09-08] MEDS: LIPASE PROTEASE AMYLASE PO SCH ×4 (09:03→20:54)
[2021-09-08] MEDS: [UNRECOGNIZED DRUG - OTHER] PO SCH ×4 (09:03→20:54)
[2021-09-08] MEDS: COUMADIN PO SCH (17:19)
[2021-09-08] MEDS: PERCOCET 7.5-325 PO PRN (20:53)
[2021-09-09 04:54] LABS: BASOPHILS % (AUTO) 0.8 % (0.0-3.0); EOSINOPHILS # (AUTO) 0.2 K/ul (0.0-0.7); EOSINOPHILS % (AUTO) 4.6 % (0.0-7.0); HEMATOCRIT 29.3 % (37.0-47.0); HEMOGLOBIN 9.5 g/dl (12.0-16.0); IMMATURE GRANULOCYTE % (AUTO) 0.8 % (0.0-5.0); LYMPHOCYTES % (AUTO) 20.4 (10.0-50.0); MEAN CORPUSCULAR HEMOGLOBIN 30.6 pg (27.0-31.0); MEAN CORPUSCULAR HGB CONC 32.4 (31.8-35.4); MEAN CORPUSCULAR VOLUME 94.5 fl (81.0-99.0); MONOCYTES # (AUTO) 0.7 K/uL (0.4-2.0); MONOCYTES % (AUTO) 14.2 (0-10); NEUTROPHILS % (AUTO) 59.2 % (42.2-75.2); PLATELET COUNT 181 10^3/uL (140-440); RDW COEFFICIENT OF VARIATION 13.4 % (11.6-14.8); WHITE BLOOD COUNT 5.01 K/ul (4.6-10.2)
[2021-09-09 05:07] LABS: ALANINE AMINOTRANSFERASE 29.3 U/L (0-35); ALBUMIN 3.38 g/dL (3.5-5.0); ALKALINE PHOSPHATASE 90.3 U/L (53-141); ASPARTATE AMINO TRANSFERASE 34.5 U/L (14-36); BILIRUBIN,TOTAL 0.43 mg/dL (0.2-1.3); BLOOD UREA NITROGEN 14.8 mg/dL (7-17); CALCIUM 8.94 mg/dL (8.4-10.2); CARBON DIOXIDE 31.7 mmol/L (22-30.0); CHLORIDE 101.4 mmol/L (98-107); CREATININE 0.98 mg/dL (0.60-1.30); GLUCOSE 91.8 mg/dL (74-106); POTASSIUM 4.01 mmol/L (3.5-5.1); SODIUM 133.8 mmol/L (134.5-145); TOTAL PROTEIN 6.23 g/dL (6.3-8.2)
[2021-09-09 05:10] LABS: PROTHROMBIN TIME 16.1 SEC (9.3-11.0)
[2021-09-09 05:26] VITALS: BP 109/61; TEMP 98.3
[2021-09-09] MEDS: PRILOSEC PO SCH (06:05)
[2021-09-09] MEDS: SYNTHROID PO SCH (06:05)
[2021-09-09] MEDS ORDERED: COUMADIN PO ONE ×2 (09:03→09:30)
[2021-09-09] MEDS: LIDOCAINE HCL 1% SDV IM SCH (09:16)
[2021-09-09] MEDS: ROCEPHIN 1 GM VIAL IM SCH (09:17)
[2021-09-09] MEDS: FERROUS SULFATE PO SCH (09:18)
[2021-09-09] MEDS: K-DUR PO SCH (09:18)
[2021-09-09] MEDS: SINGULAIR PO SCH (09:18)
[2021-09-09] MEDS: VITAMIN D PO SCH (09:19)
[2021-09-09] MEDS: LASIX TAB PO SCH (09:19)
[2021-09-09] MEDS: COZAAR PO SCH (09:20)
[2021-09-09] MEDS: TOPROL XL PO SCH (09:21)
[2021-09-09] MEDS: CLARITIN PO SCH (09:21)
[2021-09-09] MEDS: IMDUR PO SCH (09:22)
[2021-09-09] MEDS: MULTIVITAMIN TABLET PO SCH (09:22)
[2021-09-09] MEDS: KEPPRA PO SCH (09:22)
[2021-09-09] MEDS: [UNRECOGNIZED DRUG - OTHER] PO SCH (09:27)
[2021-09-09] MEDS: LIPASE PROTEASE AMYLASE PO SCH (09:27)
[2021-09-09] MEDS: FLONASE NAS SCH (09:27)
--- NOTE | 2021-09-09 09:40 | PCM.PROG ---
Attending Provider: ATTENDING PROVIDER: Dr. MELISSA GOINS This patient is seen with Charmaine Toussaint, Nurse Practitioner. DATE OF SERVICE: 09/09/21 SUBJECTIVE: This 81 year old /WHITE F was hospitalized 09/01/21. The patient is up and eating breakfast this morning. Definitely looking stronger. She has had a good weekend and ready to be discharged. REVIEW OF SYSTEMS: CONSTITUTIONAL: No night sweats. No fatigue, malaise, lethargy. No fever or chills. Weakness. HEENT: Eyes: No visual changes. No eye pain. No eye discharge. ENT: No runny nose. No epistaxis. No sinus pain. No odynophagia. No congestion. RESPIRATORY: No cough, no congestion. No hemoptysis. No shortness of breath. CARDIOVASCULAR: No angina symptoms. No CHF symptoms. No atypical chest pain for CAD. No palpitations. No orthopnea.. GASTROINTESTINAL: No abdominal pain. No nausea or vomiting. No diarrhea or constipation. No hematemesis. No hematochezia. GENITOURINARY: No urgency. No frequency. No dysuria. No hematuria. No obstructive symptoms. No discharge. No pain. No significant abnormal bleeding. MUSCULOSKELETAL: No musculoskeletal pain; no joint swelling. NEUROLOGICAL: Awake, alert, oriented to time, place and person. No headache. No neck pain. No syncope. No seizures. No dizziness. PSYCHIATRIC: Not anxious. No depression. No suicidal thoughts. No homicidal thoughts. SKIN: No rash. No lesions. No wounds. ENDOCRINE: No unexplained weight loss. No weight gain. HEMATOLOGIC/LYMPHATIC: No anemia. No purpura. No petechiae. No prolonged or excessive bleeding. No palpable lymph nodes. PHYSICAL EXAMINATION: GENERAL: The patient is awake, alert and oriented, sitting in bed in no distress. VITAL SIGNS: Temperature 98.3 F, Pulse 61, Respiratory Rate 16, BP 109/61, Pulse Ox 99% HEENT: Head normocephalic, atraumatic. Eyes: Extraocular muscles are intact. Pupils are equal, round and reactive to light and accommodation. Ears: No lesions. Nose appeared normal. Throat: No exudate or erythema. NECK: Supple. No JVD, no carotid bruit. No lymphadenopathy or thyromegaly. LUNGS: Diminished breath sounds. Clear to auscultation. Percussion note normal. Chest symmetrical. HEART: S1, S2, no S3. No murmurs. No cyanosis or clubbing. No ascites. Pulses: Dorsalis pedis and posterior tibial pulses +1 to +2 both sides. ABDOMEN: Soft. Non-tender. Bowel sounds active. No CVA tenderness. No mass felt. EXTREMITIES: No edema. Full range of motion of all extremities, equal. NEUROLOGIC: No focal deficit. Cranial nerves II through XII are grossly intact. No headache. No double vision. SKIN: Not dry. Intact. Turgor-normal. LYMPHATIC: No palpable lymph nodes/no lymphedema. MUSCULOSKELETAL: Normal joints with no swelling. Muscle tone is normal. LAB REVIEW: 09/09/21 04:30 09/09/21 04:30 09/09/21 04:30: WBC 5.01, RBC 3.10 L, Hgb 9.5 L, Hct 29.3 L, MCV 94.5, MCH 30.6, MCHC 32.4, RDW Coeff of Rehana 13.4, Plt Count 181, Immature Gran % (Auto) 0.8, Neut % (Auto) 59.2, Lymph % (Auto) 20.4, [place] % (Auto) 14.2 H, Eos % (Auto) 4.6, Baso % (Auto) 0.8, Neut # (Auto) 3.0, Lymph # (Auto) 1.0, [place] # (Auto) 0.7, Eos # (Auto) 0.2, Baso # (Auto) 0.0, Immature Gran # (Auto) 0.0 09/09/21 04:30: PT 16.1 H, INR 1.58 09/09/21 04:30: Sodium 133.8 L, Potassium 4.01, Chloride 101.4, Carbon Dioxide 31.7 H, Anion Gap 4.71, BUN 14.8, Creatinine 0.98, Estimated GFR (MDRD) 54.00, BUN/Creatinine Ratio 15.10, Glucose 91.8, Calcium 8.94, Total Bilirubin 0.43, AST 34.5, ALT 29.3, Alkaline Phosphatase 90.3, Total Protein 6.23 L, Albumin 3.38 L, Globulin 2.85, Albumin/Globulin Ratio 1.18 ASSESSMENT: Please see below. 1. UTI 2. Generalized weakness 3. Dehydration, improved 4. Atrial fibrillation 5. Hypotension, stable. PLAN: 1. Coumadin 5mg today 2. Continue medications as is 3. Discharge back to [facility] 4. PT/OT Plan and coordination of the patient's care discussed in the presence of Terrazzo Helper and nurse. SCRIBED BY: Keaton BURRELL scribed while in presence of service performed by Dr. Goins/Charmaine Toussaint APRN on 09/09/21 ([id number])
--- NOTE | 2021-09-10 08:27 | ECHO2D ---
Date of Exam: 09/05/2021 Ordering Physician: DR. MELISSA GOINS Room #: 110 Reason for Echo: WEAKNESS, ATRIAL FIB, CABG 2014 M-Mode Normal Adult Results LV Dimensions Normal Adult Results AoV Opening excursions >1.6 >1.6 LVEDD-base- 3.5-5.8 4.5 Ao root dimensions 2.0-3.7 3.6 LVESD-base- 3.1-4.6 L. Atrium dimensions 1.9-3.8 3.0 Post. Wall thickness 0.8-1.1 1.0 IV septum (thickness) 0.7-1.2 0.8 Post. Wall excursion 0.72-1.3 NORMAL Septal motion 0.2 Systolic motion R. Ventricular cavity 1.5-2.0 3.0 LVEF 60% 56% Paradoxical septal wall motion MAYBE 2-D : HYPOKINETIC TO PARADOXICAL SEPTAL MOTION, NORMAL VALVES, NO EFFUSION, NO THROMBUS, VALVES--NORMAL, SIZE OF LEFT VENTRICLE CAVITY IS NORMAL, ENLARGED LEFT ATRIAL AND RIGHT VENTRICLE CAVITIES M-MODE: MV: NORMAL AV: NORMAL TV: NORMAL PV: CHAMBER SIZE: ENLARGED LEFT ATRIAL AND RIGHT VENTRICLE CAVITIES WALL MOTION: HYPOKINETIC TO PARADOXICAL SEPTAL WALL MOTION PERICARDIUM: NORMAL INTERPRETATION: 1. ENLARGED LEFT ATRIAL AND RIGHT VENTRICLE CAVITIES 2. HYPOKINETIC TO PARADOXICAL SEPTAL WALL MOTION--EJECTION FRACTION 50-55% 3. NORMAL VALVES 4. NORMAL LEFT VENTRICLE SIZE MTDD
--- NOTE | 2021-09-10 08:54 | CM.DICTOOL ---
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 [place] DEPENDENT LEG EDEMA ISCHEMIA CARDIOMYOPATHY CAD DYSLIPIDEMIA COPD HYPERTENSION SURGICAL HX: LAST COLONOSCOPY 2013, SHE REFUSES A REPEAT PACEMAKER CABG TIMES 2, 1999 AND 2008 CHOLECYSTECTOMY HYSTERECTOMY APPENDECTOMY REFUSES COVID VACCINE LAST VITALS Temp Pulse Resp BP Pulse Ox 98.3 F 61 16 109/61 100 09/09/21 05:23 09/09/21 05:23 09/09/21 05:23 09/09/21 05:23 09/09/21 10:00 TAKE THESE MEDICATIONS AT HOME Albuterol Sulfate (Albuterol Sulfate (Ventolin Hfa) 18 Gm 1 Puff With Spacer) 2 puff IH Q4H PRN PRN Reason: Cough Alprazolam (Alprazolam 0.25 Mg Tablet) 0.25 mg PO BID PRN PRN Reason: Anxiety Last Admin: 09/04/21 21:48 Dose: 0.25 mg Atorvastatin Calcium (Atorvastatin Calcium 20 Mg Tablet) 40 mg PO BEDTIME [facility] Last Admin: 09/02/21 20:25 Dose: 40 mg Cholecalciferol (Cholecalciferol (Vitamin D3) 1,000 Unit (25 Mcg) Tablet) 2,000 unit PO DAILY [facility] Last Admin: 09/09/21 09:19 Dose: 2,000 unit Ferrous Sulfate (Ferrous Sulfate 324 Mg Tablet.Dr) 324 mg PO DAILY [facility] Last Admin: 09/09/21 09:18 Dose: 324 mg Fluticasone Propionate (Fluticasone Propionate 16 Gm Nasal [place]) 2 spray EDDIE DAILY [facility] Last Admin: 09/09/21 09:27 Dose: 2 spray Furosemide (Furosemide 20 Mg Tablet) 20 mg PO DAILY [facility] Last Admin: 09/09/21 09:19 Dose: 20 mg Isosorbide Mononitrate (Isosorbide Mononitrate 30 Mg Tab.Er.24h) 30 mg PO DAILY [facility] -- (CHANGED) Last Admin: 09/09/21 09:22 Dose: 30 mg Levetiracetam (Levetiracetam 500 Mg Tablet) 250 mg PO BID [facility] Last Admin: 09/09/21 09:22 Dose: 250 mg Levothyroxine Sodium (Levothyroxine Sodium 75 Mcg Tablet) 75 mcg PO QDAC [facility] Last Admin: 09/09/21 06:05 Dose: 75 mcg Losartan Potassium (Losartan Potassium 25 Mg Tablet) 12.5 mg PO DAILY [facility] -- (CHANGED) Last Admin: 09/09/21 09:20 Dose: 12.5 mg Metoclopramide HCl (Metoclopramide Hcl 10 Mg Tablet) 5 mg PO TID PRN PRN Reason: Heartburn Metoprolol Succinate (Metoprolol Succinate 25 Mg Tab.Er.24h) 12.5 mg PO DAILY [facility] -- (CHANGED) Last Admin: 09/09/21 09:21 Dose: 12.5 mg Montelukast Sodium (Montelukast Sodium 10 Mg Tablet) 10 mg PO DAILY [facility] Last Admin: 09/09/21 09:18 Dose: 10 mg Multivitamins (Multivitamin 1 Tab) 1 tab PO DAILY [facility] Last Admin: 09/09/21 09:22 Dose: 1 tab Non-Formulary Medication (Ottfgv-Archtppw-Quwsotw [Creon]) 6,000 units PO QID [facility] Last Admin: 09/09/21 09:27 Dose: Not Given Omeprazole (Omeprazole 20 Mg Capsule.Dr) 40 mg PO BIDAC [facility] Last Admin: 09/09/21 06:05 Dose: 40 mg Oxycodone/Acetaminophen (Oxycodone/Acetaminophen 7.5/325 Mg Tablet) 1 tab PO BID PRN PRN Reason: MODERATE PAIN Last Admin: 09/08/21 20:53 Dose: 1 tab Potassium Chloride (Potassium Chloride 20 Meq Tab) 20 meq PO DAILY [facility] Last Admin: 09/09/21 09:18 Dose: 20 meq ZYRTEC 10 MG PO DAILY WARFARIN 2 MG PO EVERY PM -- (CHANGED) ampicillin Adverse Reaction (Verified 12/04/20 10:57) levofloxacin Adverse Reaction (Verified 12/04/20 10:57) metronidazole Adverse Reaction (Verified 12/04/20 10:57) ondansetron Adverse Reaction (Verified 12/04/20 10:57) oxcarbazepine [From Trileptal] Adverse Reaction (Verified 12/04/20 10:57) piperacillin Adverse Reaction (Verified 12/04/20 10:57) rifaximin Adverse Reaction (Verified 12/04/20 10:57) sulbactam Adverse Reaction (Verified 12/04/20 10:57) Sulfa (Sulfonamide Antibiotics) Adverse Reaction (Verified 12/04/20 10:57) sulfacetamide Adverse Reaction (Verified 12/04/20 10:57) Difficulty Breathing sulfasalazine Adverse Reaction (Verified 12/04/20 10:57) Difficulty Breathing tazobactam Adverse Reaction (Verified 12/04/20 10:57) tramadol Adverse Reaction (Verified 12/04/20 10:57) IV contrast dye Adverse Reaction (Uncoded 10/13/20 16:53) DISCONTINUED MEDICATIONS 1). Losartan Potassium (Losartan Potassium 25 Mg Tablet) 25 mg PO DAILY [facility] 2). Metoprolol Succinate (Metoprolol Succinate 25 Mg Tab.Er.24h) 25 mg PO DAILY JOSEPH 3). Spironolactone (Spironolactone 25 Mg Tablet) 12.5 mg PO DAILY [facility] 4). Warfarin Sodium (Warfarin Sodium 1 Mg Tablet) 1 mg PO QPM [facility] 5). IMDUR 90 MG PO DAILY NEW PRESCRIPTIONS: 1). IMDUR (Isosorbide Mononitrate 30 Mg Tab.Er.24h) 30 mg PO DAILY [facility] -- (CHANGED) 2). COZAAR (Losartan Potassium 25 Mg Tablet) 12.5 mg PO DAILY [facility] -- (CHANGED) 3). LOPRESSOR (Metoprolol Succinate 25 Mg Tab.Er.24h) 12.5 mg PO DAILY [facility] -- (CHANGED) 4). COUMADIN (WARFARIN) 2 MG PO EVERY PM -- (CHANGED) SMOKING: N/A DISEASE SPECIFIC EDUCATION: COUMADIN BLEEDING PRECAUTIONS FALL PRECAUTIONS OXYGEN PRECAUTIONS UTI PANDEMIC PRECAUTIONS LAB REVIEW: 09/09/21 04:30 09/09/21 04:30 09/09/21 04:30: WBC 5.01, RBC 3.10 L, Hgb 9.5 L, Hct 29.3 L, MCV 94.5, MCH 30.6, MCHC 32.4, RDW Coeff of Rehana 13.4, Plt Count 181, Immature Gran % (Auto) 0.8, Neut % (Auto) 59.2, Lymph % (Auto) 20.4, [place] % (Auto) 14.2 H, Eos % (Auto) 4.6, Baso % (Auto) 0.8, Neut # (Auto) 3.0, Lymph # (Auto) 1.0, [place] # (Auto) 0.7, Eos # (Auto) 0.2, Baso # (Auto) 0.0, Immature Gran # (Auto) 0.0 09/09/21 04:30: PT 16.1 H, INR 1.58 09/09/21 04:30: Sodium 133.8 L, Potassium 4.01, Chloride 101.4, Carbon Dioxide 3 1.7 H, Anion Gap 4.71, BUN 14.8, Creatinine 0.98, Estimated GFR (MDRD) 54.00, BUN/Creatinine Ratio 15.10, Glucose 91.8, Calcium 8.94, Total Bilirubin 0.43, AST 34.5, ALT 29.3, Alkaline Phosphatase 90.3, Total Protein 6.23 L, Albumin 3.38 L, Globulin 2.85, Albumin/Globulin Ratio 1.18 PLAN: DISCHARGE : HOME TODAY SEPTEMBER 09, 2020 RETURNING TO [facility] DIET: 2 GRAM SODIUM DRINK AT LEAST 64 OUNCES OF WATER A DAY ENSURE PLUS 240 ML EVERY MORNING DIETARY CONSULT ACTIVITY: UP WITH WHEELED WALKER OR ROLLATOR AND ASSIST OF ONE UP IN CHAIR FOR MEALS PT AND OT TO EVAL AND TREAT OUTPATIENT : DX: R26.2,R26.81,M62.81 BLEEDING PRECAUTIONS, FALL PRECAUTIONS, OXYGEN PRECAUTIONS, SEIZURE PRECAUTIONS OXYGEN: CONTINUE 2 LITERS A MINUTE PER NASAL CANNULA BEFORE. CALL [facility] IF AN CONCERNS WITH EQUIPMENT [facility] [phone] FOLLOW-UP: SEE DR. GOINS/MIAH SERRANO APRN/ BETH IRWIN APRN IN THE OFFICE ON SEPTEMBER 17, 2021 @ 1115 AM CODE STATUS: DO NOT RESUSCITATE MRS VALLES IS ALERT AND ORIENTED X 4. SHE REMAINS PLEASANT AND TALKATIVE. LUNGS ARE CLEAR AND SLIGHTLY DIMINISHED. SHE HAS OXYGEN AT HOME AND CONTINUOS AT 2 L/M PER N/C AND PROVIDED PER [employer]. SHE STILL GETS UP SLOW, MOVES SLOW. WALKS WITH CGA OF ONE WITH RWX. SHE HAS SOME BACK PAIN AT TIMES AND IS MANAGED WITH BID PRN PERCOCETS. SHE FEEDS SELF AND HAS BEEN EATING 25 TO 50%, SUPPLEMENT ADDED. TOTAL PROTEIN AND ALBUMIN ARE UP TO 6.23 AND 3.38 RESPECTIVELY. SHE HAS SOME DRIBBLING OF URINE AND WEARS DEPENDS, CONTINENT OF BOWELS AND LAST BM 09/06/21. SHE LIVES AT AN ASSISTIVE LIVING IN THE SAME APARTMENT WITH HER DTR. MD MIAH MCINTYRE, MANUEL IRWIN APRN
--- NOTE | 2021-09-10 12:55 | PN ---
DATE OF SERVICE: 09/05/21 SUBJECTIVE: 81 year old white female hospitalized with UTI and dehydration. The patient's condition has improved. She is status post coronary bypass surgery. Cardiovascular status is stable. Her echo showed normal LV contractility. Valvular structures are normal, calcific mitral valve annulus noted. The patient was seen and examined with the Nurse Practitioner. TIME SPENT: More than 30 minutes. Plan and coordination of the patient's care discussed in the presence of nurse. ANN
--- NOTE | 2021-09-10 12:57 | PN ---
DATE OF SERVICE: 09/06/21 SUBJECTIVE: 81 year old white female was seen and examined with the Nurse Practitioner. The patient's condition is improving. Hydration status has improved. Hgb and hct is stable. Continue the same treatment for UTI with Ceftriaxone. TIME SPENT: More than 30 minutes. Plan and coordination of the patient's care discussed in the presence of nurse. ANN
--- NOTE | 2021-09-10 13:01 | PN ---
DATE OF SERVICE: 09/07/21 SUBJECTIVE: 81 year old white female hospitalized with UTI, weakness, fatigue and dehydration. The patient's condition steadily has improved. She is afebrile. REVIEW OF SYSTEMS: CONSTITUTIONAL: No night sweats. Fatigue and weakness maybe related to aging process. No fever or chills. HEENT: Eyes: No visual changes. No eye pain. No eye discharge. ENT: No runny nose. No epistaxis. No sinus pain. No sore throat. No odynophagia. No congestion. RESPIRATORY: No cough, no congestion. No hemoptysis. No shortness of breath. CARDIOVASCULAR: No angina symptoms. No CHF symptoms. No atypical chest pain for CAD. No palpitations. No PND. No orthopnea. GASTROINTESTINAL: No abdominal pain. No nausea or vomiting. No diarrhea or constipation. No hematemesis. No hematochezia. GENITOURINARY: No urgency. No frequency. No dysuria. No hematuria. No obstructive symptoms. No discharge. No pain. No significant abnormal bleeding. MUSCULOSKELETAL: No musculoskeletal pain; no joint swelling. NEUROLOGICAL: No headache. No neck pain. No syncope. No seizures. No dizziness. PSYCHIATRIC: Not anxious. No depression. No suicidal thoughts. No homicidal thoughts. SKIN: No rash. No lesions. No wounds. ENDOCRINE: No unexplained weight loss. No weight gain. HEMATOLOGIC/LYMPHATIC: No anemia. No purpura. No petechiae. No prolonged or excessive bleeding. No palpable lymph nodes. PHYSICAL EXAMINATION: VITAL SIGNS: Temperature 97.5, pulse 60, respiratory rate 16, blood pressure 120/60 and pulse ox 100% on room air. HEENT: Head normocephalic, atraumatic. Eyes: Extraocular muscles are intact. Pupils are equal, round and reactive to light and accommodation. Ears: No lesions. Nose appeared normal. Throat: No exudate or erythema. NECK: Supple. No JVD, no carotid bruit. No lymphadenopathy or thyromegaly. LUNGS: Decreased breath sounds but clear to auscultation. Percussion note normal. Chest symmetrical. HEART: S1, S2, no S3. No murmurs. No cyanosis or clubbing. No ascites. Pulses: Dorsalis pedis and posterior tibial pulses +1 to +2 bilaterally. ABDOMEN: Soft. Nontender. Bowel sounds active. No CVA tenderness. No mass felt. EXTREMITIES: No edema. Full range of motion of all extremities, equal. NEUROLOGIC: No focal deficit. Cranial nerves II through XII are grossly intact. No headache. No double vision. SKIN: Not dry. Intact. Turgor - normal. LYMPHATIC: No palpable lymph nodes/no lymphedema. MUSCULOSKELETAL: Normal joints with no swelling. Muscle tone is normal. LABS: hgb 9.7, hct 30, WBC 5,700 normal differential, creatinine ASSESSMENT: 1. UTI under control 2. Dehydration, resolved 3. Cardiovascular status stable. PLAN: 1. Echo showed normal LV contractility, valvular structures are normal. 2. Advised to continue antibiotics Ceftriaxone IM 3. Continue to encourage the patient to eat CONDITION: Improving. TIME SPENT: More than 30 minutes. Plan and coordination of the patient's care discussed in the presence of nurse. ANN
--- NOTE | 2021-09-10 13:05 | PN ---
DATE OF SERVICE: 09/08/21 SUBJECTIVE: 81 year old white female hospitalized with UTI and dehydration. The patient's condition is stable. She has multiple comorbid conditions like coronary bypass surgery, CHF. REVIEW OF SYSTEMS: CONSTITUTIONAL: No night sweats. No fatigue, malaise, lethargy. No fever or chills. HEENT: Eyes: No visual changes. No eye pain. No eye discharge. ENT: No runny nose. No epistaxis. No sinus pain. No sore throat. No odynophagia. No congestion. RESPIRATORY: No cough, no congestion. No hemoptysis. No shortness of breath. CARDIOVASCULAR: No angina symptoms. No CHF symptoms. No atypical chest pain for CAD. No palpitations. No PND. No orthopnea. GASTROINTESTINAL: No abdominal pain. No nausea or vomiting. No diarrhea or constipation. No hematemesis. No hematochezia. Appetite is normal. GENITOURINARY: No urgency. No frequency. No dysuria. No hematuria. No obstructive symptoms. No discharge. No pain. No significant abnormal bleeding. MUSCULOSKELETAL: No musculoskeletal pain; no joint swelling. NEUROLOGICAL: No headache. No neck pain. No syncope. No seizures. No dizziness. PSYCHIATRIC: Not anxious. No depression. No suicidal thoughts. No homicidal thoughts. SKIN: No rash. No lesions. No wounds. ENDOCRINE: No unexplained weight loss. No weight gain. HEMATOLOGIC/LYMPHATIC: No anemia. No purpura. No petechiae. No prolonged or excessive bleeding. No palpable lymph nodes. PHYSICAL EXAMINATION: VITAL SIGNS: Temperature 97, pulse 60, respiratory rate 18, blood pressure 101/60 and pulse ox 98% on room air. HEENT: Head normocephalic, atraumatic. Eyes: Extraocular muscles are intact. Pupils are equal, round and reactive to light and accommodation. Ears: No lesions. Nose appeared normal. Throat: No exudate or erythema. NECK: Supple. No JVD, no carotid bruit. No lymphadenopathy or thyromegaly. LUNGS: Decreased breath sounds but clear to auscultation. Percussion note normal. Chest symmetrical. HEART: S1, S2, no S3. No murmurs. No cyanosis or clubbing. No ascites. Pulses: Dorsalis pedis and posterior tibial pulses +1 to +2 bilaterally. ABDOMEN: Soft. Nontender. Bowel sounds active. No CVA tenderness. No mass felt. EXTREMITIES: No edema. Full range of motion of all extremities, equal. NEUROLOGIC: No focal deficit. Cranial nerves II through XII are grossly intact. No headache. No double vision. SKIN: Not dry. Intact. Turgor - normal. LYMPHATIC: No palpable lymph nodes/no lymphedema. MUSCULOSKELETAL: Normal joints with no swelling. Muscle tone is normal. LABS: Hgb 9.5, hct 29, WBC 5,100 normal differential, creatinine 0.9, BUN 14, potassium 4.1 ASSESSMENT: 1. UTI seems to be under control 2. Dehydration, resolved PLAN: 1. Continue the same treatment 2. Discharge the patient home tomorrow. 3. The patient is on multiple other medications with inhalers, statins, Lasix, nitrates, thyroid supplements and spironolactone. TIME SPENT: More than 30 minutes. Plan and coordination of the patient's care discussed in the presence of nurse. ANN
--- NOTE | 2021-09-10 13:17 | PN ---
DATE OF SERVICE: 09/09/21 SUBJECTIVE: The patient was seen and examined with the Nurse Practitioner. The patient's condition is stable. She is eating well. No fever and no chills. UTI under control. She is going to be discharged home antibiotics. E-coli sensitive to practically all antibiotics. Condition is stable. TIME SPENT: More than 30 minutes. Plan and coordination of the patient's care discussed in the presence of nurse. ANN
--- NOTE | 2021-09-10 13:17 | PN ---
09/01/21: Level 5 09/02/21: Intermediate 09/03/21: Intermediate 09/04/21: Intermediate 09/05/21: Intermediate 09/06/21: Intermediate 09/07/21: Intermediate 09/08/21: Intermediate 09/09/21: D as in discharge MTDD
--- NOTE | 2021-09-12 13:34 | DS ---
DATE OF SERVICE: 09/09/21 FINAL DIAGNOSIS: UTI GENERALIZED WEAKNESS DEHYDRATION, IMPROVED ATRIAL FIBRILLATION HYPOTENSION, STABLE ELEVATED LIVER ENZYMES, RESOLVED HISTORY: CHRONIC ANEMIA CHRONIC KIDNEY DISEASE STAGE 2 DIVERTICULOSIS KYPHOSIS WEARS A BACK BRACE AND SEES DR. 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 F[place]AIN DEPENDENT LEG EDEMA ISCHEMIA CARDIOMYOPATHY CAD DYSLIPIDEMIA COPD HYPERTENSION SURGICAL HX: LAST COLONOSCOPY 2013, SHE REFUSES A REPEAT PACEMAKER CABG TIMES , 1999 AND 2008 CHOLECYSTECTOMY HYSTERECTOMY APPENDECTOMY REFUSES COVID VACCINE LAST VITALS: Temp Pulse Resp BP Pulse Ox 98.3 F 61 16 109/61 100 09/09/21 05:23 09/09/21 05:23 09/09/21 05:23 09/09/21 05:23 09/09/21 10:00 DISCHARGE INSTRUCTIONS: DISCHARGE : HOME TODAY SEPTEMBER 09, 2020 RETURNING TO [facility]. OXYGEN: CONTINUE 2 LITERS A MINUTE PER NASAL CANNULA BEFORE. CALL [facility] IF AN CONCERNS WITH EQUIPMENT. [facility] [phone]. FOLLOW-UP: SEE DR. GOINS/MIAH SERRANO APRN/ BETH IRWIN APRN IN THE OFFICE ON SEPTEMBER 17, 2021 @ 1115 AM.CODE STATUS: DO NOT RESUSCITATE TAKE THESE MEDICATIONS AT HOME: Albuterol Sulfate (Albuterol Sulfate (Ventolin Hfa) 18 Gm 1 Puff With Spacer) 2 puff IH Q4H PRN PRN Reason: Cough Alprazolam (Alprazolam 0.25 Mg Tablet) 0.25 mg PO BID PRN PRN Reason: Anxiety Last Admin: 09/04/21 21:48 Dose: 0.25 mg Atorvastatin Calcium (Atorvastatin Calcium 20 Mg Tablet) 40 mg PO BEDTIME [facility] Last Admin: 09/02/21 20:25 Dose: 40 mg Cholecalciferol (Cholecalciferol (Vitamin D3) 1,000 Unit (25 Mcg) Tablet) 2,000 unit PO DAILY [facility] Last Admin: 09/09/21 09:19 Dose: 2,000 unit Ferrous Sulfate (Ferrous Sulfate 324 Mg Tablet.) 324 mg PO DAILY [facility] Last Admin: 09/09/21 09:18 Dose: 324 mg Fluticasone Propionate (Fluticasone Propionate 16 Gm Nasal [place]) 2 spray EDDIE DAILY [facility] Last Admin: 09/09/21 09:27 Dose: 2 spray Furosemide (Furosemide 20 Mg Tablet) 20 mg PO DAILY [facility] Last Admin: 09/09/21 09:19 Dose: 20 mg Isosorbide Mononitrate (Isosorbide Mononitrate 30 Mg Tab.Er.24h) 30 mg PO DAILY [facility] -- (CHANGED) Last Admin: 09/09/21 09:22 Dose: 30 mg Levetiracetam (Levetiracetam 500 Mg Tablet) 250 mg PO BID [facility] Last Admin: 09/09/21 09:22 Dose: 250 mg Levothyroxine Sodium (Levothyroxine Sodium 75 Mcg Tablet) 75 mcg PO QDAC [facility] Last Admin: 09/09/21 06:05 Dose: 75 mcg Losartan Potassium (Losartan Potassium 25 Mg Tablet) 12.5 mg PO DAILY [facility] -- (CHANGED) Last Admin: 09/09/21 09:20 Dose: 12.5 mg Metoclopramide HCl (Metoclopramide Hcl 10 Mg Tablet) 5 mg PO TID PRN PRN Reason: Heartburn Metoprolol Succinate (Metoprolol Succinate 25 Mg Tab.Er.24h) 12.5 mg PO DAILY [facility] -- (CHANGED) Last Admin: 09/09/21 09:21 Dose: 12.5 mg Montelukast Sodium (Montelukast Sodium 10 Mg Tablet) 10 mg PO DAILY [facility] Last Admin: 09/09/21 09:18 Dose: 10 mg Multivitamins (Multivitamin 1 Tab) 1 tab PO DAILY [facility] Last Admin: 09/09/21 09:22 Dose: 1 tab Non-Formulary Medication (Rcejha-Kqkrvjta-Zsvaobp [Creon]) 6,000 units PO QID [facility] Last Admin: 09/09/21 09:27 Dose: Not Given Omeprazole (Omeprazole 20 Mg Capsule.Dr) 40 mg PO BIDAC [facility] Last Admin: 09/09/21 06:05 Dose: 40 mg Oxycodone/Acetaminophen (Oxycodone/Acetaminophen 7.5/325 Mg Tablet) 1 tab PO BID PRN PRN Reason: MODERATE PAIN Last Admin: 09/08/21 20:53 Dose: 1 tab Potassium Chloride (Potassium Chloride 20 Meq Tab) 20 meq PO DAILY [facility] Last Admin: 09/09/21 09:18 Dose: 20 meq ZYRTEC 10 MG PO DAILY WARFARIN 2 MG PO EVERY PM -- (CHANGED) ampicillin Adverse Reaction (Verified 12/04/20 10:57) levofloxacin Adverse Reaction (Verified 12/04/20 10:57) metronidazole Adverse Reaction (Verified 12/04/20 10:57) ondansetron Adverse Reaction (Verified 12/04/20 10:57) oxcarbazepine [From Trileptal] Adverse Reaction (Verified 12/04/20 10:57) piperacillin Adverse Reaction (Verified 12/04/20 10:57) rifaximin Adverse Reaction (Verified 12/04/20 10:57) sulbactam Adverse Reaction (Verified 12/04/20 10:57) Sulfa (Sulfonamide Antibiotics) Adverse Reaction (Verified 12/04/20 10:57) sulfacetamide Adverse Reaction (Verified 12/04/20 10:57) Difficulty Breathing sulfasalazine Adverse Reaction (Verified 12/04/20 10:57) Difficulty Breathing tazobactam Adverse Reaction (Verified 12/04/20 10:57) tramadol Adverse Reaction (Verified 12/04/20 10:57) IV contrast dye Adverse Reaction (Uncoded 10/13/20 16:53) DISCONTINUED MEDICATIONS: 1). Losartan Potassium (Losartan Potassium 25 Mg Tablet) 25 mg PO DAILY JOSEPH 2). Metoprolol Succinate (Metoprolol Succinate 25 Mg Tab.Er.24h) 25 mg PO DAILY JOSEPH 3). Spironolactone (Spironolactone 25 Mg Tablet) 12.5 mg PO DAILY JOSEPH 4). Warfarin Sodium (Warfarin Sodium 1 Mg Tablet) 1 mg PO QPM JOSEPH 5). IMDUR 90 MG PO DAILY NEW PRESCRIPTIONS: 1). IMDUR (Isosorbide Mononitrate 30 Mg Tab.Er.24h) 30 mg PO DAILY [facility] -- (CHANGED) 2). COZAAR (Losartan Potassium 25 Mg Tablet) 12.5 mg PO DAILY [facility] -- (CHANGED) 3). LOPRESSOR (Metoprolol Succinate 25 Mg Tab.Er.24h) 12.5 mg PO DAILY [facility] -- (CHANGED) 4). COUMADIN (WARFARIN) 2 MG PO EVERY PM -- (CHANGED) SMOKING: N/A DISEASE SPECIFIC EDUCATION: COUMADIN BLEEDING PRECAUTIONS FALL PRECAUTIONS OXYGEN PRECAUTIONS UTI PANDEMIC PRECAUTIONS LAB REVIEW: 09/09/21 04:30 09/09/21 04:30 09/09/21 04:30: WBC 5.01, RBC 3.10 L, Hgb 9.5 L, Hct 29.3 L, MCV 94.5, MCH 30.6, MCHC 32.4, RDW Coeff of Rehana 13.4, Plt Count 181, Immature Gran % (Auto) 0.8, Neut % (Auto) 59.2, Lymph % (Auto) 20.4, [place] % (Auto) 14.2 H, Eos % (Auto) 4.6, Baso % (Auto) 0.8, Neut # (Auto) 3.0, Lymph # (Auto) 1.0, [place] # (Auto) 0.7, Eos # (Auto) 0.2, Baso # (Auto) 0.0, Immature Gran # (Auto) 0.0 09/09/21 04:30: PT 16.1 H, INR 1.58 09/09/21 04:30: Sodium 133.8 L, Potassium 4.01, Chloride 101.4, Carbon Dioxide 31.7 H, Anion Gap 4.71, BUN 14.8, Creatinine 0.98, Estimated GFR (MDRD) 54.00, BUN/Creatinine Ratio 15.10, Glucose 91.8, Calcium 8.94, Total Bilirubin 0.43, AST 34.5, ALT 29.3, Alkaline Phosphatase 90.3, Total Protein 6.23 L, Albumin 3.38 L, Globulin 2.85, Albumin/Globulin Ratio 1.18 DIET: 2 GRAM SODIUM DRINK AT LEAST 64 OUNCES OF WATER A DAY ENSURE PLUS 240 ML EVERY MORNING DIETARY CONSULT ACTIVITY: UP WITH WHEELED WALKER OR ROLLATOR AND ASSIST OF ONE UP IN CHAIR FOR MEALS PT AND OT TO EVAL AND TREAT OUTPATIENT : DX: R26.2,R26.81,M62.81 BLEEDING PRECAUTIONS, FALL PRECAUTIONS, OXYGEN PRECAUTIONS, SEIZURE PRECAUTIONS HOSPITAL COURSE: This is a white female who was admitted with generalized weakness and dehydration and found to have a UTI. She had been in the hospital twice within the past three weeks. She lives at Assisted Living with her daughter with MS. On the day of admission she was unable to stable, unable to walk on her own. She does have end stage COPD. She is on oxygen at 2 liters continuously. She was admitted urine culture showed E-coli that is sensitive to Rocephin. She has since received IV Rocephin and will go home on Keflex 500mg TID for the next 5 days. She did work with physical therapy some however she is not a candidate for swing because she did refuse and was not as open to doing physical therapy for swing bed placement. She is agreeable to Home Health coming in at the assisted living facility. She did have hypotension initially despite IV fluids we decreased her Imdur, decreased her Losartan, decreased her Metoprolol all of which have improved. Today she is sitting up in bed, voice is strongly and she has been eating well. She has been up and about with assistance of a roller walker. She will discharged back to assisted living in stable condition. We will followup at the office. TIME SPENT: More than 60 minutes. ANN
== END 2021-09-09 13:25 | disposition home or self-care (01) | DRG 690 ==
LOC: ED 13:04 → MEDSURG A 16:50
PROVIDERS: ADMIT Internal Medicine; ATTEND Internal Medicine
DX: E78.5 Hyperlipidemia, unspecified; N39.0 Urinary tract infection, site not specified; Z79.01 Long term (current) use of anticoagulants; I50.9 Heart failure, unspecified; R62.7 Adult failure to thrive; Z95.0 Presence of cardiac pacemaker; J44.9 Chronic obstructive pulmonary disease, unspecified; I25.810 Atherosclerosis of coronary artery bypass graft(s) without angina pectoris; I48.91 Unspecified atrial fibrillation; E86.0 Dehydration; R53.1 Weakness; R94.5 Abnormal results of liver function studies; Z20.822 Contact with and (suspected) exposure to COVID-19; Z79.899 Other long term (current) drug therapy; D64.9 Anemia, unspecified; N18.2 Chronic kidney disease, stage 2 (mild); B96.20 Unspecified Escherichia coli [E. coli] as the cause of diseases classified elsewhere

== ENCOUNTER 2021-10-16 11:00 | Inpatient (IN) ==
--- NOTE | 2021-10-16 11:23 | ED.PDOC ---
General ED Provider: Dr. MELITON JACKSON Chief Complaint: Abnormal Labs Stated Complaint: On coumadin at the assisted. INR about 8 today, no bleeding reported. Sent to ER by Dr. Herrera due to lethargy. Dx with COVID 6 days ago. No cough or fever reported. No vomiting or diarrhea. DNR. Time Seen by Provider: 10/16/21 11:22 Mode of Arrival: Ambulance Information Source: [facility] Exam Limitations: Clinical condition and Altered mental status Primary Care Provider: MELISSA HERRERA Referred to ED by: PCP Nursing and Triage Documentation Reviewed and Agree: Yes Does patient meet sepsis criteria?: No System Inflammatory Response Syndrome: Not Applicable Sepsis Protocol: For patient's 13 years and over: Temp is 96.8 and below OR 101 and greater Pulse >90 BPM Resp >20/minute Acutely Altered Mental Status Are patient's symptoms suggestive of a new infection, such as: -Pneumonia -Skin, Soft Tissue -Endocarditis -UTI -Bone, Joint Infection -Implantable Device -Acute Abdominal Infection -Wound Infection -Meningitis -Blood Stream Catheter Infection -Unknown Miscellaneous Complaint Exam Complex/Multi-System Complaint/Exam Onset/Duration: few d, worse today Symptoms Are: Worse Initial Severity: Mild Current Severity: Moderate Location of Pain: none reported Associated Signs and Symptoms: Reports Decreased responsiveness, Weakness and Anticoagulation Therapy Related History: Recent Illness (COVID) Recent Echo/LV Function: No Respiratory Distress: None JVD Present: No Tachypnea Present: No Stridor Present: No Glascow Coma Scale (see protocol): 12 Meningeal Signs Positive: No Focal Weakness: Present None Focal Sensory Loss: Present None Gait: Unable Gag Reflex Present: Yes Skin Findings: Present Normal findings Joint Swelling Present: No In-Dwelling Device Present: No Review of Systems Review Of Systems Constitutional: Reports Malaise and Weakness Eyes: Reports No symptoms Ears, Nose, Mouth, Throat: Reports No symptoms Respiratory: Reports No symptoms Cardiac: Reports No symptoms GI: Reports No symptoms : Reports No symptoms Musculoskeletal: Reports No symptoms Skin: Reports No symptoms Neurological: Reports Cognitive dysfunction Endocrine: Reports No symptoms Hematologic/Lymphatic: Reports No symptoms All Other Systems: Reviewed and Negative (ROS difficult due to mental status) [facility] Medical History A-fib Anemia Anxiety CAD (coronary artery disease) CKD (chronic kidney disease) Compression fracture of spine COPD (chronic obstructive pulmonary disease) Degenerative joint disease of spine Dyslipidemia Gait difficulty GERD (gastroesophageal reflux disease) H/O cholecystitis Hiatal hernia HTN (hypertension) Hypothyroidism Kyphosis [place] (myocardial infarction) Osteoarthritis Osteoporosis Pacemaker Pain management Seizures Thoracic compression fracture Family History Mother Stroke Osteoporosis Arthritis of both knees FATHER Arthritis FATHER Heart attack Social History Smoking and tobacco status: Never smoker Alcohol intake: never Household members: children Housing: assisted living facility Lives independently: No History of recent travel: No Surgical History History of hysterectomy History of kidney surgery Female Reproductive History Menstrual Hx Hysterectomy: No Hx Tubal Ligation: No Physical Exam Physical Exam Appearance: Reports Ill-appearing Ill-appearing: Moderate Pain Distress: None Eyes: Reports JOSE ENT: Reports Oropharynx normal Neck: Supple Respiratory: Reports Airway patent and Breath sounds clear Cardiovascular: Reports RRR and Pulses normal GI/: Reports Soft and Nontender Musculoskeletal: Reports Limited ROM and Limited strength Skin: Reports Warm and Dry Neurological: Reports Disoriented and Alert to pain Psychiatric: Reports Not Examined Interpretation Radiology Interpretation Radiology Interpretation By: Radiologist Radiology Results: No acute changes Exam Interpreted: CT Scan Xray Comments: Head - chronic changes Radiology Interpretation By: Radiologist Radiology Results: No acute changes Exam Interpreted: Portable CXR EKG Interpretation Time of EKG #1: 12:07 Rate: Normal Rhythm: Sinus Ectopy: None [place]: NL ST Segment: Normal Physician Notification Case Discussed Physician Notified: Dr. Herrera Time of Notification: 15:00 Comments: He would Cobb placed, admit to tele, he will order labs, etc. DNR. Critical Care Note Critical Care Note Total Critical Care Time (mins): 0 Course Course Hematology/Chemistry: 10/16/21 12:08 10/16/21 12:08 Orders, Labs, Meds: Lab Review 10/16/21 10/16/21 10/16/21 12:08 12:08 12:08 WBC 7.75 RBC 3.93 L Hgb 12.0 Hct 35.2 L MCV 89.6 MCH 30.5 MCHC 34.1 RDW Coeff of Rehana 13.2 Plt Count 179 Immature Gran % (Auto) 1.0 Neut % (Auto) 89.2 H Lymph % (Auto) 5.3 L [place] % (Auto) 4.4 Eos % (Auto) 0.0 Baso % (Auto) 0.1 Neut # (Auto) 6.9 Lymph # (Auto) 0.4 L [place] # (Auto) 0.3 L Eos # (Auto) 0.0 Baso # (Auto) 0.0 Immature Gran # (Auto) 0.1 PT 94.5 H D INR 10.15 H* Sodium 134.0 L Potassium 5.60 H Chloride 105.0 Carbon Dioxide 17.0 L Anion Gap 17.60 BUN 26.0 H Creatinine 0.90 Estimated GFR (MDRD) 60.00 BUN/Creatinine Ratio 28.88 Glucose 116.0 H Calcium 9.20 Total Bilirubin 0.70 AST 44.0 H ALT 23.0 Alkaline Phosphatase 156.0 H Troponin I 0.012 Total Protein 7.30 Albumin 3.70 Globulin 3.60 Albumin/Globulin Ratio 1.02 Orders Category Date Time Status EKG-(ED ONLY) Stat CARDIO 10/16/21 11:38 Completed CBC W/ AUTO DIFF Stat LAB 10/16/21 12:08 Completed COMPREHENSIVE METABOLIC PANEL Stat LAB 10/16/21 12:08 Completed PT WITH INR Stat LAB 10/16/21 12:08 Completed TROPONIN I Stat LAB 10/16/21 12:08 Completed Phytonadione Inj [Vitamin K] MEDS 10/16/21 15:04 Discontinued 10 mg IM ONCE ONE CHEST, 1V AP ONLY Stat RADS 10/16/21 11:[address] HEAD W/O CONTRAST Stat RADS 10/16/21 13:21 Completed Medications Generic Name Dose Route Start Last Admin Trade Name Freq PRN Reason Stop Dose Admin Acetaminophen 650 mg 10/16/21 16:20 Acetaminophen 325 Mg Tablet PO Q4H PRN Headache Acetaminophen 650 mg 10/16/21 17:38 Acetaminophen 325 Mg Tablet PO Q4H PRN Headache Albuterol Sulfate 2 puff 10/16/21 21:00 Albuterol Sulfate (Ventolin Hfa) 18 Gm 1 Puff With Spacer IH TID JOSEPH Atropine Sulfate 0.5 mg 10/16/21 17:38 Atropine Sulfate Inj 1 Mg/10 Ml Disp.Syrin IVP ONCE PRN Symptomatic Bradycardia Budesonide/Formoterol Fumarate 2 puff 10/16/21 21:00 10/16/21 20:11 Budesonide/Formoterol Fumarate 160/4.5 Mcg Inhaler IH 2 puff BID JOESPH Administration Cholecalciferol 5,000 unit 10/17/21 09:00 Cholecalciferol (Vitamin D3) 1,000 Unit (25 Mcg) Tablet PO DAILY JOSEPH Dexamethasone Sodium Phosphate 6 mg 10/17/21 21:00 Dexamethasone Sod Phos 10 Mg/Ml Inj IM DAILY JOSEPH Famotidine 40 mg 10/17/21 06:30 Famotidine 20 Mg Tablet PO BIDAC JOSEPH Sodium Chloride 1,000 mls @ 75 mls/hr 10/16/21 17:00 10/16/21 17:14 Sodium Chloride IV 75 mls/hr .[id number] JOSEPH Administration Nitroglycerin 0.4 mg 10/16/21 17:38 Nitroglycerin 0.4 Mg Tab.Subl SL Q5MIN X 3 DOSES PRN Chest Pain Sodium Chloride 1 syr 10/16/21 21:00 10/16/21 20:11 0.9% Sodium Chloride 10 Ml Disp.Syrin IVF Not Given Q8HR JOSEPH Zinc Sulfate 220 mg 10/17/21 09:00 Zinc Sulfate 220 Mg Capsule PO DAILY JOSEPH Discontinued Medications Generic Name Dose Route Start Last Admin Trade Name Freq PRN Reason Stop Dose Admin REMDESIVIR SOLUTION 200 mg/ 290 mls @ 145 mls/hr 10/16/21 17:35 10/16/21 17:41 Sodium Chloride IV 10/16/21 19:34 Not Given ONCE ONE Phytonadione 10 mg 10/16/21 15:04 10/16/21 15:20 Phytonadione Inj 10 Mg/Ml Amp IM 10/16/21 15:05 10 mg ONCE ONE Administration Vital Signs: Temp Pulse Resp BP Pulse Ox 10/16/21 11:14 97.4 F L 67 22 132/76 99 Discharge Plan Discharge Patient Disposition: ADMITTED INPATIENT Discharge Problem: Elevated INR ED Provider: MELITON JACKSON Condition: Fair Physician Progress Note: [Unclear as to exact etiology of diminished mental status. Admit.]
[2021-10-16 12:12] LABS: BASOPHILS % (AUTO) 0.1 % (0.0-3.0); HEMATOCRIT 35.2 % (37.0-47.0); IMMATURE GRANULOCYTE # (AUTO) 0.1 (0.0-1.0); LYMPHOCYTES # (AUTO) 0.4 K/uL (0.60-3.4); LYMPHOCYTES % (AUTO) 5.3 (10.0-50.0); MEAN CORPUSCULAR HEMOGLOBIN 30.5 pg (27.0-31.0); MEAN CORPUSCULAR HGB CONC 34.1 (31.8-35.4); MEAN CORPUSCULAR VOLUME 89.6 fl (81.0-99.0); MONOCYTES # (AUTO) 0.3 K/uL (0.4-2.0); MONOCYTES % (AUTO) 4.4 (0-10); NEUTROPHILS # (AUTO) 6.9 K/ul (2.0-6.9); NEUTROPHILS % (AUTO) 89.2 % (42.2-75.2); PLATELET COUNT 179 10^3/uL (140-440); RDW COEFFICIENT OF VARIATION 13.2 % (11.6-14.8); RED BLOOD COUNT 3.93 10^6/ul (4.20-5.40); WHITE BLOOD COUNT 7.75 K/ul (4.6-10.2)
[2021-10-16 12:26] LABS: ALBUMIN 3.7 g/dL (3.5-5.0); BILIRUBIN,TOTAL 0.7 mg/dL (0.2-1.3); CALCIUM 9.2 mg/dL (8.4-10.2); CREATININE 0.9 mg/dL (0.60-1.30); POTASSIUM 5.6 mmol/L (3.5-5.1); TOTAL PROTEIN 7.3 g/dL (6.3-8.2)
[2021-10-16 12:48] LABS: TROPONIN I 0.012 ng/ml (0.0000-0.120)
--- NOTE | 2021-10-16 12:53 | DI ---
EXAM: Single AP view of the chest 10/16/2021 HISTORY: Cough. COMPARISON: 09/01/2021. FINDINGS: There is a stable left-sided dual lead pacemaker. There is questionable trace left pleural effusion, with adjacent atelectasis/consolidation. There is hyperinflation of the lungs, which could be seen in COPD. The trachea is midline. The cardiomediastinal silhouette is enlarged. There are median sternotomy w ires. The osseous structures are unchanged. There has been prior vertebroplasty of a lower thoracic verteb ra. IMPRESSIONS: 1. Questionable trace left pleural effusion, with adjacent atelectasis/consolidation. 2. Cardiomegaly. 3. COPD changes.
[2021-10-16 13:19] LABS: PROTHROMBIN TIME 94.5 SEC (9.3-11.0)
--- NOTE | 2021-10-16 14:23 | CT ---
EXAM: Brain CT without contrast 10/16/2021 INDICATION: Altered mental status. COMPARISON: Brain CT dated 09/13/2021. TECHNIQUE: Unenhanced CT of the head was performed from the skull base to the vertex. FINDINGS: No intracranial hemorrhage or extra-axial collection. No mass, mass effect or midline shift. The sagastume -white matter differentiation is preserved. There are patchy subcortical and periventricular white ma tter hypodensities, most commonly seen in chronic white matter microvascular ischemic changes. The v entricles are normal in size. There is moderate cerebral parenchymal volume loss. The basal cistern s are patent. The visualized paranasal sinuses and mastoid air cells are clear. There has been prio r bilateral cataract surgery. The visualized osseous structures are unremarkable. IMPRESSION: 1. No acute intracranial findings. 2. Senescent changes as above. All CT scans are performed using dose optimization techniques as appropriate to the performed exam an d include at least one of the following: Automated exposure control, adjustment of the mA and/or kV according t o size, and the use of iterative reconstruction technique.
[2021-10-16] MEDS ORDERED: VITAMIN K SUBCUT ONE (14:57)
[2021-10-16] MEDS ORDERED: VITAMIN K IM ONE (15:04)
[2021-10-16] MEDS ORDERED: URO-JET MUCOUSMEMB STA (15:16)
[2021-10-16 15:24] LABS: BILIRUBIN,URINE 1+ (NEGATIVE); CLARITY,URINE Clear (CLEAR); COLOR,URINE Yellow (YELLOW); GLUCOSE, URINE (UA) Negative (NEGATIVE); KETONES,URINE 1+ (NEGATIVE); LEUKOCYTE ESTERASE ,URINE Negative (NEGATIVE); NITRITE,URINE Negative (NEGATIVE); PH,URINE 5.5 (5-9); PROTEIN,URINE 1+ (NEGATIVE); URINE, BLOOD Negative (NEGATIVE); UROBILINOGEN,URINE 0.2 (0.2)
[2021-10-16 15:29] LABS: MUCUS,URINE 1+ (NOT PRESENT); URINE RBC, MICROSCOPIC 0-2 (0-2)
[2021-10-16 16:07] VITALS: BMI 18.4
[2021-10-16] MEDS ORDERED: TYLENOL PO PRN ×2 (16:20→17:38)
[2021-10-16] MEDS ORDERED: ATROPINE SULFATE PFS IVP PRN ×2 (16:20→17:38)
[2021-10-16] MEDS ORDERED: NITROSTAT SL PRN ×2 (16:20→17:38)
[2021-10-16] MEDS ORDERED: SODIUM CHLORIDE 1,000 ML IV SCH (16:30)
[2021-10-16] MEDS: SODIUM CHLORIDE 1,000 ML IV SCH (17:14)
[2021-10-16] MEDS ORDERED: VEKLURY 200 MG in SODIUM CHLORIDE 250 ML IV ONE (17:35)
[2021-10-16] MEDS: SYMBICORT 160-4.5 MCG INHALER IH SCH (20:11)
[2021-10-16] MEDS: VENTOLIN HFA (PER PUFF-WITH SPACER) IH SCH (20:40)
[2021-10-16] MEDS ORDERED: VENTOLIN HFA (PER PUFF-WITH SPACER) IH SCH (21:00)
[2021-10-17] MEDS: PEPCID PO SCH ×2 (05:34→17:36)
[2021-10-17] MEDS: VENTOLIN HFA (PER PUFF-WITH SPACER) IH SCH ×3 (05:40→20:40)
[2021-10-17] MEDS: SODIUM CHLORIDE 1,000 ML IV SCH (05:53)
[2021-10-17 06:04] LABS: ABG PH 7.37 (7.35-7.45)
[2021-10-17 06:05] LABS: BEecf -5.1 (-2.0-3.0); COHb 2.4 (0.5-1.5); HCO3 20.2 (21-28); MetHb 0.9 (0-1.5); TCO2 21.3 (19-24); sO2 96.8 % (94-98); tHb 11.6 g/dl (11.7-17.4)
[2021-10-17 06:06] LABS: ABG O2 HGB 95.2 % (95-100)
[2021-10-17 07:07] LABS: EOSINOPHILS % (AUTO) 0.1 % (0.0-7.0); HEMATOCRIT 34.1 % (37.0-47.0); HEMOGLOBIN 11.5 g/dl (12.0-16.0); IMMATURE GRANULOCYTE # (AUTO) 0.1 (0.0-1.0); IMMATURE GRANULOCYTE % (AUTO) 0.9 % (0.0-5.0); LYMPHOCYTES # (AUTO) 0.6 K/uL (0.60-3.4); LYMPHOCYTES % (AUTO) 9.1 (10.0-50.0); MEAN CORPUSCULAR HEMOGLOBIN 30.6 pg (27.0-31.0); MEAN CORPUSCULAR HGB CONC 33.7 (31.8-35.4); MEAN CORPUSCULAR VOLUME 90.7 fl (81.0-99.0); MONOCYTES # (AUTO) 0.6 K/uL (0.4-2.0); MONOCYTES % (AUTO) 9.3 (0-10); NEUTROPHILS # (AUTO) 5.6 K/ul (2.0-6.9); NEUTROPHILS % (AUTO) 80.6 % (42.2-75.2); PLATELET COUNT 178 10^3/uL (140-440); RDW COEFFICIENT OF VARIATION 13.4 % (11.6-14.8); RED BLOOD COUNT 3.76 10^6/ul (4.20-5.40)
[2021-10-17 07:27] LABS: BLOOD UREA NITROGEN 27.2 mg/dL (7-17); CALCIUM 8.63 mg/dL (8.4-10.2); CARBON DIOXIDE 19.1 mmol/L (22-30.0); CHLORIDE 107.6 mmol/L (98-107); CREATININE 0.85 mg/dL (0.60-1.30); GLUCOSE 82.9 mg/dL (74-106); POTASSIUM 4.18 mmol/L (3.5-5.1); SODIUM 135.9 mmol/L (134.5-145)
[2021-10-17 07:39] LABS: PROTHROMBIN TIME 47.5 SEC (9.3-11.0); TROPONIN I < 0.012 ng/ml (0.0000-0.120)
[2021-10-17] MEDS: SYMBICORT 160-4.5 MCG INHALER IH SCH ×2 (08:28→21:12)
[2021-10-17] MEDS: VITAMIN D PO SCH (08:29)
[2021-10-17] MEDS: ZINC-220 PO SCH (08:31)
[2021-10-17] MEDS ORDERED: REGLAN PO PRN (08:56)
[2021-10-17] MEDS ORDERED: NON-FORMULARY MEDICATION (Ferrous Sulfate 325 MG tablet) PO SCH ×2 (09:00→09:30)
[2021-10-17] MEDS ORDERED: VEKLURY 200 MG in SODIUM CHLORIDE 250 ML IV ONE ×2 (09:00→12:00)
[2021-10-17 09:01] LABS: ALANINE AMINOTRANSFERASE 20.2 U/L (0-35); ALBUMIN 3.53 g/dL (3.5-5.0); ALKALINE PHOSPHATASE 150.8 U/L (53-141); ASPARTATE AMINO TRANSFERASE 39.6 U/L (14-36); BILIRUBIN,TOTAL 0.7 mg/dL (0.2-1.3); TOTAL PROTEIN 6.62 g/dL (6.3-8.2)
[2021-10-17] MEDS ORDERED: LASIX IVP ONE (09:06)
--- NOTE | 2021-10-17 09:16 | PCM.PROG ---
Attending Provider: ATTENDING PROVIDER: Dr. MELISSA GOINS This patient is seen with Charmaine Toussaint, Nurse Practitioner. DATE OF SERVICE: 10/17/21 SUBJECTIVE: This 81 year old /WHITE F was hospitalized 10/16/21. The patient is very weak. Vitals are stable. She is not eating. Some difficulty swallowing. She is on day 7 of COVID infection. Chest x-ray is normal and I believe this has effected her dementia somewhat. REVIEW OF SYSTEMS: CONSTITUTIONAL: No night sweats. No fatigue, malaise, lethargy. No fever or chills. Weakness. HEENT: Eyes: No visual changes. No eye pain. No eye discharge. ENT: No runny nose. No epistaxis. No sinus pain. No odynophagia. No congestion. RESPIRATORY: Cough, no congestion. No hemoptysis. Shortness of breath. CARDIOVASCULAR: No angina symptoms. No CHF symptoms. No atypical chest pain for CAD. No palpitations. No orthopnea.. GASTROINTESTINAL: No abdominal pain. No nausea or vomiting. No diarrhea or constipation. No hematemesis. No hematochezia. GENITOURINARY: No urgency. No frequency. No dysuria. No hematuria. No obstructive symptoms. No discharge. No pain. No significant abnormal bleeding. MUSCULOSKELETAL: No musculoskeletal pain; no joint swelling. NEUROLOGICAL: Awake, alert, oriented to time, place and person. No headache. No neck pain. No syncope. No seizures. No dizziness. PSYCHIATRIC: Not anxious. No depression. No suicidal thoughts. No homicidal thoughts. SKIN: No rash. No lesions. No wounds. ENDOCRINE: No unexplained weight loss. No weight gain. HEMATOLOGIC/LYMPHATIC: No anemia. No purpura. No petechiae. No prolonged or excessive bleeding. No palpable lymph nodes. PHYSICAL EXAMINATION: GENERAL: The patient is awake, alert and oriented, lying in bed in no distress. VITAL SIGNS: Temperature 97.9 F, Pulse 79, Respiratory Rate 14, BP 138/76, Pulse Ox 99% HEENT: Head normocephalic, atraumatic. Eyes: Extraocular muscles are intact. Pupils are equal, round and reactive to light and accommodation. Ears: No lesions. Nose appeared normal. Throat: No exudate or erythema. NECK: Supple. No JVD, no carotid bruit. No lymphadenopathy or thyromegaly. LUNGS: Severely diminished breath sounds. Bilateral rhonchi. Clear to auscultation. Percussion note normal. Chest symmetrical. HEART: S1, S2, no S3. No murmurs. No cyanosis or clubbing. No ascites. Pulses: Dorsalis pedis and posterior tibial pulses +1 to +2 both sides. ABDOMEN: Soft. Non-tender. Bowel sounds active. No CVA tenderness. No mass felt. EXTREMITIES: No edema. Full range of motion of all extremities, equal. NEUROLOGIC: No focal deficit. Cranial nerves II through XII are grossly intact. No headache. No double vision. SKIN: Not dry. Intact. Turgor-normal. Pallor LYMPHATIC: No palpable lymph nodes/no lymphedema. MUSCULOSKELETAL: Normal joints with no swelling. Muscle tone is normal. LAB REVIEW: 10/17/21 07:00 10/17/21 07:00 10/17/21 07:00: Sodium 135.9, Potassium 4.18, Chloride 107.6 H, Carbon Dioxide 19.1 L, Anion Gap 13.38, BUN 27.2 H, Creatinine 0.85, Estimated GFR (MDRD) 64.00, BUN/Creatinine Ratio 32.00, Glucose 82.9, Calcium 8.63, Troponin I < 0.012 10/17/21 07:00: PT 47.5 H D, INR 4.93 H* D 10/17/21 07:00: WBC 6.90, RBC 3.76 L, Hgb 11.5 L, Hct 34.1 L, MCV 90.7, MCH 30.6, MCHC 33.7, RDW Coeff of Rehana 13.4, Plt Count 178, Immature Gran % (Auto) 0.9, Neut % (Auto) 80.6 H, Lymph % (Auto) 9.1 L, [place] % (Auto) 9.3, Eos % (Auto) 0.1, Baso % (Auto) 0.0, Neut # (Auto) 5.6, Lymph # (Auto) 0.6, [place] # (Auto) 0.6, Eos # (Auto) 0.0, Baso # (Auto) 0.0, Immature Gran # (Auto) 0.1 10/17/21 05:15: Puncture Site Lbrach, Base Excess -5.1 L, O2 Saturation 96.8, ABG pH 7.37, ABG pCO2 35.0, ABG pO2 91.0, ABG HCO3 20.2 L, ABG Total CO2 21.3, [place] Test +, Hemoglobin 0.9, Oxyhemoglobin 95.2, Carboxyhemoglobin 2.4 H, Total Hemoglobin 11.6 L, O2 Delivery Device Nc, Oxygen Liter Flow 2.00 10/16/21 17:04: POC Venous Troponin I 0.02 10/16/21 16:46: Troponin I 0.014 10/16/21 15:15: Urine Color Yellow, Urine Clarity Clear, Urine pH 5.5, Ur Specific [place] 1.025, Urine Protein 1+ H, Urine Glucose (UA) Negative, Urine Ketones 1+ H, Urine Blood Negative, Urine Nitrite Negative, Urine Bilirubin 1+ H , Urine Urobilinogen 0.2, Ur Leukocyte Esterase Negative, Urine Microscopic RBC 0-2, Ur Squamous Epith Cells 2-5, Hyaline Casts 5-10, Urine Mucus 1+ 10/16/21 12:08: Sodium 134.0 L, Potassium 5.60 H, Chloride 105.0, Carbon Dioxide 17.0 L, Anion Gap 17.60, BUN 26.0 H, Creatinine 0.90, Estimated GFR (MDRD) 60.00, BUN/Creatinine Ratio 28.88, Glucose 116.0 H, Calcium 9.20, Total Bilirubin 0.70, AST 44.0 H, ALT 23.0, Alkaline Phosphatase 156.0 H, Troponin I 0.012, Total Protein 7.30, Albumin 3.70, Globulin 3.60, Albumin/Globulin Ratio 1.02 10/16/21 12:08: PT 94.5 H D, INR 10.15 H* 10/16/21 12:08: WBC 7.75, RBC 3.93 L, Hgb 12.0, Hct 35.2 L, MCV 89.6, MCH 30.5, MCHC 34.1, RDW Coeff of Rehana 13.2, Plt Count 179, Immature Gran % (Auto) 1.0, Neut % (Auto) 89.2 H, Lymph % (Auto) 5.3 L, [place] % (Auto) 4.4, Eos % (Auto) 0.0, Baso % (Auto) 0.1, Neut # (Auto) 6.9, Lymph # (Auto) 0.4 L, [place] # (Auto) 0.3 L, Eos # (Auto) 0.0, Baso # (Auto) 0.0, Immature Gran # (Auto) 0.1 ASSESSMENT: Please see below. 1. COVID 19 2. Hypercoagulopathy 3. End stage COPD 4. Dementia 5. Generalized weakness 6. Atrial fibrillation 7. CAD PLAN: 1. T4 TSH 2. CT of chest with and without 3. Incentive spirometer TID 4. 20mg IV Lasix 5. Doxycycline 100mg IV Q 12 6. Rocephin 1gram IV daily 7. Keppra level 8. Home medications reconciled 9. Ok to start Remdesivir Plan and coordination of the patient's care discussed in the presence of Drawing In Machine Tender and nurse. SCRIBED BY: NILSON ALBRIGHT Account Development Representative scribed while in presence of service performed by Dr. oGins/Charmaine Toussaint APRN on 10/17/21 ([id number])
[2021-10-17] MEDS: ROCEPHIN 1 GM/50 ML D5W 1 GM/50 ML BAG IV SCH (09:29)
[2021-10-17] MEDS: COZAAR PO SCH (09:48)
[2021-10-17] MEDS: KEPPRA PO SCH ×2 (09:48→20:57)
[2021-10-17] MEDS: IMDUR PO SCH (09:48)
[2021-10-17] MEDS: FERROUS SULFATE PO SCH (09:48)
[2021-10-17] MEDS: SYNTHROID PO SCH (09:48)
[2021-10-17] MEDS: PRILOSEC PO SCH ×2 (09:49→17:35)
[2021-10-17] MEDS: DOXY-100 100 MG in SODIUM CHLORIDE 100ML 100 ML IV SCH ×2 (10:19→20:57)
--- NOTE | 2021-10-17 11:40 | CT ---
EXAM: Chest CT without contrast 10/17/2021 HISTORY: Short of breath. TECHNIQUE: Axial CT images were obtained through the chest without the administration of intravenous contrast. Coronal and sagittal reformatted images were also submitted for interpretation. COMPARISON: Chest CT dated 07/19/2019. Chest radiographs dated 10/16/2021 FINDINGS: There is a left-sided dual lead pacemaker with leads terminating in the right atrium and right ventri jessica. There are bilateral emphysematous changes. There is a small left pleural effusion, with adjacent atelectasis/consolidation. There is right lowe r lobe atelectasis/consolidation. The heart size is enlarged without pericardial effusion. There are coronary artery calcifications. There are median sternotomy wires. The unenhanced thoracic aorta is normal in size. No pathologic lymphadenopathy is identified. There is a 5.6 cm hiatal hernia. There has been prior cholecystectomy. Calcified granulomas are noted in the spleen. There is exaggerated kyphotic curvature of the thoracic spine. There are chronic compression fractur e deformities of T6 through L1 vertebral bodies. There has been prior vertebroplasty of L1. IMPRESSION: 1. Small left pleural effusion, with adjacent atelectasis/pneumonia. 2. Right lower lobe atelectasis/pneumonia. 3. Bilateral emphysematous changes. 4. Large hiatal hernia. 5. Cardiomegaly. Coronary artery calcifications. 6. Chronic compression fracture deformities of T6 through L1 vertebral bodies, status post vertebropl asty of L1. All CT scans are performed using dose optimization techniques as appropriate to the performed exam an d include at least one of the following: Automated exposure control, adjustment of the mA and/or kV according t o size, and the use of iterative reconstruction technique.
--- NOTE | 2021-10-17 11:57 | HP ---
DATE OF SERVICE: 10/16/21 REASON FOR HOSPITALIZATION/HISTORY OF PRESENT ILLNESS: 81 year old white female who is on day 6 COVID and is a resident of [facility]. She has been on Coumadin mcfp for atrial fibrillation. On Thursday it was reported that her INR was 7.9 and today they reported to me that her INR is 10. She received the monoclonal antibody infusion last Thursday. No fever or cough noted but she does have chronic respiratory failure and has had some increased fatigue and lethargy. She is a DNR. PAST MEDICAL HISTORY: Chronic anemia Chronic kidney disease stage II Diverticulosis Kyphosis, wears back brace Severe degenerative disc disease of the spine History of seizure activity on Keppra Atrial fibrillation T12 compression fracture Osteoporosis Pacemaker Dependent leg edema Ischemia cardiomyopathy Coronary artery disease Dyslipidemia COPD Hypertension Chronic respiratory failure Atrial fibrillation Generalized weakness She is not vaccinated PAST SURGICAL HISTORY: Colonoscopy in 2013 Pacemaker CABG 2007 and 2008 Cholecystectomy Hysterectomy Appendectomy REVIEW OF SYSTEMS: CONSTITUTIONAL: No night sweats. Fatigue. No fever or chills. HEENT: Eyes: No visual changes. No eye pain. No eye discharge. ENT: No runny nose. No epistaxis. No sinus pain. No sore throat. No odynophagia. No ear pain. No congestion. RESPIRATORY: No cough, no congestion. No hemoptysis. Shortness of breath. CARDIOVASCULAR: No angina symptoms. No CHF symptoms. No atypical chest pain for CAD. No palpitations. No PND. No orthopnea. GASTROINTESTINAL: No abdominal pain. No nausea or vomiting. No diarrhea or constipation. No hematemesis. No hematochezia. GENITOURINARY: No urgency. No frequency. No dysuria. No hematuria. No obstructive symptoms. No discharge. No pain. No significant abnormal bleeding. MUSCULOSKELETAL: No musculoskeletal pain. No joint swelling. No arthritis. NEUROLOGICAL: No headache. No neck pain. No syncope. No seizures. No dizziness. Confusion. PSYCHIATRIC: Not anxious. No depression. No suicidal thoughts. No homicidal thoughts. SKIN: No rash. No lesions. No wounds. ENDOCRINE: No unexplained weight loss. No weight gain. HEMATOLOGIC/LYMPHATIC: No anemia. No purpura. No petechiae. No prolonged or excessive bleeding. No palpable lymph nodes. PERSONAL/FAMILY/SOCIAL HISTORY: She is . She recently just within the past month had been put in [facility]. Prior to that she was at assisted living with her daughter. Nonsmoker and no alcohol abuse or illicit drug use. MEDICATIONS: Vitamin D3 2000 unit PO daily Proair HFA two puffs inhalation Q 4 hours PRN Nitrostat 0.4mg sublingual Q 5 minutes times three doses PRN Singulair 10mg PO daily Keppra 250mg PO BID Incruse ellipta 62.5mcgy inhalation daily Lasix 20mg PO daily Fluticasone Propionate 2 sprays daily Creon 6000 units PO WID Lipitor 40mg PO bedtime Alprazolam 0.25mg PO BID Zyrtec 10mg PO daily Synthroid 75mcg PO QDAC Centrum Silver one PO daily Ferrous Sulfate 325mg PO daily Metoclopramide 5mg PO TID PRN Omeprazole 40mg PO BID Potassium Chloride 20MEQ PO daily Percocet 7.5-325mg PO BID PRN Isosorbide Mononitrate 30mg PO daily Cozaar 12.5mg PO daily Warfarin 2mg PO QPM Pepcid 40mg Po daily Prednisone 10mg PO BID Vitamin C 500mg PO daily Zinc Sulfate 220mg PO daily Milk of Magnesia 30ml PO bedtime PRN Metoprolol Tartrate 12.5mg PO daily Bisacodyl 10mg daily PRN Azithromycin 250mg PO daily ALLERGIES: Ampicillin Levofloxacin Metronidazole Ondansetron PHYSICAL EXAMINATION: GENERAL: The patient is alert. VITAL SIGNS: Saturation 99% on 2 liters, blood pressure 132/76, heart rate 67, respiratory rate 22, temperature 97.4. HEENT: Head normocephalic, atraumatic. Eyes: Extraocular muscles are intact. Pupils are equal, round and reactive to light and accommodation. Ears: No lesions. Nose appeared normal. Throat: No exudate or erythema. Pale. NECK: Supple. No JVD, no carotid bruit. No lymphadenopathy or thyromegaly. LUNGS: Diminished breath sounds with bilateral rhonchi. Clear to auscultation. Percussion note normal. Chest symmetrical. HEART: S1, S2, no S3. No murmur. No cyanosis or clubbing. No ascites. Pulses: Dorsalis pedis and posterior tibial pulses +1 to +2 bilaterally. ABDOMEN: Soft. Nontender. Bowel sounds active. No CVA tenderness. No mass felt. EXTREMITIES: No edema. Full range of motion of all extremities, equal. NEUROLOGIC: No focal deficit. Cranial nerves II through XII are grossly intact. No headache, no double vision or headache. Very Lethargic. SKIN: Not dry. Intact. Turgor - normal. LYMPHATIC: No palpable lymph nodes/no lymphedema. MUSCULOSKELETAL: Normal joints with no swelling. Muscle tone is normal. LABS: Chest x-ray shows questionable trace pleural effusion, adjacent atelectasis and consolidation, cardiomegaly. Urine 1+ bilirubin, 1+ blood, 1+protein. Sodium 134, potassium 5.6, BUN 26, creatinine 0.9, glucose 116.AST 44, ALT 23. Alkaline phosphatase 156. WBC 7.7, hgb 12, hct 35.2, plt count 179. INR 10.15. CT of the brain without shows no acute intracranial findings. ASSESSMENT: 1. Acute COVID 19 infection 2. Hypercoagulopathy 3. Atrial fibrillation 4. Change in mental status 5. Chronic respiratory failure 6. Hyperkalemia 7. Dehydration PLAN: 1. We will admit 2. Routine telemetry orders 3. CBC and CMP, INR daily 4. Continue hold Coumadin 5. The patient received 10mg of Vitamin K Im in the ER 6. We will start with COVID orders with LDH, D-Dimer, CRP, Sed rate, Ferritin level daily 7. Albuterol inhaler two puff TID scheduled 8. Symbicort 160mg two BID 9. Vitamin d 5000 PO daily 10.Decadron 6mg IM daily 11.Pepcid 40mg PO BID 12.Normal Saline IV at 75cc 13.Zinc 220 PO daily 14.Keppra level 15.Digoxin level 16.Will monitor for falls 17.CT of the chest with and without 18.ABG on 2 liters. 19.We will follow closely. TIME SPENT: More than 70 minutes. MTDD
[2021-10-17] MEDS: [UNRECOGNIZED DRUG - OTHER] PO SCH ×4 (12:58→21:15)
[2021-10-17] MEDS: LIPASE PROTEASE AMYLASE PO SCH ×4 (12:58→21:15)
[2021-10-17] MEDS: DECADRON IM SCH (20:56)
[2021-10-18] MEDS: SODIUM CHLORIDE 1,000 ML IV SCH ×2 (02:37→18:43)
[2021-10-18] MEDS: PERCOCET 7.5-325 PO PRN ×2 (02:40→21:53)
[2021-10-18 04:39] LABS: ABG O2 HGB 96.1 % (95-100); ABG PH 7.31 (7.35-7.45); BEecf -5.7 (-2.0-3.0); COHb 1.9 (0.5-1.5); HCO3 20.6 (21-28); MetHb 1.1 (0-1.5); TCO2 21.9 (19-24); sO2 98.9 % (94-98); tHb 18.4 g/dl (11.7-17.4)
[2021-10-18] MEDS: VENTOLIN HFA (PER PUFF-WITH SPACER) IH SCH ×3 (04:40→20:35)
[2021-10-18] MEDS: PEPCID PO SCH ×2 (05:43→17:15)
[2021-10-18] MEDS: PRILOSEC PO SCH ×2 (05:44→17:15)
[2021-10-18] MEDS: SYNTHROID PO SCH (05:44)
[2021-10-18] MEDS: FERROUS SULFATE PO SCH (05:44)
[2021-10-18 05:57] LABS: HEMATOCRIT 33.7 % (37.0-47.0); HEMOGLOBIN 11.2 g/dl (12.0-16.0); IMMATURE GRANULOCYTE % (AUTO) 0.8 % (0.0-5.0); LYMPHOCYTES # (AUTO) 0.2 K/uL (0.60-3.4); MEAN CORPUSCULAR HEMOGLOBIN 30.1 pg (27.0-31.0); MEAN CORPUSCULAR HGB CONC 33.2 (31.8-35.4); MEAN CORPUSCULAR VOLUME 90.6 fl (81.0-99.0); MONOCYTES # (AUTO) 0.1 K/uL (0.4-2.0); MONOCYTES % (AUTO) 1.1 (0-10); NEUTROPHILS # (AUTO) 4.9 K/ul (2.0-6.9); NEUTROPHILS % (AUTO) 94.1 % (42.2-75.2); PLATELET COUNT 179 10^3/uL (140-440); RDW COEFFICIENT OF VARIATION 13.2 % (11.6-14.8); RED BLOOD COUNT 3.72 10^6/ul (4.20-5.40); WHITE BLOOD COUNT 5.24 K/ul (4.6-10.2)
[2021-10-18 06:11] LABS: ALBUMIN 3.53 g/dL (3.5-5.0); ASPARTATE AMINO TRANSFERASE 38.5 U/L (14-36); BILIRUBIN,TOTAL 0.59 mg/dL (0.2-1.3); BLOOD UREA NITROGEN 23.4 mg/dL (7-17); CALCIUM 8.68 mg/dL (8.4-10.2); CARBON DIOXIDE 19.4 mmol/L (22-30.0); CHLORIDE 105.6 mmol/L (98-107); CREATININE 0.9 mg/dL (0.60-1.30); GLUCOSE 121.3 mg/dL (74-106); POTASSIUM 4.14 mmol/L (3.5-5.1); SODIUM 134.5 mmol/L (134.5-145); TOTAL PROTEIN 6.64 g/dL (6.3-8.2)
[2021-10-18 06:20] LABS: PROTHROMBIN TIME 14.9 SEC (9.3-11.0)
[2021-10-18 07:15] LABS: C-REACTIVE PROTEIN 9 mg/L (0-10)
[2021-10-18] MEDS: SYMBICORT 160-4.5 MCG INHALER IH SCH ×2 (08:21→20:47)
[2021-10-18] MEDS: KEPPRA PO SCH ×2 (08:21→20:45)
[2021-10-18] MEDS: VITAMIN D PO SCH (08:21)
[2021-10-18] MEDS: ZINC-220 PO SCH (08:21)
[2021-10-18] MEDS: COZAAR PO SCH (08:21)
[2021-10-18] MEDS: DECADRON IM SCH (08:22)
[2021-10-18] MEDS: ROCEPHIN 1 GM/50 ML D5W 1 GM/50 ML BAG IV SCH (08:22)
[2021-10-18] MEDS: LOPRESSOR PO SCH (08:22)
[2021-10-18] MEDS: IMDUR PO SCH (08:22)
[2021-10-18] MEDS: [UNRECOGNIZED DRUG - OTHER] PO SCH ×4 (08:23→20:45)
[2021-10-18] MEDS: LIPASE PROTEASE AMYLASE PO SCH ×4 (08:23→20:45)
--- NOTE | 2021-10-18 09:11 | PCM.PROG ---
Attending Provider: ATTENDING PROVIDER: Dr. MELISSA GOINS DATE OF SERVICE: 10/18/21 SUBJECTIVE: This 81 year old /WHITE F was hospitalized 10/16/21 with coagulopathy caused by Coumadin with high INR and altered mental status. The patient has COVID and was given antibodies recently. Over all mental condition has changed likely from combination of factors COVID being main one. She membles and chokes with oral intake. INR is 1.4 today after 10mg SUBCUT Vitamin K in the ER. We will hold her Coumadin because it may take longer for Vitamin K. The patient is just not responding and mainly just talks but barely able to hear her. Minimal urine output. Oral intake is not that good. On 75cc per hour on IV fluids. REVIEW OF SYSTEMS: CONSTITUTIONAL: No night sweats. No fatigue, malaise, lethargy. No fever or chills. HEENT: Eyes: No visual changes. No eye pain. No eye discharge. ENT: No runny nose. No epistaxis. No sinus pain. No odynophagia. No congestion. RESPIRATORY: No cough, no congestion. No hemoptysis. No shortness of breath. CARDIOVASCULAR: No angina symptoms. No CHF symptoms. No atypical chest pain for CAD. No palpitations. No orthopnea.. GASTROINTESTINAL: No abdominal pain. No nausea or vomiting. No diarrhea or constipation. No hematemesis. No hematochezia. GENITOURINARY: No urgency. No frequency. No dysuria. No hematuria. No obstructive symptoms. No discharge. No pain. No significant abnormal bleeding. MUSCULOSKELETAL: No musculoskeletal pain; no joint swelling. NEUROLOGICAL: Awake, alert, oriented to time, place and person. No headache. No neck pain. No syncope. No seizures. No dizziness. PSYCHIATRIC: Not anxious. No depression. No suicidal thoughts. No homicidal thoughts. SKIN: No rash. No lesions. No wounds. ENDOCRINE: No unexplained weight loss. No weight gain. HEMATOLOGIC/LYMPHATIC: No anemia. No purpura. No petechiae. No prolonged or excessive bleeding. No palpable lymph nodes. PHYSICAL EXAMINATION: GENERAL: The patient is awake, alert and oriented, lying in bed in no distress. VITAL SIGNS: Temperature 98.7 F, Pulse 83, Respiratory Rate 18, BP 122/64, Pulse Ox 99% HEENT: Head normocephalic, atraumatic. Eyes: Extraocular muscles are intact. Pupils are equal, round and reactive to light and accommodation. Ears: No lesions. Nose appeared normal. Throat: No exudate or erythema. NECK: Supple. No JVD, no carotid bruit. No lymphadenopathy or thyromegaly. LUNGS: Decreased breath sounds but clear to auscultation. Percussion note normal. Chest symmetrical. HEART: S1, S2, no S3. No murmurs. No cyanosis or clubbing. No ascites. Pulses: Dorsalis pedis and posterior tibial pulses +1 to +2 both sides. ABDOMEN: Soft. Non-tender. Bowel sounds active. No CVA tenderness. No mass felt. EXTREMITIES: No edema. Full range of motion of all extremities, equal. NEUROLOGIC: No focal deficit. Cranial nerves II through XII are grossly intact. No headache, no double vision or headache. SKIN: Warm and dry. Intact. Turgor-normal. Pale. LYMPHATIC: No palpable lymph nodes/no lymphedema. MUSCULOSKELETAL: Normal joints with no swelling. Muscle tone is normal. LAB REVIEW: 10/18/21 05:27 10/18/21 05:27 10/18/21 05:27: WBC 5.24, RBC 3.72 L, Hgb 11.2 L, Hct 33.7 L, MCV 90.6, MCH 30.1, MCHC 33.2, RDW Coeff of Rehana 13.2, Plt Count 179, Immature Gran % (Auto) 0.8, Neut % (Auto) 94.1 H, Lymph % (Auto) 4.0 L, [place] % (Auto) 1.1, Eos % (Auto) 0.0, Baso % (Auto) 0.0, Neut # (Auto) 4.9, Lymph # (Auto) 0.2 L, [place] # (Auto) 0.1 L, Eos # (Auto) 0.0, Baso # (Auto) 0.0, Immature Gran # (Auto) 0.0 10/18/21 05:27: PT 14.9 H D, INR 1.46 D 10/18/21 05:27: Sodium 134.5, Potassium 4.14, Chloride 105.6, Carbon Dioxide 19.4 L, Anion Gap 13.64, BUN 23.4 H, Creatinine 0.90, Estimated GFR (MDRD) 60.00, BUN/Creatinine Ratio 26.00, Glucose 121.3 H, Calcium 8.68, Ferritin 1450.00 H, Total Bilirubin 0.59, AST 38.5 H, ALT 19.0, Alkaline Phosphatase 154.0 H, Total Protein 6.64, Albumin 3.53, Globulin 3.11, Albumin/Globulin Ratio 1.13 10/18/21 04:34: Puncture Site Rb, Base Excess -5.7 L, O2 Saturation 98.9 H, ABG pH 7.31 L, ABG pCO2 41.0, ABG pO2 137.0 H, ABG HCO3 20.6 L, ABG Total CO2 21.9, [place] Test +, Hemoglobin 1.1, Oxyhemoglobin 96.1, Carboxyhemoglobin 1.9 H, Total Hemoglobin 18.4 H, O2 Delivery Device Cannula, Oxygen Liter Flow 2.00, FiO2 % 28.0 10/17/21 07:00: TSH 3.870 10/17/21 07:00: Free T4 1.24 10/17/21 07:00: Total Bilirubin 0.70, Direct Bilirubin 0.00, AST 39.6 H, ALT 20.2, Alkaline Phosphatase 150.8 H, Total Protein 6.62, Albumin 3.53 10/17/21 07:00: Lactate Dehydrogenase 259 H, C-Reactive Prot, Quant 9 10/17/21 06:00: Ferritin 1890.00 H ASSESSMENT: Please see below. 1. COVID 19 Dementia with generalized weakness 2. Coagulopathy from Coumadin seems to have resolved 3. Cardiovascular status is stable 4. Mental status has deteriorated. PLAN: 1. Continue IV fluids 2. Continue to encourage the patient to eat. Plan and coordination of the patient's care discussed in the presence of Residential Care Officer and nurse. Prognosis: Poor SCRIBED BY: NILSON ALBRIGHT, Keaton scribed while in presence of service performed by Dr. MELISSA GOINS on 10/18/21 ([id number])
[2021-10-18] MEDS: DOXY-100 100 MG in SODIUM CHLORIDE 100ML 100 ML IV SCH ×2 (09:51→20:44)
[2021-10-18] MEDS: LOVENOX SUBCUT SCH (09:51)
--- NOTE | 2021-10-18 10:56 | PN ---
DATE OF SERVICE: 10/17/21 SUBJECTIVE: The patient was seen and examined with the Nurse Practitioner. The patient's condition is stable. INR is coming down. No evidence of GI bleed. She is alert but not talking. Think she has suffered from COVID dementia. Her Cardiovascular status is stable. She is no CHF and angina. Prognosis poor. TIME SPENT: More than 30 minutes. Plan and coordination of the patient's care discussed in the presence of nurse. ANN
--- NOTE | 2021-10-18 11:04 | PN ---
DATE OF SERVICE: 10/16/21 SUBJECTIVE: 81 year old white female hospitalized through the halfway and she was more or less unresponsive. In fact originally she was sent to the emergency room because her INR was found to be more than 10. In the emergency room she had no evidence of active GI bleed. Mental status seems to have deteriorated. She has had recent COVID and was given antibodies. Overall mental status has deteriorated likely from COVID. The patient is dehydrated on physical exam otherwise the physical exam is unremarkable except for mental status. PLAN: 1. Give slow hydrate 75cc per hour normal saline 2. Rest of the medication we are unable to get. We will hold Coumadin and any blood thinners. 3. The patient got 10mg of SUBCUT Vitamin K. 4. Monitor INR and monitor the patient for bleeding. TIME SPENT: More than 30 minutes. Plan and coordination of the patient's care discussed in the presence of nurse. ANN
[2021-10-18] MEDS: VEKLURY 100 MG in SODIUM CHLORIDE 250 ML IV SCH (12:08)
[2021-10-19] MEDS: SODIUM CHLORIDE 1,000 ML IV SCH ×2 (05:12→14:31)
[2021-10-19] MEDS: VENTOLIN HFA (PER PUFF-WITH SPACER) IH SCH ×3 (05:30→20:15)
[2021-10-19] MEDS: PRILOSEC PO SCH ×2 (05:54→17:55)
[2021-10-19] MEDS: SYNTHROID PO SCH (05:54)
[2021-10-19] MEDS: PEPCID PO SCH ×2 (05:55→17:55)
[2021-10-19] MEDS: FERROUS SULFATE PO SCH (05:55)
[2021-10-19 06:12] LABS: HEMATOCRIT 32.3 % (37.0-47.0); HEMOGLOBIN 10.9 g/dl (12.0-16.0); IMMATURE GRANULOCYTE # (AUTO) 0.1 (0.0-1.0); IMMATURE GRANULOCYTE % (AUTO) 1.8 % (0.0-5.0); LYMPHOCYTES # (AUTO) 0.4 K/uL (0.60-3.4); LYMPHOCYTES % (AUTO) 6.3 (10.0-50.0); MEAN CORPUSCULAR HEMOGLOBIN 30.1 pg (27.0-31.0); MEAN CORPUSCULAR HGB CONC 33.7 (31.8-35.4); MEAN CORPUSCULAR VOLUME 89.2 fl (81.0-99.0); MONOCYTES # (AUTO) 0.5 K/uL (0.4-2.0); MONOCYTES % (AUTO) 8.7 (0-10); NEUTROPHILS # (AUTO) 4.6 K/ul (2.0-6.9); NEUTROPHILS % (AUTO) 83.2 % (42.2-75.2); PLATELET COUNT 185 10^3/uL (140-440); RDW COEFFICIENT OF VARIATION 13.2 % (11.6-14.8); RED BLOOD COUNT 3.62 10^6/ul (4.20-5.40); WHITE BLOOD COUNT 5.54 K/ul (4.6-10.2)
[2021-10-19 06:23] LABS: PROTHROMBIN TIME 16.1 SEC (9.3-11.0)
[2021-10-19 06:25] LABS: ALANINE AMINOTRANSFERASE 26.7 U/L (0-35); ALBUMIN 3.33 g/dL (3.5-5.0); ALKALINE PHOSPHATASE 140.7 U/L (53-141); ASPARTATE AMINO TRANSFERASE 45.6 U/L (14-36); BILIRUBIN,TOTAL 0.73 mg/dL (0.2-1.3); BLOOD UREA NITROGEN 22.1 mg/dL (7-17); CALCIUM 8.69 mg/dL (8.4-10.2); CHLORIDE 107.3 mmol/L (98-107); CREATININE 0.69 mg/dL (0.60-1.30); GLUCOSE 104.2 mg/dL (74-106); POTASSIUM 3.63 mmol/L (3.5-5.1); TOTAL PROTEIN 6.38 g/dL (6.3-8.2)
[2021-10-19] MEDS: DOXY-100 100 MG in SODIUM CHLORIDE 100ML 100 ML IV SCH ×2 (09:52→14:31)
[2021-10-19] MEDS: SYMBICORT 160-4.5 MCG INHALER IH SCH ×2 (09:52→20:50)
[2021-10-19] MEDS: PERCOCET 7.5-325 PO PRN ×2 (09:52→20:51)
[2021-10-19] MEDS: LOVENOX SUBCUT SCH (09:53)
[2021-10-19] MEDS: IMDUR PO SCH (09:53)
[2021-10-19] MEDS: VITAMIN D PO SCH (09:54)
[2021-10-19] MEDS: LOPRESSOR PO SCH ×2 (09:54→21:50)
[2021-10-19] MEDS: KEPPRA PO SCH ×2 (09:54→20:50)
[2021-10-19] MEDS: COZAAR PO SCH (09:54)
[2021-10-19] MEDS: ZINC-220 PO SCH (09:54)
[2021-10-19] MEDS: DECADRON IM SCH (09:55)
[2021-10-19] MEDS: LIPASE PROTEASE AMYLASE PO SCH ×4 (10:02→20:53)
[2021-10-19] MEDS: [UNRECOGNIZED DRUG - OTHER] PO SCH ×4 (10:02→20:53)
[2021-10-19] MEDS: ROCEPHIN 1 GM/50 ML D5W 1 GM/50 ML BAG IV SCH (14:31)
[2021-10-19] MEDS: VEKLURY 100 MG in SODIUM CHLORIDE 250 ML IV SCH (14:32)
[2021-10-19] MEDS ORDERED: LANOXIN IVP ONE (20:28)
[2021-10-19] MEDS ORDERED: LOPRESSOR IVP ONE (20:28)
[2021-10-19] MEDS: OMNICEF PO SCH (20:50)
[2021-10-19] MEDS: DOXYCYCLINE HYCLATE PO SCH (20:50)
[2021-10-20] MEDS: PERCOCET 7.5-325 PO PRN (02:20)
[2021-10-20] MEDS: VENTOLIN HFA (PER PUFF-WITH SPACER) IH SCH ×3 (05:20→20:11)
[2021-10-20 05:23] LABS: ALBUMIN 3.1 g/dL (3.5-5.0); ALKALINE PHOSPHATASE 139.7 U/L (53-141); ASPARTATE AMINO TRANSFERASE 50.5 U/L (14-36); BILIRUBIN,TOTAL 0.79 mg/dL (0.2-1.3); BLOOD UREA NITROGEN 21.7 mg/dL (7-17); CALCIUM 8.89 mg/dL (8.4-10.2); CARBON DIOXIDE 20.3 mmol/L (22-30.0); CHLORIDE 106.3 mmol/L (98-107); CREATININE 0.78 mg/dL (0.60-1.30); GLUCOSE 128.3 mg/dL (74-106); POTASSIUM 3.64 mmol/L (3.5-5.1); SODIUM 132.5 mmol/L (134.5-145); TOTAL PROTEIN 6.02 g/dL (6.3-8.2)
[2021-10-20 05:28] LABS: PROTHROMBIN TIME 16.5 SEC (9.3-11.0)
[2021-10-20] MEDS: PEPCID PO SCH ×2 (06:00→17:37)
[2021-10-20] MEDS: FERROUS SULFATE PO SCH (06:00)
[2021-10-20] MEDS: SYNTHROID PO SCH (06:00)
[2021-10-20] MEDS: PRILOSEC PO SCH ×2 (06:01→17:37)
[2021-10-20 06:40] LABS: HEMATOCRIT 31.3 % (37.0-47.0); HEMOGLOBIN 10.6 g/dl (12.0-16.0); IMMATURE GRANULOCYTE # (AUTO) 0.1 (0.0-1.0); IMMATURE GRANULOCYTE % (AUTO) 0.9 % (0.0-5.0); LYMPHOCYTES # (AUTO) 0.4 K/uL (0.60-3.4); LYMPHOCYTES % (AUTO) 7.5 (10.0-50.0); MEAN CORPUSCULAR HEMOGLOBIN 30.1 pg (27.0-31.0); MEAN CORPUSCULAR HGB CONC 33.9 (31.8-35.4); MEAN CORPUSCULAR VOLUME 88.9 fl (81.0-99.0); MONOCYTES # (AUTO) 0.5 K/uL (0.4-2.0); MONOCYTES % (AUTO) 9.6 (0-10); NEUTROPHILS # (AUTO) 4.5 K/ul (2.0-6.9); PLATELET COUNT 201 10^3/uL (140-440); RDW COEFFICIENT OF VARIATION 13.2 % (11.6-14.8); RED BLOOD COUNT 3.52 10^6/ul (4.20-5.40)
[2021-10-20] MEDS: SYMBICORT 160-4.5 MCG INHALER IH SCH ×2 (09:56→20:40)
[2021-10-20] MEDS: LOPRESSOR PO SCH ×2 (09:57→20:38)
[2021-10-20] MEDS: DOXYCYCLINE HYCLATE PO SCH ×2 (09:57→20:39)
[2021-10-20] MEDS: VITAMIN D PO SCH (09:57)
[2021-10-20] MEDS: OMNICEF PO SCH ×2 (09:57→20:39)
[2021-10-20] MEDS: IMDUR PO SCH (09:57)
[2021-10-20] MEDS: COZAAR PO SCH (09:57)
[2021-10-20] MEDS: DECADRON IM SCH (09:58)
[2021-10-20] MEDS: KEPPRA PO SCH ×2 (09:58→20:38)
[2021-10-20] MEDS: LIPASE PROTEASE AMYLASE PO SCH ×4 (10:02→20:40)
[2021-10-20] MEDS: ZINC-220 PO SCH (10:02)
[2021-10-20] MEDS: [UNRECOGNIZED DRUG - OTHER] PO SCH ×4 (10:02→20:40)
[2021-10-20] MEDS: LOVENOX SUBCUT SCH (10:02)
[2021-10-20] MEDS: XANAX PO SCH ×2 (15:33→20:39)
[2021-10-21] MEDS: PERCOCET 7.5-325 PO PRN (02:35)
[2021-10-21] MEDS: VENTOLIN HFA (PER PUFF-WITH SPACER) IH SCH ×3 (04:30→20:30)
[2021-10-21] MEDS: SYNTHROID PO SCH (05:34)
[2021-10-21] MEDS: PRILOSEC PO SCH ×2 (05:34→17:01)
[2021-10-21] MEDS: PEPCID PO SCH ×2 (05:34→17:01)
[2021-10-21] MEDS: FERROUS SULFATE PO SCH (05:34)
[2021-10-21 06:17] LABS: HEMATOCRIT 34.6 % (37.0-47.0); HEMOGLOBIN 11.7 g/dl (12.0-16.0); MEAN CORPUSCULAR HEMOGLOBIN 30.4 pg (27.0-31.0); MEAN CORPUSCULAR HGB CONC 33.8 (31.8-35.4); MEAN CORPUSCULAR VOLUME 89.9 fl (81.0-99.0); PLATELET COUNT 172 10^3/uL (140-440); RDW COEFFICIENT OF VARIATION 13.5 % (11.6-14.8); RED BLOOD COUNT 3.85 10^6/ul (4.20-5.40); WHITE BLOOD COUNT 3.82 K/ul (4.6-10.2)
[2021-10-21 06:24] LABS: ANISOCYTOSIS NOT PRESENT (NOT PRESENT)
[2021-10-21 06:34] LABS: ALBUMIN 3.21 g/dL (3.5-5.0); ALKALINE PHOSPHATASE 142.9 U/L (53-141); ASPARTATE AMINO TRANSFERASE 41.5 U/L (14-36); BILIRUBIN,TOTAL 0.75 mg/dL (0.2-1.3); BLOOD UREA NITROGEN 19.5 mg/dL (7-17); CALCIUM 8.69 mg/dL (8.4-10.2); CARBON DIOXIDE 27.4 mmol/L (22-30.0); CHLORIDE 103.1 mmol/L (98-107); CREATININE 0.82 mg/dL (0.60-1.30); GLUCOSE 89.6 mg/dL (74-106); POTASSIUM 3.25 mmol/L (3.5-5.1); PROTHROMBIN TIME 14.1 SEC (9.3-11.0); SODIUM 133.7 mmol/L (134.5-145); TOTAL PROTEIN 6.16 g/dL (6.3-8.2)
[2021-10-21] MEDS: IMDUR PO SCH (09:27)
[2021-10-21] MEDS: K-DUR PO SCH ×2 (09:28→17:01)
[2021-10-21] MEDS: LOPRESSOR PO SCH ×2 (09:28→20:15)
[2021-10-21] MEDS: VITAMIN D PO SCH (09:28)
[2021-10-21] MEDS: KEPPRA PO SCH ×2 (09:28→20:15)
[2021-10-21] MEDS: OMNICEF PO SCH ×2 (09:28→20:15)
[2021-10-21] MEDS: ZINC-220 PO SCH (09:28)
[2021-10-21] MEDS: XANAX PO SCH ×3 (09:28→20:15)
[2021-10-21] MEDS: DOXYCYCLINE HYCLATE PO SCH ×2 (09:29→20:15)
[2021-10-21] MEDS: COZAAR PO SCH (09:29)
[2021-10-21] MEDS: DECADRON IM SCH (09:29)
[2021-10-21] MEDS: SYMBICORT 160-4.5 MCG INHALER IH SCH ×2 (09:30→20:13)
[2021-10-21] MEDS: [UNRECOGNIZED DRUG - OTHER] PO SCH ×4 (09:31→20:13)
[2021-10-21] MEDS: LOVENOX SUBCUT SCH (09:31)
[2021-10-21] MEDS: LIPASE PROTEASE AMYLASE PO SCH ×4 (09:31→20:13)
[2021-10-21] MEDS: MIRALAX PO SCH (09:31)
--- NOTE | 2021-10-21 10:27 | PCM.PROG ---
Attending Provider: ATTENDING PROVIDER: Dr. MELISSA GOINS This patient is seen with Charmaine Toussaint, Nurse Practitioner. DATE OF SERVICE: 10/21/21 SUBJECTIVE: This 81 year old /WHITE F was hospitalized 10/16/21. The patient is not eating. Not doing much for herself. We have discussed this morning her poor prognosis if she continues to not eat or move. Labs are stable. Respiratory status is stable. REVIEW OF SYSTEMS: CONSTITUTIONAL: No night sweats. No fatigue, malaise, lethargy. No fever or chills. Weakness. HEENT: Eyes: No visual changes. No eye pain. No eye discharge. ENT: No runny nose. No epistaxis. No sinus pain. No odynophagia. No congestion. RESPIRATORY: No cough, no congestion. No hemoptysis. No shortness of breath. CARDIOVASCULAR: No angina symptoms. No CHF symptoms. No atypical chest pain for CAD. No palpitations. No orthopnea.. GASTROINTESTINAL: No abdominal pain. No nausea or vomiting. No diarrhea or constipation. No hematemesis. No hematochezia. Loss of appetite. GENITOURINARY: No urgency. No frequency. No dysuria. No hematuria. No obstruct nevin symptoms. No discharge. No pain. No significant abnormal bleeding. MUSCULOSKELETAL: No musculoskeletal pain; no joint swelling. NEUROLOGICAL: Awake, alert, oriented to time, place and person. No headache. No neck pain. No syncope. No seizures. No dizziness. PSYCHIATRIC: Not anxious. No depression. No suicidal thoughts. No homicidal thoughts. SKIN: No rash. No lesions. No wounds. ENDOCRINE: No unexplained weight loss. No weight gain. HEMATOLOGIC/LYMPHATIC: No anemia. No purpura. No petechiae. No prolonged or excessive bleeding. No palpable lymph nodes. PHYSICAL EXAMINATION: GENERAL: The patient is awake, alert and oriented, lying in bed in no distress. VITAL SIGNS: Temperature 97.8 F, Pulse 76, Respiratory Rate 22, BP 123/73, Pulse Ox 96% HEENT: Head normocephalic, atraumatic. Eyes: Extraocular muscles are intact. Pupils are equal, round and reactive to light and accommodation. Ears: No lesions. Nose appeared normal. Throat: No exudate or erythema. NECK: Supple. No JVD, no carotid bruit. No lymphadenopathy or thyromegaly. LUNGS: Diminished breath sounds. Clear to auscultation. Percussion note normal. Chest symmetrical. HEART: S1, S2, no S3. No murmurs. No cyanosis or clubbing. No ascites. Pulses: Dorsalis pedis and posterior tibial pulses +1 to +2 both sides. ABDOMEN: Soft. Non-tender. Bowel sounds active. No CVA tenderness. No mass felt. EXTREMITIES: No edema. Full range of motion of all extremities, equal. NEUROLOGIC: No focal deficit. Cranial nerves II through XII are grossly intact. No headache. No double vision. SKIN: Not dry. Intact. Turgor-normal. LYMPHATIC: No palpable lymph nodes/no lymphedema. MUSCULOSKELETAL: Normal joints with no swelling. Muscle tone is normal. LAB REVIEW: 10/21/21 06:12 10/21/21 06:12 10/21/21 06:12: WBC 3.82 L, RBC 3.85 L, Hgb 11.7 L, Hct 34.6 L, MCV 89.9, MCH 30.4, MCHC 33.8, RDW Coeff of Rehana 13.5, Plt Count 172, Neutrophils % (Manual) Not Reportable, Anisocytosis Not present 10/21/21 06:12: PT 14.1 H, INR 1.38 10/21/21 06:12: Sodium 133.7 L, Potassium 3.25 L, Chloride 103.1, Carbon Dioxide 27.4 D, Anion Gap 6.45, BUN 19.5 H, Creatinine 0.82, Estimated GFR (MDRD) 67.00, BUN/Creatinine Ratio 23.78, Glucose 89.6, Calcium 8.69, Total Bilirubin 0.75, AST 41.5 H, ALT 30.0, Alkaline Phosphatase 142.9 H, Total Protein 6.16 L, Albumin 3.21 L, Globulin 2.95, Albumin/Globulin Ratio 1.08 ASSESSMENT: Please see below. 1. COVID 19 Pneumonia 2. COPD with Chronic respiratory failure 3. Failure to thrive 4. Hypokalemia 5. Generalized weakness 6. Atrial fibrillation PLAN: 1. Coumadin 1mg daily 2. Potassium 20meq BID 3. Discussed with the patient poor prognosis if she continues to refuse to eat and move. I have suggested Hospice maybe better option, not quite ready for that she says. 4. Daily INR Plan and coordination of the patient's care discussed in the presence of Optimization Manager and nurse. SCRIBED BY: NILSON ALBRIGHT Electric Deicer Inspector scribed while in presence of service performed by Dr. Goins/Charmaine Toussaint APRN on 10/21/21 ([id number])
[2021-10-21] MEDS: COUMADIN PO SCH (17:01)
[2021-10-22] MEDS: VENTOLIN HFA (PER PUFF-WITH SPACER) IH SCH ×3 (04:50→20:15)
[2021-10-22 05:09] LABS: HEMATOCRIT 33.6 % (37.0-47.0); HEMOGLOBIN 11.5 g/dl (12.0-16.0); IMMATURE GRANULOCYTE % (AUTO) 0.8 % (0.0-5.0); LYMPHOCYTES # (AUTO) 0.5 K/uL (0.60-3.4); LYMPHOCYTES % (AUTO) 12.2 (10.0-50.0); MEAN CORPUSCULAR HEMOGLOBIN 30.4 pg (27.0-31.0); MEAN CORPUSCULAR HGB CONC 34.2 (31.8-35.4); MEAN CORPUSCULAR VOLUME 88.9 fl (81.0-99.0); MONOCYTES # (AUTO) 0.4 K/uL (0.4-2.0); PLATELET COUNT 161 10^3/uL (140-440); RDW COEFFICIENT OF VARIATION 13.3 % (11.6-14.8); RED BLOOD COUNT 3.78 10^6/ul (4.20-5.40); WHITE BLOOD COUNT 3.92 K/ul (4.6-10.2)
[2021-10-22 05:23] LABS: ALANINE AMINOTRANSFERASE 28.7 U/L (0-35); ALBUMIN 3.33 g/dL (3.5-5.0); ALKALINE PHOSPHATASE 158.3 U/L (53-141); ASPARTATE AMINO TRANSFERASE 38.1 U/L (14-36); BILIRUBIN,TOTAL 0.8 mg/dL (0.2-1.3); BLOOD UREA NITROGEN 16.3 mg/dL (7-17); CALCIUM 8.8 mg/dL (8.4-10.2); CARBON DIOXIDE 26.1 mmol/L (22-30.0); CREATININE 0.8 mg/dL (0.60-1.30); GLUCOSE 91.6 mg/dL (74-106); POTASSIUM 3.87 mmol/L (3.5-5.1); SODIUM 134.3 mmol/L (134.5-145); TOTAL PROTEIN 6.28 g/dL (6.3-8.2)
[2021-10-22] MEDS: PEPCID PO SCH ×2 (05:33→16:53)
[2021-10-22] MEDS: FERROUS SULFATE PO SCH (05:33)
[2021-10-22] MEDS: SYNTHROID PO SCH (05:33)
[2021-10-22] MEDS: PRILOSEC PO SCH ×2 (05:33→16:54)
[2021-10-22 05:40] LABS: PROTHROMBIN TIME 13.5 SEC (9.3-11.0)
[2021-10-22] MEDS: K-DUR PO SCH ×2 (08:47→16:53)
[2021-10-22] MEDS: IMDUR PO SCH (08:47)
[2021-10-22] MEDS: VITAMIN D PO SCH (08:47)
[2021-10-22] MEDS: MIRALAX PO SCH (08:47)
[2021-10-22] MEDS: ZINC-220 PO SCH (08:48)
[2021-10-22] MEDS: XANAX PO SCH ×3 (08:48→20:58)
[2021-10-22] MEDS: KEPPRA PO SCH ×2 (08:48→20:57)
[2021-10-22] MEDS: DOXYCYCLINE HYCLATE PO SCH ×2 (08:48→20:57)
[2021-10-22] MEDS: DECADRON IM SCH (08:49)
[2021-10-22] MEDS: LOPRESSOR PO SCH ×2 (08:49→20:56)
[2021-10-22] MEDS: COZAAR PO SCH (08:49)
[2021-10-22] MEDS: OMNICEF PO SCH ×2 (08:49→20:57)
[2021-10-22] MEDS: LOVENOX SUBCUT SCH (08:50)
[2021-10-22] MEDS: SYMBICORT 160-4.5 MCG INHALER IH SCH ×2 (08:59→20:56)
[2021-10-22] MEDS: [UNRECOGNIZED DRUG - OTHER] PO SCH ×4 (09:00→20:56)
[2021-10-22] MEDS: LIPASE PROTEASE AMYLASE PO SCH ×4 (09:00→20:56)
--- NOTE | 2021-10-22 09:19 | PCM.PROG ---
Attending Provider: ATTENDING PROVIDER: Dr. MELISSA GOINS This patient is seen with Charmaine Toussaint, Nurse Practitioner. DATE OF SERVICE: 10/22/21 SUBJECTIVE: This 81 year old /WHITE F was hospitalized 10/16/21. Still not eating or drinking much. Not wanting to do much for herself. Restarted Coumadin yesterday and INR is 1.2 today. Do to hypercoagulopathy we will closely monitor INR over next couple of days. No longer required to be in isolation. Respiratory status is stable. REVIEW OF SYSTEMS: CONSTITUTIONAL: No night sweats. Fatigue. No fever or chills. Weakness. HEENT: Eyes: No visual changes. No eye pain. No eye discharge. ENT: No runny nose. No epistaxis. No sinus pain. No odynophagia. No congestion. RESPIRATORY: No cough, no congestion. No hemoptysis. No shortness of breath. CARDIOVASCULAR: No angina symptoms. No CHF symptoms. No atypical chest pain for CAD. No palpitations. No orthopnea.. GASTROINTESTINAL: No abdominal pain. No nausea or vomiting. No diarrhea or constipation. No hematemesis. No hematochezia. Loss of appetite. GENITOURINARY: No urgency. No frequency. No dysuria. No hematuria. No obstructive symptoms. No discharge. No pain. No significant abnormal bleeding. MUSCULOSKELETAL: No musculoskeletal pain; no joint swelling. NEUROLOGICAL: Awake, alert, oriented to time, place and person. No headache. No neck pain. No syncope. No seizures. No dizziness. PSYCHIATRIC: Not anxious. No depression. No suicidal thoughts. No homicidal t houghts. SKIN: No rash. No lesions. No wounds. ENDOCRINE: No unexplained weight loss. No weight gain. HEMATOLOGIC/LYMPHATIC: No anemia. No purpura. No petechiae. No prolonged or excessive bleeding. No palpable lymph nodes. PHYSICAL EXAMINATION: GENERAL: The patient is awake, alert and oriented, lying in bed in no distress. VITAL SIGNS: Temperature 98.0 F, Pulse 65, Respiratory Rate 18, BP 113/58, Pulse Ox 98% HEENT: Head normocephalic, atraumatic. Eyes: Extraocular muscles are intact. Pupils are equal, round and reactive to light and accommodation. Ears: No lesions. Nose appeared normal. Throat: No exudate or erythema. NECK: Supple. No JVD, no carotid bruit. No lymphadenopathy or thyromegaly. LUNGS: Diminished breath sounds. Clear to auscultation. Percussion note normal. Chest symmetrical. HEART: S1, S2, no S3. No murmurs. No cyanosis or clubbing. No ascites. Pulses: Dorsalis pedis and posterior tibial pulses +1 to +2 both sides. ABDOMEN: Soft. Non-tender. Bowel sounds active. No CVA tenderness. No mass felt. EXTREMITIES: No edema. Full range of motion of all extremities, equal. NEUROLOGIC: No focal deficit. Cranial nerves II through XII are grossly intact. No headache. No double vision. SKIN: Not dry. Intact. Turgor-normal. LYMPHATIC: No palpable lymph nodes/no lymphedema. MUSCULOSKELETAL: Normal joints with no swelling. Muscle tone is normal. LAB REVIEW: 10/22/21 04:52 10/22/21 04:52 10/22/21 04:52: Sodium 134.3 L, Potassium 3.87, Chloride 103.0, Carbon Dioxide 26.1, Anion Gap 9.07, BUN 16.3, Creatinine 0.80, Estimated GFR (MDRD) 69.00, BUN/Creatinine Ratio 20.37, Glucose 91.6, Calcium 8.80, Total Bilirubin 0.80, AST 38.1 H, ALT 28.7, Alkaline Phosphatase 158.3 H, Total Protein 6.28 L, Albumin 3.33 L, Globulin 2.95, Albumin/Globulin Ratio 1.12 10/22/21 04:52: PT 13.5 H, INR 1.32 10/22/21 04:52: WBC 3.92 L, RBC 3.78 L, Hgb 11.5 L, Hct 33.6 L, MCV 88.9, MCH 30.4, MCHC 34.2, RDW Coeff of Rehana 13.3, Plt Count 161, Immature Gran % (Auto) 0.8, Neut % (Auto) 76.0 H, Lymph % (Auto) 12.2, [place] % (Auto) 11.0 H, Eos % (Auto) 0.0, Baso % (Auto) 0.0, Neut # (Auto) 3.0, Lymph # (Auto) 0.5 L, [place] # (Auto) 0.4, Eos # (Auto) 0.0, Baso # (Auto) 0.0, Immature Gran # (Auto) 0.0 10/17/21 07:00: Levetiracetam 11.5 ASSESSMENT: Please see below. 1. COVID 19 pneumonia 2. COPD 3. Failure to thrive 4. Generalized weakness. PLAN: 1. Continue Coumadin with daily INR 2. Consult PT/OT Plan and coordination of the patient's care discussed in the presence of [facility] Supervisor and nurse. SCRIBED BY: Keaton BURRELL scribed while in presence of service performed by Dr. Goins/Charmaine Toussaint APRN on 10/22/21 ([id number])
[2021-10-22] MEDS: PERCOCET 7.5-325 PO PRN (12:58)
[2021-10-22] MEDS: COUMADIN PO SCH (16:53)
[2021-10-23] MEDS: VENTOLIN HFA (PER PUFF-WITH SPACER) IH SCH ×3 (04:40→19:38)
[2021-10-23] MEDS: PRILOSEC PO SCH ×2 (05:56→17:22)
[2021-10-23] MEDS: PEPCID PO SCH ×2 (05:56→17:22)
[2021-10-23] MEDS: FERROUS SULFATE PO SCH (05:56)
[2021-10-23] MEDS: SYNTHROID PO SCH (05:56)
[2021-10-23 06:03] LABS: HEMATOCRIT 29.3 % (37.0-47.0); HEMOGLOBIN 10.1 g/dl (12.0-16.0); IMMATURE GRANULOCYTE % (AUTO) 0.5 % (0.0-5.0); LYMPHOCYTES # (AUTO) 0.7 K/uL (0.60-3.4); LYMPHOCYTES % (AUTO) 16.5 (10.0-50.0); MEAN CORPUSCULAR HEMOGLOBIN 30.5 pg (27.0-31.0); MEAN CORPUSCULAR HGB CONC 34.5 (31.8-35.4); MEAN CORPUSCULAR VOLUME 88.5 fl (81.0-99.0); MONOCYTES # (AUTO) 0.4 K/uL (0.4-2.0); MONOCYTES % (AUTO) 9.4 (0-10); NEUTROPHILS # (AUTO) 3.2 K/ul (2.0-6.9); NEUTROPHILS % (AUTO) 73.6 % (42.2-75.2); PLATELET COUNT 146 10^3/uL (140-440); RDW COEFFICIENT OF VARIATION 13.4 % (11.6-14.8); RED BLOOD COUNT 3.31 10^6/ul (4.20-5.40); WHITE BLOOD COUNT 4.36 K/ul (4.6-10.2)
[2021-10-23 06:15] LABS: ALANINE AMINOTRANSFERASE 22.4 U/L (0-35); ALBUMIN 2.93 g/dL (3.5-5.0); ALKALINE PHOSPHATASE 139.5 U/L (53-141); ASPARTATE AMINO TRANSFERASE 31.1 U/L (14-36); BILIRUBIN,TOTAL 0.7 mg/dL (0.2-1.3); BLOOD UREA NITROGEN 14.5 mg/dL (7-17); CALCIUM 8.86 mg/dL (8.4-10.2); CARBON DIOXIDE 27.5 mmol/L (22-30.0); CHLORIDE 104.7 mmol/L (98-107); CREATININE 0.73 mg/dL (0.60-1.30); GLUCOSE 87.1 mg/dL (74-106); POTASSIUM 4.16 mmol/L (3.5-5.1); SODIUM 132.7 mmol/L (134.5-145); TOTAL PROTEIN 5.68 g/dL (6.3-8.2)
[2021-10-23 06:18] LABS: PROTHROMBIN TIME 15.7 SEC (9.3-11.0)
[2021-10-23] MEDS: XANAX PO SCH ×3 (09:22→20:05)
[2021-10-23] MEDS: [UNRECOGNIZED DRUG - OTHER] PO SCH ×4 (09:22→21:26)
[2021-10-23] MEDS: LIPASE PROTEASE AMYLASE PO SCH ×4 (09:22→21:26)
[2021-10-23] MEDS: VITAMIN D PO SCH (09:22)
[2021-10-23] MEDS: PERCOCET 7.5-325 PO PRN ×2 (09:22→19:47)
[2021-10-23] MEDS: SYMBICORT 160-4.5 MCG INHALER IH SCH ×2 (09:22→21:24)
[2021-10-23] MEDS: ZINC-220 PO SCH (09:23)
[2021-10-23] MEDS: DOXYCYCLINE HYCLATE PO SCH (09:23)
[2021-10-23] MEDS: OMNICEF PO SCH (09:23)
[2021-10-23] MEDS: IMDUR PO SCH (09:23)
[2021-10-23] MEDS: K-DUR PO SCH ×2 (09:23→17:21)
[2021-10-23] MEDS: LOPRESSOR PO SCH ×2 (09:24→20:06)
[2021-10-23] MEDS: COZAAR PO SCH (09:24)
[2021-10-23] MEDS: KEPPRA PO SCH ×2 (09:24→20:06)
[2021-10-23] MEDS: DECADRON IM SCH (09:26)
[2021-10-23] MEDS: MIRALAX PO SCH (09:29)
[2021-10-23] MEDS: LOVENOX SUBCUT SCH (09:30)
--- NOTE | 2021-10-23 09:52 | RS.PTINEVL ---
Subjective - Patient information Date of Evaluation: 10/23/21 Date of Arrival on Unit: 10/16/21 [facility] From[facility]) Diagnosis: COVID, Afib, CKD Usual Living Arrangement: [facility] Home Environment: Level/No stairs Medical History: Hypertension, COPD, Arthritis Medical History Comments:: CKD, severe DDD, Seizure, T12 comp fx, osteoporosis, pacemaker, ischemic cardiomyopathy, CAD, chronic resp failure, Surgical History: Cholecystectomy, Hysterectomy, CABG Surgical History Comments:: rubén Subjective Information/ Patient Comments:: pt states that she will try to get up with PT. pt does appear to recognize this PT saying "It has been a while since I have seen you." - Level of function Prior to this admission, the patient could do the following:: Partially Dependent Ambulation Abilities prior to this admission: pt has been at [facility]. Current Level of Function: Partially Dependent Current Equipment Used at Home: UNKNOWN, PT UNABLE TO ANSWER Pain Assessement - Location back pain Description: Aching Pain Behavior: Facial Grimacing Pain Aggravating Factors: Changing Position, Exercise/Activity Interventions - Objective Patient Orientation: Person, Place Current Interventions: Telemetry, Cobb Catheter Observation: pt with increased thoracic kyphosis with some excoriated areas noted along spinous process, areas of bruising B UE. Range of Motion - ROM Right Upper Extremity AROM: Slight limitation (limited shld flex) Left Upper Extremity AROM: Slight limitation (limited shld flex) Right Lower Extremity AROM: WFL's Left Lower Extremity AROM: WFL's Muscle Strength - Muscle Strength Right Upper Extremity Strength: Mild Weakness (shld flex 3/5, elbow flex/ext 3+/5) Left Upper Extremity Strength: Mild Weakness (shld flex 3/5, elbow flex/ext 3+/5) Right Lower Extremity Strength: Mild Weakness (hip flex 3/5, knee flex/ext 3+/5, ankle DF/PF 3+/5) Left Lower Extremity Strength: Mild Weakness (hip flex 3/5, knee flex/ext 3+/5, ankle DF/PF 3+/5) Sensation - Sensation Right Upper Extremity Sensation: Intact/Normal Left Upper Extremity Sensation: Intact/Normal Right Lower Extremity Sensation: Intact/Normal Left Lower Extremity Sensation: Intact/Normal Palpation Palpation Findings: Tenderness Comments:: along back and upper arm Balance - Sitting Balance and Reactions Static Sitting Balance: Fair (fair-) Dynamic Sitting Balance: Poor - Standing Balance and Reactions Static Standing Balance: Poor Dynamic Standing Balance: Poor Standing Equilibrium Reactions: Delayed Left, Delayed Right Standing Protective Reactions: Delayed Left, Delayed Right Functional Mobility - Bed Mobility Rolling R/L: Max Assist, 1 person assist Scooting: Max Assist, 2 person assist Supine to Sit: Max Assist, 2 person assist - Transfers Sit to Stand: Max Assist, 2 person assist Stand to Sit: Max Assist, 2 person assist Stand Pivot Transfers: Max Assist, 2 person assist Comments:: Attempted to transfer with use of rwx, however pt unable to take step and was max of 2 to pivot bed to chair. - Safety Awareness Safety Awareness: Poor PANKAJ INDEX SCORE: n/a Treatment time - Time with patient Length of Evaluation: 18 Total treatment time: 25 Patient Education - Education Patient Education: Activity Modification, Education of Plan of Care Teaching Recipient: Patient Teaching Methods: Discussion Comments: discussion with patient regarding POC and safety. Assessment - Assessment Problem List:: Decreased level of function, Requires training/education, Decreased safety/Risk of falls, Weakness, Pain limits previous level of function, Cognitive status limits abilities Rehab Potential: Fair Further Therapy Indicated?: Yes Candidate for Swing Bed for Therapy Services?: Feel pt will require longer term rehab due to her current level of function requiring max of 2 for transfers. Evaluation Complexity: HISTORY: High (age, comorbidities, PLOF, medications, barriers to progress), EXAM OF BODY SYSTEMS: High (strength, posture, balance, gait, transfers, vitals, skin integ. cognition), CLINICAL PRESENTATION: Medium (evolving), CLINICAL DECISION MAKING: High Patient's Goal(s): Go home to assisted living with her daughter Short Term Goals GOAL #1: pt perform rolling with mod x 1 Goal to be met by: 10/26/21 Progress towards Goal:: Met GOAL #2: Transfer sup to/from sit mod x 1 Goal to be met by: 10/26/21 GOAL #3: Sit to/from stand mod x 2 Goal to be met by: 10/26/21 GOAL #4: Transfer bed to/from chair mod x 2 Goal to be met by: 10/26/21 GOAL #5: Improve dyn sit balance fair- Goal to be met by: 10/26/21 Half-Way Goals GOAL #1: pt transfer sup to/from sit to/from stand min to mod x 1 Goal to be met by: 10/29/21 GOAL #2: pt amb 25ft with rwx with mod x 1-2 Goal to be met by: 10/29/21 GOAL #3: Improve dyn sit balance fair+ Goal to be met by: 10/29/21 Plan Plan of Care: Therapeutic EX, Neuromuscular Re-Educ, Therapeutic Activity Other:: gait training Frequency of Treatment: 1-2 X day, as tolerated Duration of Treatment: 1 Week Anticipated Discharge Destination: [facility] Treatment Diagnosis (ICD 10 Codes): impaired balance R 26.81. COVID U071.1. difficulty walking R 26.2. weakness M62.81 Has the Physician been added for Co-signature?: Yes
--- NOTE | 2021-10-23 11:57 | RS.OTINEVL ---
Subjective - Patient information Date of Evaluation: 10/23/21 Date of Arrival on Unit: 10/16/21 Admitted From:: Care Home ([facility]) Diagnosis: AMS, dehydration, PRECAUTIONS: Pacemaker, very weak Usual Living Arrangement: [facility] Living Arrangement Comments: FROM [facility] Home Environment: Level/No stairs Medical History: Hypertension, COPD, Arthritis Medical History Comments:: CKD, severe DDD, Seizure, T12 comp fx, osteoporosis, pacemaker, ischemic cardiomyopathy, CAD, chronic resp failure, LATEX ALLERGY?: No Surgical History: Cholecystectomy, Hysterectomy, CABG Surgical History Comments:: appey Medications: see chart Subjective Information/ Patient Comments:: Pt reports no pain. - Level of function Prior to this admission, the patient could do the following:: Partially Dependent Ambulation Current Level of Function: Partially Dependent Current Equipment Used at Home: UNKNOWN, PT UNABLE TO ANSWER Pain Assessment - Pain Pain Score: 0 Interventions - Objective Patient Orientation: Person Current Interventions: IV's, Telemetry Observation: Pt is very weak requires max Assistance of 2 to transfer from EOB to chair. Pt requires setup with self feeding. Interventions - ROM Right Upper Extremity AROM: Slight limitation Left Upper Extremity AROM: Slight limitation - Strength Right Upper Extremity Strength: Mild Weakness Left Upper Extremity Strength: Mild Weakness - Sensation Right Upper Extremity Sensation: Intact/Normal Left Upper Extremity Sensation: Intact/Normal Balance - Sitting Balance Static Sitting Balance: Fair Dynamic Sitting Balance: Fair - Standing Balance Static Standing Balance: Poor Dynamic Standing Balance: Poor ADL Skills - Self Feeding Self Feeding: Set Up Only, 1 person assist - Grooming Grooming: Min Assist Grooming Set-up: Sitting - Bathing Bathing UE: Min Assist Bathing LE: Mod Assist - Dressing Dressing UE: Min Assist Dressing LE: Mod Assist - Toilet Management Toilet Hygiene: Min Assist Toilet Clothing Management: Mod Assist Functional Mobility - Bed Mobility Rolling R/L: Max Assist, 2 person assist Scooting: Max Assist, 2 person assist Supine to Sit: Max Assist, 2 person assist Sit to Supine: Max Assist, 2 person assist - Transfers Sit to Stand: Max Assist, 2 person assist Stand Pivot Transfers: Max Assist, 2 person assist - Ambulation Weight Bearing Status: FWB Assistive Device Used: Rolling Walker Assistance needed with Ambulation: Max Assist, 2 person assist - Safety Awareness Safety Awareness: Fair PANKAJ INDEX SCORE: . Additional Treatment Performed - Time with patient Length of Evaluation: 18 Total treatment time: 27 Activities Do you enjoy playing games?: Yes Would you be interested in leaving your room for activities?: Yes Would you enjoy group activities?: Yes Do you have difficulty with your vision?: Yes Patient Interests:: Watching Television, Visiting/Socializing Patient Education Patient Education: Education of diagnosis, Home Exercise Program, Education of Plan of Care Teaching Recipient: Patient Teaching Methods: Discussion Assessment Problem List:: Decreased level of function, Requires training/education, Decreased safety/Risk of falls, Weakness Rehab Potential: Good Further Therapy Indicated?: Yes Evaluation Complexity: HISTORY: Medium, EXAM OF BODY SYSTEMS: Medium, CLINICAL DECISION MAKING: Medium Patient's Goal(s): To get to feeling better. Short Term Goals - Goals GOAL 1: Pt to increase I sit to stand to SUP Goal to be met by: 10/26/21 GOAL 2: Pt to increase dyn standing bal to fair+ Goal to be met by: 10/26/21 GOAL 3: Pt to increase act tolerance to 15 mins for ADL's Goal to be met by: 10/26/21 GOAL 4: Pt to be Independent with self feeding. Goal to be met by: 10/26/21 [employer] Furniture Goals GOAL 1: Pt to increase her strength of BUE to be 4/5. Goal to be met by: 10/30/21 GOAL 2: Pt to increase sit to stand to CGA. Goal to be met by: 10/30/21 GOAL 3: Pt to increase functional transfer from EOB to chair to be Min A. Goal to be met by: 10/30/21 Plan Plan of Care: Therapeutic EX, Therapeutic Activity, Self-Care/Home Management Frequency of Treatment: 1-2 X day, as tolerated Duration of Treatment: 1 Week Anticipated Discharge Destination: [facility] Treatment Diagnosis (ICD 10 Codes): M62.81 Weakness Has the Physician been added for Co-signature?: Yes
--- NOTE | 2021-10-23 15:57 | RS.COGEVAL ---
Subjective Date of Evaluation: 10/23/21 Diagnosis: UTI, COVID Current Level of Function: This is an 81 year old female whom resides in [facility]. Patient is recovering from COVID and taken off isolation precautions this date. Patient provided limited information to NUCLEAR SPECTROSCOPIST for current level of function. Current Subjective/complaints:: The patient was in bed. She reported she was 'about to go to sleep." The patient did agree to participate in cognitive testing. NUCLEAR SPECTROSCOPIST noted the patient was lethargic, weak vocal quality, and did not initiate any speech utterances. She required consistent verbal prompts in turn- taking exchanges. Information Formal/Objective Assessment:: SLUMS examination initiated. Pt completed orientation, memory recall, problem solving, auditory comprehension portions. Pt denied clock drawing, following directions, and mental manipulation portions. Pt demonstrated mild deficits with orientation and auditory comprehension. Pt demonstrated severe deficits with problem solving, divergent naming, and memory recall tasks. Orientation score was 2/3, Problem solving was 0/3, memory recall was 0/5, divergent naming was 0/3, and auditory comprehension was 6/8. TOTAL 9/30-dementia range at this time, however if other portions were completed without missing any points, pt would still fall in dementia range level. Analysis:: The patient did not initiate any turns during structured con versation. Pt required consistent verbal prompts to answer simple 'wh' questions. Pt responded to yes/no questions with minimal difficulty. Open-ended questions pt responded with 1-2 word responses. When asked verbal reasoning questions, pt could not provide answers. At this time, pt presented with lack of interest vs decreased cognitive function. Pt scored within dementia range in scoring on the SLUMS examination. Summary and Recommendations:: The patient demonstrated moderate-severe cognitive deficits during the SLUMs examination. The patient did verbalize one interest in reading and stated her book was at the bedside. NUCLEAR SPECTROSCOPIST recommends pt's family members read portions in her book and have discussions to increase cognitive functioning. Pt would be a candidate for skilled SPT upon return to [facility]. NUCLEAR SPECTROSCOPIST also noted concerns with vocal quality, breath support, and potential swallow deficits with drinking liquids via straw. Functional Reporting G Codes: n/a Severity Impairment Rationale: n/a Short Term Goals Goal #1: Pt to complete orientation tasks Problem: Pt to complete verbal reasoning tasks Goal #3: Pt to complete memory recall tasks Plan Duration of Treatment: 1 Week Comments: NUCLEAR SPECTROSCOPIST provided verbal education of cognitive results to RN to discuss with family. NUCLEAR SPECTROSCOPIST recommends family to read books with pt and encourage pt to take turns in conversation to enhance cognitive function. Pt may benefit from cognitive/swallow therapy at the [facility] to address cognitive deficits, breath support, and weakness with oral motor structures. - Treatment Code (1) Cognitive communication deficit Code(s): R41.841 - Cognitive communication deficit (2) Urinary tract infection Code(s): N39.0 - Urinary tract infection, site not specified Qualifiers: Urinary tract infection type: acute cystitis Hematuria presence: with hematuria Qualified Code(s): N30.01 - Acute cystitis with hematuria
[2021-10-23] MEDS: COUMADIN PO SCH (17:22)
[2021-10-24] MEDS: VENTOLIN HFA (PER PUFF-WITH SPACER) IH SCH ×2 (05:10→14:08)
[2021-10-24] MEDS: PEPCID PO SCH (05:54)
[2021-10-24] MEDS: FERROUS SULFATE PO SCH (05:55)
[2021-10-24] MEDS: PRILOSEC PO SCH (06:11)
[2021-10-24] MEDS: SYNTHROID PO SCH (06:13)
[2021-10-24 07:22] LABS: EOSINOPHILS % (AUTO) 0.2 % (0.0-7.0); HEMATOCRIT 28.9 % (37.0-47.0); HEMOGLOBIN 9.8 g/dl (12.0-16.0); IMMATURE GRANULOCYTE % (AUTO) 0.4 % (0.0-5.0); LYMPHOCYTES # (AUTO) 0.6 K/uL (0.60-3.4); LYMPHOCYTES % (AUTO) 11.2 (10.0-50.0); MEAN CORPUSCULAR HEMOGLOBIN 30.1 pg (27.0-31.0); MEAN CORPUSCULAR HGB CONC 33.9 (31.8-35.4); MEAN CORPUSCULAR VOLUME 88.7 fl (81.0-99.0); MONOCYTES # (AUTO) 0.4 K/uL (0.4-2.0); MONOCYTES % (AUTO) 7.3 (0-10); NEUTROPHILS # (AUTO) 4.6 K/ul (2.0-6.9); NEUTROPHILS % (AUTO) 80.9 % (42.2-75.2); PLATELET COUNT 134 10^3/uL (140-440); RDW COEFFICIENT OF VARIATION 13.5 % (11.6-14.8); RED BLOOD COUNT 3.26 10^6/ul (4.20-5.40); WHITE BLOOD COUNT 5.64 K/ul (4.6-10.2)
[2021-10-24 07:28] LABS: ALANINE AMINOTRANSFERASE 22.1 U/L (0-35); ALBUMIN 2.92 g/dL (3.5-5.0); ALKALINE PHOSPHATASE 126.2 U/L (53-141); ASPARTATE AMINO TRANSFERASE 29.6 U/L (14-36); BILIRUBIN,TOTAL 0.65 mg/dL (0.2-1.3); BLOOD UREA NITROGEN 13.6 mg/dL (7-17); CALCIUM 8.91 mg/dL (8.4-10.2); CARBON DIOXIDE 26.6 mmol/L (22-30.0); CHLORIDE 102.3 mmol/L (98-107); CREATININE 0.77 mg/dL (0.60-1.30); GLUCOSE 130.9 mg/dL (74-106); POTASSIUM 4.04 mmol/L (3.5-5.1); SODIUM 131.1 mmol/L (134.5-145); TOTAL PROTEIN 5.58 g/dL (6.3-8.2)
[2021-10-24] MEDS ORDERED: DECADRON IM SCH ×2 (09:00)
[2021-10-24 09:30] LABS: PROTHROMBIN TIME 18.4 SEC (9.3-11.0)
[2021-10-24] MEDS: KEPPRA PO SCH (09:31)
[2021-10-24] MEDS: COZAAR PO SCH (09:32)
[2021-10-24] MEDS: XANAX PO SCH (09:35)
[2021-10-24] MEDS: LOPRESSOR PO SCH (09:35)
[2021-10-24] MEDS: K-DUR PO SCH (09:35)
[2021-10-24] MEDS: IMDUR PO SCH (09:36)
[2021-10-24] MEDS: ZINC-220 PO SCH (09:36)
[2021-10-24] MEDS: VITAMIN D PO SCH (09:37)
[2021-10-24] MEDS: LOVENOX SUBCUT SCH (09:38)
[2021-10-24] MEDS: SYMBICORT 160-4.5 MCG INHALER IH SCH (09:39)
[2021-10-24] MEDS: MIRALAX PO SCH (09:40)
[2021-10-24] MEDS: [UNRECOGNIZED DRUG - OTHER] PO SCH ×2 (09:43→14:03)
[2021-10-24] MEDS: LIPASE PROTEASE AMYLASE PO SCH ×2 (09:43→14:03)
--- NOTE | 2021-10-24 10:26 | PN ---
DATE OF SERVICE: 10/19/21 REASON FOR HOSPITALIZATION: Altered mental status, poor appetite, increased INR SUBJECTIVE: 81 year old white female hospitalized through the emergency room with altered mental status and increased INR. The patient's INR is back to normal. She is on Lovenox now. Her altered mental status has a lot to do with the patient's COVID, was around the 11th that is 8-9 days ago. The patient's mental status has improved some. This morning she is more alert and has practically eaten her breakfast which was highly unusual. She had 50cc of urine output. Her oral intake seems to be improving. REVIEW OF SYSTEMS: CONSTITUTIONAL: No night sweats. No fatigue, malaise, lethargy. No fever or chills. HEENT: Eyes: No visual changes. No eye pain. No eye discharge. ENT: No runny nose. No epistaxis. No sinus pain. No sore throat. No odynophagia. No congestion. RESPIRATORY: No cough, no congestion. No hemoptysis. No shortness of breath. CARDIOVASCULAR: No angina symptoms. No CHF symptoms. No atypical chest pain for CAD. No palpitations. No PND. No orthopnea. GASTROINTESTINAL: No abdominal pain. No nausea or vomiting. No diarrhea or constipation. No hematemesis. No hematochezia. GENITOURINARY: No urgency. No frequency. No dysuria. No hematuria. No obstructive symptoms. No discharge. No pain. No significant abnormal bleeding. MUSCULOSKELETAL: No musculoskeletal pain; no joint swelling. NEUROLOGICAL: No headache. No neck pain. No syncope. No seizures. No dizziness. PSYCHIATRIC: Not anxious. No depression. No suicidal thoughts. No homicidal thoughts. Mental status has improved. SKIN: No rash. No lesions. No wounds. ENDOCRINE: No unexplained weight loss. No weight gain. HEMATOLOGIC/LYMPHATIC: No anemia. No purpura. No petechiae. No prolonged or excessive bleeding. No palpable lymph nodes. PHYSICAL EXAMINATION: VITAL SIGNS: Temperature 98.2, pulse 74, respiratory rate 14, blood pressure 112/50 and pulse ox 100% on 2 liters. HEENT: Head normocephalic, atraumatic. Eyes: Extraocular muscles are intact. Pupils are equal, round and reactive to light and accommodation. Ears: No lesions. Nose appeared normal. Throat: No exudate or erythema. Some what pale. NECK: Supple. No JVD, no carotid bruit. No lymphadenopathy or thyromegaly. LUNGS: Decreased breath sounds. Clear to auscultation. Percussion note normal. Chest symmetrical. HEART: S1, S2, no S3. No murmurs. No cyanosis or clubbing. No ascites. Pulses: Dorsalis pedis and posterior tibial pulses +1 to +2 bilaterally. ABDOMEN: Soft. Nontender. Bowel sounds active. No CVA tenderness. No mass felt. EXTREMITIES: No edema. Full range of motion of all extremities, equal. NEUROLOGIC: No focal deficit. Cranial nerves II through XII are grossly intact. No headache. No double vision. SKIN: Not dry. Intact. Turgor - normal. LYMPHATIC: No palpable lymph nodes/no lymphedema. MUSCULOSKELETAL: Normal joints with no swelling. Muscle tone is normal. LABS: Hgb 10.9, hct 32, WBC 5,500 normal differential, creatinine 0.6, BUN 22, potassium 3.6 ASSESSMENT: 1. INR 1.5 Coagulopathy with increased INR has resolved. The patient is on Lovenox. C-reactive Protein is 7 on 10/18/21 they was yesterday Condition overall has improved. Hydration status seems to have improved. Oral intake is increasing. She is more alert. The patient is very difficult to start an IV on so we will discontinue IV Rocephin. Discontinue Doxycycline and we will put her on Omnicef and Doxycycline PO. Remdesivir may or may not be able to be given unless we get good IV access. The patient's has passed the of Remdesivir. Condition seems to have improved. TIME SPENT: More than 30 minutes. Plan and coordination of the patient's care discussed in the presence of nurse. ANN
[2021-10-24] MEDS: PERCOCET 7.5-325 PO PRN (11:30)
--- NOTE | 2021-10-24 11:59 | PCM.PROG ---
Attending Provider: ATTENDING PROVIDER: Dr. MELISSA HERRERA This patient is seen with Charmaine Toussaint, Nurse Practitioner. DATE OF SERVICE: 10/24/21 SUBJECTIVE: This 81 year old /WHITE F was hospitalized 10/16/21. The patient still not eating. Labs are stable. Yesterday worked with therapy and today refuses to do anything for herself. INR is therapeutic and seems to be increasing 3/10 a day. We will send her back to [facility] with Coumadin 1mg every other day and repeat INR Thursday. REVIEW OF SYSTEMS: CONSTITUTIONAL: No night sweats. No fatigue, malaise, lethargy. No fever or chills. Weakness. Failure to thrive. HEENT: Eyes: No visual changes. No eye pain. No eye discharge. ENT: No runny nose. No epistaxis. No sinus pain. No odynophagia. No congestion. RESPIRATORY: No cough, no congestion. No hemoptysis. No shortness of breath. CARDIOVASCULAR: No angina symptoms. No CHF symptoms. No atypical chest pain for CAD. No palpitations. No orthopnea.. GASTROINTESTINAL: No abdominal pain. No nausea or vomiting. No diarrhea or constipation. No hematemesis. No hematochezia. Loss of appetite. GENITOURINARY: No urgency. No frequency. No dysuria. No hematuria. No obstructi ve symptoms. No discharge. No pain. No significant abnormal bleeding. MUSCULOSKELETAL: No musculoskeletal pain; no joint swelling. NEUROLOGICAL: Awake, alert, oriented to time, place and person. No headache. No neck pain. No syncope. No seizures. No dizziness. PSYCHIATRIC: Not anxious. No depression. No suicidal thoughts. No homicidal thoughts. SKIN: No rash. No lesions. No wounds. ENDOCRINE: No unexplained weight loss. No weight gain. HEMATOLOGIC/LYMPHATIC: No anemia. No purpura. No petechiae. No prolonged or excessive bleeding. No palpable lymph nodes. PHYSICAL EXAMINATION: GENERAL: The patient is awake, alert and oriented, lying in bed in no distress. VITAL SIGNS: Temperature 97.9 F, Pulse 60, Respiratory Rate 18, BP 106/60, Pulse Ox 97% HEENT: Head normocephalic, atraumatic. Eyes: Extraocular muscles are intact. Pupils are equal, round and reactive to light and accommodation. Ears: No lesions. Nose appeared normal. Throat: No exudate or erythema. NECK: Supple. No JVD, no carotid bruit. No lymphadenopathy or thyromegaly. LUNGS: Diminished breath sounds. Clear to auscultation. Percussion note normal. Chest symmetrical. HEART: S1, S2, no S3. No murmurs. No cyanosis or clubbing. No ascites. Pulses: Dorsalis pedis and posterior tibial pulses +1 to +2 both sides. ABDOMEN: Soft. Non-tender. Bowel sounds active. No CVA tenderness. No mass felt. EXTREMITIES: No edema. Full range of motion of all extremities, equal. NEUROLOGIC: No focal deficit. Cranial nerves II through XII are grossly intact. No headache. No double vision. SKIN: Not dry. Intact. Turgor-normal. LYMPHATIC: No palpable lymph nodes/no lymphedema. MUSCULOSKELETAL: Normal joints with no swelling. Muscle tone is normal. LAB REVIEW: 10/24/21 07:05 10/24/21 06:00 10/24/21 07:05: PT 18.4 H, INR 1.82 10/24/21 07:05: WBC 5.64, RBC 3.26 L, Hgb 9.8 L, Hct 28.9 L, MCV 88.7, MCH 30.1, MCHC 33.9, RDW Coeff of Rehana 13.5, Plt Count 134 L, Immature Gran % (Auto) 0.4, Neut % (Auto) 80.9 H, Lymph % (Auto) 11.2, [place] % (Auto) 7.3, Eos % (Auto) 0.2, Baso % (Auto) 0.0, Neut # (Auto) 4.6, Lymph # (Auto) 0.6, [place] # (Auto) 0.4, Eos # (Auto) 0.0, Baso # (Auto) 0.0, Immature Gran # (Auto) 0.0 10/24/21 06:00: Sodium 131.1 L, Potassium 4.04, Chloride 102.3, Carbon Dioxide 26.6, Anion Gap 6.24, BUN 13.6, Creatinine 0.77, Estimated GFR (MDRD) 72.00, BUN/Creatinine Ratio 17.66, Glucose 130.9 H, Calcium 8.91, Total Bilirubin 0.65, AST 29.6, ALT 22.1, Alkaline Phosphatase 126.2, Total Protein 5.58 L, Albumin 2.92 L, Globulin 2.66, Albumin/Globulin Ratio 1.09 ASSESSMENT: Please see below. 1. COVID 19 pneumonia, resolved 2. COPD 3. Failure to thrive 4. Depression 5. Hypercoagulopathy 6. Atrial fibrillation PLAN: 1. I recommended to the patient to consider Hospice due to the fact that she is refusing to eat and to do much of anything for herself and she declined. I do feel that her and her daughter are somewhat unrealistic about her prognosis. Prognosis is very poor if she continues to not eat. 2. Will Add Remeron to help with depression and stimulate appetite. 3. Will send back on Coumadin 1mg every other day with repeat INR on Thursday 4. Discontinue Lovenox 5. Continue Omeprazole and Pepcid 6. Prednisone 10mg daily for 5 days 7. Potassium 10meq daily Plan and coordination of the patient's care discussed in the presence of Chris jiang and nurse. SCRIBED BY: NILSON ALBRIGHT, Phlebotomy Services Representative scribed while in presence of service performed by Dr. Herrera/Charmaine Toussaint APRN on 10/24/21 ([id number])
--- NOTE | 2021-10-24 13:25 | PN ---
DATE OF SERVICE: 10/20/21 SUBJECTIVE: 81 year old white female hospitalized from the senior living with increased INR which practically back to normal with INR of 1.6 and PT 16.5. The patient is on Lovenox. Yesterday the patient was given IV Lanoxin and Lopressor because the nurse reported that the patient is in atrial fibrillation with rapid ventricular response in fact when I checked the strips the patient's rate was 80 and there were a lot of artifacts that the nurse counted as sinus tachy with atrial fibrillation. In any case the patient's condition seems to have improved. She ate her breakfast and she was kind of somewhat restless. REVIEW OF SYSTEMS: CONSTITUTIONAL: No night sweats. No fatigue, malaise, lethargy. No fever or chills. HEENT: Eyes: No visual changes. No eye pain. No eye discharge. ENT: No runny nose. No epistaxis. No sinus pain. No sore throat. No odynophagia. No congestion. RESPIRATORY: No cough, no congestion. No hemoptysis. No shortness of breath. CARDIOVASCULAR: No angina symptoms. No CHF symptoms. No atypical chest pain for CAD. No palpitations. No PND. No orthopnea. GASTROINTESTINAL: No abdominal pain. No nausea or vomiting. No diarrhea or constipation. No hematemesis. No hematochezia. GENITOURINARY: No urgency. No frequency. No dysuria. No hematuria. No obstructive symptoms. No discharge. No pain. No significant abnormal bleeding. MUSCULOSKELETAL: No musculoskeletal pain; no joint swelling. NEUROLOGICAL: No headache. No neck pain. No syncope. No seizures. No dizziness. PSYCHIATRIC: Not anxious. No depression. No suicidal thoughts. No homicidal thoughts. SKIN: No rash. No lesions. No wounds. ENDOCRINE: No unexplained weight loss. No weight gain. HEMATOLOGIC/LYMPHATIC: No anemia. No purpura. No petechiae. No prolonged or excessive bleeding. No palpable lymph nodes. PHYSICAL EXAMINATION: VITAL SIGNS: Temperature 97.7, pulse 66, respiratory rate 18, blood pressure 114/62 and pulse ox 99%. HEENT: Head normocephalic, atraumatic. Eyes: Extraocular muscles are intact. Pupils are equal, round and reactive to light and accommodation. Ears: No lesions. Nose appeared normal. Throat: No exudate or erythema. NECK: Supple. No JVD, no carotid bruit. No lymphadenopathy or thyromegaly. LUNGS: Decreased breath sounds but clear to auscultation. Percussion note normal. Chest symmetrical. HEART: S1, S2, no S3. No murmurs. No cyanosis or clubbing. No ascites. Pulses: Dorsalis pedis and posterior tibial pulses +1 to +2 bilaterally. ABDOMEN: Soft. Nontender. Bowel sounds active. No CVA tenderness. No mass felt. EXTREMITIES: No edema. Full range of motion of all extremities, equal. NEUROLOGIC: No focal deficit. Cranial nerves II through XII are grossly intact. No headache. No double vision. SKIN: Not dry. Intact. Turgor - normal. LYMPHATIC: No palpable lymph nodes/no lymphedema. MUSCULOSKELETAL: Normal joints with no swelling. Muscle tone is normal. LABS: Hgb 10.9, hct 32,WBC 5,500 normal differential, creatinine 0.7, BUN 21, potassium 3.6 ASSESSMENT: 1. COVID status positive with dementia seems to be improving. The patient's overall status is improving with improvement in appetite and urine output PLAN: 1. Xanax 0.25mg TID for anxiety type related problems 2. INR seems to be a lot better. Her INR had gone up because of COVID CONDITION: Improving. 3. TIME SPENT: More than 30 minutes. Plan and coordination of the patient's care discussed in the presence of nurse. ANN
--- NOTE | 2021-10-24 13:32 | PN ---
DATE OF SERVICE: 10/21/21 SUBJECTIVE: 81 year old white female hospitalized with COVID status with confusion. The patient's appetite has improved. She has been feeling better. She has been on Xanax because of anxious feeling. The patient's status doesn't improve the patients family is willing to put the patient on Hospice. The patient was seen and examined with the Nurse Practitioner. TIME SPENT: More than 30 minutes. Plan and coordination of the patient's care discussed in the presence of nurse. ANN
--- NOTE | 2021-10-24 13:37 | PN ---
DATE OF SERVICE: 10/22/21 SUBJECTIVE: The patient was seen and examined with the Nurse Practitioner. 81 year old white female hospitalized with altered mental status with COVID. The patient's condition has improved. Appetite has improved. Continue the same medications. Cardiovascular status is stable. TIME SPENT: More than 30 minutes. Plan and coordination of the patient's care discussed in the presence of nurse. NAN
--- NOTE | 2021-10-24 13:40 | PN ---
DATE OF SERVICE: 10/23/21 SUBJECTIVE: 81 year old white female hospitalized with altered mental status and dehydration. The patient has COVID 19, diagnosed on of this month. The patient's condition is improving. Now she is able to walk with some help. She had one can of Boost and also has improved appetite. She got up and sat in the chair today. She is oriented to time, place and person. REVIEW OF SYSTEMS: CONSTITUTIONAL: No night sweats. No fatigue, malaise, lethargy. No fever or chills. HEENT: Eyes: No visual changes. No eye pain. No eye discharge. ENT: No runny nose. No epistaxis. No sinus pain. No sore throat. No odynophagia. No congestion. RESPIRATORY: No cough, no congestion. No hemoptysis. No shortness of breath. CARDIOVASCULAR: No angina symptoms. No CHF symptoms. No atypical chest pain for CAD. No palpitations. No PND. No orthopnea. GASTROINTESTINAL: No abdominal pain. No nausea or vomiting. No diarrhea or constipation. No hematemesis. No hematochezia. GENITOURINARY: No urgency. No frequency. No dysuria. No hematuria. No obstructive symptoms. No discharge. No pain. No significant abnormal bleeding. MUSCULOSKELETAL: No musculoskeletal pain; no joint swelling. NEUROLOGICAL: No headache. No neck pain. No syncope. No seizures. No dizziness. PSYCHIATRIC: Not anxious. No depression. No suicidal thoughts. No homicidal thoughts. SKIN: No rash. No lesions. No wounds. ENDOCRINE: No unexplained weight loss. No weight gain. HEMATOLOGIC/LYMPHATIC: No anemia. No purpura. No petechiae. No prolonged or excessive bleeding. No palpable lymph nodes. PHYSICAL EXAMINATION: VITAL SIGNS: Temperature 97.7, pulse 60, respiratory rate 16, blood pressure 123/64 and pulse ox 96%. HEENT: Head normocephalic, atraumatic. Eyes: Extraocular muscles are intact. Pupils are equal, round and reactive to light and accommodation. Ears: No lesions. Nose appeared normal. Throat: No exudate or erythema. NECK: Supple. No JVD, no carotid bruit. No lymphadenopathy or thyromegaly. LUNGS: Decreased breath sounds but clear to auscultation. Percussion note normal. Chest symmetrical. HEART: S1, S2, no S3. No murmurs. No cyanosis or clubbing. No ascites. Pulses: Dorsalis pedis and posterior tibial pulses +1 to +2 bilaterally. ABDOMEN: Soft. Nontender. Bowel sounds active. No CVA tenderness. No mass felt. EXTREMITIES: No edema. Full range of motion of all extremities, equal. NEUROLOGIC: No focal deficit. Cranial nerves II through XII are grossly intact. No headache. No double vision. SKIN: Not dry. Intact. Turgor - normal. LYMPHATIC: No palpable lymph nodes/no lymphedema. MUSCULOSKELETAL: Normal joints with no swelling. Muscle tone is normal. LABS: Hgb 10.1, hct 29, WBC 4,300 normal differential, creatinine 0.7, BUN 14, potassium 4.1. ASSESSMENT: 1. COVID 19 status with confusion is cleared up 2. Failure to thrive seems to be improving to some extent with improved in appetite 3. Dehydration seems to have subsided 4. Coagulopathy resolved with INR of 1.5 and Protime of 15. The patient is on Lovenox. TIME SPENT: More than 30 minutes. Plan and coordination of the patient's care discussed in the presence of nurse. ANN
[2021-10-24 14:48] VITALS: BP 95/59; TEMP 97.5
--- NOTE | 2021-10-28 11:25 | PN ---
DATE OF SERVICE: 10/24/21 SUBJECTIVE: The patient was seen and examined with the Nurse Practitioner. The patient's condition has steadily improved. 81 year old white female hospitalized with altered mental status and coagulopathy with increased INR. The patient's condition has improved. Her appetite has improved. Over all mental status has improved. INR is acceptable. She may be restarted on Coumadin TIME SPENT: More than 30 minutes. Plan and coordination of the patient's care discussed in the presence of nurse. ANN
--- NOTE | 2021-11-06 10:34 | PN ---
DATE OF SERVICE: 09/02/21 SUBJECTIVE: 81 year old white female hospitalized with dehydration, weakness and UTI. The patient's overall hydration status seems to have improved. The patient has chronic lung disease and she has been on Ventolin HFA. The patient right now is being given Dexamethasone 6mg IV, iron supplements, Lasix 20mg PO being given daily. The patient's INR is 1.7 with Protime of 17.9. TSH was reported as normal. The patient's Troponin level and Cardiac markers are negative. Hgb is 9, hct 28 stable. The patient's appetite has improved. REVIEW OF SYSTEMS: CONSTITUTIONAL: No night sweats. No fatigue, malaise, lethargy. No fever or chills. HEENT: Eyes: No visual changes. No eye pain. No eye discharge. ENT: No runny nose. No epistaxis. No sinus pain. No sore throat. No odynophagia. No congestion. RESPIRATORY: No cough, no congestion. No hemoptysis. No shortness of breath. CARDIOVASCULAR: No angina symptoms. No CHF symptoms. No atypical chest pain for CAD. No palpitations. No PND. No orthopnea. GASTROINTESTINAL: No abdominal pain. No nausea or vomiting. No diarrhea or constipation. No hematemesis. No hematochezia. GENITOURINARY: No urgency. No frequency. No dysuria. No hematuria. No obstructive symptoms. No discharge. No pain. No significant abnormal bleeding. MUSCULOSKELETAL: No musculoskeletal pain; no joint swelling. NEUROLOGICAL: No headache. No neck pain. No syncope. No seizures. No dizziness. PSYCHIATRIC: Not anxious. No depression. No suicidal thoughts. No homicidal thoughts. SKIN: No rash. No lesions. No wounds. ENDOCRINE: No unexplained weight loss. No weight gain. HEMATOLOGIC/LYMPHATIC: No anemia. No purpura. No petechiae. No prolonged or excessive bleeding. No palpable lymph nodes. PHYSICAL EXAMINATION: VITAL SIGNS: Temperature 98.6, pulse 60, respiratory rate 18, blood pressure 130/70 and pulse ox 100% on 2 liters. HEENT: Head normocephalic, atraumatic. Eyes: Extraocular muscles are intact. Pupils are equal, round and reactive to light and accommodation. Ears: No lesions. Nose appeared normal. Throat: No exudate or erythema. NECK: Supple. No JVD, no carotid bruit. No lymphadenopathy or thyromegaly. LUNGS:Decreased breath sounds but clear to auscultation. Percussion note normal. Chest symmetrical. HEART: S1, S2, no S3. No murmurs. No cyanosis or clubbing. No ascites. Pulses: Dorsalis pedis and posterior tibial pulses +1 to +2 bilaterally. ABDOMEN: Soft. Nontender. Bowel sounds active. No CVA tenderness. No mass felt. EXTREMITIES: No edema. Full range of motion of all extremities, equal. NEUROLOGIC: No focal deficit. Cranial nerves II through XII are grossly intact. No headache. No double vision. SKIN: Not dry. Intact. Turgor - somewhat better. LYMPHATIC: No palpable lymph nodes/no lymphedema. MUSCULOSKELETAL: Normal joints with no swelling. Muscle tone is normal. ASSESSMENT: 1. Dehydration/weakness seems to be better. PLAN: 1. Encourage the patient to eat. 2. Cardiovascular stable with no evidence of acute ME or ischemia 3. The patient is being given Cefepime for UTI CONDITION: Stable. TIME SPENT: More than 30 minutes. Plan and coordination of the patient's care discussed in the presence of nurse. ANN
--- NOTE | 2021-11-11 10:44 | DS ---
DATE OF SERVICE: 10/24/21 FINAL DIAGNOSIS: 1. COVID 19 pneumonia, resolved 2. COPD 3. Failure to thrive 4. Depression 5. Hypercoagulopathy 6. Atrial fibrillation DISCHARGE INSTRUCTIONS: Discharge today back to [facility]. PT/OT/MATHEMATICS INSTRUCTOR and dietary evaluation and treatment as needed. CODE STATUS: DNR. Repeat PT/INR on Thursday10/28/21. Continue all other medications. Continue all other routine long term facility orders. MEDICATIONS AT DISCHARGE: Proair HFA two puffs Q 4 hours PRN Nitrostat 0.4mg Sublingual Singular 10mg PO daily Keppra 250mg PO BID Incruse Ellipta 62.5mcg Inhalation daily Lasix 20mg PO daily Fluticasone propionate 2 spray nasal daily Creon 6000 units PO QID Lipitor 40mg PO BEDTIME Zyrtec 10mg PO daily Synthroid 75mcg PO QDAC Centrum Silver 1 each PO daily Ferrous sulfate 325mg PO daily Metoclopramide 5mg PO TID PRN Omeprazole 40mg PO BID Percocet 7.5-325mg PO BID Isosorbide mononitrate 30mg PO daily Cozaar 12.5mg PO daily Ascorbic acid 500mg PO daily Milk of Magnesia 30ml PO bedtime Bisacodyl 10mg NC daily PRN NEW PRESCRIPTIONS: 1. REMRON 7.5 MG TAB (TAKE AT BEDTIME) 2. PREDNISONE 10MG (TAKE DAILY FOR 5 DAYS, NEXT DOSE 10/25/2021) 3. POTASSIUM TAB 10 MEQ (TAKE DAILY) 4. COUMADIN 1MG (TAKE EVERY OTHER DAY. NEXT DOSE IS Thursday10/25/2021) DISCONTINUED MEDICATIONS: 1. XANAX 2. PEPCID 3. ZINC 3. LOVENOX DIET INSTRUCTIONS: Thin liquid, minced and moist as tolerated. ACTIVITY: 1-2 assist, walker, wheelchair. Mechanical lift if needed. HOSPITAL COURSE: 81 year old white female who is a resident at [facility] where she contract COVID. She had been on Coumadin long term care administrator for atrial fibrillation. She received the antibody infusion on Thursday and had an INR on Thursday which was elevated. We held the Coumadin and checked the INR two days later and despite that it continued to increase. On the day of admission her INR was reported to be 10 at long term and I do believe it is 9.7 here. She was admitted for hypercoagulopathy. Really her COVID symptoms were very mild. Chest x-ray did note that she had some questionable pneumonitis however she had no respiratory problems. She was admitted and given 10mg of Vitamin K orally and this did bring her INR down. We continued to hold her Coumadin until her INR was less than 2. We then restarted her Coumadin at 1mg every other day. Initially daily it zander 1 point within on day so we sent her back to the long term on 1mg every other days. She only required 1 treatment of Vitamin K. However while she was here she did have profound weakness. Kidney function was slightly elevated. She did get some IV fluids, Rocephin and Zithromax for the opacities on the chest x-ray. U/A was normal. Her respiratory status had unchanged. She was still on 2 liters of O2 at discharge. However she refused to eat and do much of anything for herself while she was here. Even as little as pull up the covers in her bed. We tried to get physical therapy to work with her and she refused. I had a long discussion with the daughter about her prognosis if she continued to refuse to eat. I discussed with the patient the prognosis if she continued to refuse to eat, drink or anything. I recommended that if this was going to be her decision that we should consider Hospice and she refused that as well. We will send her back to the long term. She is stable at this point but condition is also guarded as she refuses to eat. Respiratory status is at baseline. Her INR is therapeutic. She has been tolerating the Coumadin and there are been no jumps in her INR. She will go back with PT/OT and speech consult. I have started her on Megace 40mg daily and we will see. PROGNOSIS: Poor TIME SPENT: More than 60 minutes. ANN
== END 2021-10-24 16:00 | DRG 177 ==
LOC: ED 11:00 → SCU 15:06 → MEDSURG A 10-23 14:02
PROVIDERS: ADMIT Internal Medicine; ATTEND Internal Medicine
DX: M40.209 Unspecified kyphosis, site unspecified; N39.0 Urinary tract infection, site not specified; I25.5 Ischemic cardiomyopathy; R41.82 Altered mental status, unspecified; Z51.81 Encounter for therapeutic drug level monitoring; Z79.899 Other long term (current) drug therapy; E87.5 Hyperkalemia; R53.83 Other fatigue; J12.82 Pneumonia due to coronavirus disease 2019; I25.10 Atherosclerotic heart disease of native coronary artery without angina pectoris; R79.9 Abnormal finding of blood chemistry, unspecified; F32.A Depression, unspecified; I48.91 Unspecified atrial fibrillation; N18.30 Chronic kidney disease, stage 3 unspecified; D64.9 Anemia, unspecified; I10 Essential (primary) hypertension; J44.1 Chronic obstructive pulmonary disease with (acute) exacerbation; J96.10 Chronic respiratory failure, unspecified whether with hypoxia or hypercapnia; R62.7 Adult failure to thrive; U07.1 COVID-19; Z79.01 Long term (current) use of anticoagulants; E86.0 Dehydration